=== PATIENT | female | born 1950 | race Caucasian/White ===

== ENCOUNTER 2019-08-16 09:31 | Inpatient (IN) | payer MEDICARE, OTHER ==
[~2019-08-16] VITALS: Ht 157.5 cm; Wt 115.4 kg
[2019-08-16] VITALS (8 sets, daily range): BP systolic 89–105; BP diastolic 48–86
[~2019-08-16 09:31] MED LIST: ACET325T21 PO; ACET325T9 PO; ALOG6.252 PO; AMIO200T4 PO; ANIDULAFUNGIN 100 MG IV; ANIDULAFUNGIN IV; APIX5TAB PO; ATOR10TA60 PO; CLON0.2T PO; DAPT350V IV; DEXT37.5 PO; DIPH50SY IJ; ESCITALOPRAM OX10 MG PO; FENT50VI6 IVP; FERR325T14 PO; FOLI0.8T3 PO; GLUC1VIA IJ; HEPA100D36 IV; HYDROmorphone 2 MG/ML VIAL IV PRN; INSU100C SQ; INSU100V6 SQ; INSU100V8 SQ; IV RINGERS,LACTATED 1000ML 1,000 ML IV SCH; LEVO100T5 PO; LEVO75TA5 PO; LIDO1ADH44 TP; LIDO700A21 TP; LIDOCAINE 1% PF 2 ML VIAL. ID PRN; LIDOCAINE 1% SQ; MELA3TAB56 PO; MERO500V15 IV; METO25TA4 PO; MODA200T2 PO; MORPHINE SULFATE 2 MG/ML VIAL. IV PRN; NITR0.4T22 SL; NORT25CA PO; ONDA2VIA2 IV; PANT40GR PO; PIPE13.5 IV; PREG300C PO; PROCHLORPERAZINE 10 MG/2 ML VIAL. IV PRN; SEVE800T9 PO; VANC1PIG IV; [UNRECOGNIZED DRUG - CODE] IJ; [UNRECOGNIZED DRUG - CODE] IJ; [UNRECOGNIZED DRUG - CODE] IV; [UNRECOGNIZED DRUG - OTHER] TOP; fentaNYL PF VIAL 100 MCG/2 ML VIAL IV PRN
[2019-08-16] MEDS ORDERED: HYDR-2761 PO (10:18)
[2019-08-16] MEDS ORDERED: LACT20SO PO (10:18)
[2019-08-16] MEDS ORDERED: FAMO-63 PO (10:18)
[2019-08-16] MEDS ORDERED: SENN-161 PO (10:18)
[2019-08-16] MEDS ORDERED: LACT1CAP6 PO (10:18)
[2019-08-16] MEDS: INSULIN LISPRO 100 UNIT/ML 3ML VIAL for OP,RR ONLY. SQ PRN ×2 (10:32→14:38)
[2019-08-16] MEDS: IV NORMAL SALINE 1000ML BAG 1,000 ML IV SCH (10:48)
[2019-08-16 10:51] LABS: CREATININE 2.3 mg/dL (0.6-1.0); GFR 21.2; POTASSIUM 3.9 mmol/L (3.5-5.1)
[2019-08-16 10:56] LABS: ALBUMIN 0.9 g/dL (3.4-5.0); ALBUMIN/GLOBULIN RATIO 0.2 (1.0-1.7); TOTAL BILIRUBIN 0.3 mg/dL (0.2-1.0); TOTAL PROTEIN 6.2 g/dL (6.4-8.2)
[2019-08-16] MEDS ORDERED: HEPARIN SODIUM 5,000 UNIT in IV NORMAL SALINE 500ML BAG 500 ML IRR ONE (11:00)
[2019-08-16 11:04] LABS: BASO # 0.1 x10^3/uL (0.0-0.2); BASO % 1 % (0-3); EOS # 0.2 x10^3/uL (0.0-0.7); EOS % 1 % (0-3); HEMATOCRIT 25.6 % (36.0-47.0); LYMPH % 24 % (24-48); MEAN CORPUSCULAR HEMOGLOBIN 29 pg (25-35); MEAN CORPUSCULAR HGB CONC 31 g/dL (31-37); MEAN CORPUSCULAR VOLUME 92 fL (79-100); MONO # 1.2 x10^3/uL (0.0-1.1); MONO % 7 % (0-9); NEUT # 11.5 x10^3/uL (1.8-7.7); NEUT % 68 % (31-73); PLATELET COUNT 190 x10^3/uL (140-400); RED BLOOD COUNT 2.77 x10^6/uL (3.50-5.40); RED CELL DISTRIBUTION WIDTH 19.1 % (11.5-14.5)
[2019-08-16] MEDS ORDERED: LIDOCAINE 2% PF 5 ML VIAL. ONE (11:10)
[2019-08-16] MEDS ORDERED: ROCURONIUM 50 MG/5 ML VIAL. ONE (11:10)
[2019-08-16] MEDS ORDERED: PROPOFOL 20 ML IV ONE (11:10)
[2019-08-16] MEDS ORDERED: fentaNYL PF VIAL 100 MCG/2 ML VIAL ONE (11:11)
[2019-08-16 11:12] LABS: PROTHROMBIN TIME PATIENT 14.5 SEC (11.7-14.0)
[2019-08-16] MEDS ORDERED: SURGICEL FIBRILLAR 1X2 EACH. ONE (11:38)
--- NOTE | 2019-08-16 11:59 | PDOC ---
SURGICAL PROGRESS NOTE Subjective Gen Surg Pre Op Note 69 yo F with multiple medical problems TO OR for redebridement of sacral ulcer. Will also excise anal condyloma R/R/B/A d/w pt. D/w Vascular service. Pt is poor candidate for colostomy, given obesity and large abd wall. Vital Signs Vital Signs Date Time Temp Pulse Resp B/P (MAP) Pulse Ox O2 Delivery O2 Flow Rate FiO2 08/16/19 10:44 98.0 81 20 92/42 97 Nasal Cannula 3 98.0 Labs Laboratory Tests Test 08/16/19 10:20 08/16/19 10:26 08/16/19 11:35 White Blood Count 17.0 x10^3/uL (4.0-11.0) Red Blood Count 2.77 x10^6/uL (3.50-5.40) Hemoglobin 8.0 g/dL (12.0-15.5) Hematocrit 25.6 % (36.0-47.0) Mean Corpuscular Volume 92 fL (79-100) Mean Corpuscular Hemoglobin 29 pg (25-35) Mean Corpuscular Hemoglobin Concent 31 g/dL (31-37) Red Cell Distribution Width 19.1 % (11.5-14.5) Platelet Count 190 x10^3/uL (140-400) Neutrophils (%) (Auto) 68 % (31-73) Lymphocytes (%) (Auto) 24 % (24-48) Monocytes (%) (Auto) 7 % (0-9) Eosinophils (%) (Auto) 1 % (0-3) Basophils (%) (Auto) 1 % (0-3) Neutrophils # (Auto) 11.5 x10^3/uL (1.8-7.7) Lymphocytes # (Auto) 4.0 x10^3/uL (1.0-4.8) Monocytes # (Auto) 1.2 x10^3/uL (0.0-1.1) Eosinophils # (Auto) 0.2 x10^3/uL (0.0-0.7) Basophils # (Auto) 0.1 x10^3/uL (0.0-0.2) Prothrombin Time 14.5 SEC (11.7-14.0) Prothromb Time International Ratio 1.2 (0.8-1.1) Activated Partial Thromboplast Time 43 SEC (24-38) Sodium Level 133 mmol/L (136-145) Potassium Level 3.9 mmol/L (3.5-5.1) Chloride Level 95 mmol/L (98-107) Carbon Dioxide Level 31 mmol/L (21-32) Anion Gap 7 (6-14) Blood Urea Nitrogen 34 mg/dL (7-20) Creatinine 2.3 mg/dL (0.6-1.0) Estimated GFR (Cockcroft-Gault) 21.2 BUN/Creatinine Ratio 15 (6-20) Glucose Level 255 mg/dL (70-99) Calcium Level 9.0 mg/dL (8.5-10.1) Total Bilirubin 0.3 mg/dL (0.2-1.0) Aspartate Amino Transf (AST/SGOT) 40 U/L (15-37) Alanine Aminotransferase (ALT/SGPT) 10 U/L (14-59) Alkaline Phosphatase 331 U/L (46-116) Total Protein 6.2 g/dL (6.4-8.2) Albumin 0.9 g/dL (3.4-5.0) Albumin/Globulin Ratio 0.2 (1.0-1.7) Glucose (Fingerstick) 234 mg/dL (70-99) 222 mg/dL (70-99) Laboratory Tests Test 08/16/19 10:20 08/16/19 10:26 08/16/19 11:35 White Blood Count 17.0 x10^3/uL (4.0-11.0) Red Blood Count 2.77 x10^6/uL (3.50-5.40) Hemoglobin 8.0 g/dL (12.0-15.5) Hematocrit 25.6 % (36.0-47.0) Mean Corpuscular Volume 92 fL (79-100) Mean Corpuscular Hemoglobin 29 pg (25-35) Mean Corpuscular Hemoglobin Concent 31 g/dL (31-37) Red Cell Distribution Width 19.1 % (11.5-14.5) Platelet Count 190 x10^3/uL (140-400) Neutrophils (%) (Auto) 68 % (31-73) Lymphocytes (%) (Auto) 24 % (24-48) Monocytes (%) (Auto) 7 % (0-9) Eosinophils (%) (Auto) 1 % (0-3) Basophils (%) (Auto) 1 % (0-3) Neutrophils # (Auto) 11.5 x10^3/uL (1.8-7.7) Lymphocytes # (Auto) 4.0 x10^3/uL (1.0-4.8) Monocytes # (Auto) 1.2 x10^3/uL (0.0-1.1) Eosinophils # (Auto) 0.2 x10^3/uL (0.0-0.7) Basophils # (Auto) 0.1 x10^3/uL (0.0-0.2) Prothrombin Time 14.5 SEC (11.7-14.0) Prothromb Time International Ratio 1.2 (0.8-1.1) Activated Partial Thromboplast Time 43 SEC (24-38) Sodium Level 133 mmol/L (136-145) Potassium Level 3.9 mmol/L (3.5-5.1) Chloride Level 95 mmol/L (98-107) Carbon Dioxide Level 31 mmol/L (21-32) Anion Gap 7 (6-14) Blood Urea Nitrogen 34 mg/dL (7-20) Creatinine 2.3 mg/dL (0.6-1.0) Estimated GFR (Cockcroft-Gault) 21.2 BUN/Creatinine Ratio 15 (6-20) Glucose Level 255 mg/dL (70-99) Calcium Level 9.0 mg/dL (8.5-10.1) Total Bilirubin 0.3 mg/dL (0.2-1.0) Aspartate Amino Transf (AST/SGOT) 40 U/L (15-37) Alanine Aminotransferase (ALT/SGPT) 10 U/L (14-59) Alkaline Phosphatase 331 U/L (46-116) Total Protein 6.2 g/dL (6.4-8.2) Albumin 0.9 g/dL (3.4-5.0) Albumin/Globulin Ratio 0.2 (1.0-1.7) Glucose (Fingerstick) 234 mg/dL (70-99) 222 mg/dL (70-99) SHAMEKA CROCKER MD Aug 16, 2019 11:59
[2019-08-16] MEDS ORDERED: ONDANSETRON PF 4 MG/2 ML VIAL. ONE ×2 (12:14→13:11)
[2019-08-16] MEDS ORDERED: PHENYLEPHRINE in 0.9% NACL PF 1 MG/10 ML SYRINGE. IV ONE (12:14)
[2019-08-16] MEDS ORDERED: DESFLURANE 31 TO 60 MINUTES IH ONE (12:14)
[2019-08-16] MEDS ORDERED: PHENYLEPHRINE 10 MG/ML VIAL. ONE (12:29)
[2019-08-16] MEDS ORDERED: ceFAZolin SODIUM 1 GM in IV NORMAL SALINE 1000ML BAG 1,000 ML IRR ONE ×2 (12:30→13:00)
--- NOTE | 2019-08-16 13:00 | PDOC4 ---
Operative Note Operative Note Operative Report Dictated Pre-op: right groin open wound with necrotic tissue, right above knee amputation open wound with necrotic tissue Post-op: same Operation: right groin debridement and right above the knee amputation wound debridement with wound vac dressing placements Surgeon: Dr. Citlaly Antony Blood loss:20ml Anesthesia: general CITLALY ANTONY MD Aug 16, 2019 13:00
[2019-08-16] MEDS ORDERED: DESFLURANE 61 TO 120 MINUTES IH ONE (13:11)
--- NOTE | 2019-08-16 13:18 | OP ---
DATE OF SURGERY: 08/16/2019 SURGEON: Citlaly Antony M.D. PREOPERATIVE DIAGNOSES: 1. Right groin open wound with necrotic tissue, history of right femoral endarterectomy in the recent past. 2. Right vgqxy-aub-gyky amputation open wound with extensive necrotic tissue. POSTOPERATIVE DIAGNOSES: 1. Right groin open wound with necrotic tissue, history of right femoral endarterectomy in the recent past. 2. Right byuof-jsx-yruy amputation open wound with extensive necrotic tissue. OPERATION PERFORMED: 1. Right groin sharp excisional debridement removing necrotic skin and subcutaneous tissue throughout the wound bed, wound measurements after debridement were approximately 7 cm in length x 4 cm in width x 2 cm in depth. 2. Right groin wound VAC placement. 3. Right etshc-vbq-bwmp amputation, large open wound, sharp excisional debridement removing necrotic skin, subcutaneous tissue, muscle and tendon throughout the wound, measurements after debridement were approximately 30 cm in length x 10 cm in width x 8 cm in depth. 4. Right ijhyp-lhq-oomv open amputation wound VAC placement. BLOOD LOSS: Approximately 20 mL. ANESTHESIA USED: General anesthesia. INDICATIONS: The patient is a 69-year-old female who in the past has undergone a right femoral endarterectomy and right gzfpd-moi-phyk amputation. She developed severe sepsis and infection of her below knee amputation site, which was revised to an above-knee amputation, the skin was left open with a wound VAC because of the significant infection. She also underwent right groin debridement. She has developed more necrotic tissue within her right groin and extensive necrotic tissue throughout her right rzyux-apn-fhyf amputation subcutaneous open wound. She also has a history of a large sacral decubitus ulcer, which was debrided recently by Dr. Khalil. She has further necrotic tissue in her sacrum, which needs surgical debridement. We recommend surgical debridement of the right groin, right xzjzg-jaz-bkqg open amputation site and sacral decubitus ulcer. I will perform the debridement of her right groin and right sqlqd-lee-rxdg amputation wound. An informed consent was obtained. Dr. Khalil will be working on her sacral decubitus wound. DESCRIPTION OF PROCEDURE: The patient was brought to the operating room and placed on table in supine position. She received general anesthesia monitored throughout the case by the anesthesiologist. Her right open groin wound and right qqmen-imx-umsd amputation wound were prepped and draped by normal sterile fashion using Betadine. We draped the patient. I began by debriding her right groin. There was necrotic skin and subcutaneous tissue throughout the wound bed, which was debrided. There were areas of good granulation tissue. The wound was not deep down to the vessels. There was granulation tissue well covering all the deeper vascular structures. Hemostasis was gained with electrocautery. This wound was irrigated with antibiotic solution. Measurements are listed above. I then sharply debrided her above knee open amputation wound. Necrotic skin and subcutaneous tissue throughout the wound bed along with copious amounts of muscle were removed. There were areas of tendon, which were also removed sharply. We explored all tunneling areas, ensure that all the areas were opened and debrided well. She had good bleeding from the wound bed, which was controlled with electrocautery. When there was no further gross necrotic tissue, we irrigated with copious amounts of antibiotic solution. When she again good hemostasis, we placed wound VAC dressing to her open amputation stump. We also placed a second wound VAC to the right groin and sealed them with Y adapter to suction. She tolerated this portion of the procedure. She will move on to the sacral decubitus debridement by Dr. Khalil. CITLALY ANTONY MD DR: SUJEY/estrellita JOB#: [id number] / [id number]
--- NOTE | 2019-08-16 13:23 | PDOC1 ---
History and Physical Date of Admission Date of Admission DATE: 08/16/19 TIME: 13:23 Past Medical History Cardiovascular: AFIB, CHF, Pulmonary hypertension, Other Pulmonary: COPD Renal/: Chronic renal failure Endocrine: Diabetes, Hypothyroidism, Hyperparathyroidism Past Surgical History Past Surgical History: Colon Resection, Other Family History Family History: High Cholestrol, Other Social History Smoke: No ALCOHOL: none Drugs: None Current Medications Current Medications Current Medications Fentanyl Citrate (Fentanyl 2ml Vial) 25 mcg PRN Q5MIN PRN IV MILD PAIN 1-3; Start 08/16/19 at 08:30; Stop 08/17/19 at 08:29 Fentanyl Citrate (Fentanyl 2ml Vial) 50 mcg PRN Q5MIN PRN IV MODERATE TO SEVERE PAIN; Start 08/16/19 at 08:30; Stop 08/17/19 at 08:29 Morphine Sulfate (Morphine Sulfate) 1 mg PRN Q10MIN PRN IV SEVERE PAIN 7-10; Start 08/16/19 at 08:30; Stop 08/17/19 at 08:29 Ringer's Solution 1,000 ml @ 30 mls/hr Q24H IV ; Start 08/16/19 at 08:25; Stop 08/16/19 at 20:24; Status Cancel Lidocaine HCl (Xylocaine-Mpf 1% 2ml Vial) 2 ml PRN 1X PRN ID PRIOR TO IV START; Start 08/16/19 at 08:30; Stop 08/17/19 at 08:29 Hydromorphone HCl (Dilaudid) 0.5 mg PRN Q10MIN PRN IV SEV PAIN, Second choice; Start 08/16/19 at 08:30; Stop 08/17/19 at 08:29 Prochlorperazine Edisylate (Compazine) 5 mg PACU PRN PRN IV NAUSEA, MRX1; Start 08/16/19 at 08:30; Stop 08/17/19 at 08:29 Cefazolin Sodium/ Dextrose 50 ml @ 100 mls/hr 1X ONCE IV Last administered on 08/16/19at 11:55; Start 08/16/19 at 10:00; Stop 08/16/19 at 10:29; Status DC Insulin Human Lispro (HumaLOG VIAL for OP,RR ONLY) 0-10 units PRN Q1HR PRN SQ PER PROTOCOL Last administered on 08/16/19at 10:32; Start 08/16/19 at 10:30; Stop 08/17/19 at 10:29 Heparin Sodium (Porcine) 5000 unit/Sodium Chloride 505 ml @ 505 mls/hr 1X ONCE IRR ; Start 08/16/19 at 11:00; Stop 08/16/19 at 11:59; Status DC Cefazolin Sodium 1 gm/Sodium Chloride 500 ml @ 500 mls/hr 1X ONCE IRR Last administered on 08/16/19at 12:19; Start 08/16/19 at 11:00; Stop 08/16/19 at 11:59; Status DC Sodium Chloride 1,000 ml @ 75 mls/hr [id number] IV Last administered on 08/16/19at 10:48; Start 08/16/19 at 10:45 Propofol 20 ml @ As Directed STK-MED ONCE IV ; Start 08/16/19 at 11:10; Stop 08/16/19 at 11:11; Status DC Lidocaine HCl (Lidocaine Pf 2% Vial) 5 ml STK-MED ONCE .ROUTE ; Start 08/16/19 at 11:10; Stop 08/16/19 at 11:11; Status DC Rocuronium [place] (Zemuron) 50 mg STK-MED ONCE .ROUTE ; Start 08/16/19 at 11:10; Stop 08/16/19 at 11:11; Status DC Fentanyl Citrate (Fentanyl 2ml Vial) 100 mcg STK-MED ONCE .ROUTE ; Start 08/16/19 at 11:11; Stop 08/16/19 at 11:11; Status DC Cellulose (Surgicel Fibrillar 1x2) 1 each STK-MED ONCE .ROUTE ; Start 08/16/19 at 11:38; Stop 08/16/19 at 11:38; Status DC Ondansetron HCl (Zofran) 4 mg STK-MED ONCE .ROUTE ; Start 08/16/19 at 12:14; Stop 08/16/19 at 12:14; Status DC Phenylephrine HCl (PHENYLEPHRINE in 0.9% NACL PF) 1 mg STK-MED ONCE IV ; Start 08/16/19 at 12:14; Stop 08/16/19 at 12:14; Status DC Desflurane (Suprane) 30 ml STK-MED ONCE IH ; Start 08/16/19 at 12:14; Stop 10/1/19 at 12:14; Status DC Cefazolin Sodium 1 gm/Sodium Chloride 1,000 ml @ 1,000 mls/hr 1X ONCE IRR ; Start 08/16/19 at 13:00; Stop 08/16/19 at 13:59 Cefazolin Sodium 1 gm/Sodium Chloride 1,000 ml @ 1,000 mls/hr 1X ONCE IRR ; Start 08/16/19 at 12:30; Stop 08/16/19 at 13:29 Phenylephrine HCl (Von-Synephrine Inj) 10 mg STK-MED ONCE .ROUTE ; Start 08/16/19 at 12:29; Stop 08/16/19 at 12:29; Status DC Ondansetron HCl (Zofran) 4 mg STK-MED ONCE .ROUTE ; Start 08/16/19 at 13:11; Stop 08/16/19 at 13:11; Status DC Desflurane (Suprane) 60 ml STK-MED ONCE IH ; Start 08/16/19 at 13:11; Stop 08/16/19 at 13:11; Status DC Active Scripts Active Reported Senna-Docusate Sodium Tablet (Sennosides/Docusate Sodium) 1 Each Tablet 1 Each PO BID Lactulose 20 Gm/30 Ml Solution 20 Gm PO BID PRN Probiotic (Lactobacillus Acidophilus) 1 Each Capsule 2 Each PO BID Hydrocodone-Apap 5-325 (Hydrocodone Bit/Acetaminophen) 1 Tab Tablet 1 Tab PO PRN Q6HRS PRN Pepcid (Famotidine) 20 Mg Tablet 20 Mg PO HS [anidulafungin 100mg] 100 Mg IV QHS [clorpactin 2gm powd] 1 Gm TOP DAILY Humalog (Insulin Lispro) 100 Unit/1 Ml Vial 4 Unit SQ Q6HRS Meropenem 500 Mg Vial 500 Mg IV QHS Daptomycin 350 Mg Vial 350 Mg IV DAILY Humalog (Insulin Lispro) 100 Unit/1 Ml Cartridge 100 Units SQ Q6HRS Diphenhydramine HCl 50 Mg/1 Ml Cartridge 25 Mg IJ PRN Q4HRS PRN Glutose 15 (Dextrose) 37.5 Gm Gel..gram. 15 Gm PO PRN Q15MIN PRN Retacrit (Epoetin Rajeev-Epbx) 3,000 Unit/1 Ml Vial 3,000 Unit IJ QMWF Renvela (Sevelamer Carbonate) 800 Mg Tablet 800 Mg PO TIDWMEALS Alogliptin (Alogliptin Benzoate) 6.25 Mg Tablet 6.25 Mg PO DAILY Tylenol (Acetaminophen) 325 Mg Tablet 2 Tab PO PRN Q4HRS Lyrica (Pregabalin) 300 Mg Capsule 1 Cap PO BID Clonidine Hcl 0.2 Mg Tablet 1 Tab PO PRN DAILY PRN NITROGLYCERIN SubLingual (Nitroglycerin) 0.4 Mg Tab.subl 1 Tab SL UD Heparin 1,000 Unit/10 (100/ml) (Heparin Sodium,Porcine/Pf) 1,000 Unit/10 Ml Syringe 3.5 Ml IV PRN DAILY PRN Levothyroxine Sodium 100 Mcg Tablet 1 Tab PO DAILY06 Escitalopram Oxalate 10 Mg Tablet 1 Tab PO DAILY Nortriptyline Hcl 25 Mg Capsule 1 Cap PO QHS Atorvastatin Calcium 10 Mg Tablet 1 Tab PO QHS Metoprolol Tartrate 25 Mg Tablet 1 Tab PO BID Lantus (Insulin Glargine,Hum.rec.anlog) 100 Unit/1 Ml Vial 20 Unit SQ DAILY Amiodarone Hcl 200 Mg Tablet 1 Tab PO BID Allergies Allergies: Coded Allergies: I S O L A T I O N *CONTACT* (Verified Allergy, Unknown, 08/16/19) ESBL No Known Medication Allergies (Verified Allergy, Unknown, 08/16/19) ROS Review of System CONSTITUTIONAL: No fever or chills EYES: No recent changes SKIN: No rash or itching CARDIOVASCULAR: No chest pain, syncope, palpitations, or edema RESPIRATORY: No SOB or cough GASTROINTESTINAL: No nausea, vomiting or abdominal pain NEUROLOGICAL: No headaches or weakness ENDOCRINE: No cold or heat intolerance GENITOURINARY: No urgency or frequency of urination MUSCULOSKELETAL: No back pain or joint pain LYMPHATICS: No enlarged lymph nodes PSYCHIATRIC: No anxiety or depression Physical Exam Physical Exam Past Medical History Cardiovascular: AFIB, CHF, Pulmonary hypertension, Other Pulmonary: COPD Renal/: Chronic renal failure Endocrine: Diabetes, Hypothyroidism Past Surgical History Past Surgical History: Colon Resection Family History Family History reviewed and noncontributory Family History: Other Social History Smoke: No ALCOHOL: none Drugs: None Current Medications Current Medications Current Medications Zolpidem Tartrate (Ambien) 5 mg PRN QHS PRN PO INSOMNIA, MAY REPEAT IN 1HR; Start 08/09/19 at 16:15 Acetaminophen/ Hydrocodone Bitart (Lortab 5/325) 1 tab PRN Q4HRS PRN PO MILD PAIN 1-3; Start 08/09/19 at 16:15 Senna/Docusate Sodium (Senna Plus) 1 tab BID PO ; Start 08/09/19 at 21:00 Magnesium Hydroxide (Milk Of Magnesia) 2,400 mg PRN Q12HR PRN PO CONSTIPATION; Start 08/09/19 at 16:15 Lactulose (Lactulose) 20 gm PRN Q12HR PRN PO CONSTIPATION; Start 08/09/19 at 16:15 Active Scripts Active Reported Vancomycin 1 Gram/200 ml Bag (Vancomycin/Water For Inj (Peg)) 1 Gm/200 Ml Piggyback 500 Mg IV QMWF Lyrica (Pregabalin) 300 Mg Capsule 1 Cap PO BID Clonidine Hcl 0.2 Mg Tablet 1 Tab PO PRN DAILY PRN NITROGLYCERIN SubLingual (Nitroglycerin) 0.4 Mg Tab.subl 1 Tab SL UD Heparin 1,000 Unit/10 (100/ml) (Heparin Sodium,Porcine/Pf) 1,000 Unit/10 Ml Syringe 3.5 Ml IV PRN DAILY PRN Levothyroxine Sodium 100 Mcg Tablet 1 Tab PO DAILY06 Escitalopram Oxalate 10 Mg Tablet 2 Tab PO DAILY Nephro-Murphy Tablet (Folic Acid/Vitamin B Comp W-C) 0.8 Mg Tablet 1 Tab PO DAILYWSUP Nortriptyline Hcl 25 Mg Capsule 1 Cap PO QHS Atorvastatin Calcium 10 Mg Tablet 1 Tab PO QHS Levothyroxine Sodium 75 Mcg Tablet 1 Tab PO DAILY Piperacil-Tazobact 13.5 gm Vl (Piperacillin Sodium/Tazobactam) 13.5 Gm Vial 3.375 Gm IV BID Metoprolol Tartrate 25 Mg Tablet 1 Tab PO BID Melatonin 3 Mg Tablet 1 Tab PO QHS Lantus (Insulin Glargine,Hum.rec.anlog) 100 Unit/1 Ml Vial 20 Unit SQ DAILY Retacrit (Epoetin Rajeev-Epbx) 2,000 Unit/1 Ml Vial 1,000 Unit IJ QMWF Amiodarone Hcl 200 Mg Tablet 1 Tab PO BID Allergies Allergies: Coded Allergies: I S O L A T I O N *CONTACT* (Verified Allergy, Unknown, 07/25/19) ESBL No Known Medication Allergies (Verified Allergy, Unknown, 07/25/19) ROS Review of System CONSTITUTIONAL: No fever or chills EYES: No recent changes SKIN: No rash or itching CARDIOVASCULAR: No chest pain, syncope, palpitations, or edema RESPIRATORY: No SOB or cough GASTROINTESTINAL: No nausea, vomiting or abdominal pain NEUROLOGICAL: No headaches or weakness ENDOCRINE: No cold or heat intolerance GENITOURINARY: No urgency or frequency of urination MUSCULOSKELETAL: No back pain or joint pain LYMPHATICS: No enlarged lymph nodes PSYCHIATRIC: No anxiety or depression Physical Exam Physical Exam GENERAL: No apparent distress. Alert and oriented. obese HEENT: Head normocephalic, atraumatic. NECK: Supple LUNGS: Clear to auscultation. HEART: RRR, S1, S2 present, pulses intact ABDOMEN: Soft, positive bowel sounds. + G tube EXTREMITIES: No cyanosis or edema. right BKA with stump infection. NEUROLOGIC: Normal speech, normal tone PSYCHIATRIC: Normal affect, normal mood. SKIN: sacral ucler pos debridement Breasts: Not examined Rectal Exam: not examined Extremities: No cyanosis + hubbard, + rectal tube Breasts: Not examined Rectal Exam: not examined Extremities: No cyanosis Vitals Vitals Vital Signs Date Time Temp Pulse Resp B/P (MAP) Pulse Ox O2 Delivery O2 Flow Rate FiO2 08/16/19 10:44 98.0 81 20 92/42 97 Nasal Cannula 3 98.0 Labs Labs Laboratory Tests Test 08/16/19 10:20 08/16/19 10:26 08/16/19 11:35 White Blood Count 17.0 x10^3/uL (4.0-11.0) Red Blood Count 2.77 x10^6/uL (3.50-5.40) Hemoglobin 8.0 g/dL (12.0-15.5) Hematocrit 25.6 % (36.0-47.0) Mean Corpuscular Volume 92 fL (79-100) Mean Corpuscular Hemoglobin 29 pg (25-35) Mean Corpuscular Hemoglobin Concent 31 g/dL (31-37) Red Cell Distribution Width 19.1 % (11.5-14.5) Platelet Count 190 x10^3/uL (140-400) Neutrophils (%) (Auto) 68 % (31-73) Lymphocytes (%) (Auto) 24 % (24-48) Monocytes (%) (Auto) 7 % (0-9) Eosinophils (%) (Auto) 1 % (0-3) Basophils (%) (Auto) 1 % (0-3) Neutrophils # (Auto) 11.5 x10^3/uL (1.8-7.7) Lymphocytes # (Auto) 4.0 x10^3/uL (1.0-4.8) Monocytes # (Auto) 1.2 x10^3/uL (0.0-1.1) Eosinophils # (Auto) 0.2 x10^3/uL (0.0-0.7) Basophils # (Auto) 0.1 x10^3/uL (0.0-0.2) Prothrombin Time 14.5 SEC (11.7-14.0) Prothromb Time International Ratio 1.2 (0.8-1.1) Activated Partial Thromboplast Time 43 SEC (24-38) Sodium Level 133 mmol/L (136-145) Potassium Level 3.9 mmol/L (3.5-5.1) Chloride Level 95 mmol/L (98-107) Carbon Dioxide Level 31 mmol/L (21-32) Anion Gap 7 (6-14) Blood Urea Nitrogen 34 mg/dL (7-20) Creatinine 2.3 mg/dL (0.6-1.0) Estimated GFR (Cockcroft-Gault) 21.2 BUN/Creatinine Ratio 15 (6-20) Glucose Level 255 mg/dL (70-99) Calcium Level 9.0 mg/dL (8.5-10.1) Total Bilirubin 0.3 mg/dL (0.2-1.0) Aspartate Amino Transf (AST/SGOT) 40 U/L (15-37) Alanine Aminotransferase (ALT/SGPT) 10 U/L (14-59) Alkaline Phosphatase 331 U/L (46-116) Total Protein 6.2 g/dL (6.4-8.2) Albumin 0.9 g/dL (3.4-5.0) Albumin/Globulin Ratio 0.2 (1.0-1.7) Glucose (Fingerstick) 234 mg/dL (70-99) 222 mg/dL (70-99) Laboratory Tests Test 08/16/19 10:20 08/16/19 10:26 08/16/19 11:35 White Blood Count 17.0 x10^3/uL (4.0-11.0) Red Blood Count 2.77 x10^6/uL (3.50-5.40) Hemoglobin 8.0 g/dL (12.0-15.5) Hematocrit 25.6 % (36.0-47.0) Mean Corpuscular Volume 92 fL (79-100) Mean Corpuscular Hemoglobin 29 pg (25-35) Mean Corpuscular Hemoglobin Concent 31 g/dL (31-37) Red Cell Distribution Width 19.1 % (11.5-14.5) Platelet Count 190 x10^3/uL (140-400) Neutrophils (%) (Auto) 68 % (31-73) Lymphocytes (%) (Auto) 24 % (24-48) Monocytes (%) (Auto) 7 % (0-9) Eosinophils (%) (Auto) 1 % (0-3) Basophils (%) (Auto) 1 % (0-3) Neutrophils # (Auto) 11.5 x10^3/uL (1.8-7.7) Lymphocytes # (Auto) 4.0 x10^3/uL (1.0-4.8) Monocytes # (Auto) 1.2 x10^3/uL (0.0-1.1) Eosinophils # (Auto) 0.2 x10^3/uL (0.0-0.7) Basophils # (Auto) 0.1 x10^3/uL (0.0-0.2) Prothrombin Time 14.5 SEC (11.7-14.0) Prothromb Time International Ratio 1.2 (0.8-1.1) Activated Partial Thromboplast Time 43 SEC (24-38) Sodium Level 133 mmol/L (136-145) Potassium Level 3.9 mmol/L (3.5-5.1) Chloride Level 95 mmol/L (98-107) Carbon Dioxide Level 31 mmol/L (21-32) Anion Gap 7 (6-14) Blood Urea Nitrogen 34 mg/dL (7-20) Creatinine 2.3 mg/dL (0.6-1.0) Estimated GFR (Cockcroft-Gault) 21.2 BUN/Creatinine Ratio 15 (6-20) Glucose Level 255 mg/dL (70-99) Calcium Level 9.0 mg/dL (8.5-10.1) Total Bilirubin 0.3 mg/dL (0.2-1.0) Aspartate Amino Transf (AST/SGOT) 40 U/L (15-37) Alanine Aminotransferase (ALT/SGPT) 10 U/L (14-59) Alkaline Phosphatase 331 U/L (46-116) Total Protein 6.2 g/dL (6.4-8.2) Albumin 0.9 g/dL (3.4-5.0) Albumin/Globulin Ratio 0.2 (1.0-1.7) Glucose (Fingerstick) 234 mg/dL (70-99) 222 mg/dL (70-99) VTE Prophylaxis Ordered VTE Prophylaxis Devices: Contraindicated VTE Pharmacological Prophylaxi: Yes Assessment/Plan Assessment/Plan VTE Prophylaxis Ordered VTE Prophylaxis Devices: No VTE Pharmacological Prophylaxi: Yes Assessment/Plan 1. Acute on chronic respiratory failure, multifactorial. 2. Status post right above-knee amputation 3. Status post excisional debridement of necrotic skin and subcutaneous tissue around the right groin with placement of a wound VAC. 4. PAD-S/P R Fem Endartrectomy and BKA for gangrene, now with necrosis and dehiscence. S/p right rdrbw-vig-vdzr amputation with excision of infected gangrene her amputation, status post surgical intervention 5. Right groin incision with extensive gangrene throughout the incision with dehiscence and underlying necrotic tissue from recent femoral endarterectomy. 6. Morbid obesity. 7. Diabetes. 8. Acute on chronic kidney disease requiring hemodialysis. 9. hx Methicillin-resistant Staphylococcus aureus sepsis. 10. Hypertension. 11. Chronic anemia. 12. HX OF Metabolic toxic encephalopathy. 13. UPPER DVT 14. ESRD ON HD 15. sacral cocy wound 16. poor candidate for colostomy, given obesity Operative Note Operative Note Operative Note Operative Report Dictated Pre-op: right groin open wound with necrotic tissue, right above knee amputation open wound with necrotic tissue Post-op: same Operation: right groin debridement and right above the knee amputation wound debridement with wound vac dressing placements Surgeon: Dr. Taryn Antony Blood loss:20ml Anesthesia: general TARYN ANTONY MD Aug 16, 2019 13:00 PLAN admit to medical bed continue IV abx taking at [facility]. restart insulin when takin po continue supplemental 02 consult nutrition, has G tube placed recently on 07/27. presume to optimize nutritional status. unclear if hx of dysphagia. ID consult for abx recommendations. nephro consult for HD check baseline labs DNR and DNI WILFREDO MUNOZ MD Aug 16, 2019 13:23
[2019-08-16] MEDS ORDERED: HEPARIN SODIUM PORCINE IV PRN (14:00)
[2019-08-16] MEDS ORDERED: DEXTROSE ORAL GEL 15 GM TUBE. PO PRN (14:00)
[2019-08-16] MEDS ORDERED: NITROGLYCERIN SUBLINGUAL 0.4 MG BOTTLE OF 25. SL PRN (14:00)
[2019-08-16] MEDS ORDERED: cloNIDine HCL 0.2 MG TABLET PO PRN (14:00)
[2019-08-16] MEDS ORDERED: LACTULOSE 20 GM/30 ML SOLUTION. PO PRN (14:00)
[2019-08-16] MEDS: fentaNYL PF VIAL 100 MCG/2 ML VIAL IV PRN ×2 (14:15→14:27)
[2019-08-16] MEDS ORDERED: diphenhydrAMINE 50 MG/ML VIAL IV PRN (14:15)
--- NOTE | 2019-08-16 15:00 | PDOC4 ---
OPERATIVE NOTE Date: Date: Aug 16, 2019 Pre-Op Diagnosis: Sacral ulcer, anal condyloma Post-Op Diagnosis: same Procedure Performed: Excisional debridement of skin, subcutaneous tissue and bone, excision of anal condyloma Surgeon: Naeem Crocker Anesthesia Type: GEORGESA Blood Loss: 50 Specimans Obtained: anal condyloma, sacral ulcer Findings: Much improved sacral ulcer, with anal condyloma Complications: none Operative Note: After obtaining informed consent, patient was taken to OR by Dr. Antony. Subsequently, pt was placed in a prone position and the previous dressings removed. Patient's large sacral ulcer is much improved (same size, but much less necrotic tissue and prominent granulation tissue). Remaining necrotic skin, subcutaneous tissue and some residual necrotic bone of the coccyx/sacrum was excised with cautery. Hemostasis was obtained with cautery. 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 Hemostasis was obtained with cautery. Debridement and anal condyloma were sent to pathology for evaluation. Wound was then packed with large amount of betadine soaked gauze. Dressing placed. Patient tolerated procedure well and sent to PACU in stable condition. All counts correct. Wound class is 4, dirty. SHAMEKA CROCKER MD Aug 16, 2019 15:00
--- NOTE | 2019-08-16 15:12 | NUR ---
BEDSIDE TO ASSESS PT'S BLOOD PRESSURE. ANESTHESIA SAID SHE IS DIFFICULT TO GET PRESSURES ON AND STATES SHE IS FINE TO SIGN OUT
[2019-08-16] MEDS: SEVELAMER CARBONATE 800 MG TABLET. PO SCH (17:00)
[2019-08-16] MEDS ORDERED: ANIDULAFUNGIN 100 MG IV SCH (21:00)
[2019-08-16] MEDS: AMIODARONE HCL 200 MG TABLET. PO SCH (21:00)
[2019-08-16] MEDS ORDERED: MEROPENEM 500 MG VIAL IV SCH (21:00)
[2019-08-16] MEDS: METOPROLOL TART IMMED RELEASE 25 MG TABLET. PO SCH (21:00)
[2019-08-16] MEDS: FAMOTIDINE 20 MG TABLET. PO SCH (21:56)
[2019-08-16] MEDS: MICAFUNGIN 100 MG in IV DEXTROSE 5% 100ML 100 ML IV SCH (21:56)
[2019-08-16] MEDS: MEROPENEM 500 MG in IV NORMAL SALINE 50ML 50 ML IV SCH (21:56)
[2019-08-16] MEDS: PREGABALIN 75 MG CAPSULE PO SCH (21:57)
[2019-08-16] MEDS: NORTRIPTYLINE 25 MG CAPSULE PO SCH (21:57)
[2019-08-16] MEDS: LACTOBACILLUS RHAMNOSUS GG 1 CAPSULE. PO SCH (21:57)
[2019-08-16] MEDS: ATORVASTATIN CALCIUM 10 MG TABLET. PO SCH (21:57)
[2019-08-16] MEDS: SENNOSIDES/DOCUSATE 8.6/50MG TABLET. PO SCH (21:57)
[2019-08-17] MEDS: IV NORMAL SALINE 1000ML BAG 1,000 ML IV SCH ×3 (00:05→21:33)
[2019-08-17 03:20] VITALS: BP 91/46
[2019-08-17] MEDS: LEVOTHYROXINE 100 MCG TABLET PO SCH (05:55)
--- NOTE | 2019-08-17 06:31 | NUR ---
refused lab draw and medication
[2019-08-17 07:00] VITALS: BP 99/54
[2019-08-17] MEDS: SEVELAMER CARBONATE 800 MG TABLET. PO SCH ×3 (08:00→18:36)
--- NOTE | 2019-08-17 08:07 | PDOC ---
PROGRESS NOTES History of Present Illness History of Present Illness Assessment/Plan Assessment/Plan VTE Prophylaxis Ordered VTE Prophylaxis Devices: No VTE Pharmacological Prophylaxi: Yes Assessment/Plan 1. Acute on chronic respiratory failure, multifactorial. 2. Status post right above-knee amputation 3. Status post excisional debridement of necrotic skin and subcutaneous tissue around the right groin with placement of a wound VAC. 4. PAD-S/P R Fem Endartrectomy and BKA for gangrene, now with necrosis and dehiscence. S/p right [id number] amputation with excision of infected gangrene her amputation, status post surgical intervention 5. Right groin incision with extensive gangrene throughout the incision with dehiscence and underlying necrotic tissue from recent femoral endarterectomy. 6. Morbid obesity. 7. Diabetes. 8. Acute on chronic kidney disease requiring hemodialysis. 9. hx Methicillin-resistant Staphylococcus aureus sepsis. 10. Hypertension. 11. Chronic anemia. 12. HX OF Metabolic toxic encephalopathy. 13. UPPER DVT 14. ESRD ON HD 15. sacral cocy wound 16. poor candidate for colostomy, given obesity 17. Sacrococcygeal decubitus w/ necrotic tissue s/p excisional debridement of skin, subcutaneous tissue and bone, excision of anal condyloma, 08/16 -h/o prior debridements and h/o ESBL Klebsiella, Enterococcus, E. col and bacteroides 07/12 Operative Note Operative Note Operative Note Operative Report Dictated Pre-op: right groin open wound with necrotic tissue, right above knee amputation open wound with necrotic tissue Post-op: same Operation: right groin debridement and right above the knee amputation wound debridement with wound vac dressing placements Surgeon: Dr. Taryn Antony Blood loss:20ml Anesthesia: general TARYN ANTONY MD Aug 16, 2019 13:00 PLAN admit to medical bed continue IV abx taking at [facility]. restart insulin when takin po continue supplemental 02 consult nutrition, has G tube placed recently on 07/27. presume to optimize nutritional status. unclear if hx of dysphagia. ID consult for abx recommendations. nephro consult for HD check baseline labs DNR and DNI refusing all treatments today, consulted palliative care 38 min pt exam, chart review, > 50% of time with exam, chart review pt care coordination Vitals Vitals Vital Signs Date Time Temp Pulse Resp B/P (MAP) Pulse Ox O2 Delivery O2 Flow Rate FiO2 10/2/19 03:20 99.1 94 18 91/46 (61) 97 Nasal Cannula 2.0 99.1 Physical Exam General: Alert, Oriented X3, No acute distress Heart: Regular rate Lungs: Clear Abdomen: Normal bowel sounds, Soft, Other (very obese) Extremities: No clubbing, No cyanosis Labs LABS Laboratory Tests Test 08/16/19 10:20 08/16/19 10:26 08/16/19 11:35 08/16/19 14:26 White Blood Count 17.0 x10^3/uL (4.0-11.0) Red Blood Count 2.77 x10^6/uL (3.50-5.40) Hemoglobin 8.0 g/dL (12.0-15.5) Hematocrit 25.6 % (36.0-47.0) Mean Corpuscular Volume 92 fL (79-100) Mean Corpuscular Hemoglobin 29 pg (25-35) Mean Corpuscular Hemoglobin Concent 31 g/dL (31-37) Red Cell Distribution Width 19.1 % (11.5-14.5) Platelet Count 190 x10^3/uL (140-400) Neutrophils (%) (Auto) 68 % (31-73) Lymphocytes (%) (Auto) 24 % (24-48) Monocytes (%) (Auto) 7 % (0-9) Eosinophils (%) (Auto) 1 % (0-3) Basophils (%) (Auto) 1 % (0-3) Neutrophils # (Auto) 11.5 x10^3/uL (1.8-7.7) Lymphocytes # (Auto) 4.0 x10^3/uL (1.0-4.8) Monocytes # (Auto) 1.2 x10^3/uL (0.0-1.1) Eosinophils # (Auto) 0.2 x10^3/uL (0.0-0.7) Basophils # (Auto) 0.1 x10^3/uL (0.0-0.2) Prothrombin Time 14.5 SEC (11.7-14.0) Prothromb Time International Ratio 1.2 (0.8-1.1) Activated Partial Thromboplast Time 43 SEC (24-38) Sodium Level 133 mmol/L (136-145) Potassium Level 3.9 mmol/L (3.5-5.1) Chloride Level 95 mmol/L (98-107) Carbon Dioxide Level 31 mmol/L (21-32) Anion Gap 7 (6-14) Blood Urea Nitrogen 34 mg/dL (7-20) Creatinine 2.3 mg/dL (0.6-1.0) Estimated GFR (Cockcroft-Gault) 21.2 BUN/Creatinine Ratio 15 (6-20) Glucose Level 255 mg/dL (70-99) Calcium Level 9.0 mg/dL (8.5-10.1) Total Bilirubin 0.3 mg/dL (0.2-1.0) Aspartate Amino Transf (AST/SGOT) 40 U/L (15-37) Alanine Aminotransferase (ALT/SGPT) 10 U/L (14-59) Alkaline Phosphatase 331 U/L (46-116) Total Protein 6.2 g/dL (6.4-8.2) Albumin 0.9 g/dL (3.4-5.0) Albumin/Globulin Ratio 0.2 (1.0-1.7) Glucose (Fingerstick) 234 mg/dL (70-99) 222 mg/dL (70-99) 201 mg/dL (70-99) Test 08/16/19 15:47 08/16/19 21:29 08/17/19 07:45 Glucose (Fingerstick) 180 mg/dL (70-99) 150 mg/dL (70-99) 133 mg/dL (70-99) Comment Review of Relevant I have reviewed the following items karina (where applicable) has been applied. Labs Laboratory Tests Test 08/16/19 10:20 08/16/19 10:26 08/16/19 11:35 08/16/19 14:26 White Blood Count 17.0 x10^3/uL (4.0-11.0) Red Blood Count 2.77 x10^6/uL (3.50-5.40) Hemoglobin 8.0 g/dL (12.0-15.5) Hematocrit 25.6 % (36.0-47.0) Mean Corpuscular Volume 92 fL (79-100) Mean Corpuscular Hemoglobin 29 pg (25-35) Mean Corpuscular Hemoglobin Concent 31 g/dL (31-37) Red Cell Distribution Width 19.1 % (11.5-14.5) Platelet Count 190 x10^3/uL (140-400) Neutrophils (%) (Auto) 68 % (31-73) Lymphocytes (%) (Auto) 24 % (24-48) Monocytes (%) (Auto) 7 % (0-9) Eosinophils (%) (Auto) 1 % (0-3) Basophils (%) (Auto) 1 % (0-3) Neutrophils # (Auto) 11.5 x10^3/uL (1.8-7.7) Lymphocytes # (Auto) 4.0 x10^3/uL (1.0-4.8) Monocytes # (Auto) 1.2 x10^3/uL (0.0-1.1) Eosinophils # (Auto) 0.2 x10^3/uL (0.0-0.7) Basophils # (Auto) 0.1 x10^3/uL (0.0-0.2) Prothrombin Time 14.5 SEC (11.7-14.0) Prothromb Time International Ratio 1.2 (0.8-1.1) Activated Partial Thromboplast Time 43 SEC (24-38) Sodium Level 133 mmol/L (136-145) Potassium Level 3.9 mmol/L (3.5-5.1) Chloride Level 95 mmol/L (98-107) Carbon Dioxide Level 31 mmol/L (21-32) Anion Gap 7 (6-14) Blood Urea Nitrogen 34 mg/dL (7-20) Creatinine 2.3 mg/dL (0.6-1.0) Estimated GFR (Cockcroft-Gault) 21.2 BUN/Creatinine Ratio 15 (6-20) Glucose Level 255 mg/dL (70-99) Calcium Level 9.0 mg/dL (8.5-10.1) Total Bilirubin 0.3 mg/dL (0.2-1.0) Aspartate Amino Transf (AST/SGOT) 40 U/L (15-37) Alanine Aminotransferase (ALT/SGPT) 10 U/L (14-59) Alkaline Phosphatase 331 U/L (46-116) Total Protein 6.2 g/dL (6.4-8.2) Albumin 0.9 g/dL (3.4-5.0) Albumin/Globulin Ratio 0.2 (1.0-1.7) Glucose (Fingerstick) 234 mg/dL (70-99) 222 mg/dL (70-99) 201 mg/dL (70-99) Test 08/16/19 15:47 08/16/19 21:29 08/17/19 07:45 Glucose (Fingerstick) 180 mg/dL (70-99) 150 mg/dL (70-99) 133 mg/dL (70-99) Laboratory Tests Test 08/16/19 10:20 08/16/19 10:26 08/16/19 11:35 08/16/19 14:26 White Blood Count 17.0 x10^3/uL (4.0-11.0) Red Blood Count 2.77 x10^6/uL (3.50-5.40) Hemoglobin 8.0 g/dL (12.0-15.5) Hematocrit 25.6 % (36.0-47.0) Mean Corpuscular Volume 92 fL (79-100) Mean Corpuscular Hemoglobin 29 pg (25-35) Mean Corpuscular Hemoglobin Concent 31 g/dL (31-37) Red Cell Distribution Width 19.1 % (11.5-14.5) Platelet Count 190 x10^3/uL (140-400) Neutrophils (%) (Auto) 68 % (31-73) Lymphocytes (%) (Auto) 24 % (24-48) Monocytes (%) (Auto) 7 % (0-9) Eosinophils (%) (Auto) 1 % (0-3) Basophils (%) (Auto) 1 % (0-3) Neutrophils # (Auto) 11.5 x10^3/uL (1.8-7.7) Lymphocytes # (Auto) 4.0 x10^3/uL (1.0-4.8) Monocytes # (Auto) 1.2 x10^3/uL (0.0-1.1) Eosinophils # (Auto) 0.2 x10^3/uL (0.0-0.7) Basophils # (Auto) 0.1 x10^3/uL (0.0-0.2) Prothrombin Time 14.5 SEC (11.7-14.0) Prothromb Time International Ratio 1.2 (0.8-1.1) Activated Partial Thromboplast Time 43 SEC (24-38) Sodium Level 133 mmol/L (136-145) Potassium Level 3.9 mmol/L (3.5-5.1) Chloride Level 95 mmol/L (98-107) Carbon Dioxide Level 31 mmol/L (21-32) Anion Gap 7 (6-14) Blood Urea Nitrogen 34 mg/dL (7-20) Creatinine 2.3 mg/dL (0.6-1.0) Estimated GFR (Cockcroft-Gault) 21.2 BUN/Creatinine Ratio 15 (6-20) Glucose Level 255 mg/dL (70-99) Calcium Level 9.0 mg/dL (8.5-10.1) Total Bilirubin 0.3 mg/dL (0.2-1.0) Aspartate Amino Transf (AST/SGOT) 40 U/L (15-37) Alanine Aminotransferase (ALT/SGPT) 10 U/L (14-59) Alkaline Phosphatase 331 U/L (46-116) Total Protein 6.2 g/dL (6.4-8.2) Albumin 0.9 g/dL (3.4-5.0) Albumin/Globulin Ratio 0.2 (1.0-1.7) Glucose (Fingerstick) 234 mg/dL (70-99) 222 mg/dL (70-99) 201 mg/dL (70-99) Test 08/16/19 15:47 08/16/19 21:29 08/17/19 07:45 Glucose (Fingerstick) 180 mg/dL (70-99) 150 mg/dL (70-99) 133 mg/dL (70-99) Medications Current Medications Fentanyl Citrate (Fentanyl 2ml Vial) 25 mcg PRN Q5MIN PRN IV MILD PAIN 1-3 Last administered on 08/16/19at 14:27; Start 08/16/19 at 08:30; Stop 08/17/19 at 08:29 Fentanyl Citrate (Fentanyl 2ml Vial) 50 mcg PRN Q5MIN PRN IV MODERATE TO SEVERE PAIN Last administered on 08/16/19at 14:35; Start 08/16/19 at 08:30; Stop 08/17/19 at 08:29 Morphine Sulfate (Morphine Sulfate) 1 mg PRN Q10MIN PRN IV SEVERE PAIN 7-10; Start 08/16/19 at 08:30; Stop 08/17/19 at 08:29 Ringer's Solution 1,000 ml @ 30 mls/hr Q24H IV ; Start 08/16/19 at 08:25; Stop 08/16/19 at 20:24; Status Cancel Lidocaine HCl (Xylocaine-Mpf 1% 2ml Vial) 2 ml PRN 1X PRN ID PRIOR TO IV START; Start 08/16/19 at 08:30; Stop 08/17/19 at 08:29 Hydromorphone HCl (Dilaudid) 0.5 mg PRN Q10MIN PRN IV SEV PAIN, Second choice; Start 08/16/19 at 08:30; Stop 08/17/19 at 08:29 Prochlorperazine Edisylate (Compazine) 5 mg PACU PRN PRN IV NAUSEA, MRX1; Start 08/16/19 at 08:30; Stop 08/17/19 at 08:29 Cefazolin Sodium/ Dextrose 50 ml @ 100 mls/hr 1X ONCE IV Last administered on 08/16/19at 11:55; Start 08/16/19 at 10:00; Stop 08/16/19 at 10:29; Status DC Insulin Human Lispro (HumaLOG VIAL for OP,RR ONLY) 0-10 units PRN Q1HR PRN SQ PER PROTOCOL Last administered on 08/16/19at 14:38; Start 08/16/19 at 10:30; Stop 08/17/19 at 10:29 Heparin Sodium (Porcine) 5000 unit/Sodium Chloride 505 ml @ 505 mls/hr 1X ONCE IRR ; Start 08/16/19 at 11:00; Stop 08/16/19 at 11:59; Status DC Cefazolin Sodium 1 gm/Sodium Chloride 500 ml @ 500 mls/hr 1X ONCE IRR Last ad ministered on 08/16/19at 12:19; Start 08/16/19 at 11:00; Stop 08/16/19 at 11:59; Status DC Sodium Chloride 1,000 ml @ 75 mls/hr [id number] IV Last administered on 08/17/19at 07:22; Start 08/16/19 at 10:45 Propofol 20 ml @ As Directed STK-MED ONCE IV ; Start 08/16/19 at 11:10; Stop 08/16/19 at 11:11; Status DC Lidocaine HCl (Lidocaine Pf 2% Vial) 5 ml STK-MED ONCE .ROUTE ; Start 08/16/19 at 11:10; Stop 08/16/19 at 11:11; Status DC Rocuronium Martin (Zemuron) 50 mg STK-MED ONCE .ROUTE ; Start 08/16/19 at 11: 10; Stop 08/16/19 at 11:11; Status DC Fentanyl Citrate (Fentanyl 2ml Vial) 100 mcg STK-MED ONCE .ROUTE ; Start 08/16/19 at 11:11; Stop 08/16/19 at 11:11; Status DC Cellulose (Surgicel Fibrillar 1x2) 1 each STK-MED ONCE .ROUTE ; Start 08/16/19 at 11:38; Stop 08/16/19 at 11:38; Status DC Ondansetron HCl (Zofran) 4 mg STK-MED ONCE .ROUTE ; Start 08/16/19 at 12:14; Stop 08/16/19 at 12:14; Status DC Phenylephrine HCl (PHENYLEPHRINE in 0.9% NACL PF) 1 mg STK-MED ONCE IV ; Start 08/16/19 at 12:14; Stop 08/16/19 at 12:14; Status DC Desflurane (Suprane) 30 ml STK-MED ONCE IH ; Start 08/16/19 at 12:14; Stop 08/16/19 at 12:14; Status DC Cefazolin Sodium 1 gm/Sodium Chloride 1,000 ml @ 1,000 mls/hr 1X ONCE IRR Last administered on 08/16/19at 13:17; Start 08/16/19 at 13:00; Stop 08/16/19 at 13:59; Status DC Cefazolin Sodium 1 gm/Sodium Chloride 1,000 ml @ 1,000 mls/hr 1X ONCE IRR ; Start 08/16/19 at 12:30; Stop 08/16/19 at 13:29; Status DC Phenylephrine HCl (Von-Synephrine Inj) 10 mg STK-MED ONCE .ROUTE ; Start 08/16/19 at 12:29; Stop 08/16/19 at 12:29; Status DC Ondansetron HCl (Zofran) 4 mg STK-MED ONCE .ROUTE ; Start 08/16/19 at 13:11; Stop 08/16/19 at 13:11; Status DC Desflurane (Suprane) 60 ml STK-MED ONCE IH ; Start 08/16/19 at 13:11; Stop 08/16/19 at 13:11; Status DC Acetaminophen (Tylenol) 650 mg PRN Q4HRS PRN PO MILD PAIN / TEMP; Start 08/16/19 at 14:00 Amiodarone HCl (Cordarone) 200 mg BID PO ; Start 08/16/19 at 21:00 Atorvastatin Calcium (Lipitor) 10 mg QHS PO Last administered on 08/16/19at 21:57; Start 08/16/19 at 21:00 Clonidine HCl (Catapres) 0.2 mg PRN DAILY PRN PO DIALYSIS/HYPERTENSION; Start 08/16/19 at 14:00 Glucose (Insta-Glucose) 15 gm PRN Q15MIN PRN PO LOW BLOOD SUGAR; Start 08/16/19 at 14:00 Famotidine (Pepcid) 20 mg HS PO Last administered on 08/16/19at 21:56; Start 08/16/19 at 21:00 Acetaminophen/ Hydrocodone Bitart (Lortab 5/325) 1 tab PRN Q6HRS PRN PO MOD ERATE - SEVERE PAIN; Start 08/16/19 at 14:00 Lactulose (Lactulose) 20 gm PRN BID PRN PO CONSTIPATION; Start 08/16/19 at 14:00 Levothyroxine Sodium (Synthroid) 100 mcg DAILY06 PO ; Start 08/17/19 at 06:00 Meropenem (Merrem) 500 mg QHS IV ; Start 08/16/19 at 21:00; Status UNV Metoprolol Tartrate (Lopressor) 25 mg BID PO ; Start 08/16/19 at 21:00 Nitroglycerin (Nitrostat) 0.4 mg PRN Q10MIN PRN SL CHEST PAIN; Start 08/16/19 at 14:00 Nortriptyline HCl (Pamelor) 25 mg QHS PO Last administered on 08/16/19at 21:57; Start 08/16/19 at 21:00 Senna/Docusate Sodium (Senna Plus) 1 tab BID PO Last administered on 08/16/19at 21:57; Start 08/16/19 at 21:00 Sevelamer Carbonate (Renvela) 800 mg TIDWMEALS PO ; Start 08/16/19 at 17:00 Linagliptin (Tradjenta) 5 mg DAILY PO ; Start 08/17/19 at 09:00 Non-Formulary Medication (Daptomycin ) 350 mg DAILY IV ; Start 08/17/19 at 09:00; Status UNV Diphenhydramine HCl (Benadryl) 25 mg PRN Q6HRS PRN IV ITCHING; Start 08/16/19 at 14:15 Darbepoetin Rajeev (ARANESP for DIALYSIS PTS) 25 mcg WEEKLYHS SQ ; Start 08/17/19 at 21:00 Citalopram Hydrobromide (CeleXA) 20 mg DAILY PO ; Start 08/17/19 at 09:00 Non-Formulary Medication (Heparin Sodium,Porcine/Pf (Heparin 1,000 Unit/10 (100/ml))) 3.5 ml PRN DAILY PRN IV DIALYSIS; Start 08/16/19 at 14:00; Status UNV Lactobacillus Rhamnosus (Culturelle) 1 cap BID PO Last administered on 08/16/19at 21:57; Start 08/16/19 at 21:00 Pregabalin (Lyrica) 300 mg BID PO Last administered on 08/16/19at 21:57; Start 08/16/19 at 21:00 Non-Formulary Medication ([anidulafungin 100mg] ) 100 mg QHS IV ; Start 08/16/19 at 21:00; Status UNV Non-Formulary Medication ([clorpactin 2gm powd] ) 1 gm DAILY TOP ; Start 08/17/19 at 09:00; Status UNV Meropenem 500 mg/ Sodium Chloride 50 ml @ 100 mls/hr QHS IV Last administered on 08/16/19at 21:56; Start 08/16/19 at 21:00 Micafungin Sodium 100 mg/Dextrose 100 ml @ 100 mls/hr QHS IV Last administered on 08/16/19at 21:56; Start 08/16/19 at 21:00 Daptomycin 350 mg/ Sodium Chloride 50 ml @ 100 mls/hr QMWF IV ; Start 08/17/19 at 16:00 Active Scripts Active Reported Senna-Docusate Sodium Tablet (Sennosides/Docusate Sodium) 1 Each Tablet 1 Each PO BID Lactulose 20 Gm/30 Ml Solution 20 Gm PO BID PRN Probiotic (Lactobacillus Acidophilus) 1 Each Capsule 2 Each PO BID Hydrocodone-Apap 5-325 (Hydrocodone Bit/Acetaminophen) 1 Tab Tablet 1 Tab PO PRN Q6HRS PRN Pepcid (Famotidine) 20 Mg Tablet 20 Mg PO HS [anidulafungin 100mg] 100 Mg IV QHS [clorpactin 2gm powd] 1 Gm TOP DAILY Humalog (Insulin Lispro) 100 Unit/1 Ml Vial 4 Unit SQ Q6HRS Meropenem 500 Mg Vial 500 Mg IV QHS Daptomycin 350 Mg Vial 350 Mg IV DAILY Humalog (Insulin Lispro) 100 Unit/1 Ml Cartridge 100 Units SQ Q6HRS Diphenhydramine HCl 50 Mg/1 Ml Cartridge 25 Mg IJ PRN Q4HRS PRN Glutose 15 (Dextrose) 37.5 Gm Gel..gram. 15 Gm PO PRN Q15MIN PRN Retacrit (Epoetin Rajeev-Epbx) 3,000 Unit/1 Ml Vial 3,000 Unit IJ QMWF Renvela (Sevelamer Carbonate) 800 Mg Tablet 800 Mg PO TIDWMEALS Alogliptin (Alogliptin Benzoate) 6.25 Mg Tablet 6.25 Mg PO DAILY Tylenol (Acetaminophen) 325 Mg Tablet 2 Tab PO PRN Q4HRS Lyrica (Pregabalin) 300 Mg Capsule 1 Cap PO BID Clonidine Hcl 0.2 Mg Tablet 1 Tab PO PRN DAILY PRN NITROGLYCERIN SubLingual (Nitroglycerin) 0.4 Mg Tab.subl 1 Tab SL UD Heparin 1,000 Unit/10 (100/ml) (Heparin Sodium,Porcine/Pf) 1,000 Unit/10 Ml Syringe 3.5 Ml IV PRN DAILY PRN Levothyroxine Sodium 100 Mcg Tablet 1 Tab PO DAILY06 Escitalopram Oxalate 10 Mg Tablet 1 Tab PO DAILY Nortriptyline Hcl 25 Mg Capsule 1 Cap PO QHS Atorvastatin Calcium 10 Mg Tablet 1 Tab PO QHS Metoprolol Tartrate 25 Mg Tablet 1 Tab PO BID Lantus (Insulin Glargine,Hum.rec.anlog) 100 Unit/1 Ml Vial 20 Unit SQ DAILY Amiodarone Hcl 200 Mg Tablet 1 Tab PO BID Vitals/I & O Vital Sign - Last 24 Hours 10/1/19 08/16/19 08/16/19 08/16/19 10:41 10:44 14:00 14:00 Temp 98.0 98.0 98.6 98.0 98.0 98.6 Pulse 81 81 75 Resp 20 20 16 B/P (MAP) 92/42 106/86 Pulse Ox 97 97 100 O2 Delivery Nasal Cannula Simple Mask Mask O2 Flow Rate 3 10 10 08/16/19 08/16/19 08/16/19 08/16/19 14:15 14:22 14:27 14:35 Pulse 76 Resp 17 16 17 16 B/P (MAP) 90/40 Pulse Ox 100 100 100 O2 Delivery Simple Mask Simple Mask Simple Mask Simple Mask O2 Flow Rate 10.0 10 10.0 10.0 08/16/19 08/16/19 08/16/19 08/16/19 14:40 14:52 15:08 15:24 Temp 98.1 98.1 Pulse 76 72 81 75 Resp 15 16 16 B/P (MAP) 81/36 83/41 99/38 90/38 Pulse Ox 100 97 98 97 O2 Delivery Simple Mask Nasal Cannula Nasal Cannula O2 Flow Rate 10 2 2 2 08/16/19 08/16/19 08/16/19 08/16/19 16:30 16:45 16:54 17:00 Temp 98.4 98.4 Pulse 58 Resp 16 B/P (MAP) 93/66 (75) 94/60 (71) 99/56 (70) Pulse Ox 95 O2 Delivery Nasal Cannula Nasal Cannula O2 Flow Rate 2.0 2.0 08/16/19 08/16/19 08/16/19 08/16/19 17:15 17:45 18:17 19:25 Temp 98.6 98.3 98.6 98.3 Pulse 71 69 68 Resp 18 16 20 B/P (MAP) 91/55 (67) 97/61 (73) 89/55 (66) 93/48 (63) Pulse Ox 96 96 100 O2 Delivery Nasal Cannula Nasal Cannula Nasal Cannula O2 Flow Rate 2.0 2.0 2.0 08/16/19 08/16/19 08/16/19 08/16/19 20:00 21:00 21:00 23:20 Temp 99.0 99.0 Pulse 68 68 80 Resp 20 B/P (MAP) 93/48 93/48 105/86 (92) Pulse Ox 96 O2 Delivery Nasal Cannula Nasal Cannula O2 Flow Rate 2.0 2.0 08/17/19 03:20 Temp 99.1 99.1 Pulse 94 Resp 18 B/P (MAP) 91/46 (61) Pulse Ox 97 O2 Delivery Nasal Cannula O2 Flow Rate 2.0 Intake and Output0 08/16/19 08/16/19 08/17/19 15:00 23:00 07:00 Intake Total 100 ml 0 ml 0 ml Output Total 50 ml Balance 50 ml 0 ml 0 ml WILFREDO MUNOZ MD Aug 17, 2019 08:07
[2019-08-17] MEDS: LACTOBACILLUS RHAMNOSUS GG 1 CAPSULE. PO SCH ×2 (09:00→21:49)
[2019-08-17] MEDS: METOPROLOL TART IMMED RELEASE 25 MG TABLET. PO SCH ×2 (09:00→21:00)
[2019-08-17] MEDS ORDERED: NON FORMULARY ITEM (Daptomycin 350 MG) IV SCH (09:00)
[2019-08-17] MEDS: LINAGLIPTIN 5 MG TABLET PO SCH (09:00)
[2019-08-17] MEDS: CITALOPRAM 20 MG TABLET. PO SCH (09:00)
[2019-08-17] MEDS: AMIODARONE HCL 200 MG TABLET. PO SCH ×2 (09:00→23:40)
[2019-08-17] MEDS ORDERED: OXYCHLOROSENE TOP SCH (09:00)
[2019-08-17] MEDS: SENNOSIDES/DOCUSATE 8.6/50MG TABLET. PO SCH ×2 (09:00→21:46)
[2019-08-17] MEDS: PREGABALIN 75 MG CAPSULE PO SCH ×2 (09:00→21:49)
--- NOTE | 2019-08-17 09:02 | NUR ---
Pt was awoken this morning to take her pills and eat her breakfast. Patient was explicit with staff and was swearing at all staff members trying to help her. Patient stated that she "wants everybody to leave her room now!" I assessed the patients neuro status by asking her name and . She told me "I'm not telling you." When I asked her where she was she stated "not at your house!" I asked the patient to please participate and take her medicine and she stated "no." I asked her if she wants to get better and she said "no." Holding medications at this time until patient will allow me to give her medications. Will reassess interest in taking medications in 1 hour.
[2019-08-17 09:09] LABS: RED BLOOD COUNT 2.27 x10^6/uL (3.50-5.40); RED CELL DISTRIBUTION WIDTH 18.9 % (11.5-14.5); WHITE BLOOD COUNT 15.8 x10^3/uL (4.0-11.0)
--- NOTE | 2019-08-17 09:13 | NUR ---
IP: Pt has a hx of (R)Klebsiella oxytoca with ESBL in a sacral decub wound on 07/12/19. Pt to continue to be in contact precautions with continued sacral wound as well as AKA infection.
[2019-08-17 09:18] LABS: HEMATOCRIT 20.8 % (36.0-47.0); HEMOGLOBIN 6.6 g/dL (12.0-15.5)
[2019-08-17 09:20] LABS: CALCIUM 8.4 mg/dL (8.5-10.1); CREATININE 2.8 mg/dL (0.6-1.0); GFR 16.9; POTASSIUM 4.1 mmol/L (3.5-5.1)
--- NOTE | 2019-08-17 11:00 | NUR ---
Patient is still resisting help from staff. Refusing vitals. Refusing blood transfusion ordered by Dr. Santos. Son was contacted to come in and assist with patient. Said he would come later this evening.
--- NOTE | 2019-08-17 11:05 | PDOC ---
Infectious Disease Note Subjective Subjective known to our service Refer to consult 08/10 and progress note 08/12 Re-admitted for surgical debridement ROS ROS Unobtainable No fevers reported Vital Sign Vital Signs Vital Signs Date Time Temp Pulse Resp B/P (MAP) Pulse Ox O2 Delivery O2 Flow Rate FiO2 08/17/19 08:00 Nasal Cannula 2.0 08/17/19 07:00 98.5 118 18 99/54 (69) 93 98.5 Physical Exam PHYSICAL EXAM GENERAL: Propped up in bed, encephalopathic HENT: Pupils equal, reactive. Resists oral exam NECK: Supple LUNGS: Clear CV: S1 S2 ABDOMEIN: Obese, soft, no guarding. 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 LLE 2+ edema. SKIN: Warm to touch. Sacral wound dressed SOFA INSPECTOR: Difficult to arouses Left sided HDC without signs of complication Labs Lab Laboratory Tests Test 08/16/19 11:35 08/16/19 14:26 08/16/19 15:47 08/16/19 21:29 Glucose (Fingerstick) 222 mg/dL (70-99) 201 mg/dL (70-99) 180 mg/dL (70-99) 150 mg/dL (70-99) Test 08/17/19 07:45 08/17/19 08:45 Glucose (Fingerstick) 133 mg/dL (70-99) White Blood Count 15.8 x10^3/uL (4.0-11.0) Red Blood Count 2.27 x10^6/uL (3.50-5.40) Hemoglobin 6.6 g/dL (12.0-15.5) Hematocrit 20.8 % (36.0-47.0) Mean Corpuscular Volume 92 fL (79-100) Mean Corpuscular Hemoglobin 29 pg (25-35) Mean Corpuscular Hemoglobin Concent 32 g/dL (31-37) Red Cell Distribution Width 18.9 % (11.5-14.5) Platelet Count 161 x10^3/uL (140-400) Sodium Level 135 mmol/L (136-145) Potassium Level 4.1 mmol/L (3.5-5.1) Chloride Level 99 mmol/L (98-107) Carbon Dioxide Level 29 mmol/L (21-32) Anion Gap 7 (6-14) Blood Urea Nitrogen 39 mg/dL (7-20) Creatinine 2.8 mg/dL (0.6-1.0) Estimated GFR (Cockcroft-Gault) 16.9 Glucose Level 146 mg/dL (70-99) Calcium Level 8.4 mg/dL (8.5-10.1) Objective Assessment Necrotic right open AKA stump wound s/p debridement, 08/16. 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 col and bacteroides 07/12 Right groin wound with necrotic tissue s/p debridement 08/16. -h/o prior debridements and ESBL klebsiella 07/12 h/o MSSA bacteremia with sepsis in May Treated Leukocytosis Encephalopathy - fluctuates Anemia End-stage renal disease, on hemodialysis via HD catheter Diabetes II h/o left axillary DVT 07/12 Anal condoloma s/p Peripheral vascular disease. Atrial fibrillation. Chronic respiratory failure. Protein-calorie malnutrition. Generalized debility. Plan Plan of Care Continue dapto, merrem and micafungin moniotr abx toxicities and side effects Probiotics Wound care as directed Offloading Thank you D/w Pat palliative care - poor prognosis with extent of wounds albumin 0.9 and essentially bed bound and comorbidities - wounds unlikely to heal Anemia per primary Attending Co-Sign Attending Co-Sign The patient was seen and interviewed as well as examined at the bedside. The chart was reviewed. The case was discussed. Agree with the plan of care. SANIYA DC APRN Aug 17, 2019 11:05 PJ DIAZ MD Aug 17, 2019 15:28
--- NOTE | 2019-08-17 11:45 | PDOC2 ---
CONSULT Date of Consult Date of Consult DATE: 08/17/19 TIME: 11:37 Reason for Consult Reason for Consult: ESRD Source Source: Chart review History of Present Illness Reason for Visit: 69-year-old female who has multiple medical problems ESRD on HD, above-knee amputation. She was seen at [facility] on thursday, transferred back to [facility] per Vascular surgery Denies any nausea, vomiting, chest pain, shortness of breath. Past Medical History Cardiovascular: AFIB, CHF, Pulmonary hypertension, Other Pulmonary: COPD Renal/: Chronic renal failure Endocrine: Diabetes, Hypothyroidism, Hyperparathyroidism Past Surgical History Past Surgical History: Colon Resection, Other Family History Family History: High Cholestrol, Other Social History No ALCOHOL: none Drugs: None Lives: Correction Current Medications Current Medications Current Medications Fentanyl Citrate (Fentanyl 2ml Vial) 25 mcg PRN Q5MIN PRN IV MILD PAIN 1-3 Last administered on 08/16/19at 14:27; Start 08/16/19 at 08:30; Stop 08/17/19 at 08:29; Status DC Fentanyl Citrate (Fentanyl 2ml Vial) 50 mcg PRN Q5MIN PRN IV MODERATE TO SEVERE PAIN Last administered on 08/16/19at 14:35; Start 08/16/19 at 08:30; Stop 08/17/19 at 08:29; Status DC Morphine Sulfate (Morphine Sulfate) 1 mg PRN Q10MIN PRN IV SEVERE PAIN 7-10; Start 08/16/19 at 08:30; Stop 08/17/19 at 08:29; Status DC Ringer's Solution 1,000 ml @ 30 mls/hr Q24H IV ; Start 08/16/19 at 08:25; Stop 08/16/19 at 20:24; Status Cancel Lidocaine HCl (Xylocaine-Mpf 1% 2ml Vial) 2 ml PRN 1X PRN ID PRIOR TO IV START; Start 08/16/19 at 08:30; Stop 08/17/19 at 08:29; Status DC Hydromorphone HCl (Dilaudid) 0.5 mg PRN Q10MIN PRN IV SEV PAIN, Second choice; Start 08/16/19 at 08:30; Stop 08/17/19 at 08:29; Status DC Prochlorperazine Edisylate (Compazine) 5 mg PACU PRN PRN IV NAUSEA, MRX1; Start 08/16/19 at 08:30; Stop 08/17/19 at 08:29; Status DC Cefazolin Sodium/ Dextrose 50 ml @ 100 mls/hr 1X ONCE IV Last administered on 08/16/19at 11:55; Start 08/16/19 at 10:00; Stop 08/16/19 at 10:29; Status DC Insulin Human Lispro (HumaLOG VIAL for OP,RR ONLY) 0-10 units PRN Q1HR PRN SQ PER PROTOCOL Last administered on 08/16/19at 14:38; Start 08/16/19 at 10:30; Stop 08/17/19 at 10:29; Status DC Heparin Sodium (Porcine) 5000 unit/Sodium Chloride 505 ml @ 505 mls/hr 1X ONCE IRR ; Start 08/16/19 at 11:00; Stop 08/16/19 at 11:59; Status DC Cefazolin Sodium 1 gm/Sodium Chloride 500 ml @ 500 mls/hr 1X ONCE IRR Last administered on 08/16/19at 12:19; Start 08/16/19 at 11:00; Stop 08/16/19 at 11:59; Status DC Sodium Chloride 1,000 ml @ 75 mls/hr [id number] IV Last administered on 08/17/19at 07:22; Start 08/16/19 at 10:45 Propofol 20 ml @ As Directed STK-MED ONCE IV ; Start 08/16/19 at 11:10; Stop at 11:11; Status DC Lidocaine HCl (Lidocaine Pf 2% Vial) 5 ml STK-MED ONCE .ROUTE ; Start 08/16/19 at 11:10; Stop 08/16/19 at 11:11; Status DC Rocuronium [place] (Zemuron) 50 mg STK-MED ONCE .ROUTE ; Start 08/16/19 at 11:10; Stop 08/16/19 at 11:11; Status DC Fentanyl Citrate (Fentanyl 2ml Vial) 100 mcg STK-MED ONCE .ROUTE ; Start 08/16/19 at 11:11; Stop 08/16/19 at 11:11; Status DC Cellulose (Surgicel Fibrillar 1x2) 1 each STK-MED ONCE .ROUTE ; Start 08/16/19 at 11:38; Stop 08/16/19 at 11:38; Status DC Ondansetron HCl (Zofran) 4 mg STK-MED ONCE .ROUTE ; Start 08/16/19 at 12:14; Stop 08/16/19 at 12:14; Status DC Phenylephrine HCl (PHENYLEPHRINE in 0.9% NACL PF) 1 mg STK-MED ONCE IV ; Start 08/16/19 at 12:14; Stop 08/16/19 at 12:14; Status DC Desflurane (Suprane) 30 ml STK-MED ONCE IH ; Start 08/16/19 at 12:14; Stop 08/16/19 at 12:14; Status DC Cefazolin Sodium 1 gm/Sodium Chloride 1,000 ml @ 1,000 mls/hr 1X ONCE IRR Last administered on 08/16/19at 13:17; Start 08/16/19 at 13:00; Stop 08/16/19 at 13:59; Status DC Cefazolin Sodium 1 gm/Sodium Chloride 1,000 ml @ 1,000 mls/hr 1X ONCE IRR ; Start 08/16/19 at 12:30; Stop 08/16/19 at 13:29; Status DC Phenylephrine HCl (Von-Synephrine Inj) 10 mg STK-MED ONCE .ROUTE ; Start 08/16/19 at 12:29; Stop 08/16/19 at 12:29; Status DC Ondansetron HCl (Zofran) 4 mg STK-MED ONCE .ROUTE ; Start 08/16/19 at 13:11; Stop 08/16/19 at 13:11; Status DC Desflurane (Suprane) 60 ml STK-MED ONCE IH ; Start 08/16/19 at 13:11; Stop 08/16/19 at 13:11; Status DC Acetaminophen (Tylenol) 650 mg PRN Q4HRS PRN PO MILD PAIN / TEMP; Start 08/16/19 at 14:00 Amiodarone HCl (Cordarone) 200 mg BID PO ; Start 08/16/19 at 21:00 Atorvastatin Calcium (Lipitor) 10 mg QHS PO Last administered on 08/16/19at 21:57; Start 08/16/19 at 21:00 Clonidine HCl (Catapres) 0.2 mg PRN DAILY PRN PO DIALYSIS/HYPERTENSION; Start 08/16/19 at 14:00 Glucose (Insta-Glucose) 15 gm PRN Q15MIN PRN PO LOW BLOOD SUGAR; Start 08/16/19 at 14:00 Famotidine (Pepcid) 20 mg HS PO Last administered on 08/16/19at 21:56; Start 08/16/19 at 21:00 Acetaminophen/ Hydrocodone Bitart (Lortab 5/325) 1 tab PRN Q6HRS PRN PO MODERATE - SEVERE PAIN; Start 08/16/19 at 14:00 Lactulose (Lactulose) 20 gm PRN BID PRN PO CONSTIPATION; Start 08/16/19 at 14:00 Levothyroxine Sodium (Synthroid) 100 mcg DAILY06 PO ; Start 08/17/19 at 06:00 Meropenem (Merrem) 500 mg QHS IV ; Start 08/16/19 at 21:00; Status UNV Metoprolol Tartrate (Lopressor) 25 mg BID PO ; Start 08/16/19 at 21:00 Nitroglycerin (Nitrostat) 0.4 mg PRN Q10MIN PRN SL CHEST PAIN; Start 08/16/19 at 14:00 Nortriptyline HCl (Pamelor) 25 mg QHS PO Last administered on 08/16/19at 21:57; Start 08/16/19 at 21:00 Senna/Docusate Sodium (Senna Plus) 1 tab BID PO Last administered on 08/16/19at 21:57; Start 08/16/19 at 21:00 Sevelamer Carbonate (Renvela) 800 mg TIDWMEALS PO ; Start 08/16/19 at 17:00 Linagliptin (Tradjenta) 5 mg DAILY PO ; Start 08/17/19 at 09:00 Non-Formulary Medication (Daptomycin ) 350 mg DAILY IV ; Start 08/17/19 at 09:00; Status UNV Diphenhydramine HCl (Benadryl) 25 mg PRN Q6HRS PRN IV ITCHING; Start 08/16/19 at 14:15 Darbepoetin Rajeev (ARANESP for DIALYSIS PTS) 25 mcg WEEKLYHS SQ ; Start 08/17/19 at 21:00 Citalopram Hydrobromide (CeleXA) 20 mg DAILY PO ; Start 08/17/19 at 09:00 Non-Formulary Medication (Heparin Sodium,Porcine/Pf (Heparin 1,000 Unit/10 (100/ml))) 3.5 ml PRN DAILY PRN IV DIALYSIS; Start 08/16/19 at 14:00; Status UNV Lactobacillus Rhamnosus (Culturelle) 1 cap BID PO Last administered on 08/16/19at 21:57; Start 08/16/19 at 21:00 Pregabalin (Lyrica) 300 mg BID PO Last administered on 08/16/19at 21:57; Start 08/16/19 at 21:00 Non-Formulary Medication ([anidulafungin 100mg] ) 100 mg QHS IV ; Start 08/16/19 at 21:00; Status UNV Non-Formulary Medication ([clorpactin 2gm powd] ) 1 gm DAILY TOP ; Start 08/17/19 at 09:00; Status UNV Meropenem 500 mg/ Sodium Chloride 50 ml @ 100 mls/hr QHS IV Last administered on 08/16/19at 21:56; Start 08/16/19 at 21:00 Micafungin Sodium 100 mg/Dextrose 100 ml @ 100 mls/hr QHS IV Last administered on 08/16/19at 21:56; Start 08/16/19 at 21:00 Daptomycin 350 mg/ Sodium Chloride 50 ml @ 100 mls/hr QMWF IV ; Start 08/17/19 at 16:00 Active Scripts Active Reported Senna-Docusate Sodium Tablet (Sennosides/Docusate Sodium) 1 Each Tablet 1 Each PO BID Lactulose 20 Gm/30 Ml Solution 20 Gm PO BID PRN Probiotic (Lactobacillus Acidophilus) 1 Each Capsule 2 Each PO BID Hydrocodone-Apap 5-325 (Hydrocodone Bit/Acetaminophen) 1 Tab Tablet 1 Tab PO PRN Q6HRS PRN Pepcid (Famotidine) 20 Mg Tablet 20 Mg PO HS [anidulafungin 100mg] 100 Mg IV QHS [clorpactin 2gm powd] 1 Gm TOP DAILY Humalog (Insulin Lispro) 100 Unit/1 Ml Vial 4 Unit SQ Q6HRS Meropenem 500 Mg Vial 500 Mg IV QHS Daptomycin 350 Mg Vial 350 Mg IV DAILY Humalog (Insulin Lispro) 100 Unit/1 Ml Cartridge 100 Units SQ Q6HRS Diphenhydramine HCl 50 Mg/1 Ml Cartridge 25 Mg IJ PRN Q4HRS PRN Glutose 15 (Dextrose) 37.5 Gm Gel..gram. 15 Gm PO PRN Q15MIN PRN Retacrit (Epoetin Rajeev-Epbx) 3,000 Unit/1 Ml Vial 3,000 Unit IJ QMWF Renvela (Sevelamer Carbonate) 800 Mg Tablet 800 Mg PO TIDWMEALS Alogliptin (Alogliptin Benzoate) 6.25 Mg Tablet 6.25 Mg PO DAILY Tylenol (Acetaminophen) 325 Mg Tablet 2 Tab PO PRN Q4HRS Lyrica (Pregabalin) 300 Mg Capsule 1 Cap PO BID Clonidine Hcl 0.2 Mg Tablet 1 Tab PO PRN DAILY PRN NITROGLYCERIN SubLingual (Nitroglycerin) 0.4 Mg Tab.subl 1 Tab SL UD Heparin 1,000 Unit/10 (100/ml) (Heparin Sodium,Porcine/Pf) 1,000 Unit/10 Ml Syringe 3.5 Ml IV PRN DAILY PRN Levothyroxine Sodium 100 Mcg Tablet 1 Tab PO DAILY06 Escitalopram Oxalate 10 Mg Tablet 1 Tab PO DAILY Nortriptyline Hcl 25 Mg Capsule 1 Cap PO QHS Atorvastatin Calcium 10 Mg Tablet 1 Tab PO QHS Metoprolol Tartrate 25 Mg Tablet 1 Tab PO BID Lantus (Insulin Glargine,Hum.rec.anlog) 100 Unit/1 Ml Vial 20 Unit SQ DAILY Amiodarone Hcl 200 Mg Tablet 1 Tab PO BID Allergies Allergies: Coded Allergies: I S O L A T I O N *CONTACT* (Verified Allergy, Unknown, 08/16/19) ESBL No Known Medication Allergies (Verified Allergy, Unknown, 08/16/19) ROS Review of System Unable to Obtain Physical Exam Physical Exam GENERAL: NAD HENT: OM moist NECK: Supple LUNGS: Clear CV: S1 S2 ABDOMEIN: Obese, soft, : Indwelling Colvin in place EXT: Right AKA, groin wound vac in place. LLE 2+ edema. SKIN: No rash . Sacral wound + MEDICAL REFERRAL COORDINATOR: Difficult to arouses Left sided HDC Vital Signs Vital Signs Date Time Temp Pulse Resp B/P (MAP) Pulse Ox O2 Delivery O2 Flow Rate FiO2 08/17/19 08:00 Nasal Cannula 2.0 08/17/19 07:00 98.5 118 18 99/54 (69) 93 98.5 Assessment & Plan ESRD- On HD MWF Seen on HD , continue as ordered, [facility]- TDC Necrotic right open AKA stump wound s/p debridement, 08/16. 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 Anemia - On DANIS per protocol Diabetes II h/o left axillary DVT 07/12 Anal condoloma s/p Bx Peripheral vascular disease. Atrial fibrillation. Chronic respiratory failure. Generalized debility. Labs Labs Laboratory Tests Test 08/16/19 10:20 08/16/19 10:26 08/16/19 11:35 08/16/19 14:26 White Blood Count 17.0 x10^3/uL (4.0-11.0) Red Blood Count 2.77 x10^6/uL (3.50-5.40) Hemoglobin 8.0 g/dL (12.0-15.5) Hematocrit 25.6 % (36.0-47.0) Mean Corpuscular Volume 92 fL (79-100) Mean Corpuscular Hemoglobin 29 pg (25-35) Mean Corpuscular Hemoglobin Concent 31 g/dL (31-37) Red Cell Distribution Width 19.1 % (11.5-14.5) Platelet Count 190 x10^3/uL (140-400) Neutrophils (%) (Auto) 68 % (31-73) Lymphocytes (%) (Auto) 24 % (24-48) Monocytes (%) (Auto) 7 % (0-9) Eosinophils (%) (Auto) 1 % (0-3) Basophils (%) (Auto) 1 % (0-3) Neutrophils # (Auto) 11.5 x10^3/uL (1.8-7.7) Lymphocytes # (Auto) 4.0 x10^3/uL (1.0-4.8) Monocytes # (Auto) 1.2 x10^3/uL (0.0-1.1) Eosinophils # (Auto) 0.2 x10^3/uL (0.0-0.7) Basophils # (Auto) 0.1 x10^3/uL (0.0-0.2) Prothrombin Time 14.5 SEC (11.7-14.0) Prothromb Time International Ratio 1.2 (0.8-1.1) Activated Partial Thromboplast Time 43 SEC (24-38) Sodium Level 133 mmol/L (136-145) Potassium Level 3.9 mmol/L (3.5-5.1) Chloride Level 95 mmol/L (98-107) Carbon Dioxide Level 31 mmol/L (21-32) Anion Gap 7 (6-14) Blood Urea Nitrogen 34 mg/dL (7-20) Creatinine 2.3 mg/dL (0.6-1.0) Estimated GFR (Cockcroft-Gault) 21.2 BUN/Creatinine Ratio 15 (6-20) Glucose Level 255 mg/dL (70-99) Calcium Level 9.0 mg/dL (8.5-10.1) Total Bilirubin 0.3 mg/dL (0.2-1.0) Aspartate Amino Transf (AST/SGOT) 40 U/L (15-37) Alanine Aminotransferase (ALT/SGPT) 10 U/L (14-59) Alkaline Phosphatase 331 U/L (46-116) Total Protein 6.2 g/dL (6.4-8.2) Albumin 0.9 g/dL (3.4-5.0) Albumin/Globulin Ratio 0.2 (1.0-1.7) Glucose (Fingerstick) 234 mg/dL (70-99) 222 mg/dL (70-99) 201 mg/dL (70-99) Test 08/16/19 15:47 08/16/19 21:29 08/17/19 07:45 08/17/19 08:45 Glucose (Fingerstick) 180 mg/dL (70-99) 150 mg/dL (70-99) 133 mg/dL (70-99) White Blood Count 15.8 x10^3/uL (4.0-11.0) Red Blood Count 2.27 x10^6/uL (3.50-5.40) Hemoglobin 6.6 g/dL (12.0-15.5) Hematocrit 20.8 % (36.0-47.0) Mean Corpuscular Volume 92 fL (79-100) Mean Corpuscular Hemoglobin 29 pg (25-35) Mean Corpuscular Hemoglobin Concent 32 g/dL (31-37) Red Cell Distribution Width 18.9 % (11.5-14.5) Platelet Count 161 x10^3/uL (140-400) Sodium Level 135 mmol/L (136-145) Potassium Level 4.1 mmol/L (3.5-5.1) Chloride Level 99 mmol/L (98-107) Carbon Dioxide Level 29 mmol/L (21-32) Anion Gap 7 (6-14) Blood Urea Nitrogen 39 mg/dL (7-20) Creatinine 2.8 mg/dL (0.6-1.0) Estimated GFR (Cockcroft-Gault) 16.9 Glucose Level 146 mg/dL (70-99) Calcium Level 8.4 mg/dL (8.5-10.1) Laboratory Tests Test 08/16/19 14:26 08/16/19 15:47 08/16/19 21:29 08/17/19 07:45 Glucose (Fingerstick) 201 mg/dL (70-99) 180 mg/dL (70-99) 150 mg/dL (70-99) 133 mg/dL (70-99) Test 08/17/19 08:45 White Blood Count 15.8 x10^3/uL (4.0-11.0) Red Blood Count 2.27 x10^6/uL (3.50-5.40) Hemoglobin 6.6 g/dL (12.0-15.5) Hematocrit 20.8 % (36.0-47.0) Mean Corpuscular Volume 92 fL (79-100) Mean Corpuscular Hemoglobin 29 pg (25-35) Mean Corpuscular Hemoglobin Concent 32 g/dL (31-37) Red Cell Distribution Width 18.9 % (11.5-14.5) Platelet Count 161 x10^3/uL (140-400) Sodium Level 135 mmol/L (136-145) Potassium Level 4.1 mmol/L (3.5-5.1) Chloride Level 99 mmol/L (98-107) Carbon Dioxide Level 29 mmol/L (21-32) Anion Gap 7 (6-14) Blood Urea Nitrogen 39 mg/dL (7-20) Creatinine 2.8 mg/dL (0.6-1.0) Estimated GFR (Cockcroft-Gault) 16.9 Glucose Level 146 mg/dL (70-99) Calcium Level 8.4 mg/dL (8.5-10.1) Review All relevant outside records, renal labs, imaging studies, telemetry/EKG's were reviewed. ERNESTINA BAUM MD Aug 17, 2019 11:45
[2019-08-17] MEDS ORDERED: IV NORMAL SALINE 1000ML BAG 1,000 ML IV PRN ×2 (13:43)
[2019-08-17] MEDS ORDERED: DIALYSIS PATIENT. MC PRN ×2 (13:45)
[2019-08-17] MEDS ORDERED: ALBUMIN HUMAN 25% 200 ML IV PRN (13:45)
[2019-08-17] MEDS ORDERED: 0.9 % SODIUM CHLORIDE 10 ML DISP.SYRIN. IV PRN ×2 (13:45)
[2019-08-17 14:30] VITALS: BP 99/46
--- NOTE | 2019-08-17 15:13 | PDOC2 ---
PALLIATIVE CARE Palliative Care Note Palliative Care Consult requested by Dr. Santos to address goals of care. Patient refusing care. patient seen at 1230. States it is September, in a nursing facility. Able to say her birthdate. Medical Assessment pr medical record; 1. Acute on chronic respiratory failure, multifactorial. 2. Status post right above-knee amputation 3. Status post excisional debridement of necrotic skin and subcutaneous tissue around the right groin with placement of a wound VAC. 4. PAD-S/P R Fem Endartrectomy and BKA for gangrene, now with necrosis and d ehiscence. S/p right [id number] amputation with excision of infected gangrene her amputation, status post surgical intervention 5. Right groin incision with extensive gangrene throughout the incision with dehiscence and underlying necrotic tissue from recent femoral endarterectomy. 6. Morbid obesity. 7. Diabetes. 8. Acute on chronic kidney disease requiring hemodialysis. 9. hx Methicillin-resistant Staphylococcus aureus sepsis. 10. Hypertension. 11. Chronic anemia. 12. HX OF Metabolic toxic encephalopathy. 13. UPPER DVT 14. ESRD ON HD 15. sacral cocy wound 16. poor candidate for colostomy, given obesity 17. Sacrococcygeal decubitus w/ necrotic tissue s/p excisional debridement of skin, subcutaneous tissue and bone, excision of anal condyloma, 08/16 -h/o prior debridements and h/o ESBL Klebsiella, Enterococcus, E. col and bacteroides 07/12 Patient known to PC. Patient's son Ken Ruano called by staff. He did visit his mother and she is now being more cooperative with her treatment and medications. Currently in dialysis. Code Status: DNR/DNI. Spoke with Dr. Lopez --patient seen in dialysis. Will continue current treatment plan. Will try to have more conversation with patient and son. TRISHA JANE Aug 17, 2019 15:13
--- NOTE | 2019-08-17 15:23 | NUR ---
Wound care: Wound care will see patient tomorrow on 08/18/19. Wound vac placed yesterday on 08/16/19.
[2019-08-17] MEDS: HYDROcodone/APAP 5/325MG 1 TAB TABLET PO PRN (15:51)
[2019-08-17] MEDS: ACETAMINOPHEN 325 MG TABLET. PO PRN (18:34)
[2019-08-17] MEDS: DAPTOmycin (GENERIC) IVPB 350 MG in IV NORMAL SALINE 50ML 50 ML IV SCH (18:35)
[2019-08-17 19:54] VITALS: BP 91/48
[2019-08-17] MEDS: DARBEPOETIN ALFA 25 MCG/0.42 ML DISP.SYRIN. SQ SCH ×2 (21:00→21:50)
[2019-08-17] MEDS: MEROPENEM 500 MG in IV NORMAL SALINE 50ML 50 ML IV SCH (21:36)
[2019-08-17] MEDS: MICAFUNGIN 100 MG in IV DEXTROSE 5% 100ML 100 ML IV SCH (21:45)
[2019-08-17] MEDS: FAMOTIDINE 20 MG TABLET. PO SCH (21:46)
[2019-08-17] MEDS: NORTRIPTYLINE 25 MG CAPSULE PO SCH (21:49)
[2019-08-17] MEDS: ATORVASTATIN CALCIUM 10 MG TABLET. PO SCH (21:50)
[2019-08-17 23:35] VITALS: BP 96/37
[2019-08-18] VITALS (10 sets, daily range): BP systolic 82–101; BP diastolic 39–59
[2019-08-18] MEDS: HYDROcodone/APAP 5/325MG 1 TAB TABLET PO PRN ×3 (03:15→16:48)
[2019-08-18] MEDS: LEVOTHYROXINE 100 MCG TABLET PO SCH (06:27)
[2019-08-18 08:44] LABS: HEMATOCRIT 21.9 % (36.0-47.0); RED BLOOD COUNT 2.34 x10^6/uL (3.50-5.40); RED CELL DISTRIBUTION WIDTH 19.1 % (11.5-14.5); WHITE BLOOD COUNT 14.4 x10^3/uL (4.0-11.0)
[2019-08-18 08:53] LABS: HEMOGLOBIN 6.8 g/dL (12.0-15.5)
[2019-08-18] MEDS: AMIODARONE HCL 200 MG TABLET. PO SCH ×2 (09:00→21:00)
[2019-08-18] MEDS: METOPROLOL TART IMMED RELEASE 25 MG TABLET. PO SCH ×2 (09:00→21:00)
--- NOTE | 2019-08-18 09:11 | NUR ---
SW following pt for dc planning. Chart reviewed and pt is known to SWer from previous admission. Pt is from [facility] and is able to return upon dc. Palliative care following. Will continue to follow.
[2019-08-18] MEDS: SEVELAMER CARBONATE 800 MG TABLET. PO SCH ×3 (09:28→16:48)
[2019-08-18] MEDS: PREGABALIN 75 MG CAPSULE PO SCH ×2 (09:28→21:14)
[2019-08-18] MEDS: LINAGLIPTIN 5 MG TABLET PO SCH (09:28)
[2019-08-18] MEDS: CITALOPRAM 20 MG TABLET. PO SCH (09:28)
[2019-08-18] MEDS: SENNOSIDES/DOCUSATE 8.6/50MG TABLET. PO SCH ×2 (09:28→21:12)
[2019-08-18] MEDS: LACTOBACILLUS RHAMNOSUS GG 1 CAPSULE. PO SCH ×2 (09:28→21:13)
--- NOTE | 2019-08-18 10:38 | PDOC ---
PROGRESS NOTES History of Present Illness History of Present Illness Assessment/Plan Assessment/Plan VTE Prophylaxis Ordered VTE Prophylaxis Devices: No VTE Pharmacological Prophylaxi: Yes Assessment/Plan 1. Acute on chronic respiratory failure, multifactorial. 2. Status post right above-knee amputation 3. Status post excisional debridement of necrotic skin and subcutaneous tissue around the right groin with placement of a wound VAC. 4. PAD-S/P R Fem Endartrectomy and BKA for gangrene, now with necrosis and dehiscence. S/p right [id number] amputation with excision of infected gangrene her amputation, status post surgical intervention 5. Right groin incision with extensive gangrene throughout the incision with dehiscence and underlying necrotic tissue from recent femoral endarterectomy. 6. Morbid obesity. 7. Diabetes. 8. Acute on chronic kidney disease requiring hemodialysis. 9. hx Methicillin-resistant Staphylococcus aureus sepsis. 10. Hypertension. 11. Chronic anemia. 12. HX OF Metabolic toxic encephalopathy. 13. UPPER DVT 14. ESRD ON HD 15. sacral cocy wound 16. poor candidate for colostomy, given obesity 17. Sacrococcygeal decubitus w/ necrotic tissue s/p excisional debridement of skin, subcutaneous tissue and bone, excision of anal condyloma, 08/16 -h/o prior debridements and h/o ESBL Klebsiella, Enterococcus, E. col and bacteroides 07/12 Operative Note Operative Note Operative Note Operative Report Dictated Pre-op: right groin open wound with necrotic tissue, right above knee amputation open wound with necrotic tissue Post-op: same Operation: right groin debridement and right above the knee amputation wound debridement with wound vac dressing placements Surgeon: Dr. Taryn Antony Blood loss:20ml Anesthesia: general TARYN ANTONY MD Aug 16, 2019 13:00 hgb 6.8 today, transfused - PLAN admit to medical bed continue IV abx taking at [facility]. restart insulin when takin po continue supplemental 02 consult nutrition, has G tube placed recently on 07/27. presume to optimize nutritional status. unclear if hx of dysphagia. ID consult for abx recommendations. nephro consult for HD check baseline labs DNR and DNI refusing all treatments 08/17 , consulted palliative care Patient's son Ken Ruano called by staff , did visit mother and she is now being more cooperative with her treatment 29 min pt exam, chart review, > 50% of time with exam, chart review pt care coordination Vitals Vitals Vital Signs Date Time Temp Pulse Resp B/P (MAP) Pulse Ox O2 Delivery O2 Flow Rate FiO2 08/18/19 10:34 Nasal Cannula 2.0 08/18/19 07:00 98.4 82 18 90/59 (69) 100 98.4 Physical Exam Physical Exam GENERAL: Propped up in bed, alert HENT: Pupils equal, reactive. Resists oral exam NECK: Supple LUNGS: Clear CV: S1 S2 ABDOMEIN: Obese, soft, no guarding. 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 LLE 2+ edema. SKIN: Warm to touch. Sacral wound dressed LINE MAINTAINER: alert Left sided HDC without signs of complication General: Alert, Oriented X3, No acute distress Heart: Regular rate Lungs: Clear Abdomen: Normal bowel sounds, Soft, Other (very obese) Extremities: No clubbing, No cyanosis Labs LABS Laboratory Tests Test 08/17/19 13:52 08/17/19 20:41 08/18/19 07:47 08/18/19 08:00 Glucose (Fingerstick) 146 mg/dL (70-99) 140 mg/dL (70-99) 147 mg/dL (70-99) White Blood Count 14.4 x10^3/uL (4.0-11.0) Red Blood Count 2.34 x10^6/uL (3.50-5.40) Hemoglobin 6.8 g/dL (12.0-15.5) Hematocrit 21.9 % (36.0-47.0) Mean Corpuscular Volume 94 fL (79-100) Mean Corpuscular Hemoglobin 29 pg (25-35) Mean Corpuscular Hemoglobin Concent 31 g/dL (31-37) Red Cell Distribution Width 19.1 % (11.5-14.5) Platelet Count 163 x10^3/uL (140-400) Comment Review of Relevant I have reviewed the following items karina (where applicable) has been applied. Labs Laboratory Tests Test 08/16/19 11:35 08/16/19 14:26 08/16/19 15:47 08/16/19 21:29 Glucose (Fingerstick) 222 mg/dL (70-99) 201 mg/dL (70-99) 180 mg/dL (70-99) 150 mg/dL (70-99) Test 08/17/19 07:45 08/17/19 08:45 08/17/19 13:52 08/17/19 20:41 Glucose (Fingerstick) 133 mg/dL (70-99) 146 mg/dL (70-99) 140 mg/dL (70-99) White Blood Count 15.8 x10^3/uL (4.0-11.0) Red Blood Count 2.27 x10^6/uL (3.50-5.40) Hemoglobin 6.6 g/dL (12.0-15.5) Hematocrit 20.8 % (36.0-47.0) Mean Corpuscular Volume 92 fL (79-100) Mean Corpuscular Hemoglobin 29 pg (25-35) Mean Corpuscular Hemoglobin Concent 32 g/dL (31-37) Red Cell Distribution Width 18.9 % (11.5-14.5) Platelet Count 161 x10^3/uL (140-400) Sodium Level 135 mmol/L (136-145) Potassium Level 4.1 mmol/L (3.5-5.1) Chloride Level 99 mmol/L (98-107) Carbon Dioxide Level 29 mmol/L (21-32) Anion Gap 7 (6-14) Blood Urea Nitrogen 39 mg/dL (7-20) Creatinine 2.8 mg/dL (0.6-1.0) Estimated GFR (Cockcroft-Gault) 16.9 Glucose Level 146 mg/dL (70-99) Calcium Level 8.4 mg/dL (8.5-10.1) Test 08/18/19 07:47 08/18/19 08:00 Glucose (Fingerstick) 147 mg/dL (70-99) White Blood Count 14.4 x10^3/uL (4.0-11.0) Red Blood Count 2.34 x10^6/uL (3.50-5.40) Hemoglobin 6.8 g/dL (12.0-15.5) Hematocrit 21.9 % (36.0-47.0) Mean Corpuscular Volume 94 fL (79-100) Mean Corpuscular Hemoglobin 29 pg (25-35) Mean Corpuscular Hemoglobin Concent 31 g/dL (31-37) Red Cell Distribution Width 19.1 % (11.5-14.5) Platelet Count 163 x10^3/uL (140-400) Laboratory Tests Test 08/17/19 13:52 08/17/19 20:41 08/18/19 07:47 08/18/19 08:00 Glucose (Fingerstick) 146 mg/dL (70-99) 140 mg/dL (70-99) 147 mg/dL (70-99) White Blood Count 14.4 x10^3/uL (4.0-11.0) Red Blood Count 2.34 x10^6/uL (3.50-5.40) Hemoglobin 6.8 g/dL (12.0-15.5) Hematocrit 21.9 % (36.0-47.0) Mean Corpuscular Volume 94 fL (79-100) Mean Corpuscular Hemoglobin 29 pg (25-35) Mean Corpuscular Hemoglobin Concent 31 g/dL (31-37) Red Cell Distribution Width 19.1 % (11.5-14.5) Platelet Count 163 x10^3/uL (140-400) Medications Current Medications Fentanyl Citrate (Fentanyl 2ml Vial) 25 mcg PRN Q5MIN PRN IV MILD PAIN 1-3 Last administered on 08/16/19at 14:27; Start 08/16/19 at 08:30; Stop 08/17/19 at 08:29; Status DC Fentanyl Citrate (Fentanyl 2ml Vial) 50 mcg PRN Q5MIN PRN IV MODERATE TO SEVERE PAIN Last administered on 08/16/19at 14:35; Start 08/16/19 at 08:30; Stop 08/17/19 at 08:29; Status DC Morphine Sulfate (Morphine Sulfate) 1 mg PRN Q10MIN PRN IV SEVERE PAIN 7-10; Start 08/16/19 at 08:30; Stop 08/17/19 at 08:29; Status DC Ringer's Solution 1,000 ml @ 30 mls/hr Q24H IV ; Start 08/16/19 at 08:25; Stop 08/16/19 at 20:24; Status Cancel Lidocaine HCl (Xylocaine-Mpf 1% 2ml Vial) 2 ml PRN 1X PRN ID PRIOR TO IV START; Start 08/16/19 at 08:30; Stop 08/17/19 at 08:29; Status DC Hydromorphone HCl (Dilaudid) 0.5 mg PRN Q10MIN PRN IV SEV PAIN, Second choice; Start 08/16/19 at 08:30; Stop 08/17/19 at 08:29; Status DC Prochlorperazine Edisylate (Compazine) 5 mg PACU PRN PRN IV NAUSEA, MRX1; Start 08/16/19 at 08:30; Stop 08/17/19 at 08:29; Status DC Cefazolin Sodium/ Dextrose 50 ml @ 100 mls/hr 1X ONCE IV Last administered on 08/16/19at 11:55; Start 08/16/19 at 10:00; Stop 08/16/19 at 10:29; Status DC Insulin Human Lispro (HumaLOG VIAL for OP,RR ONLY) 0-10 units PRN Q1HR PRN SQ PER PROTOCOL Last administered on 08/16/19at 14:38; Start 08/16/19 at 10:30; Stop 08/17/19 at 10:29; Status DC Heparin Sodium (Porcine) 5000 unit/Sodium Chloride 505 ml @ 505 mls/hr 1X ONCE IRR ; Start 08/16/19 at 11:00; Stop 08/16/19 at 11:59; Status DC Cefazolin Sodium 1 gm/Sodium Chloride 500 ml @ 500 mls/hr 1X ONCE IRR Last administered on 08/16/19at 12:19; Start 08/16/19 at 11:00; Stop 08/16/19 at 11:5 9; Status DC Sodium Chloride 1,000 ml @ 75 mls/hr [id number] IV Last administered on 08/17/19at 21:33; Start 08/16/19 at 10:45 Propofol 20 ml @ As Directed STK-MED ONCE IV ; Start 08/16/19 at 11:10; Stop 08/16/19 at 11:11; Status DC Lidocaine HCl (Lidocaine Pf 2% Vial) 5 ml STK-MED ONCE .ROUTE ; Start 08/16/19 at 11:10; Stop 08/16/19 at 11:11; Status DC Rocuronium [place] (Zemuron) 50 mg STK-MED ONCE .ROUTE ; Start 08/16/19 at 11:10; Stop 08/16/19 at 11:11; Status DC Fentanyl Citrate (Fentanyl 2ml Vial) 100 mcg STK-MED ONCE .ROUTE ; Start 08/16/19 at 11:11; Stop 08/16/19 at 11:11; Status DC Cellulose (Surgicel Fibrillar 1x2) 1 each STK-MED ONCE .ROUTE ; Start 08/16/19 at 11:38; Stop 08/16/19 at 11:38; Status DC Ondansetron HCl (Zofran) 4 mg STK-MED ONCE .ROUTE ; Start 08/16/19 at 12:14; Stop 08/16/19 at 12:14; Status DC Phenylephrine HCl (PHENYLEPHRINE in 0.9% NACL PF) 1 mg STK-MED ONCE IV ; Start 08/16/19 at 12:14; Stop 08/16/19 at 12:14; Status DC Desflurane (Suprane) 30 ml STK-MED ONCE IH ; Start 08/16/19 at 12:14; Stop 08/16/19 at 12:14; Status DC Cefazolin Sodium 1 gm/Sodium Chloride 1,000 ml @ 1,000 mls/hr 1X ONCE IRR Last administered on 08/16/19at 13:17; Start 08/16/19 at 13:00; Stop 08/16/19 at 13:59; Status DC Cefazolin Sodium 1 gm/Sodium Chloride 1,000 ml @ 1,000 mls/hr 1X ONCE IRR ; Start 08/16/19 at 12:30; Stop 08/16/19 at 13:29; Status DC Phenylephrine HCl (Von-Synephrine Inj) 10 mg STK-MED ONCE .ROUTE ; Start 08/16/19 at 12:29; Stop 08/16/19 at 12:29; Status DC Ondansetron HCl (Zofran) 4 mg STK-MED ONCE .ROUTE ; Start 08/16/19 at 13:11; Stop 08/16/19 at 13:11; Status DC Desflurane (Suprane) 60 ml STK-MED ONCE IH ; Start 08/16/19 at 13:11; Stop 08/16/19 at 13:11; Status DC Acetaminophen (Tylenol) 650 mg PRN Q4HRS PRN PO MILD PAIN / TEMP Last administered on 08/17/19at 18:34; Start 08/16/19 at 14:00 Amiodarone HCl (Cordarone) 200 mg BID PO ; Start 08/16/19 at 21:00 Atorvastatin Calcium (Lipitor) 10 mg QHS PO Last administered on 08/17/19at 21:50; Start 08/16/19 at 21:00 Clonidine HCl (Catapres) 0.2 mg PRN DAILY PRN PO DIALYSIS/HYPERTENSION; Start 08/16/19 at 14:00 Glucose (Insta-Glucose) 15 gm PRN Q15MIN PRN PO LOW BLOOD SUGAR; Start 08/16/19 at 14:00 Famotidine (Pepcid) 20 mg HS PO Last administered on 08/17/19at 21:46; Start 08/16/19 at 21:00 Acetaminophen/ Hydrocodone Bitart (Lortab 5/325) 1 tab PRN Q6HRS PRN PO MODERATE - SEVERE PAIN Last administered on 08/18/19at 09:29; Start 08/16/19 at 14:00 Lactulose (Lactulose) 20 gm PRN BID PRN PO CONSTIPATION; Start 08/16/19 at 14:00 Levothyroxine Sodium (Synthroid) 100 mcg DAILY06 PO Last administered on 08/18/19at 06:27; Start 08/17/19 at 06:00 Meropenem (Merrem) 500 mg QHS IV ; Start 08/16/19 at 21:00; Status UNV Metoprolol Tartrate (Lopressor) 25 mg BID PO ; Start 08/16/19 at 21:00 Nitroglycerin (Nitrostat) 0.4 mg PRN Q10MIN PRN SL CHEST PAIN; Start 08/16/19 at 14:00 Nortriptyline HCl (Pamelor) 25 mg QHS PO Last administered on 08/17/19at 21:49; Start 08/16/19 at 21:00 Senna/Docusate Sodium (Senna Plus) 1 tab BID PO Last administered on 08/18/19 09:28; Start 08/16/19 at 21:00 Sevelamer Carbonate (Renvela) 800 mg TIDWMEALS PO Last administered on 08/18/19 09:28; Start 08/16/19 at 17:00 Linagliptin (Tradjenta) 5 mg DAILY PO Last administered on 10/3/19at 09:28; Start 08/17/19 at 09:00 Non-Formulary Medication (Daptomycin ) 350 mg DAILY IV ; Start 08/17/19 at 09:00; Status UNV Diphenhydramine HCl (Benadryl) 25 mg PRN Q6HRS PRN IV ITCHING; Start 08/16/19 at 14:15 Darbepoetin Rajeev (ARANESP for DIALYSIS PTS) 25 mcg WEEKLYHS SQ ; Start 08/17/19 at 21:00 Citalopram Hydrobromide (CeleXA) 20 mg DAILY PO Last administered on 08/18/19 09:28; Start 08/17/19 at 09:00 Non-Formulary Medication (Heparin Sodium,Porcine/Pf (Heparin 1,000 Unit/10 (100/ml))) 3.5 ml PRN DAILY PRN IV DIALYSIS; Start 08/16/19 at 14:00; Status UNV Lactobacillus Rhamnosus (Culturelle) 1 cap BID PO Last administered on 08/18/19 09:28; Start 08/16/19 at 21:00 Pregabalin (Lyrica) 300 mg BID PO Last administered on 08/18/19 09:28; Start 08/16/19 at 21:00 Non-Formulary Medication ([anidulafungin 100mg] ) 100 mg QHS IV ; Start 08/16/19 at 21:00; Status UNV Non-Formulary Medication ([clorpactin 2gm powd] ) 1 gm DAILY TOP ; Start 08/17/19 at 09:00; Status UNV Meropenem 500 mg/ Sodium Chloride 50 ml @ 100 mls/hr QHS IV Last administered on 08/17/19at 21:36; Start 08/16/19 at 21:00 Micafungin Sodium 100 mg/Dextrose 100 ml @ 100 mls/hr QHS IV Last administered on 08/17/19at 21:45; Start 08/16/19 at 21:00 Daptomycin 350 mg/ Sodium Chloride 50 ml @ 100 mls/hr QMWF IV Last ad ministered on 08/17/19at 18:35; Start 08/17/19 at 16:00 Sodium Chloride 1,000 ml @ 1,000 mls/hr Q1H PRN IV hypotension; Start 08/17/19 at 13:43; Stop 08/17/19 at 19:42; Status DC Albumin Human 200 ml @ 200 mls/hr 1X PRN PRN IV Hypotension; Start 08/17/19 at 13:45; Stop 08/17/19 at 19:44; Status DC Sodium Chloride (Normal Saline Flush) 10 ml 1X PRN PRN IV AP catheter pack; Start 08/17/19 at 13:45; Stop 08/18/19 at 13:44 Sodium Chloride (Normal Saline Flush) 10 ml 1X PRN PRN IV CEMETERY KEEPER catheter pack; Start 08/17/19 at 13:45; Stop 08/18/19 at 13:44 Sodium Chloride 1,000 ml @ 400 mls/hr Q2H30M PRN IV PATENCY; Start 08/17/19 at 13:43; Stop 08/18/19 at 01:42; Status DC Info (PHARMACY MONITORING -- do not chart) 1 each PRN DAILY PRN MC SEE COMMENTS; Start 08/17/19 at 13:45; Status UNV Info (PHARMACY MONITORING -- do not chart) 1 each PRN DAILY PRN MC SEE COMMENTS; Start 08/17/19 at 13:45 Active Scripts Active Reported Senna-Docusate Sodium Tablet (Sennosides/Docusate Sodium) 1 Each Tablet 1 Each PO BID Lactulose 20 Gm/30 Ml Solution 20 Gm PO BID PRN Probiotic (Lactobacillus Acidophilus) 1 Each Capsule 2 Each PO BID Hydrocodone-Apap 5-325 (Hydrocodone Bit/Acetaminophen) 1 Tab Tablet 1 Tab PO PRN Q6HRS PRN Pepcid (Famotidine) 20 Mg Tablet 20 Mg PO HS [anidulafungin 100mg] 100 Mg IV QHS [clorpactin 2gm powd] 1 Gm TOP DAILY Humalog (Insulin Lispro) 100 Unit/1 Ml Vial 4 Unit SQ Q6HRS Meropenem 500 Mg Vial 500 Mg IV QHS Daptomycin 350 Mg Vial 350 Mg IV DAILY Humalog (Insulin Lispro) 100 Unit/1 Ml Cartridge 100 Units SQ Q6HRS Diphenhydramine HCl 50 Mg/1 Ml Cartridge 25 Mg IJ PRN Q4HRS PRN Glutose 15 (Dextrose) 37.5 Gm Gel..gram. 15 Gm PO PRN Q15MIN PRN Retacrit (Epoetin Rajeev-Epbx) 3,000 Unit/1 Ml Vial 3,000 Unit IJ QMWF Renvela (Sevelamer Carbonate) 800 Mg Tablet 800 Mg PO TIDWMEALS Alogliptin (Alogliptin Benzoate) 6.25 Mg Tablet 6.25 Mg PO DAILY Tylenol (Acetaminophen) 325 Mg Tablet 2 Tab PO PRN Q4HRS Lyrica (Pregabalin) 300 Mg Capsule 1 Cap PO BID Clonidine Hcl 0.2 Mg Tablet 1 Tab PO PRN DAILY PRN NITROGLYCERIN SubLingual (Nitroglycerin) 0.4 Mg Tab.subl 1 Tab SL UD Heparin 1,000 Unit/10 (100/ml) (Heparin Sodium,Porcine/Pf) 1,000 Unit/10 Ml Syringe 3.5 Ml IV PRN DAILY PRN Levothyroxine Sodium 100 Mcg Tablet 1 Tab PO DAILY06 Escitalopram Oxalate 10 Mg Tablet 1 Tab PO DAILY Nortriptyline Hcl 25 Mg Capsule 1 Cap PO QHS Atorvastatin Calcium 10 Mg Tablet 1 Tab PO QHS Metoprolol Tartrate 25 Mg Tablet 1 Tab PO BID Lantus (Insulin Glargine,Hum.rec.anlog) 100 Unit/1 Ml Vial 20 Unit SQ DAILY Amiodarone Hcl 200 Mg Tablet 1 Tab PO BID Vitals/I & O Vital Sign - Last 24 Hours 08/17/19 08/17/19 08/17/19 08/17/19 14:30 15:51 17:00 19:54 Temp 98.5 98.4 98.5 98.4 Pulse 92 87 Resp 18 18 B/P (MAP) 99/46 (63) 91/48 (62) Pulse Ox 99 99 99 100 O2 Delivery Nasal Cannula Nasal Cannula Nasal Cannula O2 Flow Rate 2.0 2.0 2.0 08/17/19 08/17/19 08/17/19 08/17/19 20:00 21:00 23:35 23:40 Temp 98.2 98.2 Pulse 87 84 87 Resp 18 B/P (MAP) 91/48 96/37 (56) 91/48 Pulse Ox 99 O2 Delivery Nasal Cannula Nasal Cannula O2 Flow Rate 2.0 2.0 08/18/19 08/18/19 08/18/19 08/18/19 03:15 03:58 04:29 07:00 Temp 98.3 98.4 98.3 98.4 Pulse 91 82 Resp 16 18 B/P (MAP) 86/55 (65) 90/59 (69) Pulse Ox 100 100 O2 Delivery Nasal Cannula Nasal Cannula Nasal Cannula Nasal Cannula O2 Flow Rate 2.0 2.0 2.0 08/18/19 08/18/19 08/18/19 08:00 09:29 10:34 O2 Delivery Nasal Cannula Nasal Cannula Nasal Cannula O2 Flow Rate 2.0 2.0 2.0 Intake and Output 08/17/19 08/17/19 08/18/19 15:00 23:00 07:00 Intake Total 0 ml Output Total 0 ml 250 ml Balance 0 ml -250 ml WILFREDO MUNOZ MD Aug 18, 2019 10:38
--- NOTE | 2019-08-18 12:19 | PDOC ---
Infectious Disease Note Subjective Subjective Says doing ok Eating No fevers Rectal tube placed Vital Sign Vital Signs Vital Signs Date Time Temp Pulse Resp B/P (MAP) Pulse Ox O2 Delivery O2 Flow Rate FiO2 08/18/19 11:00 98.5 83 18 91/43 (59) 99 Nasal Cannula 2.0 98.5 Physical Exam PHYSICAL EXAM GENERAL: Propped up in bed, more awake, appears comfortable HENT: Pupils equal, reactive. NECK: Supple LUNGS: Clear CV: S1 S2 ABDOMEIN: Obese, soft, no guarding. + BS. rectal tube in place : Indwelling Colvin in place EXT: Right AKA, groin wound vac in place. LLE 2+ edema. SKIN: Warm to touch. Sacral wound dressed COLON AND RECTAL SURGEON: More awake, answers some questions Left sided HDC without signs of complication Labs Lab Laboratory Tests Test 08/17/19 13:52 08/17/19 20:41 08/18/19 07:47 08/18/19 08:00 Glucose (Fingerstick) 146 mg/dL (70-99) 140 mg/dL (70-99) 147 mg/dL (70-99) White Blood Count 14.4 x10^3/uL (4.0-11.0) Red Blood Count 2.34 x10^6/uL (3.50-5.40) Hemoglobin 6.8 g/dL (12.0-15.5) Hematocrit 21.9 % (36.0-47.0) Mean Corpuscular Volume 94 fL (79-100) Mean Corpuscular Hemoglobin 29 pg (25-35) Mean Corpuscular Hemoglobin Concent 31 g/dL (31-37) Red Cell Distribution Width 19.1 % (11.5-14.5) Platelet Count 163 x10^3/uL (140-400) Test 08/18/19 11:18 Glucose (Fingerstick) 186 mg/dL (70-99) Objective Assessment Necrotic right open AKA stump wound s/p debridement, 08/16. 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 col and bacteroides 07/12 Right groin wound with necrotic tissue s/p debridement 08/16. -h/o prior debridements and ESBL klebsiella 07/12 h/o MSSA bacteremia with sepsis in May Treated Leukocytosis Encephalopathy - fluctuates Anemia End-stage renal disease, on hemodialysis via HD catheter Diabetes II h/o left axillary DVT 07/12 Peripheral vascular disease. Atrial fibrillation. Chronic respiratory failure. Protein-calorie malnutrition. Generalized debility. Plan Plan of Care Continue dapto, merrem and micafungin monitor abx toxicities and side effects Probiotics Wound care as directed Offloading check CK level D/w son at bedside D/w Palliative note reviewed. Currently comfortable. Attending Co-Sign Attending Co-Sign The patient was seen and interviewed as well as examined at the bedside. The chart was reviewed. The case was discussed. Agree with the plan of care. SANIYA DC APRN Aug 18, 2019 12:19 PJ DIAZ MD Aug 18, 2019 17:47
--- NOTE | 2019-08-18 12:29 | PDOC ---
Provider Note Provider Note Vascular S: Pt seen and examined in room with palliative care RN and family member bedside, he had several questions regarding her care. O: Lying on left side with wedge under right side In no apparent distress, respirations non-labored Not cooperative in exam or conversation Rt groin and rt leg wound vac in place with good suction and mild amount of output in chamber. No active bleeding suspected. Labs: Hgb 6.6 yesterday, 6.8 today - getting transfusion today A/P: Rt groin wound Rt AKA wound s/p debridement and vac placement 08/16/[address] Antony I had lengthy discussion with pts family member and palliative care RN in regards to plan of care and goals - I answered his questions to the best of my ability, however from a vascular surgery standpoint her wounds at this point are stable, with recommended continued wound vac therapy to her rt groin and right AKA with continued abx per ID. The bigger determining factor is her sacral wound, which we discussed and I am not the best person to answer those questions. I discussed with him (family member present) the importance of the patients desire to get better and willingness to help the nursing staff to help her. Yesterday she refused most, if not all of her care and assistance. He exhibited understanding and was going to discuss with pt. Palliative care RN continued discussion once I answered all his questions to the best of my ability. We will continue to follow peripherally. I have asked wound care to take pictures of wounds and place in chart for our review. ZAHIDA GOMES Aug 18, 2019 12:29
[2019-08-18] MEDS: IV NORMAL SALINE 1000ML BAG 1,000 ML IV SCH (12:54)
--- NOTE | 2019-08-18 13:54 | PDOC2 ---
PALLIATIVE CARE Palliative Care Note Palliative Care Met with patient and son Ken Reviewed medical condition; A/C respiratory failure; Multiple wounds requiring dressing changes and wound vac. DM, ESRD on dialysis; HTN, anemia; encephalopathy; poor candidate for colostomy; sepsis; not cooperating with care givers and plan of care. Patient would become lethargic during conversation. Ken was able to discuss with his mother about her desire to keep trying to improve. Informed that likely the coccyx will not completely heal. Patient would like to continue treatment and understands her cooperating with plan will be imperative. Ken is supportive of this wish but also added that a conversation will be needed if no improvement or she does not actively participate in her care. Confirmed DNR/DNI. Outside the Hospital DNR/DNI form signed. Above reviewed with Martita ABURTO. TRISHA JANE Aug 18, 2019 13:54
--- NOTE | 2019-08-18 14:07 | PATHOLOGY ---
[facility] Accession Number: [id number] . 01 Material submitted: . PART A: sacrum - SACRAL DEBRIDEMENT PART B: anus - ANAL CONDYLOMA . 01 Clinical history: . Coccyx sacral ulcer, anal lesion . 02 Diagnosis: A. Segments of fibroadipose tissue and bone, sacral debridement: - Extensive coagulative necrosis and focal acute inflammation of soft tissues. - Necrosis and acute inflammation of segment of bone. . B. Skin and subcutaneous tissue, anal lesion: - Large anal condyloma. . (JPM:edin; 08/18/2019) [facility] 08/18/2019 1351 Local . 02 Comment: Sections of the anal lesion reveal a large anal condyloma. There is no high-grade dysplasia or evidence of malignancy. (JPM:edin; 08/18/2019) . 02 Electronically signed: . Anthony Welch MD, Pathologist NPI- [id number] . 01 Gross description: . A. The specimen is received in formalin, labeled "Julee Mayes, sacral debridement". Received are multiple segments of yellow-tavares to dusky cardona-tavares necrotic-appearing soft tissue and attached skin admixed with a slight amount of possible bone measuring 13.8 x 10.5 x 4.2 cm in aggregate dimensions. The specimen is submitted representatively in cassettes A1 and A2, with the possible bone submitted in cassette A2, following decalcification. . B. The specimen is received in formalin, labeled "Julee Mayes, anal condyloma". Received is an excision of pale tavares to cardona-tavares, papillary-appearing skin measuring 4.8 x 3.0 x 1.8 cm in greatest dimensions. The surgical margin is inked. The surgical margin is inked. The specimen is submitted representatively in cassettes B1 through B3. (CAA; 08/17/2019) QAC/QAC 08/17/2019 0856 Local . 02 Pathologist provided ICD-10: L89.159, A63.0 . 02 CPT . 032110, 170041, [id number] Specimen Comment: A courtesy copy of this report has been sent to Specimen Comment: [phone], , . Specimen Comment: Report sent to ,DR REYES / DR NOVAK Performed at: 01 [facility] [address] [facility] [address], [place] [id number] MD Patrick Hernandez MD Phone: [phone] Performed at: 02 [facility] [address] [place] [id number] MD Anthony Welch MD Phone: [phone]
--- NOTE | 2019-08-18 14:39 | PDOC ---
SUBJECTIVE ROS Stable OBJECTIVE Vital Signs Vital Signs Date Time Temp Pulse Resp B/P (MAP) Pulse Ox O2 Delivery O2 Flow Rate FiO2 08/18/19 14:16 98.4 84 16 91/45 98.4 08/18/19 11:00 99 Nasal Cannula 2.0 I & 0 Intake and Output 08/18/19 07:00 Intake Total 0 ml Output Total 250 ml Balance -250 ml Intake Oral 0 ml Output Urine Total 250 ml Stool Total 0 ml PHYSICAL EXAM Physical Exam GENERAL: NAD HENT: OM moist NECK: Supple LUNGS: Clear CV: S1 S2 ABDOMEIN: Obese, soft, : Indwelling Colvin in place EXT: Right AKA, groin wound vac in place. LLE 2+ edema. SKIN: No rash . 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 Anemia - On DANIS per protocol Diabetes II h/o left axillary DVT 07/12 Anal condoloma s/p Bx Peripheral vascular disease. Atrial fibrillation. Chronic respiratory failure. Generalized debility . COMMENT/RELEVANT DATA Meds Current Medications Medications (Trade) Dose Ordered Sig/Kirill Start Time Stop Time Status Last Admin Dose Admin Acetaminophen (Tylenol) 650 mg PRN Q4HRS PRN 08/16/19 14:00 08/17/19 18:34 650 MG Acetaminophen/ Hydrocodone Bitart (Lortab 5/325) 1 tab PRN Q6HRS PRN 08/16/19 14:00 08/18/19 09:29 1 TAB Albumin Human 200 ml @ 200 mls/hr 1X PRN PRN 08/17/19 13:45 08/17/19 19:44 DC Amiodarone HCl (Cordarone) 200 mg BID 08/16/19 21:00 Atorvastatin Calcium (Lipitor) 10 mg QHS 08/16/19 21:00 08/17/19 21:50 10 MG Cefazolin Sodium 1 gm/Sodium Chloride 1,000 ml @ 1,000 mls/hr 1X ONCE 08/16/19 12:30 08/16/19 13:29 DC Cefazolin Sodium/ Dextrose 50 ml @ 100 mls/hr 1X ONCE 08/16/19 10:00 08/16/19 10:29 DC 08/16/19 11:55 100 MLS/HR Cellulose (Surgicel Fibrillar 1x2) 1 each STK-MED ONCE 08/16/19 11:38 08/16/19 11:38 DC Citalopram Hydrobromide (CeleXA) 20 mg DAILY 08/17/19 09:00 08/18/19 09:28 20 MG Clonidine HCl (Catapres) 0.2 mg PRN DAILY PRN 08/16/19 14:00 Daptomycin 350 mg/ Sodium Chloride 50 ml @ 100 mls/hr QMWF 08/17/19 16:00 08/17/19 18:35 100 MLS/HR Darbepoetin Rajeev (ARANESP for DIALYSIS PTS) 25 mcg WEEKLYHS 08/17/19 21:00 Desflurane (Suprane) 60 ml STK-MED ONCE 08/16/19 13:11 08/16/19 13:11 DC Diphenhydramine HCl (Benadryl) 25 mg PRN Q6HRS PRN 08/16/19 14:15 Famotidine (Pepcid) 20 mg HS 08/16/19 21:00 08/17/19 21:46 20 MG Fentanyl Citrate (Fentanyl 2ml Vial) 100 mcg STK-MED ONCE 08/16/19 11:11 08/16/19 11:11 DC Glucose (Insta-Glucose) 15 gm PRN Q15MIN PRN 08/16/19 14:00 Heparin Sodium (Porcine) 5000 unit/Sodium Chloride 505 ml @ 505 mls/hr 1X ONCE 08/16/19 11:00 08/16/19 11:59 DC Hydromorphone HCl (Dilaudid) 0.5 mg PRN Q10MIN PRN 08/16/19 08:30 08/17/19 08:29 DC Info (PHARMACY MONITORING -- do not chart) 1 each PRN DAILY PRN 08/17/19 13:45 Insulin Human Lispro (HumaLOG VIAL for OP,RR ONLY) 0-10 units PRN Q1HR PRN 08/16/19 10:30 08/17/19 10:29 DC 08/16/19 14:38 6 UNIT Lactobacillus Rhamnosus (Culturelle) 1 cap BID 08/16/19 21:00 08/18/19 09:28 1 CAP Lactulose (Lactulose) 20 gm PRN BID PRN 08/16/19 14:00 Levothyroxine Sodium (Synthroid) 100 mcg DAILY06 08/17/19 06:00 08/18/19 06:27 100 MCG Lidocaine HCl (Lidocaine Pf 2% Vial) 5 ml STK-MED ONCE 08/16/19 11:10 08/16/19 11:11 DC Lidocaine HCl (Xylocaine-Mpf 1% 2ml Vial) 2 ml PRN 1X PRN 08/16/19 08:30 08/17/19 08:29 DC Linagliptin (Tradjenta) 5 mg DAILY 08/17/19 09:00 08/18/19 09:28 5 MG Meropenem (Merrem) 500 mg QHS 08/16/19 21:00 UNV Meropenem 500 mg/ Sodium Chloride 50 ml @ 100 mls/hr QHS 08/16/19 21:00 08/17/19 21:36 100 MLS/HR Metoprolol Tartrate (Lopressor) 25 mg BID 08/16/19 21:00 Micafungin Sodium 100 mg/Dextrose 100 ml @ 100 mls/hr QHS 08/16/19 21:00 08/17/19 21:45 100 MLS/HR Morphine Sulfate (Morphine Sulfate) 1 mg PRN Q10MIN PRN 08/16/19 08:30 08/17/19 08:29 DC Nitroglycerin (Nitrostat) 0.4 mg PRN Q10MIN PRN 08/16/19 14:00 Non-Formulary Medication (Daptomycin ) 350 mg DAILY 08/17/19 09:00 UNV Non-Formulary Medication (Heparin Sodium,Porcine/Pf (Heparin 1,000 Unit/10 (100/ml))) 3.5 ml PRN DAILY PRN 08/16/19 14:00 UNV Non-Formulary Medication ([anidulafungin 100mg] ) 100 mg QHS 08/16/19 21:00 UNV Non-Formulary Medication ([clorpactin 2gm powd] ) 1 gm DAILY 08/17/19 09:00 UNV Nortriptyline HCl (Pamelor) 25 mg QHS 08/16/19 21:00 08/17/19 21:49 25 MG Ondansetron HCl (Zofran) 4 mg STK-MED ONCE 08/16/19 13:11 08/16/19 13:11 DC Phenylephrine HCl (Von-Synephrine Inj) 10 mg STK-MED ONCE 08/16/19 12:29 08/16/19 12:29 DC Phenylephrine HCl (PHENYLEPHRINE in 0.9% NACL PF) 1 mg STK-MED ONCE 08/16/19 12:14 08/16/19 12:14 DC Pregabalin (Lyrica) 300 mg BID 08/16/19 21:00 08/18/19 09:28 300 MG Prochlorperazine Edisylate (Compazine) 5 mg PACU PRN PRN 08/16/19 08:30 08/17/19 08:29 DC Propofol 20 ml @ As Directed STK-MED ONCE 08/16/19 11:10 08/16/19 11:11 DC Ringer's Solution 1,000 ml @ 30 mls/hr Q24H 08/16/19 08:25 08/16/19 20:24 Cancel Rocuronium [place] (Zemuron) 50 mg STK-MED ONCE 08/16/19 11:10 08/16/19 11:11 DC Senna/Docusate Sodium (Senna Plus) 1 tab BID 08/16/19 21:00 08/18/19 09:28 1 TAB Sevelamer Carbonate (Renvela) 800 mg TIDWMEALS 08/16/19 17:00 08/18/19 12:53 800 MG Sodium Chloride 1,000 ml @ 400 mls/hr Q2H30M PRN 08/17/19 13:43 08/18/19 01:42 DC Sodium Chloride (Normal Saline Flush) 10 ml 1X PRN PRN 08/17/19 13:45 08/18/19 13:44 DC Lab Laboratory Tests Test 08/17/19 20:41 08/18/19 07:47 08/18/19 08:00 08/18/19 11:18 Glucose (Fingerstick) 140 mg/dL (70-99) 147 mg/dL (70-99) 186 mg/dL (70-99) White Blood Count 14.4 x10^3/uL (4.0-11.0) Red Blood Count 2.34 x10^6/uL (3.50-5.40) Hemoglobin 6.8 g/dL (12.0-15.5) Hematocrit 21.9 % (36.0-47.0) Mean Corpuscular Volume 94 fL (79-100) Mean Corpuscular Hemoglobin 29 pg (25-35) Mean Corpuscular Hemoglobin Concent 31 g/dL (31-37) Red Cell Distribution Width 19.1 % (11.5-14.5) Platelet Count 163 x10^3/uL (140-400) Results All relevant outside records, renal labs, imaging studies, telemetry/EKG's were reviewed. ERNESTINA BAUM MD Aug 18, 2019 14:39
--- NOTE | 2019-08-18 16:00 | NUR ---
Wound care: patient seen per wound care. See wound assessment. patient is well known to us from previous admission. Patient is s/p surgery on 08/16/19. All wounds cleansed, assessed, measured, and pictured. Patient has unstageable pressure ulcer to right lower back, honey alginate and foam dressing applied. Patient has stage IV pressure ulcer to coccyx which underwent debridement on 08/16/19, Dakins/Betadine soaked kerlix (4 rolls) packed into wound, covered with ABD pads, and tape. Patient has open incision to right groin and open incision from surgical dehiscence of right AKA, skin prepped on both wounds and silver foam dressing applied, one piece of foam to right AKA and two pieces of foam to right groin, a good seal maintained at 125mmHg continuous. These two wounds are connected together with a Y connector. Patient repositioned and turned to the right using the wedge. Bed lowered and call light in reach. Wound care will follow up for dressing changes on Thursday. Patient is on a P-500 bed.
[2019-08-18 18:46] LABS: HEMATOCRIT 24.5 % (36.0-47.0); HEMOGLOBIN 7.7 g/dL (12.0-15.5)
[2019-08-18] MEDS: FAMOTIDINE 20 MG TABLET. PO SCH (21:12)
[2019-08-18] MEDS: NORTRIPTYLINE 25 MG CAPSULE PO SCH (21:13)
[2019-08-18] MEDS: ATORVASTATIN CALCIUM 10 MG TABLET. PO SCH (21:15)
[2019-08-18] MEDS: MEROPENEM 500 MG in IV NORMAL SALINE 50ML 50 ML IV SCH (21:17)
[2019-08-18] MEDS: MICAFUNGIN 100 MG in IV DEXTROSE 5% 100ML 100 ML IV SCH (21:18)
[2019-08-19] VITALS (9 sets, daily range): BP systolic 70–121; BP diastolic 29–98
[2019-08-19] MEDS: IV NORMAL SALINE 1000ML BAG 1,000 ML IV SCH ×2 (04:17→21:44)
[2019-08-19] MEDS: LEVOTHYROXINE 100 MCG TABLET PO SCH ×2 (06:00→09:24)
[2019-08-19 07:47] LABS: ALBUMIN 0.7 g/dL (3.4-5.0); ALBUMIN/GLOBULIN RATIO 0.2 (1.0-1.7); ALK PHOS 205 U/L (46-116); ANION GAP 8 (6-14); AST (SGOT) 25 U/L (15-37); BLOOD UREA NITROGEN 23 mg/dL (7-20); BUN/CREATININE RATIO 11 (6-20); CALCIUM 7.5 mg/dL (8.5-10.1); CARBON DIOXIDE 25 mmol/L (21-32); CHLORIDE 107 mmol/L (98-107); CREATININE 2.1 mg/dL (0.6-1.0); GFR 23.5; GLUCOSE 110 mg/dL (70-99); POTASSIUM 3.3 mmol/L (3.5-5.1); SODIUM 140 mmol/L (136-145); TOTAL BILIRUBIN 0.3 mg/dL (0.2-1.0); TOTAL PROTEIN 5.2 g/dL (6.4-8.2)
[2019-08-19 07:51] LABS: ALT (SGPT) < 6 U/L (14-59)
--- NOTE | 2019-08-19 08:23 | PDOC ---
PROGRESS NOTES History of Present Illness History of Present Illness Assessment/Plan Assessment/Plan VTE Prophylaxis Ordered VTE Prophylaxis Devices: No VTE Pharmacological Prophylaxi: Yes Assessment/Plan 1. Acute on chronic respiratory failure, multifactorial. 2. Status post right above-knee amputation 3. Status post excisional debridement of necrotic skin and subcutaneous tissue around the right groin with placement of a wound VAC. 4. PAD-S/P R Fem Endartrectomy and BKA for gangrene, now with necrosis and dehiscence. S/p right [id number] amputation with excision of infected gangrene her amputation, status post surgical intervention 5. Right groin incision with extensive gangrene throughout the incision with dehiscence and underlying necrotic tissue from recent femoral endarterectomy. 6. Morbid obesity. 7. Diabetes. 8. Acute on chronic kidney disease requiring hemodialysis. 9. hx Methicillin-resistant Staphylococcus aureus sepsis. 10. Hypertension. 11. Chronic anemia. 12. HX OF Metabolic toxic encephalopathy. 13. UPPER DVT 14. ESRD ON HD 15. sacral cocy wound 16. poor candidate for colostomy, given obesity 17. Sacrococcygeal decubitus w/ necrotic tissue s/p excisional debridement of skin, subcutaneous tissue and bone, excision of anal condyloma, 08/16 -h/o prior debridements and h/o ESBL Klebsiella, Enterococcus, E. col and bacteroides 07/12 Operative Note Operative Note Operative Note Operative Report Dictated Pre-op: right groin open wound with necrotic tissue, right above knee amputation open wound with necrotic tissue Post-op: same Operation: right groin debridement and right above the knee amputation wound debridement with wound vac dressing placements Surgeon: Dr. Taryn Antony Blood loss:20ml Anesthesia: general TARYN ANTONY MD Aug 16, 2019 13:00 hgb 6.8 today, transfused -08/19 Continue dapto, merrem and micafungin PLAN admit to medical bed continue IV abx taking at [facility]. restart insulin when takin po continue supplemental 02 consult nutrition, has G tube placed recently on 07/27. presume to optimize nutritional status. unclear if hx of dysphagia. ID consult for abx recommendations. nephro consult for HD check baseline labs DNR and DNI refusing all treatments 08/17 , consulted palliative care Patient's son Ken Ruano called by staff , did visit mother and she is now being more cooperative with her treatment Continue dapto, merrem and micafungin 27 min pt exam, chart review, > 50% of time with exam, chart review pt care coordination Vitals Vitals Vital Signs Date Time Temp Pulse Resp B/P (MAP) Pulse Ox O2 Delivery O2 Flow Rate FiO2 08/19/19 07:29 98.9 73 20 98/50 (66) 98 Nasal Cannula 2.0 98.9 Physical Exam Physical Exam GENERAL: Propped up in bed, alert HENT: Pupils equal, reactive. Resists oral exam NECK: Supple LUNGS: Clear CV: S1 S2 ABDOMEIN: Obese, soft, no guarding. 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 LLE 2+ edema. SKIN: Warm to touch. Sacral wound dressed COBBLER SOLE: alert Left sided HDC without signs of complication General: Alert, Oriented X3, Cooperative, No acute distress Heart: Regular rate Lungs: Clear Abdomen: Normal bowel sounds, Soft, Other (very obese) Extremities: No clubbing, No cyanosis Labs LABS Laboratory Tests Test 08/18/19 11:18 08/18/19 17:26 08/18/19 17:35 08/18/19 20:24 Glucose (Fingerstick) 186 mg/dL (70-99) 163 mg/dL (70-99) 163 mg/dL (70-99) Hemoglobin 7.7 g/dL (12.0-15.5) Hematocrit 24.5 % (36.0-47.0) Mean Corpuscular Hemoglobin Concent 31 g/dL (31-37) Creatine Kinase 11 U/L (26-192) Test 08/19/19 06:20 08/19/19 07:18 Sodium Level 140 mmol/L (136-145) Potassium Level 3.3 mmol/L (3.5-5.1) Chloride Level 107 mmol/L (98-107) Carbon Dioxide Level 25 mmol/L (21-32) Anion Gap 8 (6-14) Blood Urea Nitrogen 23 mg/dL (7-20) Creatinine 2.1 mg/dL (0.6-1.0) Estimated GFR (Cockcroft-Gault) 23.5 BUN/Creatinine Ratio 11 (6-20) Glucose Level 110 mg/dL (70-99) Calcium Level 7.5 mg/dL (8.5-10.1) Total Bilirubin 0.3 mg/dL (0.2-1.0) Aspartate Amino Transf (AST/SGOT) 25 U/L (15-37) Alanine Aminotransferase (ALT/SGPT) < 6 U/L (14-59) Alkaline Phosphatase 205 U/L (46-116) Total Protein 5.2 g/dL (6.4-8.2) Albumin 0.7 g/dL (3.4-5.0) Albumin/Globulin Ratio 0.2 (1.0-1.7) Glucose (Fingerstick) 131 mg/dL (70-99) Comment Review of Relevant I have reviewed the following items karina (where applicable) has been applied. Labs Laboratory Tests Test 08/17/19 08:45 08/17/19 13:52 08/17/19 20:41 08/18/19 07:47 White Blood Count 15.8 x10^3/uL (4.0-11.0) Red Blood Count 2.27 x10^6/uL (3.50-5.40) Hemoglobin 6.6 g/dL (12.0-15.5) Hematocrit 20.8 % (36.0-47.0) Mean Corpuscular Volume 92 fL (79-100) Mean Corpuscular Hemoglobin 29 pg (25-35) Mean Corpuscular Hemoglobin Concent 32 g/dL (31-37) Red Cell Distribution Width 18.9 % (11.5-14.5) Platelet Count 161 x10^3/uL (140-400) Sodium Level 135 mmol/L (136-145) Potassium Level 4.1 mmol/L (3.5-5.1) Chloride Level 99 mmol/L (98-107) Carbon Dioxide Level 29 mmol/L (21-32) Anion Gap 7 (6-14) Blood Urea Nitrogen 39 mg/dL (7-20) Creatinine 2.8 mg/dL (0.6-1.0) Estimated GFR (Cockcroft-Gault) 16.9 Glucose Level 146 mg/dL (70-99) Calcium Level 8.4 mg/dL (8.5-10.1) Glucose (Fingerstick) 146 mg/dL (70-99) 140 mg/dL (70-99) 147 mg/dL (70-99) Test 08/18/19 08:00 08/18/19 11:18 08/18/19 17:26 08/18/19 17:35 White Blood Count 14.4 x10^3/uL (4.0-11.0) Red Blood Count 2.34 x10^6/uL (3.50-5.40) Hemoglobin 6.8 g/dL (12.0-15.5) 7.7 g/dL (12.0-15.5) Hematocrit 21.9 % (36.0-47.0) 24.5 % (36.0-47.0) Mean Corpuscular Volume 94 fL (79-100) Mean Corpuscular Hemoglobin 29 pg (25-35) Mean Corpuscular Hemoglobin Concent 31 g/dL (31-37) 31 g/dL (31-37) Red Cell Distribution Width 19.1 % (11.5-14.5) Platelet Count 163 x10^3/uL (140-400) Glucose (Fingerstick) 186 mg/dL (70-99) 163 mg/dL (70-99) Creatine Kinase 11 U/L (26-192) Test 08/18/19 20:24 08/19/19 06:20 08/19/19 07:18 Glucose (Fingerstick) 163 mg/dL (70-99) 131 mg/dL (70-99) Sodium Level 140 mmol/L (136-145) Potassium Level 3.3 mmol/L (3.5-5.1) Chloride Level 107 mmol/L (98-107) Carbon Dioxide Level 25 mmol/L (21-32) Anion Gap 8 (6-14) Blood Urea Nitrogen 23 mg/dL (7-20) Creatinine 2.1 mg/dL (0.6-1.0) Estimated GFR (Cockcroft-Gault) 23.5 BUN/Creatinine Ratio 11 (6-20) Glucose Level 110 mg/dL (70-99) Calcium Level 7.5 mg/dL (8.5-10.1) Total Bilirubin 0.3 mg/dL (0.2-1.0) Aspartate Amino Transf (AST/SGOT) 25 U/L (15-37) Alanine Aminotransferase (ALT/SGPT) < 6 U/L (14-59) Alkaline Phosphatase 205 U/L (46-116) Total Protein 5.2 g/dL (6.4-8.2) Albumin 0.7 g/dL (3.4-5.0) Albumin/Globulin Ratio 0.2 (1.0-1.7) Laboratory Tests Test 08/18/19 11:18 08/18/19 17:26 08/18/19 17:35 08/18/19 20:24 Glucose (Fingerstick) 186 mg/dL (70-99) 163 mg/dL (70-99) 163 mg/dL (70-99) Hemoglobin 7.7 g/dL (12.0-15.5) Hematocrit 24.5 % (36.0-47.0) Mean Corpuscular Hemoglobin Concent 31 g/dL (31-37) Creatine Kinase 11 U/L (26-192) Test 08/19/19 06:20 08/19/19 07:18 Sodium Level 140 mmol/L (136-145) Potassium Level 3.3 mmol/L (3.5-5.1) Chloride Level 107 mmol/L (98-107) Carbon Dioxide Level 25 mmol/L (21-32) Anion Gap 8 (6-14) Blood Urea Nitrogen 23 mg/dL (7-20) Creatinine 2.1 mg/dL (0.6-1.0) Estimated GFR (Cockcroft-Gault) 23.5 BUN/Creatinine Ratio 11 (6-20) Glucose Level 110 mg/dL (70-99) Calcium Level 7.5 mg/dL (8.5-10.1) Total Bilirubin 0.3 mg/dL (0.2-1.0) Aspartate Amino Transf (AST/SGOT) 25 U/L (15-37) Alanine Aminotransferase (ALT/SGPT) < 6 U/L (14-59) Alkaline Phosphatase 205 U/L (46-116) Total Protein 5.2 g/dL (6.4-8.2) Albumin 0.7 g/dL (3.4-5.0) Albumin/Globulin Ratio 0.2 (1.0-1.7) Glucose (Fingerstick) 131 mg/dL (70-99) Medications Current Medications Fentanyl Citrate (Fentanyl 2ml Vial) 25 mcg PRN Q5MIN PRN IV MILD PAIN 1-3 Last administered on 08/16/19at 14:27; Start 08/16/19 at 08:30; Stop 08/17/19 at 08:29; Status DC Fentanyl Citrate (Fentanyl 2ml Vial) 50 mcg PRN Q5MIN PRN IV MODERATE TO SEVERE PAIN Last administered on 08/16/19at 14:35; Start 08/16/19 at 08:30; Stop 9 at 08:29; Status DC Morphine Sulfate (Morphine Sulfate) 1 mg PRN Q10MIN PRN IV SEVERE PAIN 7-10; Start 08/16/19 at 08:30; Stop 08/17/19 at 08:29; Status DC Ringer's Solution 1,000 ml @ 30 mls/hr Q24H IV ; Start 08/16/19 at 08:25; Stop 08/16/19 at 20:24; Status Cancel Lidocaine HCl (Xylocaine-Mpf 1% 2ml Vial) 2 ml PRN 1X PRN ID PRIOR TO IV START; Start 08/16/19 at 08:30; Stop 08/17/19 at 08:29; Status DC Hydromorphone HCl (Dilaudid) 0.5 mg PRN Q10MIN PRN IV SEV PAIN, Second choice; Start 08/16/19 at 08:30; Stop 08/17/19 at 08:29; Status DC Prochlorperazine Edisylate (Compazine) 5 mg PACU PRN PRN IV NAUSEA, MRX1; Start 08/16/19 at 08:30; Stop 08/17/19 at 08:29; Status DC Cefazolin Sodium/ Dextrose 50 ml @ 100 mls/hr 1X ONCE IV Last administered on 08/16/19at 11:55; Start 08/16/19 at 10:00; Stop 08/16/19 at 10:29; Status DC Insulin Human Lispro (HumaLOG VIAL for OP,RR ONLY) 0-10 units PRN Q1HR PRN SQ PER PROTOCOL Last administered on 08/16/19at 14:38; Start 08/16/19 at 10:30; Stop 08/17/19 at 10:29; Status DC Heparin Sodium (Porcine) 5000 unit/Sodium Chloride 505 ml @ 505 mls/hr 1X ONCE IRR ; Start 08/16/19 at 11:00; Stop 08/16/19 at 11:59; Status DC Cefazolin Sodium 1 gm/Sodium Chloride 500 ml @ 500 mls/hr 1X ONCE IRR Last administered on 08/16/19at 12:19; Start 08/16/19 at 11:00; Stop 08/16/19 at 11:59; Status DC Sodium Chloride 1,000 ml @ 75 mls/hr [id number] IV Last administered on 08/19/19at 04:17; Start 08/16/19 at 10:45 Propofol 20 ml @ As Directed STK-MED ONCE IV ; Start 08/16/19 at 11:10; Stop 08/16/19 at 11:11; Status DC Lidocaine HCl (Lidocaine Pf 2% Vial) 5 ml STK-MED ONCE .ROUTE ; Start 08/16/19 at 11:10; Stop 08/16/19 at 11:11; Status DC Rocuronium [place] (Zemuron) 50 mg STK-MED ONCE .ROUTE ; Start 08/16/19 at 11:10; Stop 08/16/19 at 11:11; Status DC Fentanyl Citrate (Fentanyl 2ml Vial) 100 mcg STK-MED ONCE .ROUTE ; Start 08/16/19 at 11:11; Stop 08/16/19 at 11:11; Status DC Cellulose (Surgicel Fibrillar 1x2) 1 each STK-MED ONCE .ROUTE ; Start 08/16/19 at 11:38; Stop 08/16/19 at 11:38; Status DC Ondansetron HCl (Zofran) 4 mg STK-MED ONCE .ROUTE ; Start 08/16/19 at 12:14; Stop 08/16/19 at 12:14; Status DC Phenylephrine HCl (PHENYLEPHRINE in 0.9% NACL PF) 1 mg STK-MED ONCE IV ; Start 08/16/19 at 12:14; Stop 08/16/19 at 12:14; Status DC Desflurane (Suprane) 30 ml STK-MED ONCE IH ; Start 08/16/19 at 12:14; Stop 08/16/19 at 12:14; Status DC Cefazolin Sodium 1 gm/Sodium Chloride 1,000 ml @ 1,000 mls/hr 1X ONCE IRR Last administered on 08/16/19at 13:17; Start 08/16/19 at 13:00; Stop 08/16/19 at 13:59; Status DC Cefazolin Sodium 1 gm/Sodium Chloride 1,000 ml @ 1,000 mls/hr 1X ONCE IRR ; Start 08/16/19 at 12:30; Stop 08/16/19 at 13:29; Status DC Phenylephrine HCl (Von-Synephrine Inj) 10 mg STK-MED ONCE .ROUTE ; Start 08/16/19 at 12:29; Stop 08/16/19 at 12:29; Status DC Ondansetron HCl (Zofran) 4 mg STK-MED ONCE .ROUTE ; Start 08/16/19 at 13:11; Stop 08/16/19 at 13:11; Status DC Desflurane (Suprane) 60 ml STK-MED ONCE IH ; Start 08/16/19 at 13:11; Stop 08/16/19 at 13:11; Status DC Acetaminophen (Tylenol) 650 mg PRN Q4HRS PRN PO MILD PAIN / TEMP Last administered on 08/17/19at 18:34; Start 08/16/19 at 14:00 Amiodarone HCl (Cordarone) 200 mg BID PO ; Start 08/16/19 at 21:00 Atorvastatin Calcium (Lipitor) 10 mg QHS PO Last administered on 08/18/19at 21:15; Start 08/16/19 at 21:00 Clonidine HCl (Catapres) 0.2 mg PRN DAILY PRN PO DIALYSIS/HYPERTENSION; Start 08/16/19 at 14:00 Glucose (Insta-Glucose) 15 gm PRN Q15MIN PRN PO LOW BLOOD SUGAR; Start 08/16/19 at 14:00 Famotidine (Pepcid) 20 mg HS PO Last administered on 08/18/19at 21:12; Start 08/16/19 at 21:00 Acetaminophen/ Hydrocodone Bitart (Lortab 5/325) 1 tab PRN Q6HRS PRN PO MODERATE - SEVERE PAIN Last administered on 08/18/19at 16:48; Start 08/16/19 at 14:00 Lactulose (Lactulose) 20 gm PRN BID PRN PO CONSTIPATION; Start 08/16/19 at 14:00 Levothyroxine Sodium (Synthroid) 100 mcg DAILY06 PO Last administered on 08/18/19at 06:27; Start 08/17/19 at 06:00 Meropenem (Merrem) 500 mg QHS IV ; Start 08/16/19 at 21:00; Status UNV Metoprolol Tartrate (Lopressor) 25 mg BID PO ; Start 08/16/19 at 21:00 Nitroglycerin (Nitrostat) 0.4 mg PRN Q10MIN PRN SL CHEST PAIN; Start 08/16/19 at 14:00 Nortriptyline HCl (Pamelor) 25 mg QHS PO Last administered on 08/18/19at 21:13; Start 08/16/19 at 21:00 Senna/Docusate Sodium (Senna Plus) 1 tab BID PO Last administered on 08/18/19 21:12; Start 08/16/19 at 21:00 Sevelamer Carbonate (Renvela) 800 mg TIDWMEALS PO Last administered on 08/18/19at 16:48; Start 08/16/19 at 17:00 Linagliptin (Tradjenta) 5 mg DAILY PO Last administered on 08/18/19at 09:28; Start 08/17/19 at 09:00 Non-Formulary Medication (Daptomycin ) 350 mg DAILY IV ; Start 08/17/19 at 09:00; Status UNV Diphenhydramine HCl (Benadryl) 25 mg PRN Q6HRS PRN IV ITCHING; Start 08/16/19 at 14:15 Darbepoetin Rajeev (ARANESP for DIALYSIS PTS) 25 mcg WEEKLYHS SQ ; Start 08/17/19 at 21:00 Citalopram Hydrobromide (CeleXA) 20 mg DAILY PO Last administered on 08/18/19at 09:28; Start 08/17/19 at 09:00 Non-Formulary Medication (Heparin Sodium,Porcine/Pf (Heparin 1,000 Unit/10 (100/ml))) 3.5 ml PRN DAILY PRN IV DIALYSIS; Start 08/16/19 at 14:00; Status UNV Lactobacillus Rhamnosus (Culturelle) 1 cap BID PO Last administered on 08/18/19 21:13; Start 08/16/19 at 21:00 Pregabalin (Lyrica) 300 mg BID PO Last administered on 08/18/19at 21:14; Start 08/16/19 at 21:00 Non-Formulary Medication ([anidulafungin 100mg] ) 100 mg QHS IV ; Start 08/16/19 at 21:00; Status UNV Non-Formulary Medication ([clorpactin 2gm powd] ) 1 gm DAILY TOP ; Start 08/17/19 at 09:00; Status UNV Meropenem 500 mg/ Sodium Chloride 50 ml @ 100 mls/hr QHS IV Last administered on 08/18/19at 21:17; Start 08/16/19 at 21:00 Micafungin Sodium 100 mg/Dextrose 100 ml @ 100 mls/hr QHS IV Last administered on 08/18/19at 21:18; Start 08/16/19 at 21:00 Daptomycin 350 mg/ Sodium Chloride 50 ml @ 100 mls/hr QMWF IV Last administered on 08/17/19at 18:35; Start 08/17/19 at 16:00 Sodium Chloride 1,000 ml @ 1,000 mls/hr Q1H PRN IV hypotension; Start 08/17/19 at 13:43; Stop 08/17/19 at 19:42; Status DC Albumin Human 200 ml @ 200 mls/hr 1X PRN PRN IV Hypotension; Start 08/17/19 at 13:45; Stop 08/17/19 at 19:44; Status DC Sodium Chloride (Normal Saline Flush) 10 ml 1X PRN PRN IV AP catheter pack; Start 08/17/19 at 13:45; Stop 08/18/19 at 13:44; Status DC Sodium Chloride (Normal Saline Flush) 10 ml 1X PRN PRN IV GOVERNMENT CONTRACTS MANAGER catheter pack; Start 08/17/19 at 13:45; Stop 08/18/19 at 13:44; Status DC Sodium Chloride 1,000 ml @ 400 mls/hr Q2H30M PRN IV PATENCY; Start 08/17/19 at 13:43; Stop 08/18/19 at 01:42; Status DC Info (PHARMACY MONITORING -- do not chart) 1 each PRN DAILY PRN MC SEE COMMENTS; Start 08/17/19 at 13:45; Status UNV Info (PHARMACY MONITORING -- do not chart) 1 each PRN DAILY PRN MC SEE COMMENTS; Start 08/17/19 at 13:45 Sodium Hypochlorite (Dakin'S 1/4 Strength) 1 brandon DAILY TP ; Start 08/19/19 at 09:00 Nystatin (Nystop) 1 brandon BID TP ; Start 08/19/19 at 09:00 Active Scripts Active Reported Senna-Docusate Sodium Tablet (Sennosides/Docusate Sodium) 1 Each Tablet 1 Each PO BID Lactulose 20 Gm/30 Ml Solution 20 Gm PO BID PRN Probiotic (Lactobacillus Acidophilus) 1 Each Capsule 2 Each PO BID Hydrocodone-Apap 5-325 (Hydrocodone Bit/Acetaminophen) 1 Tab Tablet 1 Tab PO PRN Q6HRS PRN Pepcid (Famotidine) 20 Mg Tablet 20 Mg PO HS [anidulafungin 100mg] 100 Mg IV QHS [clorpactin 2gm powd] 1 Gm TOP DAILY Humalog (Insulin Lispro) 100 Unit/1 Ml Vial 4 Unit SQ Q6HRS Meropenem 500 Mg Vial 500 Mg IV QHS Daptomycin 350 Mg Vial 350 Mg IV DAILY Humalog (Insulin Lispro) 100 Unit/1 Ml Cartridge 100 Units SQ Q6HRS Diphenhydramine HCl 50 Mg/1 Ml Cartridge 25 Mg IJ PRN Q4HRS PRN Glutose 15 (Dextrose) 37.5 Gm Gel..gram. 15 Gm PO PRN Q15MIN PRN Retacrit (Epoetin Rajeev-Epbx) 3,000 Unit/1 Ml Vial 3,000 Unit IJ QMWF Renvela (Sevelamer Carbonate) 800 Mg Tablet 800 Mg PO TIDWMEALS Alogliptin (Alogliptin Benzoate) 6.25 Mg Tablet 6.25 Mg PO DAILY Tylenol (Acetaminophen) 325 Mg Tablet 2 Tab PO PRN Q4HRS Lyrica (Pregabalin) 300 Mg Capsule 1 Cap PO BID Clonidine Hcl 0.2 Mg Tablet 1 Tab PO PRN DAILY PRN NITROGLYCERIN SubLingual (Nitroglycerin) 0.4 Mg Tab.subl 1 Tab SL UD Heparin 1,000 Unit/10 (100/ml) (Heparin Sodium,Porcine/Pf) 1,000 Unit/10 Ml Syringe 3.5 Ml IV PRN DAILY PRN Levothyroxine Sodium 100 Mcg Tablet 1 Tab PO DAILY06 Escitalopram Oxalate 10 Mg Tablet 1 Tab PO DAILY Nortriptyline Hcl 25 Mg Capsule 1 Cap PO QHS Atorvastatin Calcium 10 Mg Tablet 1 Tab PO QHS Metoprolol Tartrate 25 Mg Tablet 1 Tab PO BID Lantus (Insulin Glargine,Hum.rec.anlog) 100 Unit/1 Ml Vial 20 Unit SQ DAILY Amiodarone Hcl 200 Mg Tablet 1 Tab PO BID Vitals/I & O Vital Sign - Last 24 Hours 08/18/19 08/18/19 08/18/19 08/18/19 09:29 10:34 11:00 14:01 Temp 98.5 98.3 98.5 98.3 Pulse 83 86 Resp 18 16 B/P (MAP) 91/43 (59) 82/43 Pulse Ox 99 O2 Delivery Nasal Cannula Nasal Cannula Nasal Cannula O2 Flow Rate 2.0 2.0 2.0 08/18/19 08/18/19 08/18/19 08/18/19 14:16 15:45 15:45 16:48 Temp 98.4 98.1 98.1 98.4 98.1 98.1 Pulse 84 87 87 Resp 16 20 20 B/P (MAP) 91/45 92/39 92/39 (56) Pulse Ox 100 O2 Delivery Nasal Cannula Nasal Cannula O2 Flow Rate 2.0 2.0 08/18/19 08/18/19 08/18/19 08/18/19 16:50 17:52 17:57 19:52 Temp 98.0 98.4 98.6 98.0 98.4 98.6 Pulse 75 78 91 Resp 18 18 16 B/P (MAP) 95/44 95/41 101/42 (61) Pulse Ox 97 O2 Delivery Nasal Cannula Nasal Cannula O2 Flow Rate 2.0 2.0 08/18/19 08/18/19 08/18/19 08/18/19 20:00 21:00 21:00 23:31 Temp 97.8 97.8 Pulse 70 70 70 Resp 20 B/P (MAP) 90/49 90/49 90/49 (63) Pulse Ox 98 O2 Delivery Nasal Cannula Nasal Cannula O2 Flow Rate 2.0 2.0 08/19/19 08/19/19 03:50 07:29 Temp 98.3 98.9 98.3 98.9 Pulse 68 73 Resp 20 20 B/P (MAP) 93/51 (65) 98/50 (66) Pulse Ox 100 98 O2 Delivery Nasal Cannula Nasal Cannula O2 Flow Rate 2.0 2.0 Intake and Output 08/18/19 08/18/19 08/19/19 15:00 23:00 07:00 Intake Total 50 ml 0 ml Output Total 15 ml 100 ml Balance 35 ml -100 ml WILFREDO MUNOZ MD Aug 19, 2019 08:23
[2019-08-19 08:53] LABS: BASO # 0.1 x10^3/uL (0.0-0.2); BASO % 1 % (0-3); EOS # 0.1 x10^3/uL (0.0-0.7); EOS % 1 % (0-3); HEMATOCRIT 22.2 % (36.0-47.0); LYMPH # 3.2 x10^3/uL (1.0-4.8); LYMPH % 27 % (24-48); MEAN CORPUSCULAR HEMOGLOBIN 29 pg (25-35); MEAN CORPUSCULAR HGB CONC 31 g/dL (31-37); MEAN CORPUSCULAR VOLUME 94 fL (79-100); MONO # 0.9 x10^3/uL (0.0-1.1); MONO % 8 % (0-9); NEUT # 7.5 x10^3/uL (1.8-7.7); NEUT % 63 % (31-73); PLATELET COUNT 139 x10^3/uL (140-400); RED BLOOD COUNT 2.36 x10^6/uL (3.50-5.40); WHITE BLOOD COUNT 11.9 x10^3/uL (4.0-11.0)
[2019-08-19 08:54] LABS: HEMOGLOBIN 6.9 g/dL (12.0-15.5)
[2019-08-19] MEDS: CITALOPRAM 20 MG TABLET. PO SCH (09:00)
[2019-08-19] MEDS: SENNOSIDES/DOCUSATE 8.6/50MG TABLET. PO SCH ×2 (09:21→21:45)
[2019-08-19] MEDS: METOPROLOL TART IMMED RELEASE 25 MG TABLET. PO SCH ×2 (09:22→21:42)
[2019-08-19] MEDS: LINAGLIPTIN 5 MG TABLET PO SCH (09:23)
[2019-08-19] MEDS: LACTOBACILLUS RHAMNOSUS GG 1 CAPSULE. PO SCH ×2 (09:23→21:43)
[2019-08-19] MEDS: AMIODARONE HCL 200 MG TABLET. PO SCH ×2 (09:24→21:43)
[2019-08-19] MEDS: SEVELAMER CARBONATE 800 MG TABLET. PO SCH ×3 (09:25→17:57)
[2019-08-19] MEDS: PREGABALIN 75 MG CAPSULE PO SCH ×2 (09:25→21:43)
--- NOTE | 2019-08-19 09:25 | PDOC ---
Provider Note Provider Note Vascular S: Pt seen and examined in room, patient somnolent and not answering any questions. O: Lying on left side with wedge under right side In no apparent distress, respirations non-labored Not cooperative in exam or conversation Rt groin and rt leg wound vac in place with good suction and mild amount of output in chamber. No active bleeding suspected. Periwound intact. Labs: Hgb 6.6 yesterday, 6.8 today - getting transfusion today A/P: Rt groin wound Rt AKA wound s/p debridement and vac placement 08/16/[address] Antony Images during wound VAC change reviewed right BKA and right groin wounds appeared to be healthy with granulating tissue. Discussed plan of care with RN following palliative care meeting with patient and family yesterday. According to nurse the patient's family is still wanting to continue with aggressive therapy. We'll continue to monitor progression of amputation and groin wounds. Will defer sacral wounds to Dr. Rahman. Will follow the patient peripherally. Recommend patient continue follow-up in the wound care center. Antibiotics per infectious disease. TRE SUAREZ APRN Aug 19, 2019 09:25
--- NOTE | 2019-08-19 09:56 | PDOC ---
Infectious Disease Note Subjective Subjective Slept well Feeling good this morning No F/C/N/V/SOA ROS ROS per HPI Vital Sign Vital Signs Vital Signs Date Time Temp Pulse Resp B/P (MAP) Pulse Ox O2 Delivery O2 Flow Rate FiO2 08/19/19 09:24 73 98/50 08/19/19 07:29 98.9 20 98 Nasal Cannula 2.0 98.9 Physical Exam PHYSICAL EXAM GENERAL: Propped up in bed, alert, smiling, eating HENT: Pupils equal, reactive. NECK: Supple LUNGS: Clear CV: S1 S2 ABDOMEIN: Obese, soft, no guarding. + BS, rectal tube : Indwelling Colvin in place EXT: Right AKA, groin wound vac in place. LLE 2+ edema. SKIN: Warm to touch. 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 OFFICER: alert, answering questions appropriately Left sided HDC without signs of complication Labs Lab Laboratory Tests Test 08/18/19 11:18 08/18/19 17:26 08/18/19 17:35 08/18/19 20:24 Glucose (Fingerstick) 186 mg/dL (70-99) 163 mg/dL (70-99) 163 mg/dL (70-99) Hemoglobin 7.7 g/dL (12.0-15.5) Hematocrit 24.5 % (36.0-47.0) Mean Corpuscular Hemoglobin Concent 31 g/dL (31-37) Creatine Kinase 11 U/L (26-192) Test 08/19/19 06:20 08/19/19 07:18 White Blood Count 11.9 x10^3/uL (4.0-11.0) Red Blood Count 2.36 x10^6/uL (3.50-5.40) Hemoglobin 6.9 g/dL (12.0-15.5) Hematocrit 22.2 % (36.0-47.0) Mean Corpuscular Volume 94 fL (79-100) Mean Corpuscular Hemoglobin 29 pg (25-35) Mean Corpuscular Hemoglobin Concent 31 g/dL (31-37) Red Cell Distribution Width 19.0 % (11.5-14.5) Platelet Count 139 x10^3/uL (140-400) Neutrophils (%) (Auto) 63 % (31-73) Lymphocytes (%) (Auto) 27 % (24-48) Monocytes (%) (Auto) 8 % (0-9) Eosinophils (%) (Auto) 1 % (0-3) Basophils (%) (Auto) 1 % (0-3) Neutrophils # (Auto) 7.5 x10^3/uL (1.8-7.7) Lymphocytes # (Auto) 3.2 x10^3/uL (1.0-4.8) Monocytes # (Auto) 0.9 x10^3/uL (0.0-1.1) Eosinophils # (Auto) 0.1 x10^3/uL (0.0-0.7) Basophils # (Auto) 0.1 x10^3/uL (0.0-0.2) Sodium Level 140 mmol/L (136-145) Potassium Level 3.3 mmol/L (3.5-5.1) Chloride Level 107 mmol/L (98-107) Carbon Dioxide Level 25 mmol/L (21-32) Anion Gap 8 (6-14) Blood Urea Nitrogen 23 mg/dL (7-20) Creatinine 2.1 mg/dL (0.6-1.0) Estimated GFR (Cockcroft-Gault) 23.5 BUN/Creatinine Ratio 11 (6-20) Glucose Level 110 mg/dL (70-99) Calcium Level 7.5 mg/dL (8.5-10.1) Total Bilirubin 0.3 mg/dL (0.2-1.0) Aspartate Amino Transf (AST/SGOT) 25 U/L (15-37) Alanine Aminotransferase (ALT/SGPT) < 6 U/L (14-59) Alkaline Phosphatase 205 U/L (46-116) Total Protein 5.2 g/dL (6.4-8.2) Albumin 0.7 g/dL (3.4-5.0) Albumin/Globulin Ratio 0.2 (1.0-1.7) Glucose (Fingerstick) 131 mg/dL (70-99) Objective Assessment Necrotic right open AKA stump wound s/p debridement, 08/16. 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 col and bacteroides 07/12 Right groin wound with necrotic tissue s/p debridement 08/16. -h/o prior debridements and ESBL klebsiella 07/12 h/o MSSA bacteremia with sepsis in May Treated Leukocytosis Encephalopathy - fluctuates Anemia End-stage renal disease, on hemodialysis via HD catheter Diabetes II h/o left axillary DVT 07/12 Peripheral vascular disease. Atrial fibrillation. Chronic respiratory failure. Protein-calorie malnutrition. Generalized debility. Plan Plan of Care Continue dapto, merrem and micafungin monitor abx toxicities and side effects. CK 11 (08/18) Probiotics Wound care as directed Offloading Now DNR/DNI PRBCs underway Anemia per primary Attending Co-Sign Attending Co-Sign The patient was seen and interviewed as well as examined at the bedside. The chart was reviewed. The case was discussed. Agree with the plan of care. SANIYA DC APRN Aug 19, 2019 09:56 PJ DIAZ MD Aug 19, 2019 15:57
[2019-08-19] MEDS ORDERED: IV NORMAL SALINE 1000ML BAG 1,000 ML IV PRN ×2 (10:54)
[2019-08-19] MEDS ORDERED: ALBUMIN HUMAN 25% 200 ML IV PRN (11:00)
[2019-08-19] MEDS ORDERED: 0.9 % SODIUM CHLORIDE 10 ML DISP.SYRIN. IV PRN ×2 (11:00)
[2019-08-19] MEDS ORDERED: DIALYSIS PATIENT. MC PRN ×2 (11:00)
[2019-08-19] MEDS: HYDROcodone/APAP 5/325MG 1 TAB TABLET PO PRN ×2 (13:31→21:44)
--- NOTE | 2019-08-19 14:34 | PDOC ---
SUBJECTIVE ROS Stable, alert , was c/o pain- better after getting pain med OBJECTIVE Vital Signs Vital Signs Date Time Temp Pulse Resp B/P (MAP) Pulse Ox O2 Delivery O2 Flow Rate FiO2 08/19/19 13:31 16 Nasal Cannula 2.0 08/19/19 12:49 98.6 85 113/45 98.6 08/19/19 11:15 97 I & 0 Intake and Output 08/19/19 07:00 Intake Total 50 ml Output Total 115 ml Balance -65 ml Intake Oral 0 ml Blood Product IV Normal Saline Flush 50 ml Output Urine Total 100 ml Stool Total 15 ml PHYSICAL EXAM Physical Exam GENERAL: NAD HENT: OM moist NECK: Supple LUNGS: Clear CV: S1 S2 ABDOMEIN: Obese, soft, : Indwelling Colvin in place EXT: Right AKA, groin wound vac in place. LLE 2+ edema. SKIN: No rash . 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 Anemia - On DANIS per protocol Diabetes II h/o left axillary DVT 07/12 Anal condoloma s/p Bx Peripheral vascular disease. Atrial fibrillation. Chronic respiratory failure. Generalized debility . COMMENT/RELEVANT DATA Meds Current Medications Medications (Trade) Dose Ordered Sig/Kirill Start Time Stop Time Status Last Admin Dose Admin Acetaminophen (Tylenol) 650 mg PRN Q4HRS PRN 08/16/19 14:00 08/17/19 18:34 650 MG Acetaminophen/ Hydrocodone Bitart (Lortab 5/325) 1 tab PRN Q6HRS PRN 08/16/19 14:00 08/19/19 13:31 1 TAB Albumin Human 200 ml @ 200 mls/hr 1X PRN PRN 08/19/19 11:00 08/19/19 16:59 Amiodarone HCl (Cordarone) 200 mg BID 08/16/19 21:00 08/19/19 09:24 200 MG Atorvastatin Calcium (Lipitor) 10 mg QHS 08/16/19 21:00 08/18/19 21:15 10 MG Cefazolin Sodium 1 gm/Sodium Chloride 1,000 ml @ 1,000 mls/hr 1X ONCE 08/16/19 12:30 08/16/19 13:29 DC Cefazolin Sodium/ Dextrose 50 ml @ 100 mls/hr 1X ONCE 08/16/19 10:00 08/16/19 10:29 DC 08/16/19 11:55 100 MLS/HR Cellulose (Surgicel Fibrillar 1x2) 1 each STK-MED ONCE 08/16/19 11:38 08/16/19 11:38 DC Citalopram Hydrobromide (CeleXA) 20 mg DAILY 08/17/19 09:00 08/19/19 09:00 20 MG Clonidine HCl (Catapres) 0.2 mg PRN DAILY PRN 08/16/19 14:00 Daptomycin 350 mg/ Sodium Chloride 50 ml @ 100 mls/hr QMWF 08/17/19 16:00 08/17/19 18:35 100 MLS/HR Darbepoetin Rajeev (ARANESP for DIALYSIS PTS) 25 mcg WEEKLYHS 08/17/19 21:00 Desflurane (Suprane) 60 ml STK-MED ONCE 08/16/19 13:11 08/16/19 13:11 DC Diphenhydramine HCl (Benadryl) 25 mg PRN Q6HRS PRN 08/16/19 14:15 Famotidine (Pepcid) 20 mg HS 08/16/19 21:00 08/18/19 21:12 20 MG Fentanyl Citrate (Fentanyl 2ml Vial) 100 mcg STK-MED ONCE 08/16/19 11:11 08/16/19 11:11 DC Glucose (Insta-Glucose) 15 gm PRN Q15MIN PRN 08/16/19 14:00 Heparin Sodium (Porcine) 5000 unit/Sodium Chloride 505 ml @ 505 mls/hr 1X ONCE 08/16/19 11:00 08/16/19 11:59 DC Hydromorphone HCl (Dilaudid) 0.5 mg PRN Q10MIN PRN 08/16/19 08:30 08/17/19 08:29 DC Info (PHARMACY MONITORING -- do not chart) 1 each PRN DAILY PRN 08/19/19 11:00 UNV Insulin Human Lispro (HumaLOG VIAL for OP,RR ONLY) 0-10 units PRN Q1HR PRN 08/16/19 10:30 08/17/19 10:29 DC 08/16/19 14:38 6 UNIT Lactobacillus Rhamnosus (Culturelle) 1 cap BID 08/16/19 21:00 08/19/19 09:23 1 CAP Lactulose (Lactulose) 20 gm PRN BID PRN 08/16/19 14:00 Levothyroxine Sodium (Synthroid) 100 mcg DAILY06 08/17/19 06:00 08/19/19 09:24 100 MCG Lidocaine HCl (Lidocaine Pf 2% Vial) 5 ml STK-MED ONCE 08/16/19 11:10 08/16/19 11:11 DC Lidocaine HCl (Xylocaine-Mpf 1% 2ml Vial) 2 ml PRN 1X PRN 08/16/19 08:30 08/17/19 08:29 DC Linagliptin (Tradjenta) 5 mg DAILY 08/17/19 09:00 08/19/19 09:23 5 MG Meropenem (Merrem) 500 mg QHS 08/16/19 21:00 UNV Meropenem 500 mg/ Sodium Chloride 50 ml @ 100 mls/hr QHS 08/16/19 21:00 08/18/19 21:17 100 MLS/HR Metoprolol Tartrate (Lopressor) 25 mg BID 08/16/19 21:00 08/19/19 09:22 25 MG Micafungin Sodium 100 mg/Dextrose 100 ml @ 100 mls/hr QHS 08/16/19 21:00 08/18/19 21:18 100 MLS/HR Morphine Sulfate (Morphine Sulfate) 1 mg PRN Q10MIN PRN 08/16/19 08:30 08/17/19 08:29 DC Nitroglycerin (Nitrostat) 0.4 mg PRN Q10MIN PRN 08/16/19 14:00 Non-Formulary Medication (Daptomycin ) 350 mg DAILY 08/17/19 09:00 UNV Non-Formulary Medication (Heparin Sodium,Porcine/Pf (Heparin 1,000 Unit/10 (100/ml))) 3.5 ml PRN DAILY PRN 08/16/19 14:00 UNV Non-Formulary Medication ([anidulafungin 100mg] ) 100 mg QHS 08/16/19 21:00 UNV Non-Formulary Medication ([clorpactin 2gm powd] ) 1 gm DAILY 08/17/19 09:00 UNV Nortriptyline HCl (Pamelor) 25 mg QHS 08/16/19 21:00 08/18/19 21:13 25 MG Nystatin (Nystop) 1 brandon BID 08/19/19 09:00 Ondansetron HCl (Zofran) 4 mg STK-MED ONCE 08/16/19 13:11 08/16/19 13:11 DC Phenylephrine HCl (Von-Synephrine Inj) 10 mg STK-MED ONCE 08/16/19 12:29 08/16/19 12:29 DC Phenylephrine HCl (PHENYLEPHRINE in 0.9% NACL PF) 1 mg STK-MED ONCE 08/16/19 12:14 08/16/19 12:14 DC Pregabalin (Lyrica) 300 mg BID 08/16/19 21:00 08/19/19 09:25 300 MG Prochlorperazine Edisylate (Compazine) 5 mg PACU PRN PRN 08/16/19 08:30 08/17/19 08:29 DC Propofol 20 ml @ As Directed STK-MED ONCE 08/16/19 11:10 08/16/19 11:11 DC Ringer's Solution 1,000 ml @ 30 mls/hr Q24H 08/16/19 08:25 08/16/19 20:24 Cancel Rocuronium [place] (Zemuron) 50 mg STK-MED ONCE 08/16/19 11:10 08/16/19 11:11 DC Senna/Docusate Sodium (Senna Plus) 1 tab BID 08/16/19 21:00 08/19/19 09:21 1 TAB Sevelamer Carbonate (Renvela) 800 mg TIDWMEALS 08/16/19 17:00 08/19/19 09:25 800 MG Sodium Hypochlorite (Dakin'S 1/4 Strength) 1 brandon DAILY 08/19/19 09:00 Sodium Chloride 1,000 ml @ 400 mls/hr Q2H30M PRN 08/19/19 10:54 08/19/19 22:53 Sodium Chloride (Normal Saline Flush) 10 ml 1X PRN PRN 08/19/19 11:00 08/20/19 10:59 Lab Laboratory Tests Test 08/18/19 17:26 08/18/19 17:35 08/18/19 20:24 08/19/19 06:20 Glucose (Fingerstick) 163 mg/dL (70-99) 163 mg/dL (70-99) Hemoglobin 7.7 g/dL (12.0-15.5) 6.9 g/dL (12.0-15.5) Hematocrit 24.5 % (36.0-47.0) 22.2 % (36.0-47.0) Mean Corpuscular Hemoglobin Concent 31 g/dL (31-37) 31 g/dL (31-37) Creatine Kinase 11 U/L (26-192) White Blood Count 11.9 x10^3/uL (4.0-11.0) Red Blood Count 2.36 x10^6/uL (3.50-5.40) Mean Corpuscular Volume 94 fL (79-100) Mean Corpuscular Hemoglobin 29 pg (25-35) Red Cell Distribution Width 19.0 % (11.5-14.5) Platelet Count 139 x10^3/uL (140-400) Neutrophils (%) (Auto) 63 % (31-73) Lymphocytes (%) (Auto) 27 % (24-48) Monocytes (%) (Auto) 8 % (0-9) Eosinophils (%) (Auto) 1 % (0-3) Basophils (%) (Auto) 1 % (0-3) Neutrophils # (Auto) 7.5 x10^3/uL (1.8-7.7) Lymphocytes # (Auto) 3.2 x10^3/uL (1.0-4.8) Monocytes # (Auto) 0.9 x10^3/uL (0.0-1.1) Eosinophils # (Auto) 0.1 x10^3/uL (0.0-0.7) Basophils # (Auto) 0.1 x10^3/uL (0.0-0.2) Sodium Level 140 mmol/L (136-145) Potassium Level 3.3 mmol/L (3.5-5.1) Chloride Level 107 mmol/L (98-107) Carbon Dioxide Level 25 mmol/L (21-32) Anion Gap 8 (6-14) Blood Urea Nitrogen 23 mg/dL (7-20) Creatinine 2.1 mg/dL (0.6-1.0) Estimated GFR (Cockcroft-Gault) 23.5 BUN/Creatinine Ratio 11 (6-20) Glucose Level 110 mg/dL (70-99) Calcium Level 7.5 mg/dL (8.5-10.1) Total Bilirubin 0.3 mg/dL (0.2-1.0) Aspartate Amino Transf (AST/SGOT) 25 U/L (15-37) Alanine Aminotransferase (ALT/SGPT) < 6 U/L (14-59) Alkaline Phosphatase 205 U/L (46-116) Total Protein 5.2 g/dL (6.4-8.2) Albumin 0.7 g/dL (3.4-5.0) Albumin/Globulin Ratio 0.2 (1.0-1.7) Test 08/19/19 07:18 08/19/19 11:00 Glucose (Fingerstick) 131 mg/dL (70-99) 145 mg/dL (70-99) Results All relevant outside records, renal labs, imaging studies, telemetry/EKG's were reviewed. ERNESTINA BAUM MD Aug 19, 2019 14:34
--- NOTE | 2019-08-19 16:25 | NUR ---
Wound care: Patient seen per wound care follow up for coccyx wound dressing change and to reassess. Dressing removed and rectal tube was again laying wound bed. Rectal tube will not remain in place due to tissue and muscle loss around sphincter. Stool in wound. Rectal tube discarded. Spoke with RN whom will notify Dr. Khalil of finding. Recommendations to then change dressing BID with Dakin's soaked kerlix using 3 rolls, cover with ABD pads and kerlilx. Order Dakin's from pharmacy as needed. Dressing applied and patient tolerated well but had more pain than previously. Patient would benefit from having pain medication IV for dressing changes only. Chux and drawsheet changed, patient repositioned to right side using wedge. Bed lowered and call light in reach. Will follow up with patient on Thursday.
[2019-08-19] MEDS: SODIUM HYPOCHLORITE 0.125% 473 ML BOTTLE. TP SCH (17:01)
[2019-08-19] MEDS: NYSTATIN TOPICAL POWDER 15GM BOTTLE. TP SCH ×2 (17:01→21:45)
[2019-08-19] MEDS: DAPTOmycin (GENERIC) IVPB 350 MG in IV NORMAL SALINE 50ML 50 ML IV SCH (17:02)
[2019-08-19] MEDS: FAMOTIDINE 20 MG TABLET. PO SCH (21:42)
[2019-08-19] MEDS: MICAFUNGIN 100 MG in IV DEXTROSE 5% 100ML 100 ML IV SCH (21:42)
[2019-08-19] MEDS: NORTRIPTYLINE 25 MG CAPSULE PO SCH (21:43)
[2019-08-19] MEDS: ATORVASTATIN CALCIUM 10 MG TABLET. PO SCH (21:44)
[2019-08-19] MEDS: MEROPENEM 500 MG in IV NORMAL SALINE 50ML 50 ML IV SCH (23:26)
[2019-08-20 03:31] VITALS: BP 78/36
[2019-08-20] MEDS: HYDROcodone/APAP 5/325MG 1 TAB TABLET PO PRN ×3 (05:12→15:18)
[2019-08-20] MEDS: LEVOTHYROXINE 100 MCG TABLET PO SCH (05:12)
[2019-08-20] MEDS: IV NORMAL SALINE 1000ML BAG 1,000 ML IV SCH ×2 (05:12→20:51)
--- NOTE | 2019-08-20 06:04 | PDOC ---
Infectious Disease Note Subjective Subjective Slept ok Pain controlled No F/C/N/V/SOA ROS ROS o/w neg Vital Sign Vital Signs Vital Signs Date Time Temp Pulse Resp B/P (MAP) Pulse Ox O2 Delivery O2 Flow Rate FiO2 08/20/19 05:12 Nasal Cannula 2.0 08/20/19 03:31 97.7 56 20 78/36 (50) 100 97.7 Physical Exam PHYSICAL EXAM GENERAL: Propped up in bed, alert, NAD HENT: Pupils equal, reactive. NECK: Supple LUNGS: Clear CV: S1 S2 ABDOMEIN: Obese, soft, no guarding. + BS, rectal tube : Indwelling Colvin in place EXT: Right AKA, groin wound vac in place. LLE 2+ edema. SKIN: Warm to touch. Sacral wound + bone. some granualation in mid zones. 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 Left sided HDC without signs of complication Labs Lab Laboratory Tests Test 08/19/19 06:20 08/19/19 07:18 08/19/19 11:00 08/19/19 17:12 White Blood Count 11.9 x10^3/uL (4.0-11.0) Red Blood Count 2.36 x10^6/uL (3.50-5.40) Hemoglobin 6.9 g/dL (12.0-15.5) Hematocrit 22.2 % (36.0-47.0) Mean Corpuscular Volume 94 fL (79-100) Mean Corpuscular Hemoglobin 29 pg (25-35) Mean Corpuscular Hemoglobin Concent 31 g/dL (31-37) Red Cell Distribution Width 19.0 % (11.5-14.5) Platelet Count 139 x10^3/uL (140-400) Neutrophils (%) (Auto) 63 % (31-73) Lymphocytes (%) (Auto) 27 % (24-48) Monocytes (%) (Auto) 8 % (0-9) Eosinophils (%) (Auto) 1 % (0-3) Basophils (%) (Auto) 1 % (0-3) Neutrophils # (Auto) 7.5 x10^3/uL (1.8-7.7) Lymphocytes # (Auto) 3.2 x10^3/uL (1.0-4.8) Monocytes # (Auto) 0.9 x10^3/uL (0.0-1.1) Eosinophils # (Auto) 0.1 x10^3/uL (0.0-0.7) Basophils # (Auto) 0.1 x10^3/uL (0.0-0.2) Sodium Level 140 mmol/L (136-145) Potassium Level 3.3 mmol/L (3.5-5.1) Chloride Level 107 mmol/L (98-107) Carbon Dioxide Level 25 mmol/L (21-32) Anion Gap 8 (6-14) Blood Urea Nitrogen 23 mg/dL (7-20) Creatinine 2.1 mg/dL (0.6-1.0) Estimated GFR (Cockcroft-Gault) 23.5 BUN/Creatinine Ratio 11 (6-20) Glucose Level 110 mg/dL (70-99) Calcium Level 7.5 mg/dL (8.5-10.1) Total Bilirubin 0.3 mg/dL (0.2-1.0) Aspartate Amino Transf (AST/SGOT) 25 U/L (15-37) Alanine Aminotransferase (ALT/SGPT) < 6 U/L (14-59) Alkaline Phosphatase 205 U/L (46-116) Total Protein 5.2 g/dL (6.4-8.2) Albumin 0.7 g/dL (3.4-5.0) Albumin/Globulin Ratio 0.2 (1.0-1.7) Glucose (Fingerstick) 131 mg/dL (70-99) 145 mg/dL (70-99) 147 mg/dL (70-99) Test 08/19/19 21:17 Glucose (Fingerstick) 121 mg/dL (70-99) Objective Assessment Necrotic right open AKA stump wound s/p debridement, 08/16. 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 col and bacteroides 07/12 Right groin wound with necrotic tissue s/p debridement 08/16. -h/o prior debridements and ESBL klebsiella 07/12 h/o MSSA bacteremia with sepsis in May Treated Leukocytosis - better Encephalopathy - fluctuates Anemia End-stage renal disease, on hemodialysis via HD catheter Diabetes II h/o left axillary DVT 07/12 Peripheral vascular disease. Atrial fibrillation. Chronic respiratory failure. Protein-calorie malnutrition. Generalized debility. Plan Plan of Care Continue dapto, merrem and micafungin monitor abx toxicities and side effects. CK 11 (08/18) Probiotics Wound care as directed Offloading Now DNR/DNI Anemia per primary PJ DIAZ MD Aug 20, 2019 06:04
[2019-08-20 07:59] VITALS: BP 124/87
[2019-08-20] MEDS: LINAGLIPTIN 5 MG TABLET PO SCH (08:44)
[2019-08-20] MEDS: SEVELAMER CARBONATE 800 MG TABLET. PO SCH ×3 (08:44→16:45)
[2019-08-20] MEDS: SENNOSIDES/DOCUSATE 8.6/50MG TABLET. PO SCH ×2 (08:45→20:50)
[2019-08-20] MEDS: LACTOBACILLUS RHAMNOSUS GG 1 CAPSULE. PO SCH ×2 (08:45→20:48)
[2019-08-20] MEDS: CITALOPRAM 20 MG TABLET. PO SCH (08:45)
[2019-08-20] MEDS: METOPROLOL TART IMMED RELEASE 25 MG TABLET. PO SCH ×2 (08:45→20:49)
[2019-08-20] MEDS: AMIODARONE HCL 200 MG TABLET. PO SCH ×2 (08:45→20:50)
[2019-08-20] MEDS: PREGABALIN 75 MG CAPSULE PO SCH ×2 (08:46→20:49)
[2019-08-20] MEDS: NYSTATIN TOPICAL POWDER 15GM BOTTLE. TP SCH ×2 (09:00→20:51)
--- NOTE | 2019-08-20 11:02 | PDOC ---
PROGRESS NOTES History of Present Illness History of Present Illness Assessment/Plan Assessment/Plan VTE Prophylaxis Ordered VTE Prophylaxis Devices: No VTE Pharmacological Prophylaxi: Yes Assessment/Plan 1. Acute on chronic respiratory failure, multifactorial. 2. Status post right above-knee amputation 3. Status post excisional debridement of necrotic skin and subcutaneous tissue around the right groin with placement of a wound VAC. 4. PAD-S/P R Fem Endartrectomy and BKA for gangrene, now with necrosis and dehiscence. S/p right [id number] amputation with excision of infected gangrene her amputation, status post surgical intervention 5. Right groin incision with extensive gangrene throughout the incision with dehiscence and underlying necrotic tissue from recent femoral endarterectomy. 6. Morbid obesity. 7. Diabetes. 8. Acute on chronic kidney disease requiring hemodialysis. 9. hx Methicillin-resistant Staphylococcus aureus sepsis. 10. Hypertension. 11. Chronic anemia. 12. HX OF Metabolic toxic encephalopathy. 13. UPPER DVT 14. ESRD ON HD 15. sacral cocy wound 16. poor candidate for colostomy, given obesity 17. Sacrococcygeal decubitus w/ necrotic tissue s/p excisional debridement of skin, subcutaneous tissue and bone, excision of anal condyloma, 08/16 -h/o prior debridements and h/o ESBL Klebsiella, Enterococcus, E. col and bacteroides 07/12 Operative Note Operative Note Operative Note Operative Report Dictated Pre-op: right groin open wound with necrotic tissue, right above knee amputation open wound with necrotic tissue Post-op: same Operation: right groin debridement and right above the knee amputation wound debridement with wound vac dressing placements Surgeon: Dr. Taryn Antony Blood loss:20ml Anesthesia: general TARYN ANTONY MD Aug 16, 2019 13:00 hgb 6.8 today, transfused -08/19 Continue dapto, merrem and micafungin PLAN admit to medical bed continue IV abx taking at [facility]. restart insulin when takin po continue supplemental 02 consult nutrition, has G tube placed recently on 07/27. presume to optimize nutritional status. unclear if hx of dysphagia. ID consult for abx recommendations. nephro consult for HD check baseline labs DNR and DNI refusing all treatments 08/17 , consulted palliative care Patient's son Ken Ruano called by staff , did visit mother and she is now being more cooperative with her treatment 08/20 Continue dapto, merrem and micafungin 37 min pt exam, chart review, > 50% of time with exam, chart review pt care coordination Vitals Vitals Vital Signs Date Time Temp Pulse Resp B/P (MAP) Pulse Ox O2 Delivery O2 Flow Rate FiO2 08/20/19 08:45 70 124/87 08/20/19 08:45 98 Nasal Cannula 2.0 08/20/19 07:59 97.6 19 97.6 Physical Exam Physical Exam GENERAL: Propped up in bed, alert, NAD HENT: Pupils equal, reactive. NECK: Supple LUNGS: Clear CV: S1 S2 ABDOMEIN: Obese, soft, no guarding. + BS, rectal tube : Indwelling Colvin in place EXT: Right AKA, groin wound vac in place. LLE 2+ edema. SKIN: Warm to touch. Sacral wound + bone. some granualation in mid zones. 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 Labs Laboratory Tests Test 08/18/19 11:18 08/18/19 17:26 08/18/19 17:35 08/18/19 20:24 Glucose (Fingerstick) 186 mg/dL (70-99) 163 mg/dL (70-99) 163 mg/dL (70-99) Hemoglobin 7.7 g/dL (12.0-15.5) Hematocrit 24.5 % (36.0-47.0) Mean Corpuscular Hemoglobin Concent 31 g/dL (31-37) Creatine Kinase 11 U/L (26-192) Test 08/19/19 06:20 08/19/19 07:18 08/19/19 11:00 08/19/19 17:12 White Blood Count 11.9 x10^3/uL (4.0-11.0) Red Blood Count 2.36 x10^6/uL (3.50-5.40) Hemoglobin 6.9 g/dL (12.0-15.5) Hematocrit 22.2 % (36.0-47.0) Mean Corpuscular Volume 94 fL (79-100) Mean Corpuscular Hemoglobin 29 pg (25-35) Mean Corpuscular Hemoglobin Concent 31 g/dL (31-37) Red Cell Distribution Width 19.0 % (11.5-14.5) Platelet Count 139 x10^3/uL (140-400) Neutrophils (%) (Auto) 63 % (31-73) Lymphocytes (%) (Auto) 27 % (24-48) Monocytes (%) (Auto) 8 % (0-9) Eosinophils (%) (Auto) 1 % (0-3) Basophils (%) (Auto) 1 % (0-3) Neutrophils # (Auto) 7.5 x10^3/uL (1.8-7.7) Lymphocytes # (Auto) 3.2 x10^3/uL (1.0-4.8) Monocytes # (Auto) 0.9 x10^3/uL (0.0-1.1) Eosinophils # (Auto) 0.1 x10^3/uL (0.0-0.7) Basophils # (Auto) 0.1 x10^3/uL (0.0-0.2) Sodium Level 140 mmol/L (136-145) Potassium Level 3.3 mmol/L (3.5-5.1) Chloride Level 107 mmol/L (98-107) Carbon Dioxide Level 25 mmol/L (21-32) Anion Gap 8 (6-14) Blood Urea Nitrogen 23 mg/dL (7-20) Creatinine 2.1 mg/dL (0.6-1.0) Estimated GFR (Cockcroft-Gault) 23.5 BUN/Creatinine Ratio 11 (6-20) Glucose Level 110 mg/dL (70-99) Calcium Level 7.5 mg/dL (8.5-10.1) Total Bilirubin 0.3 mg/dL (0.2-1.0) Aspartate Amino Transf (AST/SGOT) 25 U/L (15-37) Alanine Aminotransferase (ALT/SGPT) < 6 U/L (14-59) Alkaline Phosphatase 205 U/L (46-116) Total Protein 5.2 g/dL (6.4-8.2) Albumin 0.7 g/dL (3.4-5.0) Albumin/Globulin Ratio 0.2 (1.0-1.7) Glucose (Fingerstick) 131 mg/dL (70-99) 145 mg/dL (70-99) 147 mg/dL (70-99) Test 08/19/19 21:17 08/20/19 08:18 Glucose (Fingerstick) 121 mg/dL (70-99) 112 mg/dL (70-99) Laboratory Tests Test 08/19/19 17:12 08/19/19 21:17 08/20/19 08:18 Glucose (Fingerstick) 147 mg/dL (70-99) 121 mg/dL (70-99) 112 mg/dL (70-99) Medications Current Medications Fentanyl Citrate (Fentanyl 2ml Vial) 25 mcg PRN Q5MIN PRN IV MILD PAIN 1-3 Last administered on 08/16/19at 14:27; Start 08/16/19 at 08:30; Stop 08/17/19 at 08:29; Status DC Fentanyl Citrate (Fentanyl 2ml Vial) 50 mcg PRN Q5MIN PRN IV MODERATE TO SEVERE PAIN Last administered on 08/16/19at 14:35; Start 08/16/19 at 08:30; Stop 08/17/19 at 08:29; Status DC Morphine Sulfate (Morphine Sulfate) 1 mg PRN Q10MIN PRN IV SEVERE PAIN 7-10; Start 08/16/19 at 08:30; Stop 08/17/19 at 08:29; Status DC Ringer's Solution 1,000 ml @ 30 mls/hr Q24H IV ; Start 08/16/19 at 08:25; Stop 08/16/19 at 20:24; Status Cancel Lidocaine HCl (Xylocaine-Mpf 1% 2ml Vial) 2 ml PRN 1X PRN ID PRIOR TO IV START; Start 08/16/19 at 08:30; Stop 08/17/19 at 08:29; Status DC Hydromorphone HCl (Dilaudid) 0.5 mg PRN Q10MIN PRN IV SEV PAIN, Second choice; Start 08/16/19 at 08:30; Stop 08/17/19 at 08:29; Status DC Prochlorperazine Edisylate (Compazine) 5 mg PACU PRN PRN IV NAUSEA, MRX1; Start 08/16/19 at 08:30; Stop 08/17/19 at 08:29; Status DC Cefazolin Sodium/ Dextrose 50 ml @ 100 mls/hr 1X ONCE IV Last administered on 08/16/19at 11:55; Start 08/16/19 at 10:00; Stop 08/16/19 at 10:29; Status DC Insulin Human Lispro (HumaLOG VIAL for OP,RR ONLY) 0-10 units PRN Q1HR PRN SQ PER PROTOCOL Last administered on 08/16/19at 14:38; Start 08/16/19 at 10:30; Stop 08/17/19 at 10:29; Status DC Heparin Sodium (Porcine) 5000 unit/Sodium Chloride 505 ml @ 505 mls/hr 1X ONCE IRR ; Start 08/16/19 at 11:00; Stop 08/16/19 at 11:59; Status DC Cefazolin Sodium 1 gm/Sodium Chloride 500 ml @ 500 mls/hr 1X ONCE IRR Last administered on 08/16/19at 12:19; Start 08/16/19 at 11:00; Stop 08/16/19 at 11:59; Status DC Sodium Chloride 1,000 ml @ 75 mls/hr [id number] IV Last administered on 08/20/19at 05:12; Start 08/16/19 at 10:45 Propofol 20 ml @ As Directed STK-MED ONCE IV ; Start 08/16/19 at 11:10; Stop 1 at 11:11; Status DC Lidocaine HCl (Lidocaine Pf 2% Vial) 5 ml STK-MED ONCE .ROUTE ; Start 08/16/19 at 11:10; Stop 08/16/19 at 11:11; Status DC Rocuronium [place] (Zemuron) 50 mg STK-MED ONCE .ROUTE ; Start 08/16/19 at 11:10; Stop 08/16/19 at 11:11; Status DC Fentanyl Citrate (Fentanyl 2ml Vial) 100 mcg STK-MED ONCE .ROUTE ; Start 08/16/19 at 11:11; Stop 08/16/19 at 11:11; Status DC Cellulose (Surgicel Fibrillar 1x2) 1 each STK-MED ONCE .ROUTE ; Start 08/16/19 at 11:38; Stop 08/16/19 at 11:38; Status DC Ondansetron HCl (Zofran) 4 mg STK-MED ONCE .ROUTE ; Start 08/16/19 at 12:14; Stop 08/16/19 at 12:14; Status DC Phenylephrine HCl (PHENYLEPHRINE in 0.9% NACL PF) 1 mg STK-MED ONCE IV ; Start 08/16/19 at 12:14; Stop 08/16/19 at 12:14; Status DC Desflurane (Suprane) 30 ml STK-MED ONCE IH ; Start 08/16/19 at 12:14; Stop 08/16/19 at 12:14; Status DC Cefazolin Sodium 1 gm/Sodium Chloride 1,000 ml @ 1,000 mls/hr 1X ONCE IRR Last administered on 08/16/19at 13:17; Start 08/16/19 at 13:00; Stop 08/16/19 at 13:59; Status DC Cefazolin Sodium 1 gm/Sodium Chloride 1,000 ml @ 1,000 mls/hr 1X ONCE IRR ; Start 08/16/19 at 12:30; Stop 08/16/19 at 13:29; Status DC Phenylephrine HCl (Von-Synephrine Inj) 10 mg STK-MED ONCE .ROUTE ; Start 08/16/19 at 12:29; Stop 08/16/19 at 12:29; Status DC Ondansetron HCl (Zofran) 4 mg STK-MED ONCE .ROUTE ; Start 08/16/19 at 13:11; Stop 08/16/19 at 13:11; Status DC Desflurane (Suprane) 60 ml STK-MED ONCE IH ; Start 08/16/19 at 13:11; Stop 08/16/19 at 13:11; Status DC Acetaminophen (Tylenol) 650 mg PRN Q4HRS PRN PO MILD PAIN / TEMP Last administered on 08/17/19at 18:34; Start 08/16/19 at 14:00 Amiodarone HCl (Cordarone) 200 mg BID PO Last administered on 08/20/19at 08:45; Start 08/16/19 at 21:00 Atorvastatin Calcium (Lipitor) 10 mg QHS PO Last administered on 08/19/19 21:44; Start 08/16/19 at 21:00 Clonidine HCl (Catapres) 0.2 mg PRN DAILY PRN PO DIALYSIS/HYPERTENSION; Start 08/16/19 at 14:00 Glucose (Insta-Glucose) 15 gm PRN Q15MIN PRN PO LOW BLOOD SUGAR; Start 08/16/19 at 14:00 Famotidine (Pepcid) 20 mg HS PO Last administered on 08/19/19 21:42; Start 08/16/19 at 21:00 Acetaminophen/ Hydrocodone Bitart (Lortab 5/325) 1 tab PRN Q6HRS PRN PO MODERATE - SEVERE PAIN Last administered on 08/20/19 08:45; Start 08/16/19 at 14:00 Lactulose (Lactulose) 20 gm PRN BID PRN PO CONSTIPATION; Start 08/16/19 at 14:00 Levothyroxine Sodium (Synthroid) 100 mcg DAILY06 PO Last administered on 08/20/19 05:12; Start 08/17/19 at 06:00 Meropenem (Merrem) 500 mg QHS IV ; Start 08/16/19 at 21:00; Status UNV Metoprolol Tartrate (Lopressor) 25 mg BID PO Last administered on 08/20/19 08:45; Start 08/16/19 at 21:00 Nitroglycerin (Nitrostat) 0.4 mg PRN Q10MIN PRN SL CHEST PAIN; Start 08/16/19 at 14:00 Nortriptyline HCl (Pamelor) 25 mg QHS PO Last administered on 08/19/19 21:43; Start 08/16/19 at 21:00 Senna/Docusate Sodium (Senna Plus) 1 tab BID PO Last administered on 08/20/19 08:45; Start 08/16/19 at 21:00 Sevelamer Carbonate (Renvela) 800 mg TIDWMEALS PO Last administered on 08/20/19 08:44; Start 08/16/19 at 17:00 Linagliptin (Tradjenta) 5 mg DAILY PO Last administered on 08/20/19 08:44; Start 08/17/19 at 09:00 Non-Formulary Medication (Daptomycin ) 350 mg DAILY IV ; Start 08/17/19 at 09:00; Status UNV Diphenhydramine HCl (Benadryl) 25 mg PRN Q6HRS PRN IV ITCHING; Start 08/16/19 at 14:15 Darbepoetin Rajeev (ARANESP for DIALYSIS PTS) 25 mcg WEEKLYHS SQ ; Start 08/17/19 at 21:00 Citalopram Hydrobromide (CeleXA) 20 mg DAILY PO Last administered on 08/20/19at 08:45; Start 08/17/19 at 09:00 Non-Formulary Medication (Heparin Sodium,Porcine/Pf (Heparin 1,000 Unit/10 (100/ml))) 3.5 ml PRN DAILY PRN IV DIALYSIS; Start 08/16/19 at 14:00; Status UNV Lactobacillus Rhamnosus (Culturelle) 1 cap BID PO Last administered on 08/20/19at 08:45; Start 08/16/19 at 21:00 Pregabalin (Lyrica) 300 mg BID PO Last administered on 08/20/19at 08:46; Start 08/16/19 at 21:00 Non-Formulary Medication ([anidulafungin 100mg] ) 100 mg QHS IV ; Start 08/16/19 at 21:00; Status UNV Non-Formulary Medication ([clorpactin 2gm powd] ) 1 gm DAILY TOP ; Start 08/17/19 at 09:00; Status UNV Meropenem 500 mg/ Sodium Chloride 50 ml @ 100 mls/hr QHS IV Last administered on 08/19/19at 23:26; Start 08/16/19 at 21:00 Micafungin Sodium 100 mg/Dextrose 100 ml @ 100 mls/hr QHS IV Last administered on 08/19/19at 21:42; Start 08/16/19 at 21:00 Daptomycin 350 mg/ Sodium Chloride 50 ml @ 100 mls/hr QMWF IV Last admin istered on 08/19/19at 17:02; Start 08/17/19 at 16:00 Sodium Chloride 1,000 ml @ 1,000 mls/hr Q1H PRN IV hypotension; Start 08/17/19 at 13:43; Stop 08/17/19 at 19:42; Status DC Albumin Human 200 ml @ 200 mls/hr 1X PRN PRN IV Hypotension; Start 08/17/19 at 13:45; Stop 08/17/19 at 19:44; Status DC Sodium Chloride (Normal Saline Flush) 10 ml 1X PRN PRN IV AP catheter pack; Start 08/17/19 at 13:45; Stop 08/18/19 at 13:44; Status DC Sodium Chloride (Normal Saline Flush) 10 ml 1X PRN PRN IV SUPERVISOR FILES catheter pack; Start 08/17/19 at 13:45; Stop 08/18/19 at 13:44; Status DC Sodium Chloride 1,000 ml @ 400 mls/hr Q2H30M PRN IV PATENCY; Start 08/17/19 at 13:43; Stop 08/18/19 at 01:42; Status DC Info (PHARMACY MONITORING -- do not chart) 1 each PRN DAILY PRN MC SEE COMMENTS; Start 08/17/19 at 13:45; Status UNV Info (PHARMACY MONITORING -- do not chart) 1 each PRN DAILY PRN MC SEE COMMENTS; Start 08/17/19 at 13:45 Sodium Hypochlorite (Dakin'S 1/4 Strength) 1 brandon DAILY TP Last administered on 08/19/19at 17:01; Start 08/19/19 at 09:00 Nystatin (Nystop) 1 brandon BID TP Last administered on 08/20/19at 09:00; Start 08/19/19 at 09:00 Sodium Chloride 1,000 ml @ 1,000 mls/hr Q1H PRN IV hypotension; Start 08/19/19 at 10:54; Stop 08/19/19 at 16:53; Status DC Albumin Human 200 ml @ 200 mls/hr 1X PRN PRN IV Hypotension; Start 08/19/19 at 11:00; Stop 08/19/19 at 16:59; Status DC Sodium Chloride (Normal Saline Flush) 10 ml 1X PRN PRN IV AP catheter pack; Start 08/19/19 at 11:00; Stop 08/20/19 at 10:59; Status DC Sodium Chloride (Normal Saline Flush) 10 ml 1X PRN PRN IV SUPERVISOR FILES catheter pack; Start 08/19/19 at 11:00; Stop 08/20/19 at 10:59; Status DC Sodium Chloride 1,000 ml @ 400 mls/hr Q2H30M PRN IV PATENCY; Start 08/19/19 at 10:54; Stop 08/19/19 at 22:53; Status DC Info (PHARMACY MONITORING -- do not chart) 1 each PRN DAILY PRN MC SEE COMMENTS; Start 08/19/19 at 11:00; Status UNV Info (PHARMACY MONITORING -- do not chart) 1 each PRN DAILY PRN MC SEE COMMENTS; Start 08/19/19 at 11:00; Status UNV Active Scripts Active Reported Senna-Docusate Sodium Tablet (Sennosides/Docusate Sodium) 1 Each Tablet 1 Each PO BID Lactulose 20 Gm/30 Ml Solution 20 Gm PO BID PRN Probiotic (Lactobacillus Acidophilus) 1 Each Capsule 2 Each PO BID Hydrocodone-Apap 5-325 (Hydrocodone Bit/Acetaminophen) 1 Tab Tablet 1 Tab PO PRN Q6HRS PRN Pepcid (Famotidine) 20 Mg Tablet 20 Mg PO HS [anidulafungin 100mg] 100 Mg IV QHS [clorpactin 2gm powd] 1 Gm TOP DAILY Humalog (Insulin Lispro) 100 Unit/1 Ml Vial 4 Unit SQ Q6HRS Meropenem 500 Mg Vial 500 Mg IV QHS Daptomycin 350 Mg Vial 350 Mg IV DAILY Humalog (Insulin Lispro) 100 Unit/1 Ml Cartridge 100 Units SQ Q6HRS Diphenhydramine HCl 50 Mg/1 Ml Cartridge 25 Mg IJ PRN Q4HRS PRN Glutose 15 (Dextrose) 37.5 Gm Gel..gram. 15 Gm PO PRN Q15MIN PRN Retacrit (Epoetin Rajeev-Epbx) 3,000 Unit/1 Ml Vial 3,000 Unit IJ QMWF Renvela (Sevelamer Carbonate) 800 Mg Tablet 800 Mg PO TIDWMEALS Alogliptin (Alogliptin Benzoate) 6.25 Mg Tablet 6.25 Mg PO DAILY Tylenol (Acetaminophen) 325 Mg Tablet 2 Tab PO PRN Q4HRS Lyrica (Pregabalin) 300 Mg Capsule 1 Cap PO BID Clonidine Hcl 0.2 Mg Tablet 1 Tab PO PRN DAILY PRN NITROGLYCERIN SubLingual (Nitroglycerin) 0.4 Mg Tab.subl 1 Tab SL UD Heparin 1,000 Unit/10 (100/ml) (Heparin Sodium,Porcine/Pf) 1,000 Unit/10 Ml Syringe 3.5 Ml IV PRN DAILY PRN Levothyroxine Sodium 100 Mcg Tablet 1 Tab PO DAILY06 Escitalopram Oxalate 10 Mg Tablet 1 Tab PO DAILY Nortriptyline Hcl 25 Mg Capsule 1 Cap PO QHS Atorvastatin Calcium 10 Mg Tablet 1 Tab PO QHS Metoprolol Tartrate 25 Mg Tablet 1 Tab PO BID Lantus (Insulin Glargine,Hum.rec.anlog) 100 Unit/1 Ml Vial 20 Unit SQ DAILY Amiodarone Hcl 200 Mg Tablet 1 Tab PO BID Vitals/I & O Vital Sign - Last 24 Hours 08/19/19 08/19/19 08/19/19 08/19/19 11:15 12:14 12:30 12:49 Temp 99.0 98.9 98.5 98.6 99.0 98.9 98.5 98.6 Pulse 85 75 84 85 Resp 20 18 18 18 B/P (MAP) 118/49 (72) 90/29 96/46 113/45 Pulse Ox 97 O2 Delivery Nasal Cannula O2 Flow Rate 2.0 08/19/19 08/19/19 08/19/19 08/19/19 13:31 15:28 19:16 20:00 Temp 99.3 98.3 99.3 98.3 Pulse 71 76 Resp 16 20 20 B/P (MAP) 121/98 (106) 82/36 (51) Pulse Ox 96 100 O2 Delivery Nasal Cannula Nasal Cannula Nasal Cannula Nasal Cannula O2 Flow Rate 2.0 2.0 2.0 2.0 08/19/19 08/19/19 08/19/19 08/19/19 21:42 21:43 21:44 23:06 Pulse 76 76 B/P (MAP) 82/36 82/36 O2 Delivery Nasal Cannula Nasal Cannula O2 Flow Rate 2.0 2.0 08/19/19 08/20/19 08/20/19 08/20/19 23:46 03:31 05:12 06:43 Temp 99.1 97.7 99.1 97.7 Pulse 61 56 Resp 20 20 B/P (MAP) 70/32 (45) 78/36 (50) Pulse Ox 97 100 O2 Delivery Nasal Cannula Nasal Cannula Nasal Cannula Nasal Cannula O2 Flow Rate 2.0 2.0 2.0 2.0 08/20/19 08/20/19 08/20/19 08/20/19 07:59 08:00 08:45 08:45 Temp 97.6 97.6 Pulse 70 70 Resp 19 B/P (MAP) 124/87 (99) 124/87 Pulse Ox 98 98 O2 Delivery Nasal Cannula Nasal Cannula Nasal Cannula O2 Flow Rate 2.0 2.0 2.0 08/20/19 08:45 Pulse 70 B/P (MAP) 124/87 Intake and Output 08/19/19 08/19/19 08/20/19 15:00 23:00 07:00 Intake Total 60 ml 270 ml 0 ml Output Total 200 ml Balance 60 ml 270 ml -200 ml WILFREDO MUNOZ MD Aug 20, 2019 11:02
--- NOTE | 2019-08-20 11:06 | PDOC ---
Renal-Progress Notes Subjective Notes Notes NONE, CONFUSED History of Present Illness Hx of present illness NO CHANGE Vitals Vitals Vital Signs Date Time Temp Pulse Resp B/P (MAP) Pulse Ox O2 Delivery O2 Flow Rate FiO2 08/20/19 08:45 70 124/87 08/20/19 08:45 98 Nasal Cannula 2.0 08/20/19 07:59 97.6 19 97.6 Weight Weight [ ] I.O. Intake and Output Intake and Output 08/20/19 07:00 Intake Total 330 ml Output Total 200 ml Balance 130 ml Intake Oral 270 ml Blood Product IV Normal Saline Flush 60 ml Output Urine Total 200 ml Labs Labs Laboratory Tests Test 08/19/19 17:12 08/19/19 21:17 08/20/19 08:18 Glucose (Fingerstick) 147 mg/dL (70-99) 121 mg/dL (70-99) 112 mg/dL (70-99) Review of Systems Constitutional: yes: other (CONFUSED) Physical Exam General Appearance: no apparent distress Respiratory: decreased breath sounds Heart: S1S2 Abdomen: soft Genitourinary: bladder flat Extremities: pulses present Neurology: alert Assessment Assessment IMP ESRD ANEMIA DM II HTN RIGHT AKA WOUND BACTEREMIA PAD PLAN ANTIBIOTICS HD MWF DANIS WILL FOLLOW MOR PINO MD Aug 20, 2019 11:06
[2019-08-20 11:59] VITALS: BP 83/57
[2019-08-20] MEDS: SODIUM HYPOCHLORITE 0.125% 473 ML BOTTLE. TP SCH (15:18)
[2019-08-20 15:59] VITALS: BP 83/54
[2019-08-20 19:57] VITALS: BP 76/41
[2019-08-20] MEDS: MEROPENEM 500 MG in IV NORMAL SALINE 50ML 50 ML IV SCH (20:48)
[2019-08-20] MEDS: NORTRIPTYLINE 25 MG CAPSULE PO SCH (20:48)
[2019-08-20] MEDS: ATORVASTATIN CALCIUM 10 MG TABLET. PO SCH (20:48)
[2019-08-20] MEDS: ACETAMINOPHEN 325 MG TABLET. PO PRN (20:49)
[2019-08-20] MEDS: FAMOTIDINE 20 MG TABLET. PO SCH (20:50)
[2019-08-20] MEDS: MICAFUNGIN 100 MG in IV DEXTROSE 5% 100ML 100 ML IV SCH (22:49)
[2019-08-20 23:31] VITALS: BP 88/41
[2019-08-21 03:45] VITALS: BP 78/63
[2019-08-21 05:04] LABS: BASO # 0.1 x10^3/uL (0.0-0.2); BASO % 1 % (0-3); EOS # 0.1 x10^3/uL (0.0-0.7); EOS % 1 % (0-3); HEMATOCRIT 29.4 % (36.0-47.0); HEMOGLOBIN 9.2 g/dL (12.0-15.5); LYMPH # 4.6 x10^3/uL (1.0-4.8); LYMPH % 33 % (24-48); MEAN CORPUSCULAR HEMOGLOBIN 29 pg (25-35); MEAN CORPUSCULAR HGB CONC 31 g/dL (31-37); MEAN CORPUSCULAR VOLUME 94 fL (79-100); MONO # 1.1 x10^3/uL (0.0-1.1); MONO % 8 % (0-9); NEUT % 57 % (31-73); PLATELET COUNT 164 x10^3/uL (140-400); RED BLOOD COUNT 3.13 x10^6/uL (3.50-5.40)
[2019-08-21] MEDS: ACETAMINOPHEN 325 MG TABLET. PO PRN (05:31)
[2019-08-21] MEDS: LEVOTHYROXINE 100 MCG TABLET PO SCH (05:32)
[2019-08-21] MEDS: HYDROcodone/APAP 5/325MG 1 TAB TABLET PO PRN ×3 (05:32→14:08)
[2019-08-21 05:36] LABS: ALBUMIN 0.9 g/dL (3.4-5.0); ALBUMIN/GLOBULIN RATIO 0.2 (1.0-1.7); ALK PHOS 281 U/L (46-116); ANION GAP 15 (6-14); AST (SGOT) 50 U/L (15-37); BLOOD UREA NITROGEN 20 mg/dL (7-20); BUN/CREATININE RATIO 8 (6-20); CALCIUM 7.9 mg/dL (8.5-10.1); CARBON DIOXIDE 22 mmol/L (21-32); CHLORIDE 105 mmol/L (98-107); CREATININE 2.5 mg/dL (0.6-1.0); GFR 19.2; GLUCOSE 138 mg/dL (70-99); POTASSIUM 4.1 mmol/L (3.5-5.1); SODIUM 142 mmol/L (136-145); TOTAL BILIRUBIN 0.4 mg/dL (0.2-1.0); TOTAL PROTEIN 5.5 g/dL (6.4-8.2)
[2019-08-21 05:37] LABS: ALT (SGPT) < 6 U/L (14-59)
[2019-08-21 07:00] VITALS: BP 77/39
[2019-08-21] MEDS: CITALOPRAM 20 MG TABLET. PO SCH (08:21)
[2019-08-21] MEDS: SENNOSIDES/DOCUSATE 8.6/50MG TABLET. PO SCH ×2 (08:21→20:46)
[2019-08-21] MEDS: AMIODARONE HCL 200 MG TABLET. PO SCH ×2 (08:22→21:00)
[2019-08-21] MEDS: METOPROLOL TART IMMED RELEASE 25 MG TABLET. PO SCH ×2 (08:22→20:52)
[2019-08-21] MEDS: PREGABALIN 75 MG CAPSULE PO SCH ×2 (08:23→20:47)
[2019-08-21] MEDS: LACTOBACILLUS RHAMNOSUS GG 1 CAPSULE. PO SCH ×2 (08:23→20:46)
[2019-08-21] MEDS: LINAGLIPTIN 5 MG TABLET PO SCH (08:23)
[2019-08-21] MEDS: SEVELAMER CARBONATE 800 MG TABLET. PO SCH ×3 (08:23→17:00)
[2019-08-21] MEDS: NYSTATIN TOPICAL POWDER 15GM BOTTLE. TP SCH ×2 (08:29→20:53)
--- NOTE | 2019-08-21 08:47 | PDOC ---
PROGRESS NOTES History of Present Illness History of Present Illness Assessment/Plan Assessment/Plan VTE Prophylaxis Ordered VTE Prophylaxis Devices: No VTE Pharmacological Prophylaxi: Yes Assessment/Plan 1. Acute on chronic respiratory failure, multifactorial. 2. Status post right above-knee amputation 3. Status post excisional debridement of necrotic skin and subcutaneous tissue around the right groin with placement of a wound VAC. 4. PAD-S/P R Fem Endartrectomy and BKA for gangrene, now with necrosis and dehiscence. S/p right [id number] amputation with excision of infected gangrene her amputation, status post surgical intervention 5. Right groin incision with extensive gangrene throughout the incision with dehiscence and underlying necrotic tissue from recent femoral endarterectomy. 6. Morbid obesity. 7. Diabetes. 8. Acute on chronic kidney disease requiring hemodialysis. 9. hx Methicillin-resistant Staphylococcus aureus sepsis. 10. Hypertension. 11. Chronic anemia. 12. HX OF Metabolic toxic encephalopathy. 13. UPPER DVT 14. ESRD ON HD 15. sacral cocy wound 16. poor candidate for colostomy, given obesity 17. Sacrococcygeal decubitus w/ necrotic tissue s/p excisional debridement of skin, subcutaneous tissue and bone, excision of anal condyloma, 08/16 -h/o prior debridements and h/o ESBL Klebsiella, Enterococcus, E. col and bacteroides 07/12 Operative Note Operative Note Operative Note Operative Report Dictated Pre-op: right groin open wound with necrotic tissue, right above knee amputation open wound with necrotic tissue Post-op: same Operation: right groin debridement and right above the knee amputation wound debridement with wound vac dressing placements Surgeon: Dr. Taryn Antony Blood loss:20ml Anesthesia: general TARYN ANTONY MD Aug 16, 2019 13:00 hgb 6.8 today, transfused -08/19 Continue dapto, merrem and micafungin PLAN admit to medical bed continue IV abx taking at [facility]. restart insulin when takin po continue supplemental 02 consult nutrition, has G tube placed recently on 07/27. presume to optimize nutritional status. unclear if hx of dysphagia. ID consult for abx recommendations. nephro consult for HD check baseline labs DNR and DNI refusing all treatments 08/17 , consulted palliative care Patient's son Ken Ruano called by staff , did visit mother and she is now being more cooperative with her treatment 08/20 Continue dapto, merrem and micafungin 28 min pt exam, chart review, > 50% of time with exam, chart review pt care coordination Vitals Vitals Vital Signs Date Time Temp Pulse Resp B/P (MAP) Pulse Ox O2 Delivery O2 Flow Rate FiO2 08/21/19 08:22 67 77/39 08/21/19 07:00 98.1 16 99 Nasal Cannula 2.0 98.1 Physical Exam Physical Exam GENERAL: Propped up in bed, alert, NAD HENT: Pupils equal, reactive. NECK: Supple LUNGS: Clear CV: S1 S2 ABDOMEIN: Obese, soft, no guarding. + BS, rectal tube : Indwelling Colvin in place EXT: Right AKA, groin wound vac in place. LLE 2+ edema. SKIN: Warm to touch. Sacral wound + bone. some granualation in mid zones. Min slough at edges CHURN DRILLER: alert, answering questions appropriately Left sided HDC without signs of complication General: Alert, Oriented X3, Cooperative, No acute distress Heart: Regular rate, Normal S1 Lungs: Clear Abdomen: Normal bowel sounds, Soft, Other (very obese) Extremities: No clubbing, No cyanosis Labs LABS Laboratory Tests Test 08/20/19 11:40 08/20/19 17:31 08/20/19 21:32 08/21/19 04:15 Glucose (Fingerstick) 128 mg/dL (70-99) 109 mg/dL (70-99) 157 mg/dL (70-99) White Blood Count 14.0 x10^3/uL (4.0-11.0) Red Blood Count 3.13 x10^6/uL (3.50-5.40) Hemoglobin 9.2 g/dL (12.0-15.5) Hematocrit 29.4 % (36.0-47.0) Mean Corpuscular Volume 94 fL (79-100) Mean Corpuscular Hemoglobin 29 pg (25-35) Mean Corpuscular Hemoglobin Concent 31 g/dL (31-37) Red Cell Distribution Width 19.0 % (11.5-14.5) Platelet Count 164 x10^3/uL (140-400) Neutrophils (%) (Auto) 57 % (31-73) Lymphocytes (%) (Auto) 33 % (24-48) Monocytes (%) (Auto) 8 % (0-9) Eosinophils (%) (Auto) 1 % (0-3) Basophils (%) (Auto) 1 % (0-3) Neutrophils # (Auto) 8.0 x10^3/uL (1.8-7.7) Lymphocytes # (Auto) 4.6 x10^3/uL (1.0-4.8) Monocytes # (Auto) 1.1 x10^3/uL (0.0-1.1) Eosinophils # (Auto) 0.1 x10^3/uL (0.0-0.7) Basophils # (Auto) 0.1 x10^3/uL (0.0-0.2) Sodium Level 142 mmol/L (136-145) Potassium Level 4.1 mmol/L (3.5-5.1) Chloride Level 105 mmol/L (98-107) Carbon Dioxide Level 22 mmol/L (21-32) Anion Gap 15 (6-14) Blood Urea Nitrogen 20 mg/dL (7-20) Creatinine 2.5 mg/dL (0.6-1.0) Estimated GFR (Cockcroft-Gault) 19.2 BUN/Creatinine Ratio 8 (6-20) Glucose Level 138 mg/dL (70-99) Calcium Level 7.9 mg/dL (8.5-10.1) Total Bilirubin 0.4 mg/dL (0.2-1.0) Aspartate Amino Transf (AST/SGOT) 50 U/L (15-37) Alanine Aminotransferase (ALT/SGPT) < 6 U/L (14-59) Alkaline Phosphatase 281 U/L (46-116) Total Protein 5.5 g/dL (6.4-8.2) Albumin 0.9 g/dL (3.4-5.0) Albumin/Globulin Ratio 0.2 (1.0-1.7) Test 08/21/19 07:18 Glucose (Fingerstick) 123 mg/dL (70-99) Comment Review of Relevant I have reviewed the following items karina (where applicable) has been applied. Labs Laboratory Tests Test 08/19/19 11:00 08/19/19 17:12 08/19/19 21:17 08/20/19 08:18 Glucose (Fingerstick) 145 mg/dL (70-99) 147 mg/dL (70-99) 121 mg/dL (70-99) 112 mg/dL (70-99) Test 08/20/19 11:40 08/20/19 17:31 08/20/19 21:32 08/21/19 04:15 Glucose (Fingerstick) 128 mg/dL (70-99) 109 mg/dL (70-99) 157 mg/dL (70-99) White Blood Count 14.0 x10^3/uL (4.0-11.0) Red Blood Count 3.13 x10^6/uL (3.50-5.40) Hemoglobin 9.2 g/dL (12.0-15.5) Hematocrit 29.4 % (36.0-47.0) Mean Corpuscular Volume 94 fL (79-100) Mean Corpuscular Hemoglobin 29 pg (25-35) Mean Corpuscular Hemoglobin Concent 31 g/dL (31-37) Red Cell Distribution Width 19.0 % (11.5-14.5) Platelet Count 164 x10^3/uL (140-400) Neutrophils (%) (Auto) 57 % (31-73) Lymphocytes (%) (Auto) 33 % (24-48) Monocytes (%) (Auto) 8 % (0-9) Eosinophils (%) (Auto) 1 % (0-3) Basophils (%) (Auto) 1 % (0-3) Neutrophils # (Auto) 8.0 x10^3/uL (1.8-7.7) Lymphocytes # (Auto) 4.6 x10^3/uL (1.0-4.8) Monocytes # (Auto) 1.1 x10^3/uL (0.0-1.1) Eosinophils # (Auto) 0.1 x10^3/uL (0.0-0.7) Basophils # (Auto) 0.1 x10^3/uL (0.0-0.2) Sodium Level 142 mmol/L (136-145) Potassium Level 4.1 mmol/L (3.5-5.1) Chloride Level 105 mmol/L (98-107) Carbon Dioxide Level 22 mmol/L (21-32) Anion Gap 15 (6-14) Blood Urea Nitrogen 20 mg/dL (7-20) Creatinine 2.5 mg/dL (0.6-1.0) Estimated GFR (Cockcroft-Gault) 19.2 BUN/Creatinine Ratio 8 (6-20) Glucose Level 138 mg/dL (70-99) Calcium Level 7.9 mg/dL (8.5-10.1) Total Bilirubin 0.4 mg/dL (0.2-1.0) Aspartate Amino Transf (AST/SGOT) 50 U/L (15-37) Alanine Aminotransferase (ALT/SGPT) < 6 U/L (14-59) Alkaline Phosphatase 281 U/L (46-116) Total Protein 5.5 g/dL (6.4-8.2) Albumin 0.9 g/dL (3.4-5.0) Albumin/Globulin Ratio 0.2 (1.0-1.7) Test 08/21/19 07:18 Glucose (Fingerstick) 123 mg/dL (70-99) Laboratory Tests Test 08/20/19 11:40 08/20/19 17:31 08/20/19 21:32 08/21/19 04:15 Glucose (Fingerstick) 128 mg/dL (70-99) 109 mg/dL (70-99) 157 mg/dL (70-99) White Blood Count 14.0 x10^3/uL (4.0-11.0) Red Blood Count 3.13 x10^6/uL (3.50-5.40) Hemoglobin 9.2 g/dL (12.0-15.5) Hematocrit 29.4 % (36.0-47.0) Mean Corpuscular Volume 94 fL (79-100) Mean Corpuscular Hemoglobin 29 pg (25-35) Mean Corpuscular Hemoglobin Concent 31 g/dL (31-37) Red Cell Distribution Width 19.0 % (11.5-14.5) Platelet Count 164 x10^3/uL (140-400) Neutrophils (%) (Auto) 57 % (31-73) Lymphocytes (%) (Auto) 33 % (24-48) Monocytes (%) (Auto) 8 % (0-9) Eosinophils (%) (Auto) 1 % (0-3) Basophils (%) (Auto) 1 % (0-3) Neutrophils # (Auto) 8.0 x10^3/uL (1.8-7.7) Lymphocytes # (Auto) 4.6 x10^3/uL (1.0-4.8) Monocytes # (Auto) 1.1 x10^3/uL (0.0-1.1) Eosinophils # (Auto) 0.1 x10^3/uL (0.0-0.7) Basophils # (Auto) 0.1 x10^3/uL (0.0-0.2) Sodium Level 142 mmol/L (136-145) Potassium Level 4.1 mmol/L (3.5-5.1) Chloride Level 105 mmol/L (98-107) Carbon Dioxide Level 22 mmol/L (21-32) Anion Gap 15 (6-14) Blood Urea Nitrogen 20 mg/dL (7-20) Creatinine 2.5 mg/dL (0.6-1.0) Estimated GFR (Cockcroft-Gault) 19.2 BUN/Creatinine Ratio 8 (6-20) Glucose Level 138 mg/dL (70-99) Calcium Level 7.9 mg/dL (8.5-10.1) Total Bilirubin 0.4 mg/dL (0.2-1.0) Aspartate Amino Transf (AST/SGOT) 50 U/L (15-37) Alanine Aminotransferase (ALT/SGPT) < 6 U/L (14-59) Alkaline Phosphatase 281 U/L (46-116) Total Protein 5.5 g/dL (6.4-8.2) Albumin 0.9 g/dL (3.4-5.0) Albumin/Globulin Ratio 0.2 (1.0-1.7) Test 08/21/19 07:18 Glucose (Fingerstick) 123 mg/dL (70-99) Medications Current Medications Fentanyl Citrate (Fentanyl 2ml Vial) 25 mcg PRN Q5MIN PRN IV MILD PAIN 1-3 Last administered on 08/16/19at 14:27; Start 08/16/19 at 08:30; Stop 08/17/19 at 08:29; Status DC Fentanyl Citrate (Fentanyl 2ml Vial) 50 mcg PRN Q5MIN PRN IV MODERATE TO SEVERE PAIN Last administered on 08/16/19at 14:35; Start 08/16/19 at 08:30; Stop 08/17/19 at 08:29; Status DC Morphine Sulfate (Morphine Sulfate) 1 mg PRN Q10MIN PRN IV SEVERE PAIN 7-10; Start 08/16/19 at 08:30; Stop 08/17/19 at 08:29; Status DC Ringer's Solution 1,000 ml @ 30 mls/hr Q24H IV ; Start 08/16/19 at 08:25; Stop 08/16/19 at 20:24; Status Cancel Lidocaine HCl (Xylocaine-Mpf 1% 2ml Vial) 2 ml PRN 1X PRN ID PRIOR TO IV START; Start 08/16/19 at 08:30; Stop 08/17/19 at 08:29; Status DC Hydromorphone HCl (Dilaudid) 0.5 mg PRN Q10MIN PRN IV SEV PAIN, Second choice; Start 08/16/19 at 08:30; Stop 08/17/19 at 08:29; Status DC Prochlorperazine Edisylate (Compazine) 5 mg PACU PRN PRN IV NAUSEA, MRX1; St art 08/16/19 at 08:30; Stop 08/17/19 at 08:29; Status DC Cefazolin Sodium/ Dextrose 50 ml @ 100 mls/hr 1X ONCE IV Last administered on 08/16/19at 11:55; Start 08/16/19 at 10:00; Stop 08/16/19 at 10:29; Status DC Insulin Human Lispro (HumaLOG VIAL for OP,RR ONLY) 0-10 units PRN Q1HR PRN SQ PER PROTOCOL Last administered on 08/16/19at 14:38; Start 08/16/19 at 10:30; Stop 08/17/19 at 10:29; Status DC Heparin Sodium (Porcine) 5000 unit/Sodium Chloride 505 ml @ 505 mls/hr 1X ONCE IRR ; Start 08/16/19 at 11:00; Stop 08/16/19 at 11:59; Status DC Cefazolin Sodium 1 gm/Sodium Chloride 500 ml @ 500 mls/hr 1X ONCE IRR Last administered on 08/16/19at 12:19; Start 08/16/19 at 11:00; Stop 08/16/19 at 11:59; Status DC Sodium Chloride 1,000 ml @ 75 mls/hr [id number] IV Last administered on 08/20/19at 20:51; Start 08/16/19 at 10:45 Propofol 20 ml @ As Directed STK-MED ONCE IV ; Start 08/16/19 at 11:10; Stop 08/16/19 at 11:11; Status DC Lidocaine HCl (Lidocaine Pf 2% Vial) 5 ml STK-MED ONCE .ROUTE ; Start 08/16/19 at 11:10; Stop 08/16/19 at 11:11; Status DC Rocuronium Union (Zemuron) 50 mg STK-MED ONCE .ROUTE ; Start 08/16/19 at 11:10; Stop 08/16/19 at 11:11; Status DC Fentanyl Citrate (Fentanyl 2ml Vial) 100 mcg STK-MED ONCE .ROUTE ; Start 08/16/19 at 11:11; Stop 08/16/19 at 11:11; Status DC Cellulose (Surgicel Fibrillar 1x2) 1 each STK-MED ONCE .ROUTE ; Start 08/16/19 at 11:38; Stop 08/16/19 at 11:38; Status DC Ondansetron HCl (Zofran) 4 mg STK-MED ONCE .ROUTE ; Start 08/16/19 at 12:14; Stop 08/16/19 at 12:14; Status DC Phenylephrine HCl (PHENYLEPHRINE in 0.9% NACL PF) 1 mg STK-MED ONCE IV ; Start 08/16/19 at 12:14; Stop 08/16/19 at 12:14; Status DC Desflurane (Suprane) 30 ml STK-MED ONCE IH ; Start 08/16/19 at 12:14; Stop 08/16/19 at 12:14; Status DC Cefazolin Sodium 1 gm/Sodium Chloride 1,000 ml @ 1,000 mls/hr 1X ONCE IRR Last administered on 08/16/19at 13:17; Start 08/16/19 at 13:00; Stop 08/16/19 at 13:59; Status DC Cefazolin Sodium 1 gm/Sodium Chloride 1,000 ml @ 1,000 mls/hr 1X ONCE IRR ; Start 08/16/19 at 12:30; Stop 08/16/19 at 13:29; Status DC Phenylephrine HCl (Von-Synephrine Inj) 10 mg STK-MED ONCE .ROUTE ; Start at 12:29; Stop 08/16/19 at 12:29; Status DC Ondansetron HCl (Zofran) 4 mg STK-MED ONCE .ROUTE ; Start 08/16/19 at 13:11; St op 08/16/19 at 13:11; Status DC Desflurane (Suprane) 60 ml STK-MED ONCE IH ; Start 08/16/19 at 13:11; Stop 08/16/19 at 13:11; Status DC Acetaminophen (Tylenol) 650 mg PRN Q4HRS PRN PO MILD PAIN / TEMP Last administered on 08/21/19at 05:31; Start 08/16/19 at 14:00 Amiodarone HCl (Cordarone) 200 mg BID PO Last administered on 08/21/19at 08:22; Start 08/16/19 at 21:00 Atorvastatin Calcium (Lipitor) 10 mg QHS PO Last administered on 08/20/19at 20:48; Start 08/16/19 at 21:00 Clonidine HCl (Catapres) 0.2 mg PRN DAILY PRN PO DIALYSIS/HYPERTENSION; Start 08/16/19 at 14:00 Glucose (Insta-Glucose) 15 gm PRN Q15MIN PRN PO LOW BLOOD SUGAR; Start 08/16/19 at 14:00 Famotidine (Pepcid) 20 mg HS PO Last administered on 08/20/19at 20:50; Start 08/16/19 at 21:00 Acetaminophen/ Hydrocodone Bitart (Lortab 5/325) 1 tab PRN Q6HRS PRN PO MODERATE - SEVERE PAIN Last administered on 08/21/19at 05:32; Start 08/16/19 at 14:00 Lactulose (Lactulose) 20 gm PRN BID PRN PO CONSTIPATION; Start 08/16/19 at 14:00 Levothyroxine Sodium (Synthroid) 100 mcg DAILY06 PO Last administered on 08/21/19at 05:32; Start 08/17/19 at 06:00 Meropenem (Merrem) 500 mg QHS IV ; Start 08/16/19 at 21:00; Status UNV Metoprolol Tartrate (Lopressor) 25 mg BID PO Last administered on 08/20/19at 20:49; Start 08/16/19 at 21:00 Nitroglycerin (Nitrostat) 0.4 mg PRN Q10MIN PRN SL CHEST PAIN; Start 08/16/19 at 14:00 Nortriptyline HCl (Pamelor) 25 mg QHS PO Last administered on 08/20/19at 20:48; Start 08/16/19 at 21:00 Senna/Docusate Sodium (Senna Plus) 1 tab BID PO Last administered on 08/21/19 08:21; Start 08/16/19 at 21:00 Sevelamer Carbonate (Renvela) 800 mg TIDWMEALS PO Last administered on 08/21/19 08:23; Start 08/16/19 at 17:00 Linagliptin (Tradjenta) 5 mg DAILY PO Last administered on 08/21/19 08:23; Start 08/17/19 at 09:00 Non-Formulary Medication (Daptomycin ) 350 mg DAILY IV ; Start 08/17/19 at 09:00; Status UNV Diphenhydramine HCl (Benadryl) 25 mg PRN Q6HRS PRN IV ITCHING; Start 08/16/19 at 14:15 Darbepoetin Rajeev (ARANESP for DIALYSIS PTS) 25 mcg WEEKLYHS SQ ; Start 08/17/19 at 21:00 Citalopram Hydrobromide (CeleXA) 20 mg DAILY PO Last administered on 08/21/19 08:21; Start 08/17/19 at 09:00 Non-Formulary Medication (Heparin Sodium,Porcine/Pf (Heparin 1,000 Unit/10 (100/ml))) 3.5 ml PRN DAILY PRN IV DIALYSIS; Start 08/16/19 at 14:00; Status UNV Lactobacillus Rhamnosus (Culturelle) 1 cap BID PO Last administered on 08/21/19 08:23; Start 08/16/19 at 21:00 Pregabalin (Lyrica) 300 mg BID PO Last administered on 08/21/19 08:23; Start 08/16/19 at 21:00 Non-Formulary Medication ([anidulafungin 100mg] ) 100 mg QHS IV ; Start 08/16/19 at 21:00; Status UNV Non-Formulary Medication ([clorpactin 2gm powd] ) 1 gm DAILY TOP ; Start 08/17/19 at 09:00; Status UNV Meropenem 500 mg/ Sodium Chloride 50 ml @ 100 mls/hr QHS IV Last administered on 08/20/19at 20:48; Start 08/16/19 at 21:00 Micafungin Sodium 100 mg/Dextrose 100 ml @ 100 mls/hr QHS IV Last administered on 08/20/19at 22:49; Start 08/16/19 at 21:00 Daptomycin 350 mg/ Sodium Chloride 50 ml @ 100 mls/hr QMWF IV Last administered on 08/19/19at 17:02; Start 08/17/19 at 16:00 Sodium Chloride 1,000 ml @ 1,000 mls/hr Q1H PRN IV hypotension; Start 08/17/19 at 13:43; Stop 08/17/19 at 19:42; Status DC Albumin Human 200 ml @ 200 mls/hr 1X PRN PRN IV Hypotension; Start 08/17/19 at 13:45; Stop 08/17/19 at 19:44; Status DC Sodium Chloride (Normal Saline Flush) 10 ml 1X PRN PRN IV AP catheter pack; Start 08/17/19 at 13:45; Stop 08/18/19 at 13:44; Status DC Sodium Chloride (Normal Saline Flush) 10 ml 1X PRN PRN IV PRODUCTION SUPERINTENDENT HYDRO catheter pack; Start 08/17/19 at 13:45; Stop 08/18/19 at 13:44; Status DC Sodium Chloride 1,000 ml @ 400 mls/hr Q2H30M PRN IV PATENCY; Start 08/17/19 at 13:43; Stop 08/18/19 at 01:42; Status DC Info (PHARMACY MONITORING -- do not chart) 1 each PRN DAILY PRN MC SEE COMMENTS; Start 08/17/19 at 13:45; Status UNV Info (PHARMACY MONITORING -- do not chart) 1 each PRN DAILY PRN MC SEE COMMENTS; Start 08/17/19 at 13:45 Sodium Hypochlorite (Dakin'S 1/4 Strength) 1 brandon DAILY TP Last administered on 08/20/19at 15:18; Start 08/19/19 at 09:00 Nystatin (Nystop) 1 brandon BID TP Last administered on 08/21/19at 08:29; Start 08/19/19 at 09:00 Sodium Chloride 1,000 ml @ 1,000 mls/hr Q1H PRN IV hypotension; Start 08/19/19 at 10:54; Stop 08/19/19 at 16:53; Status DC Albumin Human 200 ml @ 200 mls/hr 1X PRN PRN IV Hypotension; Start 08/19/19 at 11:00; Stop 08/19/19 at 16:59; Status DC Sodium Chloride (Normal Saline Flush) 10 ml 1X PRN PRN IV AP catheter pack; Start 08/19/19 at 11:00; Stop 08/20/19 at 10:59; Status DC Sodium Chloride (Normal Saline Flush) 10 ml 1X PRN PRN IV PRODUCTION SUPERINTENDENT HYDRO catheter pack; Start 08/19/19 at 11:00; Stop 08/20/19 at 10:59; Status DC Sodium Chloride 1,000 ml @ 400 mls/hr Q2H30M PRN IV PATENCY; Start 08/19/19 at 10:54; Stop 08/19/19 at 22:53; Status DC Info (PHARMACY MONITORING -- do not chart) 1 each PRN DAILY PRN MC SEE COMMENTS; Start 08/19/19 at 11:00; Status UNV Info (PHARMACY MONITORING -- do not chart) 1 each PRN DAILY PRN MC SEE COMMENTS; Start 08/19/19 at 11:00; Status UNV Active Scripts Active Reported Senna-Docusate Sodium Tablet (Sennosides/Docusate Sodium) 1 Each Tablet 1 Each PO BID Lactulose 20 Gm/30 Ml Solution 20 Gm PO BID PRN Probiotic (Lactobacillus Acidophilus) 1 Each Capsule 2 Each PO BID Hydrocodone-Apap 5-325 (Hydrocodone Bit/Acetaminophen) 1 Tab Tablet 1 Tab PO PRN Q6HRS PRN Pepcid (Famotidine) 20 Mg Tablet 20 Mg PO HS [anidulafungin 100mg] 100 Mg IV QHS [clorpactin 2gm powd] 1 Gm TOP DAILY Humalog (Insulin Lispro) 100 Unit/1 Ml Vial 4 Unit SQ Q6HRS Meropenem 500 Mg Vial 500 Mg IV QHS Daptomycin 350 Mg Vial 350 Mg IV DAILY Humalog (Insulin Lispro) 100 Unit/1 Ml Cartridge 100 Units SQ Q6HRS Diphenhydramine HCl 50 Mg/1 Ml Cartridge 25 Mg IJ PRN Q4HRS PRN Glutose 15 (Dextrose) 37.5 Gm Gel..gram. 15 Gm PO PRN Q15MIN PRN Retacrit (Epoetin Rajeev-Epbx) 3,000 Unit/1 Ml Vial 3,000 Unit IJ QMWF Renvela (Sevelamer Carbonate) 800 Mg Tablet 800 Mg PO TIDWMEALS Alogliptin (Alogliptin Benzoate) 6.25 Mg Tablet 6.25 Mg PO DAILY Tylenol (Acetaminophen) 325 Mg Tablet 2 Tab PO PRN Q4HRS Lyrica (Pregabalin) 300 Mg Capsule 1 Cap PO BID Clonidine Hcl 0.2 Mg Tablet 1 Tab PO PRN DAILY PRN NITROGLYCERIN SubLingual (Nitroglycerin) 0.4 Mg Tab.subl 1 Tab SL UD Heparin 1,000 Unit/10 (100/ml) (Heparin Sodium,Porcine/Pf) 1,000 Unit/10 Ml Syringe 3.5 Ml IV PRN DAILY PRN Levothyroxine Sodium 100 Mcg Tablet 1 Tab PO DAILY06 Escitalopram Oxalate 10 Mg Tablet 1 Tab PO DAILY Nortriptyline Hcl 25 Mg Capsule 1 Cap PO QHS Atorvastatin Calcium 10 Mg Tablet 1 Tab PO QHS Metoprolol Tartrate 25 Mg Tablet 1 Tab PO BID Lantus (Insulin Glargine,Hum.rec.anlog) 100 Unit/1 Ml Vial 20 Unit SQ DAILY Amiodarone Hcl 200 Mg Tablet 1 Tab PO BID Vitals/I & O Vital Sign - Last 24 Hours 08/20/19 08/20/19 08/20/19 08/20/19 11:59 15:18 15:59 16:29 Temp 98.1 98.6 98.1 98.6 Pulse 70 77 Resp 21 20 B/P (MAP) 83/57 (66) 83/54 (64) Pulse Ox 95 95 91 91 O2 Delivery Nasal Cannula Nasal Cannula Nasal Cannula Nasal Cannula O2 Flow Rate 2.0 2.0 2.0 2.0 08/20/19 08/20/19 08/20/19 08/20/19 19:57 20:00 20:49 20:50 Temp 98.0 98.0 Pulse 75 75 75 Resp 16 B/P (MAP) 76/41 (53) 76/41 76/41 Pulse Ox 95 O2 Delivery Nasal Cannula Nasal Cannula O2 Flow Rate 2.0 2.0 08/20/19 08/21/19 08/21/19 08/21/19 23:31 03:45 05:32 06:39 Temp 98.0 98.3 98.0 98.3 Pulse 68 77 Resp 16 20 B/P (MAP) 88/41 (57) 78/63 (68) Pulse Ox 100 99 O2 Delivery Nasal Cannula Nasal Cannula Nasal Cannula Nasal Cannula O2 Flow Rate 2.0 2.0 2.0 2.0 08/21/19 08/21/19 08/21/19 07:00 08:22 08:22 Temp 98.1 98.1 Pulse 67 67 67 Resp 16 B/P (MAP) 77/39 (52) 77/39 77/39 Pulse Ox 99 O2 Delivery Nasal Cannula O2 Flow Rate 2.0 Intake and Output 08/20/19 08/20/19 08/21/19 15:00 23:00 07:00 Intake Total 200 ml 0 ml 50 ml Output Total 300 ml Balance 200 ml 0 ml -250 ml WILFREDO MUNOZ MD Aug 21, 2019 08:47
[2019-08-21] MEDS: SODIUM HYPOCHLORITE 0.125% 473 ML BOTTLE. TP SCH (09:00)
--- NOTE | 2019-08-21 09:50 | PDOC ---
Renal-Progress Notes Subjective Notes Notes CONFUSED History of Present Illness Hx of present illness STABLE Vitals Vitals Vital Signs Date Time Temp Pulse Resp B/P (MAP) Pulse Ox O2 Delivery O2 Flow Rate FiO2 08/21/19 08:22 67 77/39 08/21/19 07:00 98.1 16 99 Nasal Cannula 2.0 98.1 Weight Weight [ ] I.O. Intake and Output Intake and Output 08/21/19 07:00 Intake Total 250 ml Output Total 300 ml Balance -50 ml Intake Oral 250 ml Output Urine Total 300 ml Labs Labs Laboratory Tests Test 08/20/19 11:40 08/20/19 17:31 08/20/19 21:32 08/21/19 04:15 Glucose (Fingerstick) 128 mg/dL (70-99) 109 mg/dL (70-99) 157 mg/dL (70-99) White Blood Count 14.0 x10^3/uL (4.0-11.0) Red Blood Count 3.13 x10^6/uL (3.50-5.40) Hemoglobin 9.2 g/dL (12.0-15.5) Hematocrit 29.4 % (36.0-47.0) Mean Corpuscular Volume 94 fL (79-100) Mean Corpuscular Hemoglobin 29 pg (25-35) Mean Corpuscular Hemoglobin Concent 31 g/dL (31-37) Red Cell Distribution Width 19.0 % (11.5-14.5) Platelet Count 164 x10^3/uL (140-400) Neutrophils (%) (Auto) 57 % (31-73) Lymphocytes (%) (Auto) 33 % (24-48) Monocytes (%) (Auto) 8 % (0-9) Eosinophils (%) (Auto) 1 % (0-3) Basophils (%) (Auto) 1 % (0-3) Neutrophils # (Auto) 8.0 x10^3/uL (1.8-7.7) Lymphocytes # (Auto) 4.6 x10^3/uL (1.0-4.8) Monocytes # (Auto) 1.1 x10^3/uL (0.0-1.1) Eosinophils # (Auto) 0.1 x10^3/uL (0.0-0.7) Basophils # (Auto) 0.1 x10^3/uL (0.0-0.2) Sodium Level 142 mmol/L (136-145) Potassium Level 4.1 mmol/L (3.5-5.1) Chloride Level 105 mmol/L (98-107) Carbon Dioxide Level 22 mmol/L (21-32) Anion Gap 15 (6-14) Blood Urea Nitrogen 20 mg/dL (7-20) Creatinine 2.5 mg/dL (0.6-1.0) Estimated GFR (Cockcroft-Gault) 19.2 BUN/Creatinine Ratio 8 (6-20) Glucose Level 138 mg/dL (70-99) Calcium Level 7.9 mg/dL (8.5-10.1) Total Bilirubin 0.4 mg/dL (0.2-1.0) Aspartate Amino Transf (AST/SGOT) 50 U/L (15-37) Alanine Aminotransferase (ALT/SGPT) < 6 U/L (14-59) Alkaline Phosphatase 281 U/L (46-116) Total Protein 5.5 g/dL (6.4-8.2) Albumin 0.9 g/dL (3.4-5.0) Albumin/Globulin Ratio 0.2 (1.0-1.7) Test 08/21/19 07:18 Glucose (Fingerstick) 123 mg/dL (70-99) Review of Systems Constitutional: yes: other (CONFUSED) Physical Exam General Appearance: no apparent distress Respiratory: decreased breath sounds Heart: S1S2 Abdomen: soft Genitourinary: bladder flat Extremities: pulses present Neurology: alert Assessment Assessment IMP ESRD ANEMIA DM II HTN RIGHT AKA WOUND BACTEREMIA PAD SACRAL DECUBITUS PLAN ANTIBIOTICS HD TOMORROW DANIS WILL FOLLOW MOR PINO MD Aug 21, 2019 09:50
[2019-08-21] MEDS: IV NORMAL SALINE 1000ML BAG 1,000 ML IV SCH (09:53)
[2019-08-21 11:00] VITALS: BP 98/38
--- NOTE | 2019-08-21 11:41 | PDOC ---
Infectious Disease Note Subjective Subjective Quiet Son says doing alright, but tired Ate most of her breakfast No fevers Vital Sign Vital Signs Vital Signs Date Time Temp Pulse Resp B/P (MAP) Pulse Ox O2 Delivery O2 Flow Rate FiO2 08/21/19 11:00 97.6 69 20 98/38 (58) 94 Nasal Cannula 1.5 97.6 Physical Exam PHYSICAL EXAM GENERAL: Propped up in bed, awake, quiet HENT: Pupils equal, reactive. NECK: Supple LUNGS: Clear CV: S1 S2 ABDOMEIN: Obese, soft, no guarding. 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 LLE 2+ edema. SKIN: Warm to touch. Sacral wound + bone. some granualation in mid zones. 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: alert, answering questions appropriately Left sided HDC without signs of complication PIV Labs Lab Laboratory Tests Test 08/20/19 11:40 08/20/19 17:31 08/20/19 21:32 08/21/19 04:15 Glucose (Fingerstick) 128 mg/dL (70-99) 109 mg/dL (70-99) 157 mg/dL (70-99) White Blood Count 14.0 x10^3/uL (4.0-11.0) Red Blood Count 3.13 x10^6/uL (3.50-5.40) Hemoglobin 9.2 g/dL (12.0-15.5) Hematocrit 29.4 % (36.0-47.0) Mean Corpuscular Volume 94 fL (79-100) Mean Corpuscular Hemoglobin 29 pg (25-35) Mean Corpuscular Hemoglobin Concent 31 g/dL (31-37) Red Cell Distribution Width 19.0 % (11.5-14.5) Platelet Count 164 x10^3/uL (140-400) Neutrophils (%) (Auto) 57 % (31-73) Lymphocytes (%) (Auto) 33 % (24-48) Monocytes (%) (Auto) 8 % (0-9) Eosinophils (%) (Auto) 1 % (0-3) Basophils (%) (Auto) 1 % (0-3) Neutrophils # (Auto) 8.0 x10^3/uL (1.8-7.7) Lymphocytes # (Auto) 4.6 x10^3/uL (1.0-4.8) Monocytes # (Auto) 1.1 x10^3/uL (0.0-1.1) Eosinophils # (Auto) 0.1 x10^3/uL (0.0-0.7) Basophils # (Auto) 0.1 x10^3/uL (0.0-0.2) Sodium Level 142 mmol/L (136-145) Potassium Level 4.1 mmol/L (3.5-5.1) Chloride Level 105 mmol/L (98-107) Carbon Dioxide Level 22 mmol/L (21-32) Anion Gap 15 (6-14) Blood Urea Nitrogen 20 mg/dL (7-20) Creatinine 2.5 mg/dL (0.6-1.0) Estimated GFR (Cockcroft-Gault) 19.2 BUN/Creatinine Ratio 8 (6-20) Glucose Level 138 mg/dL (70-99) Calcium Level 7.9 mg/dL (8.5-10.1) Total Bilirubin 0.4 mg/dL (0.2-1.0) Aspartate Amino Transf (AST/SGOT) 50 U/L (15-37) Alanine Aminotransferase (ALT/SGPT) < 6 U/L (14-59) Alkaline Phosphatase 281 U/L (46-116) Total Protein 5.5 g/dL (6.4-8.2) Albumin 0.9 g/dL (3.4-5.0) Albumin/Globulin Ratio 0.2 (1.0-1.7) Test 08/21/19 07:18 Glucose (Fingerstick) 123 mg/dL (70-99) Objective Assessment Necrotic right open AKA stump wound s/p debridement, 08/16. 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 col and bacteroides 07/12 Right groin wound with necrotic tissue s/p debridement 08/16. -h/o prior debridements and ESBL klebsiella 07/12 h/o MSSA bacteremia with sepsis in May Treated Leukocytosis Encephalopathy - fluctuates Anemia s/p PRBC, 08/19 End-stage renal disease, on hemodialysis via HD catheter Diabetes II h/o left axillary DVT 07/12 Peripheral vascular disease. Atrial fibrillation. Chronic respiratory failure. Protein-calorie malnutrition. Generalized debility. Plan Plan of Care Continue dapto, merrem and micafungin monitor abx toxicities and side effects. CK 11 (08/18) Probiotics Wound care as directed Offloading Now DNR/DNI Anemia per primary Pain controlled and doing ok. Ate breakfast but no lunch Attending Co-Sign Attending Co-Sign The patient was seen and interviewed as well as examined at the bedside. The chart was reviewed. The case was discussed. Agree with the plan of care. SANIYA DC APRN Aug 21, 2019 11:41 PJ DIAZ MD Aug 21, 2019 13:41
[2019-08-21 15:00] VITALS: BP 95/63
[2019-08-21 19:53] VITALS: BP 79/32
[2019-08-21] MEDS: ATORVASTATIN CALCIUM 10 MG TABLET. PO SCH (20:46)
[2019-08-21] MEDS: NORTRIPTYLINE 25 MG CAPSULE PO SCH (20:46)
[2019-08-21] MEDS: FAMOTIDINE 20 MG TABLET. PO SCH (20:47)
[2019-08-21] MEDS: MICAFUNGIN 100 MG in IV DEXTROSE 5% 100ML 100 ML IV SCH (20:50)
[2019-08-21] MEDS: MEROPENEM 500 MG in IV NORMAL SALINE 50ML 50 ML IV SCH (22:20)
[2019-08-21 23:52] VITALS: BP 79/35
[2019-08-22 03:26] VITALS: BP 86/42
[2019-08-22] MEDS: IV NORMAL SALINE 1000ML BAG 1,000 ML IV SCH ×3 (04:30→22:37)
[2019-08-22 05:22] LABS: CALCIUM 8.5 mg/dL (8.5-10.1)
[2019-08-22 05:23] LABS: CREATININE 2.9 mg/dL (0.6-1.0); GFR 16.2
--- NOTE | 2019-08-22 06:13 | NUR ---
Sent message to pharmacy to obtain Dakin's irrigant for patient's dressing change, as instructed from bedside shift report from day RN Danny España. Pharmacist informed this RN that they didn't have any. This RN checked patient's medication bin and patient's room to see if there was any on the floor. None found. Called pharmacy back to notify. Pharmacist stated that he would have to dilute the solution that he had by half and would send two bottles. Waiting to receive bottles from pharmacy. Dressing change for noc shift has not been done as of this time due to this. Patient's dressing was changed at approximately 1645 on 08/21/19 per bedside shift report by day RN Danny España.
[2019-08-22] MEDS: LEVOTHYROXINE 100 MCG TABLET PO SCH (06:34)
[2019-08-22 07:37] VITALS: BP 141/118
[2019-08-22] MEDS: SEVELAMER CARBONATE 800 MG TABLET. PO SCH ×3 (08:00→17:00)
[2019-08-22] MEDS: PREGABALIN 75 MG CAPSULE PO SCH ×2 (09:00→21:00)
[2019-08-22] MEDS: AMIODARONE HCL 200 MG TABLET. PO SCH ×2 (09:00→21:00)
[2019-08-22] MEDS: LINAGLIPTIN 5 MG TABLET PO SCH (09:00)
[2019-08-22] MEDS: NYSTATIN TOPICAL POWDER 15GM BOTTLE. TP SCH ×2 (09:00→21:00)
[2019-08-22] MEDS: CITALOPRAM 20 MG TABLET. PO SCH (09:00)
[2019-08-22] MEDS: LACTOBACILLUS RHAMNOSUS GG 1 CAPSULE. PO SCH ×2 (09:00→21:00)
[2019-08-22] MEDS: SODIUM HYPOCHLORITE 0.125% 473 ML BOTTLE. TP SCH (09:00)
[2019-08-22] MEDS: SENNOSIDES/DOCUSATE 8.6/50MG TABLET. PO SCH ×2 (09:00→21:00)
[2019-08-22] MEDS: METOPROLOL TART IMMED RELEASE 25 MG TABLET. PO SCH ×2 (09:00→21:00)
[2019-08-22 09:15] LABS: BASO # 0.1 x10^3/uL (0.0-0.2); BASO % 1 % (0-3); EOS # 0.1 x10^3/uL (0.0-0.7); EOS % 1 % (0-3); LYMPH # 2.9 x10^3/uL (1.0-4.8); LYMPH % 26 % (24-48); MEAN CORPUSCULAR HEMOGLOBIN 29 pg (25-35); MEAN CORPUSCULAR HGB CONC 31 g/dL (31-37); MEAN CORPUSCULAR VOLUME 95 fL (79-100); MONO # 0.8 x10^3/uL (0.0-1.1); MONO % 7 % (0-9); NEUT # 7.3 x10^3/uL (1.8-7.7); NEUT % 65 % (31-73); PLATELET COUNT 136 x10^3/uL (140-400); RED BLOOD COUNT 2.75 x10^6/uL (3.50-5.40); RED CELL DISTRIBUTION WIDTH 19.3 % (11.5-14.5); WHITE BLOOD COUNT 11.2 x10^3/uL (4.0-11.0)
--- NOTE | 2019-08-22 09:51 | PDOC ---
Infectious Disease Note Subjective Subjective Sleepy this am Min interaction. Vital Sign Vital Signs Vital Signs Date Time Temp Pulse Resp B/P (MAP) Pulse Ox O2 Delivery O2 Flow Rate FiO2 08/22/19 07:37 97.7 68 20 141/118 (126) 99 Nasal Cannula 2.0 97.7 Physical Exam PHYSICAL EXAM GENERAL: Propped up in bed, NAD - comfortable HENT: Pupils equal, reactive. NECK: Supple LUNGS: Clear CV: S1 S2 ABDOMEIN: Obese, soft, no guarding. 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 LLE 2+ edema. SKIN: Warm to touch. Sacral wound + bone. some granualation in mid zones. 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, answering questions appropriately Left sided HDC without signs of complication PIV Labs Lab Laboratory Tests Test 08/21/19 12:20 08/21/19 17:41 08/21/19 20:20 08/22/19 03:55 Glucose (Fingerstick) 148 mg/dL (70-99) 150 mg/dL (70-99) 164 mg/dL (70-99) Sodium Level 141 mmol/L (136-145) Potassium Level 4.0 mmol/L (3.5-5.1) Chloride Level 107 mmol/L (98-107) Carbon Dioxide Level 22 mmol/L (21-32) Anion Gap 12 (6-14) Blood Urea Nitrogen 29 mg/dL (7-20) Creatinine 2.9 mg/dL (0.6-1.0) Estimated GFR (Cockcroft-Gault) 16.2 Glucose Level 135 mg/dL (70-99) Calcium Level 8.5 mg/dL (8.5-10.1) Test 08/22/19 07:28 08/22/19 08:35 Glucose (Fingerstick) 112 mg/dL (70-99) White Blood Count 11.2 x10^3/uL (4.0-11.0) Red Blood Count 2.75 x10^6/uL (3.50-5.40) Hemoglobin 8.0 g/dL (12.0-15.5) Hematocrit 26.0 % (36.0-47.0) Mean Corpuscular Volume 95 fL (79-100) Mean Corpuscular Hemoglobin 29 pg (25-35) Mean Corpuscular Hemoglobin Concent 31 g/dL (31-37) Red Cell Distribution Width 19.3 % (11.5-14.5) Platelet Count 136 x10^3/uL (140-400) Neutrophils (%) (Auto) 65 % (31-73) Lymphocytes (%) (Auto) 26 % (24-48) Monocytes (%) (Auto) 7 % (0-9) Eosinophils (%) (Auto) 1 % (0-3) Basophils (%) (Auto) 1 % (0-3) Neutrophils # (Auto) 7.3 x10^3/uL (1.8-7.7) Lymphocytes # (Auto) 2.9 x10^3/uL (1.0-4.8) Monocytes # (Auto) 0.8 x10^3/uL (0.0-1.1) Eosinophils # (Auto) 0.1 x10^3/uL (0.0-0.7) Basophils # (Auto) 0.1 x10^3/uL (0.0-0.2) Objective Assessment Necrotic right open AKA stump wound s/p debridement, 08/16. 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 col and bacteroides 07/12 Right groin wound with necrotic tissue s/p debridement 08/16. -h/o prior debridements and ESBL klebsiella 07/12 h/o MSSA bacteremia with sepsis in May Treated Leukocytosis - better Encephalopathy - fluctuates Anemia End-stage renal disease, on hemodialysis via HD catheter Diabetes II h/o left axillary DVT 07/12 Peripheral vascular disease. Atrial fibrillation. Chronic respiratory failure. Protein-calorie malnutrition. Generalized debility. Plan Plan of Care Continue dapto, merrem and micafungin monitor abx toxicities and side effects. CK 11 (08/18) Probiotics Wound care as directed Offloading Now DNR/DNI Anemia per primary PJ DIAZ MD Aug 22, 2019 09:50
--- NOTE | 2019-08-22 10:48 | PDOC ---
PROGRESS NOTES History of Present Illness History of Present Illness Assessment/Plan Assessment/Plan VTE Prophylaxis Ordered VTE Prophylaxis Devices: No VTE Pharmacological Prophylaxi: Yes Assessment/Plan 1. Acute on chronic respiratory failure, multifactorial. 2. Status post right above-knee amputation 3. Status post excisional debridement of necrotic skin and subcutaneous tissue around the right groin with placement of a wound VAC. 4. PAD-S/P R Fem Endartrectomy and BKA for gangrene, now with necrosis and dehiscence. S/p right [id number] amputation with excision of infected gangrene her amputation, status post surgical intervention 5. Right groin incision with extensive gangrene throughout the incision with dehiscence and underlying necrotic tissue from recent femoral endarterectomy. 6. Morbid obesity. 7. Diabetes. 8. Acute on chronic kidney disease requiring hemodialysis. 9. hx Methicillin-resistant Staphylococcus aureus sepsis. 10. Hypertension. 11. Chronic anemia. 12. HX OF Metabolic toxic encephalopathy. 13. UPPER DVT 14. ESRD ON HD 15. sacral cocy wound 16. poor candidate for colostomy, given obesity 17. Sacrococcygeal decubitus w/ necrotic tissue s/p excisional debridement of skin, subcutaneous tissue and bone, excision of anal condyloma, 08/16 -h/o prior debridements and h/o ESBL Klebsiella, Enterococcus, E. col and bacteroides 07/12 Operative Note Operative Note Operative Note Operative Report Dictated Pre-op: right groin open wound with necrotic tissue, right above knee amputation open wound with necrotic tissue Post-op: same Operation: right groin debridement and right above the knee amputation wound debridement with wound vac dressing placements Surgeon: Dr. Taryn Antony Blood loss:20ml Anesthesia: general TARYN ANTONY MD Aug 16, 2019 13:00 hgb 6.8 today, transfused -08/19 Continue dapto, merrem and micafungin PLAN admit to medical bed continue IV abx taking at [facility]. restart insulin when takin po continue supplemental 02 consult nutrition, has G tube placed recently on 07/27. presume to optimize nutritional status. unclear if hx of dysphagia. ID consult for abx recommendations. nephro consult for HD check baseline labs DNR and DNI refusing all treatments 08/17 , consulted palliative care Patient's son eKn Ruano called by staff , did visit mother and she is now being more cooperative with her treatment 08/20 Continue dapto, merrem and micafungin 26 min pt exam, chart review, > 50% of time with exam, chart review pt care coordination Vitals Vitals Vital Signs Date Time Temp Pulse Resp B/P (MAP) Pulse Ox O2 Delivery O2 Flow Rate FiO2 08/22/19 07:37 97.7 68 20 141/118 (126) 99 Nasal Cannula 2.0 97.7 Physical Exam Physical Exam GENERAL: Propped up in bed, NAD - comfortable HENT: Pupils equal, reactive. NECK: Supple LUNGS: Clear CV: S1 S2 ABDOMEIN: Obese, soft, no guarding. 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 LLE 2+ edema. SKIN: Warm to touch. Sacral wound + bone. some granualation in mid zones. 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: alert, answering questions appropriately Left sided HDC without signs of complication PIV General: Alert, Oriented X3, Cooperative, No acute distress Heart: Regular rate, Normal S1 Lungs: Clear Abdomen: Normal bowel sounds, Soft, Other (very obese) Extremities: No clubbing, No cyanosis Labs LABS Laboratory Tests Test 08/21/19 12:20 08/21/19 17:41 08/21/19 20:20 08/22/19 03:55 Glucose (Fingerstick) 148 mg/dL (70-99) 150 mg/dL (70-99) 164 mg/dL (70-99) Sodium Level 141 mmol/L (136-145) Potassium Level 4.0 mmol/L (3.5-5.1) Chloride Level 107 mmol/L (98-107) Carbon Dioxide Level 22 mmol/L (21-32) Anion Gap 12 (6-14) Blood Urea Nitrogen 29 mg/dL (7-20) Creatinine 2.9 mg/dL (0.6-1.0) Estimated GFR (Cockcroft-Gault) 16.2 Glucose Level 135 mg/dL (70-99) Calcium Level 8.5 mg/dL (8.5-10.1) Test 08/22/19 07:28 08/22/19 08:35 Glucose (Fingerstick) 112 mg/dL (70-99) White Blood Count 11.2 x10^3/uL (4.0-11.0) Red Blood Count 2.75 x10^6/uL (3.50-5.40) Hemoglobin 8.0 g/dL (12.0-15.5) Hematocrit 26.0 % (36.0-47.0) Mean Corpuscular Volume 95 fL (79-100) Mean Corpuscular Hemoglobin 29 pg (25-35) Mean Corpuscular Hemoglobin Concent 31 g/dL (31-37) Red Cell Distribution Width 19.3 % (11.5-14.5) Platelet Count 136 x10^3/uL (140-400) Neutrophils (%) (Auto) 65 % (31-73) Lymphocytes (%) (Auto) 26 % (24-48) Monocytes (%) (Auto) 7 % (0-9) Eosinophils (%) (Auto) 1 % (0-3) Basophils (%) (Auto) 1 % (0-3) Neutrophils # (Auto) 7.3 x10^3/uL (1.8-7.7) Lymphocytes # (Auto) 2.9 x10^3/uL (1.0-4.8) Monocytes # (Auto) 0.8 x10^3/uL (0.0-1.1) Eosinophils # (Auto) 0.1 x10^3/uL (0.0-0.7) Basophils # (Auto) 0.1 x10^3/uL (0.0-0.2) Comment Review of Relevant I have reviewed the following items karina (where applicable) has been applied. Labs Laboratory Tests Test 08/20/19 11:40 08/20/19 17:31 08/20/19 21:32 08/21/19 04:15 Glucose (Fingerstick) 128 mg/dL (70-99) 109 mg/dL (70-99) 157 mg/dL (70-99) White Blood Count 14.0 x10^3/uL (4.0-11.0) Red Blood Count 3.13 x10^6/uL (3.50-5.40) Hemoglobin 9.2 g/dL (12.0-15.5) Hematocrit 29.4 % (36.0-47.0) Mean Corpuscular Volume 94 fL (79-100) Mean Corpuscular Hemoglobin 29 pg (25-35) Mean Corpuscular Hemoglobin Concent 31 g/dL (31-37) Red Cell Distribution Width 19.0 % (11.5-14.5) Platelet Count 164 x10^3/uL (140-400) Neutrophils (%) (Auto) 57 % (31-73) Lymphocytes (%) (Auto) 33 % (24-48) Monocytes (%) (Auto) 8 % (0-9) Eosinophils (%) (Auto) 1 % (0-3) Basophils (%) (Auto) 1 % (0-3) Neutrophils # (Auto) 8.0 x10^3/uL (1.8-7.7) Lymphocytes # (Auto) 4.6 x10^3/uL (1.0-4.8) Monocytes # (Auto) 1.1 x10^3/uL (0.0-1.1) Eosinophils # (Auto) 0.1 x10^3/uL (0.0-0.7) Basophils # (Auto) 0.1 x10^3/uL (0.0-0.2) Sodium Level 142 mmol/L (136-145) Potassium Level 4.1 mmol/L (3.5-5.1) Chloride Level 105 mmol/L (98-107) Carbon Dioxide Level 22 mmol/L (21-32) Anion Gap 15 (6-14) Blood Urea Nitrogen 20 mg/dL (7-20) Creatinine 2.5 mg/dL (0.6-1.0) Estimated GFR (Cockcroft-Gault) 19.2 BUN/Creatinine Ratio 8 (6-20) Glucose Level 138 mg/dL (70-99) Calcium Level 7.9 mg/dL (8.5-10.1) Total Bilirubin 0.4 mg/dL (0.2-1.0) Aspartate Amino Transf (AST/SGOT) 50 U/L (15-37) Alanine Aminotransferase (ALT/SGPT) < 6 U/L (14-59) Alkaline Phosphatase 281 U/L (46-116) Total Protein 5.5 g/dL (6.4-8.2) Albumin 0.9 g/dL (3.4-5.0) Albumin/Globulin Ratio 0.2 (1.0-1.7) Test 08/21/19 07:18 08/21/19 12:20 08/21/19 17:41 08/21/19 20:20 Glucose (Fingerstick) 123 mg/dL (70-99) 148 mg/dL (70-99) 150 mg/dL (70-99) 164 mg/dL (70-99) Test 08/22/19 03:55 08/22/19 07:28 08/22/19 08:35 Sodium Level 141 mmol/L (136-145) Potassium Level 4.0 mmol/L (3.5-5.1) Chloride Level 107 mmol/L (98-107) Carbon Dioxide Level 22 mmol/L (21-32) Anion Gap 12 (6-14) Blood Urea Nitrogen 29 mg/dL (7-20) Creatinine 2.9 mg/dL (0.6-1.0) Estimated GFR (Cockcroft-Gault) 16.2 Glucose Level 135 mg/dL (70-99) Calcium Level 8.5 mg/dL (8.5-10.1) Glucose (Fingerstick) 112 mg/dL (70-99) White Blood Count 11.2 x10^3/uL (4.0-11.0) Red Blood Count 2.75 x10^6/uL (3.50-5.40) Hemoglobin 8.0 g/dL (12.0-15.5) Hematocrit 26.0 % (36.0-47.0) Mean Corpuscular Volume 95 fL (79-100) Mean Corpuscular Hemoglobin 29 pg (25-35) Mean Corpuscular Hemoglobin Concent 31 g/dL (31-37) Red Cell Distribution Width 19.3 % (11.5-14.5) Platelet Count 136 x10^3/uL (140-400) Neutrophils (%) (Auto) 65 % (31-73) Lymphocytes (%) (Auto) 26 % (24-48) Monocytes (%) (Auto) 7 % (0-9) Eosinophils (%) (Auto) 1 % (0-3) Basophils (%) (Auto) 1 % (0-3) Neutrophils # (Auto) 7.3 x10^3/uL (1.8-7.7) Lymphocytes # (Auto) 2.9 x10^3/uL (1.0-4.8) Monocytes # (Auto) 0.8 x10^3/uL (0.0-1.1) Eosinophils # (Auto) 0.1 x10^3/uL (0.0-0.7) Basophils # (Auto) 0.1 x10^3/uL (0.0-0.2) Laboratory Tests Test 08/21/19 12:20 08/21/19 17:41 08/21/19 20:20 08/22/19 03:55 Glucose (Fingerstick) 148 mg/dL (70-99) 150 mg/dL (70-99) 164 mg/dL (70-99) Sodium Level 141 mmol/L (136-145) Potassium Level 4.0 mmol/L (3.5-5.1) Chloride Level 107 mmol/L (98-107) Carbon Dioxide Level 22 mmol/L (21-32) Anion Gap 12 (6-14) Blood Urea Nitrogen 29 mg/dL (7-20) Creatinine 2.9 mg/dL (0.6-1.0) Estimated GFR (Cockcroft-Gault) 16.2 Glucose Level 135 mg/dL (70-99) Calcium Level 8.5 mg/dL (8.5-10.1) Test 08/22/19 07:28 08/22/19 08:35 Glucose (Fingerstick) 112 mg/dL (70-99) White Blood Count 11.2 x10^3/uL (4.0-11.0) Red Blood Count 2.75 x10^6/uL (3.50-5.40) Hemoglobin 8.0 g/dL (12.0-15.5) Hematocrit 26.0 % (36.0-47.0) Mean Corpuscular Volume 95 fL (79-100) Mean Corpuscular Hemoglobin 29 pg (25-35) Mean Corpuscular Hemoglobin Concent 31 g/dL (31-37) Red Cell Distribution Width 19.3 % (11.5-14.5) Platelet Count 136 x10^3/uL (140-400) Neutrophils (%) (Auto) 65 % (31-73) Lymphocytes (%) (Auto) 26 % (24-48) Monocytes (%) (Auto) 7 % (0-9) Eosinophils (%) (Auto) 1 % (0-3) Basophils (%) (Auto) 1 % (0-3) Neutrophils # (Auto) 7.3 x10^3/uL (1.8-7.7) Lymphocytes # (Auto) 2.9 x10^3/uL (1.0-4.8) Monocytes # (Auto) 0.8 x10^3/uL (0.0-1.1) Eosinophils # (Auto) 0.1 x10^3/uL (0.0-0.7) Basophils # (Auto) 0.1 x10^3/uL (0.0-0.2) Medications Current Medications Fentanyl Citrate (Fentanyl 2ml Vial) 25 mcg PRN Q5MIN PRN IV MILD PAIN 1-3 Last administered on 08/16/19at 14:27; Start 08/16/19 at 08:30; Stop 08/17/19 at 08:29; Status DC Fentanyl Citrate (Fentanyl 2ml Vial) 50 mcg PRN Q5MIN PRN IV MODERATE TO SEVERE PAIN Last administered on 08/16/19at 14:35; Start 08/16/19 at 08:30; Stop 08/17/19 at 08:29; Status DC Morphine Sulfate (Morphine Sulfate) 1 mg PRN Q10MIN PRN IV SEVERE PAIN 7-10; Start 08/16/19 at 08:30; Stop 08/17/19 at 08:29; Status DC Ringer's Solution 1,000 ml @ 30 mls/hr Q24H IV ; Start 08/16/19 at 08:25; Stop 08/16/19 at 20:24; Status Cancel Lidocaine HCl (Xylocaine-Mpf 1% 2ml Vial) 2 ml PRN 1X PRN ID PRIOR TO IV START; Start 08/16/19 at 08:30; Stop 08/17/19 at 08:29; Status DC Hydromorphone HCl (Dilaudid) 0.5 mg PRN Q10MIN PRN IV SEV PAIN, Second choice; Start 08/16/19 at 08:30; Stop 08/17/19 at 08:29; Status DC Prochlorperazine Edisylate (Compazine) 5 mg PACU PRN PRN IV NAUSEA, MRX1; Start 08/16/19 at 08:30; Stop 08/17/19 at 08:29; Status DC Cefazolin Sodium/ Dextrose 50 ml @ 100 mls/hr 1X ONCE IV Last administered on 08/16/19at 11:55; Start 08/16/19 at 10:00; Stop 08/16/19 at 10:29; Status DC Insulin Human Lispro (HumaLOG VIAL for OP,RR ONLY) 0-10 units PRN Q1HR PRN SQ PER PROTOCOL Last administered on 08/16/19at 14:38; Start 08/16/19 at 10:30; Stop 08/17/19 at 10:29; Status DC Heparin Sodium (Porcine) 5000 unit/Sodium Chloride 505 ml @ 505 mls/hr 1X ONCE IRR ; Start 08/16/19 at 11:00; Stop 08/16/19 at 11:59; Status DC Cefazolin Sodium 1 gm/Sodium Chloride 500 ml @ 500 mls/hr 1X ONCE IRR Last administered on 08/16/19at 12:19; Start 08/16/19 at 11:00; Stop 08/16/19 at 11:59; Status DC Sodium Chloride 1,000 ml @ 75 mls/hr [id number] IV Last administered on 08/22/19at 04:30; Start 08/16/19 at 10:45 Propofol 20 ml @ As Directed STK-MED ONCE IV ; Start 08/16/19 at 11:10; Stop 08/16/19 at 11:11; Status DC Lidocaine HCl (Lidocaine Pf 2% Vial) 5 ml STK-MED ONCE .ROUTE ; Start 08/16/19 at 11:10; Stop 08/16/19 at 11:11; Status DC Rocuronium Bunker (Zemuron) 50 mg STK-MED ONCE .ROUTE ; Start 08/16/19 at 11:10; Stop 08/16/19 at 11:11; Status DC Fentanyl Citrate (Fentanyl 2ml Vial) 100 mcg STK-MED ONCE .ROUTE ; Start 08/16/19 at 11:11; Stop 08/16/19 at 11:11; Status DC Cellulose (Surgicel Fibrillar 1x2) 1 each STK-MED ONCE .ROUTE ; Start 08/16/19 at 11:38; Stop 08/16/19 at 11:38; Status DC Ondansetron HCl (Zofran) 4 mg STK-MED ONCE .ROUTE ; Start 08/16/19 at 12:14; Stop 08/16/19 at 12:14; Status DC Phenylephrine HCl (PHENYLEPHRINE in 0.9% NACL PF) 1 mg STK-MED ONCE IV ; Start 08/16/19 at 12:14; Stop 08/16/19 at 12:14; Status DC Desflurane (Suprane) 30 ml STK-MED ONCE IH ; Start 08/16/19 at 12:14; Stop 08/16/19 at 12:14; Status DC Cefazolin Sodium 1 gm/Sodium Chloride 1,000 ml @ 1,000 mls/hr 1X ONCE IRR Last administered on 08/16/19at 13:17; Start 08/16/19 at 13:00; Stop 08/16/19 at 13:59; Status DC Cefazolin Sodium 1 gm/Sodium Chloride 1,000 ml @ 1,000 mls/hr 1X ONCE IRR ; Start 08/16/19 at 12:30; Stop 08/16/19 at 13:29; Status DC Phenylephrine HCl (Von-Synephrine Inj) 10 mg STK-MED ONCE .ROUTE ; Start 08/16/19 at 12:29; Stop 08/16/19 at 12:29; Status DC Ondansetron HCl (Zofran) 4 mg STK-MED ONCE .ROUTE ; Start 08/16/19 at 13:11; Stop 08/16/19 at 13:11; Status DC Desflurane (Suprane) 60 ml STK-MED ONCE IH ; Start 08/16/19 at 13:11; Stop 08/16/19 at 13:11; Status DC Acetaminophen (Tylenol) 650 mg PRN Q4HRS PRN PO MILD PAIN / TEMP Last administered on 08/21/19at 05:31; Start 08/16/19 at 14:00 Amiodarone HCl (Cordarone) 200 mg BID PO Last administered on 08/21/19at 08:22; Start 08/16/19 at 21:00 Atorvastatin Calcium (Lipitor) 10 mg QHS PO Last administered on 08/21/19at 20:46; Start 08/16/19 at 21:00 Clonidine HCl (Catapres) 0.2 mg PRN DAILY PRN PO DIALYSIS/HYPERTENSION; Start 08/16/19 at 14:00 Glucose (Insta-Glucose) 15 gm PRN Q15MIN PRN PO LOW BLOOD SUGAR; Start 08/16/19 at 14:00 Famotidine (Pepcid) 20 mg HS PO Last administered on 08/21/19at 20:47; Start 08/16/19 at 21:00 Acetaminophen/ Hydrocodone Bitart (Lortab 5/325) 1 tab PRN Q6HRS PRN PO MODERATE - SEVERE PAIN Last administered on 08/21/19 14:08; Start 08/16/19 at 14:00 Lactulose (Lactulose) 20 gm PRN BID PRN PO CONSTIPATION; Start 08/16/19 at 14:00 Levothyroxine Sodium (Synthroid) 100 mcg DAILY06 PO Last administered on 08/22/19 06:34; Start 08/17/19 at 06:00 Meropenem (Merrem) 500 mg QHS IV ; Start 08/16/19 at 21:00; Status UNV Metoprolol Tartrate (Lopressor) 25 mg BID PO Last administered on 08/20/19 20:49; Start 08/16/19 at 21:00 Nitroglycerin (Nitrostat) 0.4 mg PRN Q10MIN PRN SL CHEST PAIN; Start 08/16/19 at 14:00 Nortriptyline HCl (Pamelor) 25 mg QHS PO Last administered on 08/21/19 20:46; Start 08/16/19 at 21:00 Senna/Docusate Sodium (Senna Plus) 1 tab BID PO Last administered on 08/21/19 20:46; Start 08/16/19 at 21:00 Sevelamer Carbonate (Renvela) 800 mg TIDWMEALS PO Last administered on 08/21/19at 08:23; Start 08/16/19 at 17:00 Linagliptin (Tradjenta) 5 mg DAILY PO Last administered on 08/21/19 08:23; Start 08/17/19 at 09:00 Non-Formulary Medication (Daptomycin ) 350 mg DAILY IV ; Start 08/17/19 at 09:00; Status UNV Diphenhydramine HCl (Benadryl) 25 mg PRN Q6HRS PRN IV ITCHING; Start 08/16/19 at 14:15 Darbepoetin Rajeev (ARANESP for DIALYSIS PTS) 25 mcg WEEKLYHS SQ ; Start 08/17/19 at 21:00 Citalopram Hydrobromide (CeleXA) 20 mg DAILY PO Last administered on 08/21/19at 08:21; Start 08/17/19 at 09:00 Non-Formulary Medication (Heparin Sodium,Porcine/Pf (Heparin 1,000 Unit/10 (100/ml))) 3.5 ml PRN DAILY PRN IV DIALYSIS; Start 08/16/19 at 14:00; Status UNV Lactobacillus Rhamnosus (Culturelle) 1 cap BID PO Last administered on 08/21/19at 20:46; Start 08/16/19 at 21:00 Pregabalin (Lyrica) 300 mg BID PO Last administered on 08/21/19at 20:47; Start 08/16/19 at 21:00 Non-Formulary Medication ([anidulafungin 100mg] ) 100 mg QHS IV ; Start 08/16/19 at 21:00; Status UNV Non-Formulary Medication ([clorpactin 2gm powd] ) 1 gm DAILY TOP ; Start 08/17/19 at 09:00; Status UNV Meropenem 500 mg/ Sodium Chloride 50 ml @ 100 mls/hr QHS IV Last administered on 08/21/19at 22:20; Start 08/16/19 at 21:00 Micafungin Sodium 100 mg/Dextrose 100 ml @ 100 mls/hr QHS IV Last administered on 08/21/19at 20:50; Start 08/16/19 at 21:00 Daptomycin 350 mg/ Sodium Chloride 50 ml @ 100 mls/hr QMWF IV Last administered on 08/19/19at 17:02; Start 08/17/19 at 16:00 Sodium Chloride 1,000 ml @ 1,000 mls/hr Q1H PRN IV hypotension; Start 08/17/19 at 13:43; Stop 08/17/19 at 19:42; Status DC Albumin Human 200 ml @ 200 mls/hr 1X PRN PRN IV Hypotension; Start 08/17/19 at 13:45; Stop 08/17/19 at 19:44; Status DC Sodium Chloride (Normal Saline Flush) 10 ml 1X PRN PRN IV AP catheter pack; Start 08/17/19 at 13:45; Stop 08/18/19 at 13:44; Status DC Sodium Chloride (Normal Saline Flush) 10 ml 1X PRN PRN IV INVESTMENT MANAGER catheter pack; Start 08/17/19 at 13:45; Stop 08/18/19 at 13:44; Status DC Sodium Chloride 1,000 ml @ 400 mls/hr Q2H30M PRN IV PATENCY; Start 08/17/19 at 13:43; Stop 08/18/19 at 01:42; Status DC Info (PHARMACY MONITORING -- do not chart) 1 each PRN DAILY PRN MC SEE COMMENT S; Start 08/17/19 at 13:45; Status UNV Info (PHARMACY MONITORING -- do not chart) 1 each PRN DAILY PRN MC SEE COMMENTS; Start 08/17/19 at 13:45 Sodium Hypochlorite (Dakin'S 1/4 Strength) 1 brandon DAILY TP Last administered on 08/21/19at 09:00; Start 08/19/19 at 09:00 Nystatin (Nystop) 1 brandon BID TP Last administered on 08/21/19at 20:53; Start 08/19/19 at 09:00 Sodium Chloride 1,000 ml @ 1,000 mls/hr Q1H PRN IV hypotension; Start 08/19/19 at 10:54; Stop 08/19/19 at 16:53; Status DC Albumin Human 200 ml @ 200 mls/hr 1X PRN PRN IV Hypotension; Start 08/19/19 at 11:00; Stop 08/19/19 at 16:59; Status DC Sodium Chloride (Normal Saline Flush) 10 ml 1X PRN PRN IV AP catheter pack; Start 08/19/19 at 11:00; Stop 08/20/19 at 10:59; Status DC Sodium Chloride (Normal Saline Flush) 10 ml 1X PRN PRN IV INVESTMENT MANAGER catheter pack; Start 08/19/19 at 11:00; Stop 08/20/19 at 10:59; Status DC Sodium Chloride 1,000 ml @ 400 mls/hr Q2H30M PRN IV PATENCY; Start 08/19/19 at 10:54; Stop 08/19/19 at 22:53; Status DC Info (PHARMACY MONITORING -- do not chart) 1 each PRN DAILY PRN MC SEE COMMENTS; Start 08/19/19 at 11:00; Status UNV Info (PHARMACY MONITORING -- do not chart) 1 each PRN DAILY PRN MC SEE COMMENTS; Start 08/19/19 at 11:00; Status UNV Active Scripts Active Reported Senna-Docusate Sodium Tablet (Sennosides/Docusate Sodium) 1 Each Tablet 1 Each PO BID Lactulose 20 Gm/30 Ml Solution 20 Gm PO BID PRN Probiotic (Lactobacillus Acidophilus) 1 Each Capsule 2 Each PO BID Hydrocodone-Apap 5-325 (Hydrocodone Bit/Acetaminophen) 1 Tab Tablet 1 Tab PO PRN Q6HRS PRN Pepcid (Famotidine) 20 Mg Tablet 20 Mg PO HS [anidulafungin 100mg] 100 Mg IV QHS [clorpactin 2gm powd] 1 Gm TOP DAILY Humalog (Insulin Lispro) 100 Unit/1 Ml Vial 4 Unit SQ Q6HRS Meropenem 500 Mg Vial 500 Mg IV QHS Daptomycin 350 Mg Vial 350 Mg IV DAILY Humalog (Insulin Lispro) 100 Unit/1 Ml Cartridge 100 Units SQ Q6HRS Diphenhydramine HCl 50 Mg/1 Ml Cartridge 25 Mg IJ PRN Q4HRS PRN Glutose 15 (Dextrose) 37.5 Gm Gel..gram. 15 Gm PO PRN Q15MIN PRN Retacrit (Epoetin Rajeev-Epbx) 3,000 Unit/1 Ml Vial 3,000 Unit IJ QMWF Renvela (Sevelamer Carbonate) 800 Mg Tablet 800 Mg PO TIDWMEALS Alogliptin (Alogliptin Benzoate) 6.25 Mg Tablet 6.25 Mg PO DAILY Tylenol (Acetaminophen) 325 Mg Tablet 2 Tab PO PRN Q4HRS Lyrica (Pregabalin) 300 Mg Capsule 1 Cap PO BID Clonidine Hcl 0.2 Mg Tablet 1 Tab PO PRN DAILY PRN NITROGLYCERIN SubLingual (Nitroglycerin) 0.4 Mg Tab.subl 1 Tab SL UD Heparin 1,000 Unit/10 (100/ml) (Heparin Sodium,Porcine/Pf) 1,000 Unit/10 Ml Syr osman 3.5 Ml IV PRN DAILY PRN Levothyroxine Sodium 100 Mcg Tablet 1 Tab PO DAILY06 Escitalopram Oxalate 10 Mg Tablet 1 Tab PO DAILY Nortriptyline Hcl 25 Mg Capsule 1 Cap PO QHS Atorvastatin Calcium 10 Mg Tablet 1 Tab PO QHS Metoprolol Tartrate 25 Mg Tablet 1 Tab PO BID Lantus (Insulin Glargine,Hum.rec.anlog) 100 Unit/1 Ml Vial 20 Unit SQ DAILY Amiodarone Hcl 200 Mg Tablet 1 Tab PO BID Vitals/I & O Vital Sign - Last 24 Hours 08/21/19 08/21/19 08/21/19 08/21/19 11:00 14:08 15:00 19:53 Temp 97.6 97.8 97.9 97.6 97.8 97.9 Pulse 69 73 76 Resp 20 20 18 B/P (MAP) 98/38 (58) 95/63 (74) 79/32 (48) Pulse Ox 94 94 100 98 O2 Delivery Nasal Cannula Nasal Cannula Nasal Cannula Nasal Cannula O2 Flow Rate 1.5 1.5 1.5 2.0 08/21/19 08/21/19 08/21/19 08/21/19 20:00 20:52 21:00 23:52 Temp 97.9 97.9 Pulse 76 86 86 Resp 16 B/P (MAP) 79/32 79/35 79/35 (50) Pulse Ox 95 O2 Delivery Nasal Cannula Nasal Cannula O2 Flow Rate 2.0 2.0 08/22/19 08/22/19 03:26 07:37 Temp 97.9 97.7 97.9 97.7 Pulse 74 68 Resp 20 20 B/P (MAP) 86/42 (57) 141/118 (126) Pulse Ox 100 99 O2 Delivery Nasal Cannula Nasal Cannula O2 Flow Rate 2.0 2.0 Intake and Output 08/21/19 08/21/19 08/22/19 14:59 22:59 06:59 Intake Total 0 ml 0 ml Output Total 150 ml Balance 0 ml -150 ml WILFREDO MUNOZ MD Aug 22, 2019 10:48
[2019-08-22 11:03] VITALS: BP 90/46
--- NOTE | 2019-08-22 11:09 | PDOC ---
Renal-Progress Notes Subjective Notes Notes NO NEW COMPLAINTS History of Present Illness Hx of present illness NO CHANGE Vitals Vitals Vital Signs Date Time Temp Pulse Resp B/P (MAP) Pulse Ox O2 Delivery O2 Flow Rate FiO2 08/22/19 11:03 98.8 74 20 90/46 (61) 100 Nasal Cannula 2.0 98.8 Weight Weight [ ] I.O. Intake and Output Intake and Output 08/22/19 07:00 Intake Total 0 ml Output Total 150 ml Balance -150 ml Intake Oral 0 ml Output Urine Total 150 ml Labs Labs Laboratory Tests Test 08/21/19 12:20 08/21/19 17:41 08/21/19 20:20 08/22/19 03:55 Glucose (Fingerstick) 148 mg/dL (70-99) 150 mg/dL (70-99) 164 mg/dL (70-99) Sodium Level 141 mmol/L (136-145) Potassium Level 4.0 mmol/L (3.5-5.1) Chloride Level 107 mmol/L (98-107) Carbon Dioxide Level 22 mmol/L (21-32) Anion Gap 12 (6-14) Blood Urea Nitrogen 29 mg/dL (7-20) Creatinine 2.9 mg/dL (0.6-1.0) Estimated GFR (Cockcroft-Gault) 16.2 Glucose Level 135 mg/dL (70-99) Calcium Level 8.5 mg/dL (8.5-10.1) Test 08/22/19 07:28 08/22/19 08:35 Glucose (Fingerstick) 112 mg/dL (70-99) White Blood Count 11.2 x10^3/uL (4.0-11.0) Red Blood Count 2.75 x10^6/uL (3.50-5.40) Hemoglobin 8.0 g/dL (12.0-15.5) Hematocrit 26.0 % (36.0-47.0) Mean Corpuscular Volume 95 fL (79-100) Mean Corpuscular Hemoglobin 29 pg (25-35) Mean Corpuscular Hemoglobin Concent 31 g/dL (31-37) Red Cell Distribution Width 19.3 % (11.5-14.5) Platelet Count 136 x10^3/uL (140-400) Neutrophils (%) (Auto) 65 % (31-73) Lymphocytes (%) (Auto) 26 % (24-48) Monocytes (%) (Auto) 7 % (0-9) Eosinophils (%) (Auto) 1 % (0-3) Basophils (%) (Auto) 1 % (0-3) Neutrophils # (Auto) 7.3 x10^3/uL (1.8-7.7) Lymphocytes # (Auto) 2.9 x10^3/uL (1.0-4.8) Monocytes # (Auto) 0.8 x10^3/uL (0.0-1.1) Eosinophils # (Auto) 0.1 x10^3/uL (0.0-0.7) Basophils # (Auto) 0.1 x10^3/uL (0.0-0.2) Review of Systems Constitutional: yes: other (CONFUSED) Physical Exam General Appearance: no apparent distress Respiratory: decreased breath sounds Heart: S1S2 Abdomen: soft Genitourinary: bladder flat Extremities: pulses present Neurology: alert Assessment Assessment IMP ESRD ANEMIA DM II HTN RIGHT AKA WOUND BACTEREMIA PAD SACRAL DECUBITUS S/P DEBRIDEMENT OF RIGHT GROIN WOUND PLAN ANTIBIOTICS HD TODAY UF TO [facility] DANIS WILL FOLLOW MOR PINO MD Aug 22, 2019 11:09
--- NOTE | 2019-08-22 11:25 | NUR ---
SW following pt. DC supply planner to fax updates to [facility]. Spoke with ID and pt is able to go to [facility] from their stand point. Will continue to follow.
[2019-08-22] MEDS: HYDROcodone/APAP 5/325MG 1 TAB TABLET PO PRN (13:55)
--- NOTE | 2019-08-22 15:22 | PDOC ---
Provider Note Provider Note Vascular S: Pt seen and examined in dialysis room, patient sleepy, but responsive to questions and responds appropriately. Denies any pain (just received pain medicines) O: Tolerating dialysis well Lying supine with HOB up about 45 degrees In no apparent distress, respirations non-labored Rt groin and rt leg wound vac in place with good suction and mild amount of output in chamber. No active bleeding suspected. Periwound intact. Pictures from 08/21 vac change reviewed, decubitus ulcer extensive with slough. Rt groin wound with good granulation tissue throughout, no surrounding erythema. Rt AKA wound picture dark, but with good granulation tissue throughout. Do not see any areas of necrosis or slough. Labs: Hgb 8.0 today A/P: Rt groin wound Rt AKA wound s/p debridement and vac placement 08/16/[address] Antony Images during wound VAC change reviewed right BKA and right groin wounds appeared to be healthy with granulating tissue. Discussed with patient. According to nurse the patient's family is still wanting to continue with aggressive therapy, however she is DNR now. We'll continue to monitor progression of amputation and groin wounds. Continue wound vac therapy. Will defer sacral wounds to Dr. Khalil. Will follow the patient peripherally. Recommend patient continue follow-up in the wound care center. Continue Antibiotics per infectious disease. ZAHIDA GOMES Aug 22, 2019 15:22
[2019-08-22] MEDS ORDERED: IV NORMAL SALINE 1000ML BAG 1,000 ML IV PRN ×2 (17:40)
[2019-08-22] MEDS ORDERED: DIALYSIS PATIENT. MC PRN ×2 (17:45)
--- NOTE | 2019-08-22 18:00 | NUR ---
Wound care: Patient seen per wound care, see wound assessment. All wounds cleansed, assessed, measured, and pictured. Patient has unstageable pressure ulcer to right lower back, Hydrocolloid and foam dressing applied. Patient has stage IV pressure ulcer to coccyx which underwent debridement on 08/16/19, Dakins soaked kerlix (3 rolls) packed into wound, covered with ABD pads, and tape. Patient has open incision to right groin and open incision from surgical dehiscence of right AKA, skin prepped on both wounds and silver foam dressing applied, one piece of foam to right AKA and one piece of foam to right groin, a good seal maintained at 125mmHg continuous. These two wounds are connected together with a Y connector. Patient repositioned and turned to the right using the wedge. Bed lowered and call light in reach. Wound care will follow up for dressing changes on Thursday, patient is currently on a P-500 bed.
[2019-08-22] MEDS: DAPTOmycin (GENERIC) IVPB 350 MG in IV NORMAL SALINE 50ML 50 ML IV SCH (18:04)
[2019-08-22 19:48] VITALS: BP 73/48
[2019-08-22] MEDS: ATORVASTATIN CALCIUM 10 MG TABLET. PO SCH (21:00)
[2019-08-22] MEDS: NORTRIPTYLINE 25 MG CAPSULE PO SCH (21:00)
[2019-08-22] MEDS: FAMOTIDINE 20 MG TABLET. PO SCH (21:00)
[2019-08-22] MEDS: MEROPENEM 500 MG in IV NORMAL SALINE 50ML 50 ML IV SCH (21:57)
[2019-08-22] MEDS: MICAFUNGIN 100 MG in IV DEXTROSE 5% 100ML 100 ML IV SCH (22:37)
[2019-08-22 23:50] VITALS: BP 95/51
[2019-08-23] VITALS (7 sets, daily range): BP systolic 71–95; BP diastolic 33–47
[2019-08-23] MEDS: LEVOTHYROXINE 100 MCG TABLET PO SCH (07:02)
--- NOTE | 2019-08-23 07:43 | PDOC ---
PROGRESS NOTES History of Present Illness History of Present Illness Assessment/Plan Assessment/Plan VTE Prophylaxis Ordered VTE Prophylaxis Devices: No VTE Pharmacological Prophylaxi: Yes Assessment/Plan 1. Acute on chronic respiratory failure, multifactorial. 2. Status post right above-knee amputation 3. Status post excisional debridement of necrotic skin and subcutaneous tissue around the right groin with placement of a wound VAC. 4. PAD-S/P R Fem Endartrectomy and BKA for gangrene, now with necrosis and dehiscence. S/p right [id number] amputation with excision of infected gangrene her amputation, status post surgical intervention 5. Right groin incision with extensive gangrene throughout the incision with dehiscence and underlying necrotic tissue from recent femoral endarterectomy. 6. Morbid obesity. 7. Diabetes. 8. Acute on chronic kidney disease requiring hemodialysis. 9. hx Methicillin-resistant Staphylococcus aureus sepsis. 10. Hypertension. 11. Chronic anemia. 12. HX OF Metabolic toxic encephalopathy. 13. UPPER DVT 14. ESRD ON HD 15. sacral cocy wound 16. poor candidate for colostomy, given obesity 17. Sacrococcygeal decubitus w/ necrotic tissue s/p excisional debridement of skin, subcutaneous tissue and bone, excision of anal condyloma, 08/16 -h/o prior debridements and h/o ESBL Klebsiella, Enterococcus, E. col and bacteroides 07/12 08/23 hypotensive this am, bolused with 1 liter ns, renal notified Operative Note Operative Note Operative Note Operative Report Dictated Pre-op: right groin open wound with necrotic tissue, right above knee amputation open wound with necrotic tissue Post-op: same Operation: right groin debridement and right above the knee amputation wound debridement with wound vac dressing placements Surgeon: Dr. Taryn Antony Blood loss:20ml Anesthesia: general TARYN ANTONY MD Aug 16, 2019 13:00 hgb 6.8 today, transfused 08-18 Continue dapto, merrem and micafungin PLAN admit to medical bed continue IV abx taking at [facility]. restart insulin when takin po continue supplemental 02 consult nutrition, has G tube placed recently on 07/27. presume to optimize nutritional status. unclear if hx of dysphagia. ID consult for abx recommendations. nephro consult for HD check baseline labs DNR and DNI refusing all treatments 08/17 , consulted palliative care Patient's son Ken Ruano called by staff , did visit mother and she is now being more cooperative with her treatment 08/20 Continue dapto, merrem and micafungin 36 min pt exam, chart review, > 50% of time with exam, chart review pt care coordination Vitals Vitals Vital Signs Date Time Temp Pulse Resp B/P (MAP) Pulse Ox O2 Delivery O2 Flow Rate FiO2 08/23/19 03:25 98.5 89 20 87/40 (56) 90 Nasal Cannula 2.0 98.5 Physical Exam Physical Exam GENERAL: Propped up in bed, NAD - comfortable HENT: Pupils equal, reactive. NECK: Supple LUNGS: Clear CV: S1 S2 ABDOMEIN: Obese, soft, no guarding. 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 LLE 2+ edema. SKIN: Warm to touch. Sacral wound + bone. some granualation in mid zones. Min slough at edges [facility]: alert, answering questions appropriately Left sided HDC without signs of complication PIV General: Alert, Oriented X3, Cooperative, No acute distress Heart: Regular rate, Normal S1 Lungs: Clear Abdomen: Normal bowel sounds, Soft, Other (very obese) Extremities: No clubbing, No cyanosis Labs LABS Laboratory Tests Test 08/22/19 08:35 08/22/19 11:47 08/22/19 17:58 08/22/19 20:38 White Blood Count 11.2 x10^3/uL (4.0-11.0) Red Blood Count 2.75 x10^6/uL (3.50-5.40) Hemoglobin 8.0 g/dL (12.0-15.5) Hematocrit 26.0 % (36.0-47.0) Mean Corpuscular Volume 95 fL (79-100) Mean Corpuscular Hemoglobin 29 pg (25-35) Mean Corpuscular Hemoglobin Concent 31 g/dL (31-37) Red Cell Distribution Width 19.3 % (11.5-14.5) Platelet Count 136 x10^3/uL (140-400) Neutrophils (%) (Auto) 65 % (31-73) Lymphocytes (%) (Auto) 26 % (24-48) Monocytes (%) (Auto) 7 % (0-9) Eosinophils (%) (Auto) 1 % (0-3) Basophils (%) (Auto) 1 % (0-3) Neutrophils # (Auto) 7.3 x10^3/uL (1.8-7.7) Lymphocytes # (Auto) 2.9 x10^3/uL (1.0-4.8) Monocytes # (Auto) 0.8 x10^3/uL (0.0-1.1) Eosinophils # (Auto) 0.1 x10^3/uL (0.0-0.7) Basophils # (Auto) 0.1 x10^3/uL (0.0-0.2) Glucose (Fingerstick) 125 mg/dL (70-99) 133 mg/dL (70-99) 124 mg/dL (70-99) Comment Review of Relevant I have reviewed the following items karina (where applicable) has been applied. Labs Laboratory Tests Test 08/21/19 12:20 08/21/19 17:41 08/21/19 20:20 08/22/19 03:55 Glucose (Fingerstick) 148 mg/dL (70-99) 150 mg/dL (70-99) 164 mg/dL (70-99) Sodium Level 141 mmol/L (136-145) Potassium Level 4.0 mmol/L (3.5-5.1) Chloride Level 107 mmol/L (98-107) Carbon Dioxide Level 22 mmol/L (21-32) Anion Gap 12 (6-14) Blood Urea Nitrogen 29 mg/dL (7-20) Creatinine 2.9 mg/dL (0.6-1.0) Estimated GFR (Cockcroft-Gault) 16.2 Glucose Level 135 mg/dL (70-99) Calcium Level 8.5 mg/dL (8.5-10.1) Test 08/22/19 07:28 08/22/19 08:35 08/22/19 11:47 08/22/19 17:58 Glucose (Fingerstick) 112 mg/dL (70-99) 125 mg/dL (70-99) 133 mg/dL (70-99) White Blood Count 11.2 x10^3/uL (4.0-11.0) Red Blood Count 2.75 x10^6/uL (3.50-5.40) Hemoglobin 8.0 g/dL (12.0-15.5) Hematocrit 26.0 % (36.0-47.0) Mean Corpuscular Volume 95 fL (79-100) Mean Corpuscular Hemoglobin 29 pg (25-35) Mean Corpuscular Hemoglobin Concent 31 g/dL (31-37) Red Cell Distribution Width 19.3 % (11.5-14.5) Platelet Count 136 x10^3/uL (140-400) Neutrophils (%) (Auto) 65 % (31-73) Lymphocytes (%) (Auto) 26 % (24-48) Monocytes (%) (Auto) 7 % (0-9) Eosinophils (%) (Auto) 1 % (0-3) Basophils (%) (Auto) 1 % (0-3) Neutrophils # (Auto) 7.3 x10^3/uL (1.8-7.7) Lymphocytes # (Auto) 2.9 x10^3/uL (1.0-4.8) Monocytes # (Auto) 0.8 x10^3/uL (0.0-1.1) Eosinophils # (Auto) 0.1 x10^3/uL (0.0-0.7) Basophils # (Auto) 0.1 x10^3/uL (0.0-0.2) Test 08/22/19 20:38 Glucose (Fingerstick) 124 mg/dL (70-99) Laboratory Tests Test 08/22/19 08:35 08/22/19 11:47 08/22/19 17:58 08/22/19 20:38 White Blood Count 11.2 x10^3/uL (4.0-11.0) Red Blood Count 2.75 x10^6/uL (3.50-5.40) Hemoglobin 8.0 g/dL (12.0-15.5) Hematocrit 26.0 % (36.0-47.0) Mean Corpuscular Volume 95 fL (79-100) Mean Corpuscular Hemoglobin 29 pg (25-35) Mean Corpuscular Hemoglobin Concent 31 g/dL (31-37) Red Cell Distribution Width 19.3 % (11.5-14.5) Platelet Count 136 x10^3/uL (140-400) Neutrophils (%) (Auto) 65 % (31-73) Lymphocytes (%) (Auto) 26 % (24-48) Monocytes (%) (Auto) 7 % (0-9) Eosinophils (%) (Auto) 1 % (0-3) Basophils (%) (Auto) 1 % (0-3) Neutrophils # (Auto) 7.3 x10^3/uL (1.8-7.7) Lymphocytes # (Auto) 2.9 x10^3/uL (1.0-4.8) Monocytes # (Auto) 0.8 x10^3/uL (0.0-1.1) Eosinophils # (Auto) 0.1 x10^3/uL (0.0-0.7) Basophils # (Auto) 0.1 x10^3/uL (0.0-0.2) Glucose (Fingerstick) 125 mg/dL (70-99) 133 mg/dL (70-99) 124 mg/dL (70-99) Medications Current Medications Fentanyl Citrate (Fentanyl 2ml Vial) 25 mcg PRN Q5MIN PRN IV MILD PAIN 1-3 Last administered on 08/16/19at 14:27; Start 08/16/19 at 08:30; Stop 08/17/19 at 08:29; Status DC Fentanyl Citrate (Fentanyl 2ml Vial) 50 mcg PRN Q5MIN PRN IV MODERATE TO SEVERE PAIN Last administered on 08/16/19at 14:35; Start 08/16/19 at 08:30; Stop 08/17/19 at 08:29; Status DC Morphine Sulfate (Morphine Sulfate) 1 mg PRN Q10MIN PRN IV SEVERE PAIN 7-10; Start 08/16/19 at 08:30; Stop 08/17/19 at 08:29; Status DC Ringer's Solution 1,000 ml @ 30 mls/hr Q24H IV ; Start 08/16/19 at 08:25; Stop 08/16/19 at 20:24; Status Cancel Lidocaine HCl (Xylocaine-Mpf 1% 2ml Vial) 2 ml PRN 1X PRN ID PRIOR TO IV START; Start 08/16/19 at 08:30; Stop 08/17/19 at 08:29; Status DC Hydromorphone HCl (Dilaudid) 0.5 mg PRN Q10MIN PRN IV SEV PAIN, Second choice; Start 08/16/19 at 08:30; Stop 08/17/19 at 08:29; Status DC Prochlorperazine Edisylate (Compazine) 5 mg PACU PRN PRN IV NAUSEA, MRX1; Start 08/16/19 at 08:30; Stop 08/17/19 at 08:29; Status DC Cefazolin Sodium/ Dextrose 50 ml @ 100 mls/hr 1X ONCE IV Last administered on 08/16/19at 11:55; Start 08/16/19 at 10:00; Stop 08/16/19 at 10:29; Status DC Insulin Human Lispro (HumaLOG VIAL for OP,RR ONLY) 0-10 units PRN Q1HR PRN SQ PER PROTOCOL Last administered on 08/16/19at 14:38; Start 08/16/19 at 10:30; Stop 08/17/19 at 10:29; Status DC Heparin Sodium (Porcine) 5000 unit/Sodium Chloride 505 ml @ 505 mls/hr 1X ONCE IRR ; Start 08/16/19 at 11:00; Stop 08/16/19 at 11:59; Status DC Cefazolin Sodium 1 gm/Sodium Chloride 500 ml @ 500 mls/hr 1X ONCE IRR Last administered on 08/16/19at 12:19; Start 08/16/19 at 11:00; Stop 08/16/19 at 11:59; Status DC Sodium Chloride 1,000 ml @ 75 mls/hr [id number] IV Last administered on 08/22/19at 22:37; Start 08/16/19 at 10:45 Propofol 20 ml @ As Directed STK-MED ONCE IV ; Start 08/16/19 at 11:10; Stop 08/16/19 at 11:11; Status DC Lidocaine HCl (Lidocaine Pf 2% Vial) 5 ml STK-MED ONCE .ROUTE ; Start 08/16/19 at 11:10; Stop 08/16/19 at 11:11; Status DC Rocuronium [place] (Zemuron) 50 mg STK-MED ONCE .ROUTE ; Start 08/16/19 at 11:10; Stop 08/16/19 at 11:11; Status DC Fentanyl Citrate (Fentanyl 2ml Vial) 100 mcg STK-MED ONCE .ROUTE ; Start 08/16/19 at 11:11; Stop 08/16/19 at 11:11; Status DC Cellulose (Surgicel Fibrillar 1x2) 1 each STK-MED ONCE .ROUTE ; Start 08/16/19 at 11:38; Stop 08/16/19 at 11:38; Status DC Ondansetron HCl (Zofran) 4 mg STK-MED ONCE .ROUTE ; Start 08/16/19 at 12:14; Stop 08/16/19 at 12:14; Status DC Phenylephrine HCl (PHENYLEPHRINE in 0.9% NACL PF) 1 mg STK-MED ONCE IV ; Start 08/16/19 at 12:14; Stop 08/16/19 at 12:14; Status DC Desflurane (Suprane) 30 ml STK-MED ONCE IH ; Start 08/16/19 at 12:14; Stop 08/16/19 at 12:14; Status DC Cefazolin Sodium 1 gm/Sodium Chloride 1,000 ml @ 1,000 mls/hr 1X ONCE IRR Last administered on 08/16/19at 13:17; Start 08/16/19 at 13:00; Stop 08/16/19 at 13:59; Status DC Cefazolin Sodium 1 gm/Sodium Chloride 1,000 ml @ 1,000 mls/hr 1X ONCE IRR ; Start 08/16/19 at 12:30; Stop 08/16/19 at 13:29; Status DC Phenylephrine HCl (Von-Synephrine Inj) 10 mg STK-MED ONCE .ROUTE ; Start 08/16/19 at 12:29; Stop 08/16/19 at 12:29; Status DC Ondansetron HCl (Zofran) 4 mg STK-MED ONCE .ROUTE ; Start 08/16/19 at 13:11; Stop 08/16/19 at 13:11; Status DC Desflurane (Suprane) 60 ml STK-MED ONCE IH ; Start 08/16/19 at 13:11; Stop 08/16/19 at 13:11; Status DC Acetaminophen (Tylenol) 650 mg PRN Q4HRS PRN PO MILD PAIN / TEMP Last administered on 08/21/19at 05:31; Start 08/16/19 at 14:00 Amiodarone HCl (Cordarone) 200 mg BID PO Last administered on 08/21/19at 08:22; Start 08/16/19 at 21:00 Atorvastatin Calcium (Lipitor) 10 mg QHS PO Last administered on 08/21/19 20:46; Start 08/16/19 at 21:00 Clonidine HCl (Catapres) 0.2 mg PRN DAILY PRN PO DIALYSIS/HYPERTENSION; Start 08/16/19 at 14:00 Glucose (Insta-Glucose) 15 gm PRN Q15MIN PRN PO LOW BLOOD SUGAR; Start 08/16/19 at 14:00 Famotidine (Pepcid) 20 mg HS PO Last administered on 08/21/19 20:47; Start 08/16/19 at 21:00 Acetaminophen/ Hydrocodone Bitart (Lortab 5/325) 1 tab PRN Q6HRS PRN PO MODERATE - SEVERE PAIN Last administered on 08/22/19 13:55; Start 08/16/19 at 14:00 Lactulose (Lactulose) 20 gm PRN BID PRN PO CONSTIPATION; Start 08/16/19 at 14:00 Levothyroxine Sodium (Synthroid) 100 mcg DAILY06 PO Last administered on 08/23/19at 07:02; Start 08/17/19 at 06:00 Meropenem (Merrem) 500 mg QHS IV ; Start 08/16/19 at 21:00; Status UNV Metoprolol Tartrate (Lopressor) 25 mg BID PO Last administered on 08/20/19 20:49; Start 08/16/19 at 21:00 Nitroglycerin (Nitrostat) 0.4 mg PRN Q10MIN PRN SL CHEST PAIN; Start 08/16/19 at 14:00 Nortriptyline HCl (Pamelor) 25 mg QHS PO Last administered on 08/21/19 20:46; Start 08/16/19 at 21:00 Senna/Docusate Sodium (Senna Plus) 1 tab BID PO Last administered on 08/21/19 20:46; Start 08/16/19 at 21:00 Sevelamer Carbonate (Renvela) 800 mg TIDWMEALS PO Last administered on 08/22/19 17:00; Start 08/16/19 at 17:00 Linagliptin (Tradjenta) 5 mg DAILY PO Last administered on 08/21/19 08:23; Start 08/17/19 at 09:00 Non-Formulary Medication (Daptomycin ) 350 mg DAILY IV ; Start 08/17/19 at 09:00; Status UNV Diphenhydramine HCl (Benadryl) 25 mg PRN Q6HRS PRN IV ITCHING; Start 08/16/19 at 14:15 Darbepoetin Rajeev (ARANESP for DIALYSIS PTS) 25 mcg WEEKLYHS SQ ; Start 08/17/19 at 21:00 Citalopram Hydrobromide (CeleXA) 20 mg DAILY PO Last administered on 08/21/19at 08:21; Start 08/17/19 at 09:00 Non-Formulary Medication (Heparin Sodium,Porcine/Pf (Heparin 1,000 Unit/10 (100/ml))) 3.5 ml PRN DAILY PRN IV DIALYSIS; Start 08/16/19 at 14:00; Status UNV Lactobacillus Rhamnosus (Culturelle) 1 cap BID PO Last administered on 08/21/19at 20:46; Start 08/16/19 at 21:00 Pregabalin (Lyrica) 300 mg BID PO Last administered on 08/21/19at 20:47; Start 08/16/19 at 21:00 Non-Formulary Medication ([anidulafungin 100mg] ) 100 mg QHS IV ; Start 08/16/19 at 21:00; Status UNV Non-Formulary Medication ([clorpactin 2gm powd] ) 1 gm DAILY TOP ; Start 08/17/19 at 09:00; Status UNV Meropenem 500 mg/ Sodium Chloride 50 ml @ 100 mls/hr QHS IV Last administered on 08/22/19at 21:57; Start 08/16/19 at 21:00 Micafungin Sodium 100 mg/Dextrose 100 ml @ 100 mls/hr QHS IV Last administered on 08/22/19at 22:37; Start 08/16/19 at 21:00 Daptomycin 350 mg/ Sodium Chloride 50 ml @ 100 mls/hr QMWF IV Last administered on 08/22/19at 18:04; Start 08/17/19 at 16:00 Sodium Chloride 1,000 ml @ 1,000 mls/hr Q1H PRN IV hypotension; Start 08/17/19 at 13:43; Stop 08/17/19 at 19:42; Status DC Albumin Human 200 ml @ 200 mls/hr 1X PRN PRN IV Hypotension; Start 08/17/19 at 13:45; Stop 08/17/19 at 19:44; Status DC Sodium Chloride (Normal Saline Flush) 10 ml 1X PRN PRN IV AP catheter pack; Start 08/17/19 at 13:45; Stop 08/18/19 at 13:44; Status DC Sodium Chloride (Normal Saline Flush) 10 ml 1X PRN PRN IV [employer] catheter pack; Start 08/17/19 at 13:45; Stop 08/18/19 at 13:44; Status DC Sodium Chloride 1,000 ml @ 400 mls/hr Q2H30M PRN IV PATENCY; Start 08/17/19 at 13:43; Stop 08/18/19 at 01:42; Status DC Info (PHARMACY MONITORING -- do not chart) 1 each PRN DAILY PRN MC SEE COMMENTS; Start 08/17/19 at 13:45; Status UNV Info (PHARMACY MONITORING -- do not chart) 1 each PRN DAILY PRN MC SEE COMMENTS; Start 08/17/19 at 13:45 Sodium Hypochlorite (Dakin'S 1/4 Strength) 1 brandon DAILY TP Last administered on 08/21/19at 09:00; Start 08/19/19 at 09:00 Nystatin (Nystop) 1 brandon BID TP Last administered on 08/22/19at 09:00; Start 08/19/19 at 09:00 Sodium Chloride 1,000 ml @ 1,000 mls/hr Q1H PRN IV hypotension; Start 08/19/19 at 10:54; Stop 08/19/19 at 16:53; Status DC Albumin Human 200 ml @ 200 mls/hr 1X PRN PRN IV Hypotension; Start 08/19/19 at 11:00; Stop 08/19/19 at 16:59; Status DC Sodium Chloride (Normal Saline Flush) 10 ml 1X PRN PRN IV AP catheter pack; Start 08/19/19 at 11:00; Stop 08/20/19 at 10:59; Status DC Sodium Chloride (Normal Saline Flush) 10 ml 1X PRN PRN IV [employer] catheter pack; Start 08/19/19 at 11:00; Stop 08/20/19 at 10:59; Status DC Sodium Chloride 1,000 ml @ 400 mls/hr Q2H30M PRN IV PATENCY; Start 08/19/19 at 10:54; Stop 08/19/19 at 22:53; Status DC Info (PHARMACY MONITORING -- do not chart) 1 each PRN DAILY PRN MC SEE COMMENTS; Start 08/19/19 at 11:00; Status UNV Info (PHARMACY MONITORING -- do not chart) 1 each PRN DAILY PRN MC SEE COMMENTS; Start 08/19/19 at 11:00; Status UNV Sodium Chloride 1,000 ml @ 1,000 mls/hr Q1H PRN IV hypotension; Start 08/22/19 at 17:40; Stop 08/22/19 at 23:39; Status DC Sodium Chloride 1,000 ml @ 400 mls/hr Q2H30M PRN IV PATENCY; Start 08/22/19 at 17:40; Stop 08/23/19 at 05:39; Status DC Info (PHARMACY MONITORING -- do not chart) 1 each PRN DAILY PRN MC SEE COMMENTS; Start 08/22/19 at 17:45; Status UNV Info (PHARMACY MONITORING -- do not chart) 1 each PRN DAILY PRN MC SEE COMMENTS; Start 08/22/19 at 17:45 Active Scripts Active Reported Senna-Docusate Sodium Tablet (Sennosides/Docusate Sodium) 1 Each Tablet 1 Each PO BID Lactulose 20 Gm/30 Ml Solution 20 Gm PO BID PRN Probiotic (Lactobacillus Acidophilus) 1 Each Capsule 2 Each PO BID Hydrocodone-Apap 5-325 (Hydrocodone Bit/Acetaminophen) 1 Tab Tablet 1 Tab PO PRN Q6HRS PRN Pepcid (Famotidine) 20 Mg Tablet 20 Mg PO HS [anidulafungin 100mg] 100 Mg IV QHS [clorpactin 2gm powd] 1 Gm TOP DAILY Humalog (Insulin Lispro) 100 Unit/1 Ml Vial 4 Unit SQ Q6HRS Meropenem 500 Mg Vial 500 Mg IV QHS Daptomycin 350 Mg Vial 350 Mg IV DAILY Humalog (Insulin Lispro) 100 Unit/1 Ml Cartridge 100 Units SQ Q6HRS Diphenhydramine HCl 50 Mg/1 Ml Cartridge 25 Mg IJ PRN Q4HRS PRN Glutose 15 (Dextrose) 37.5 Gm Gel..gram. 15 Gm PO PRN Q15MIN PRN Retacrit (Epoetin Rajeev-Epbx) 3,000 Unit/1 Ml Vial 3,000 Unit IJ QMWF Renvela (Sevelamer Carbonate) 800 Mg Tablet 800 Mg PO TIDWMEALS Alogliptin (Alogliptin Benzoate) 6.25 Mg Tablet 6.25 Mg PO DAILY Tylenol (Acetaminophen) 325 Mg Tablet 2 Tab PO PRN Q4HRS Lyrica (Pregabalin) 300 Mg Capsule 1 Cap PO BID Clonidine Hcl 0.2 Mg Tablet 1 Tab PO PRN DAILY PRN NITROGLYCERIN SubLingual (Nitroglycerin) 0.4 Mg Tab.subl 1 Tab SL UD Heparin 1,000 Unit/10 (100/ml) (Heparin Sodium,Porcine/Pf) 1,000 Unit/10 Ml Syringe 3.5 Ml IV PRN DAILY PRN Levothyroxine Sodium 100 Mcg Tablet 1 Tab PO DAILY06 Escitalopram Oxalate 10 Mg Tablet 1 Tab PO DAILY Nortriptyline Hcl 25 Mg Capsule 1 Cap PO QHS Atorvastatin Calcium 10 Mg Tablet 1 Tab PO QHS Metoprolol Tartrate 25 Mg Tablet 1 Tab PO BID Lantus (Insulin Glargine,Hum.rec.anlog) 100 Unit/1 Ml Vial 20 Unit SQ DAILY Amiodarone Hcl 200 Mg Tablet 1 Tab PO BID Vitals/I & O Vital Sign - Last 24 Hours 08/22/19 08/22/19 08/22/19 08/22/19 08:00 09:00 11:03 13:55 Temp 98.8 98.8 Pulse 67 74 Resp 20 17 B/P (MAP) 82/34 90/46 (61) Pulse Ox 100 O2 Delivery Nasal Cannula Nasal Cannula Nasal Cannula O2 Flow Rate 2.0 2.0 2.0 08/22/19 08/22/19 08/22/19 08/22/19 14:55 19:48 20:04 23:50 Temp 98.4 98.5 98.4 98.5 Pulse 71 76 Resp 18 20 20 B/P (MAP) 73/48 (56) 95/51 (66) Pulse Ox 98 92 O2 Delivery Room Air Nasal Cannula Nasal Cannula Nasal Cannula O2 Flow Rate 2.0 2.0 2.0 08/23/19 03:25 Temp 98.5 98.5 Pulse 89 Resp 20 B/P (MAP) 87/40 (56) Pulse Ox 90 O2 Delivery Nasal Cannula O2 Flow Rate 2.0 Intake and Output 10/7/19 10/7/19 10/8/19 15:00 23:00 07:00 Intake Total 200 ml 0 ml 0 ml Output Total 50 ml Balance 200 ml 0 ml -50 ml WILFREDO MUNOZ MD Aug 23, 2019 07:43
--- NOTE | 2019-08-23 07:45 | PDOC ---
Infectious Disease Note Subjective Subjective Doing ok. "took a day off" yesterday Hungry but depends on food Has some pain No F/C/S/N/V/D/SOA/rash ROS ROS o/w neg Vital Sign Vital Signs Vital Signs Date Time Temp Pulse Resp B/P (MAP) Pulse Ox O2 Delivery O2 Flow Rate FiO2 08/23/19 03:25 98.5 89 20 87/40 (56) 90 Nasal Cannula 2.0 98.5 Physical Exam PHYSICAL EXAM GENERAL: Propped up in bed, NAD - comfortable alert and coop HENT: Pupils equal, reactive. OC/OP - clear NECK: Supple LUNGS: Clear CV: S1 S2 ABDOMEIN: Obese, soft, no guarding. 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 LLE 2+ edema. SKIN: Warm to touch. Sacral wound dressed GUARD IMMIGRATION: alert, answering questions appropriately Left sided HDC without signs of complication PIV Labs Lab Laboratory Tests Test 08/22/19 08:35 08/22/19 11:47 08/22/19 17:58 08/22/19 20:38 White Blood Count 11.2 x10^3/uL (4.0-11.0) Red Blood Count 2.75 x10^6/uL (3.50-5.40) Hemoglobin 8.0 g/dL (12.0-15.5) Hematocrit 26.0 % (36.0-47.0) Mean Corpuscular Volume 95 fL (79-100) Mean Corpuscular Hemoglobin 29 pg (25-35) Mean Corpuscular Hemoglobin Concent 31 g/dL (31-37) Red Cell Distribution Width 19.3 % (11.5-14.5) Platelet Count 136 x10^3/uL (140-400) Neutrophils (%) (Auto) 65 % (31-73) Lymphocytes (%) (Auto) 26 % (24-48) Monocytes (%) (Auto) 7 % (0-9) Eosinophils (%) (Auto) 1 % (0-3) Basophils (%) (Auto) 1 % (0-3) Neutrophils # (Auto) 7.3 x10^3/uL (1.8-7.7) Lymphocytes # (Auto) 2.9 x10^3/uL (1.0-4.8) Monocytes # (Auto) 0.8 x10^3/uL (0.0-1.1) Eosinophils # (Auto) 0.1 x10^3/uL (0.0-0.7) Basophils # (Auto) 0.1 x10^3/uL (0.0-0.2) Glucose (Fingerstick) 125 mg/dL (70-99) 133 mg/dL (70-99) 124 mg/dL (70-99) Objective Assessment Necrotic right open AKA stump wound s/p debridement, 08/16. 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 col and bacteroides 07/12 Right groin wound with necrotic tissue s/p debridement 08/16. -h/o prior debridements and ESBL klebsiella 07/12 h/o MSSA bacteremia with sepsis in May Treated Leukocytosis - better Encephalopathy - fluctuates Anemia End-stage renal disease, on hemodialysis via HD catheter Diabetes II h/o left axillary DVT 07/12 Peripheral vascular disease. Atrial fibrillation. Chronic respiratory failure. Protein-calorie malnutrition. Generalized debility. Plan Plan of Care Continue dapto, merrem and micafungin monitor abx toxicities and side effects. CK 11 (08/18) Probiotics Wound care as directed Offloading Now DNR/DNI Anemia per primary PJ DIAZ MD Aug 23, 2019 07:45
[2019-08-23] MEDS: SODIUM HYPOCHLORITE 0.125% 473 ML BOTTLE. TP SCH (09:00)
[2019-08-23] MEDS: METOPROLOL TART IMMED RELEASE 25 MG TABLET. PO SCH ×2 (09:00→21:00)
[2019-08-23] MEDS: AMIODARONE HCL 200 MG TABLET. PO SCH ×2 (09:00→21:00)
[2019-08-23] MEDS ORDERED: IV NORMAL SALINE 500ML BAG 500 ML IV ONE ×2 (09:30→12:30)
[2019-08-23] MEDS: PREGABALIN 75 MG CAPSULE PO SCH ×2 (09:37→21:07)
[2019-08-23] MEDS: LACTOBACILLUS RHAMNOSUS GG 1 CAPSULE. PO SCH ×2 (09:37→21:09)
[2019-08-23] MEDS: LINAGLIPTIN 5 MG TABLET PO SCH (09:37)
[2019-08-23] MEDS: CITALOPRAM 20 MG TABLET. PO SCH (09:37)
[2019-08-23] MEDS: SENNOSIDES/DOCUSATE 8.6/50MG TABLET. PO SCH ×2 (09:37→21:00)
[2019-08-23] MEDS: SEVELAMER CARBONATE 800 MG TABLET. PO SCH ×3 (09:37→17:48)
[2019-08-23] MEDS: NYSTATIN TOPICAL POWDER 15GM BOTTLE. TP SCH ×2 (10:30→21:10)
--- NOTE | 2019-08-23 11:05 | PDOC ---
Renal-Progress Notes Subjective Notes Notes NO NEW COMPLAINTS History of Present Illness Hx of present illness NO CHANGES Vitals Vitals Vital Signs Date Time Temp Pulse Resp B/P (MAP) Pulse Ox O2 Delivery O2 Flow Rate FiO2 08/23/19 09:00 85 71/33 08/23/19 07:49 98.1 20 98 Nasal Cannula 2.0 98.1 Weight Weight [ ] I.O. Intake and Output Intake and Output 08/23/19 06:59 Intake Total 200 ml Output Total 50 ml Balance 150 ml Intake Oral 200 ml Output Urine Total 50 ml Labs Labs Laboratory Tests Test 08/22/19 11:47 08/22/19 17:58 08/22/19 20:38 08/23/19 07:31 Glucose (Fingerstick) 125 mg/dL (70-99) 133 mg/dL (70-99) 124 mg/dL (70-99) 93 mg/dL (70-99) Review of Systems Constitutional: yes: other (CONFUSED) Physical Exam General Appearance: no apparent distress Respiratory: decreased breath sounds Heart: S1S2 Abdomen: soft Genitourinary: bladder flat Extremities: pulses present Neurology: alert Assessment Assessment IMP ESRD ANEMIA DM II HTN RIGHT AKA WOUND BACTEREMIA PAD SACRAL DECUBITUS S/P DEBRIDEMENT OF RIGHT GROIN WOUND PLAN ANTIBIOTICS HD TOMORROW WOUND CARE DANIS WILL FOLLOW MOR PINO MD Aug 23, 2019 11:05
[2019-08-23] MEDS: HYDROcodone/APAP 5/325MG 1 TAB TABLET PO PRN ×2 (12:11→21:44)
--- NOTE | 2019-08-23 12:12 | NUR ---
SW following pt. Pt is hypotensive today and not ready for dc. Discussed with Physician. Updated Berta at [facility].
--- NOTE | 2019-08-23 12:24 | PDOC ---
Provider Note Provider Note Wound vac changed by wound care team last night. I discussed with them and right groin and AKA open wounds clean. Continue wound VAC dressings and antibiotics. CITLALY REYES MD Aug 23, 2019 12:24
[2019-08-23] MEDS: IV NORMAL SALINE 1000ML BAG 1,000 ML IV SCH (13:12)
--- NOTE | 2019-08-23 18:15 | NUR ---
report received from LAMONTE Lim on 6th floor. Pt transferred to room 572
[2019-08-23] MEDS: MEROPENEM 500 MG in IV NORMAL SALINE 50ML 50 ML IV SCH (21:06)
[2019-08-23] MEDS: MICAFUNGIN 100 MG in IV DEXTROSE 5% 100ML 100 ML IV SCH (21:07)
[2019-08-23] MEDS: NORTRIPTYLINE 25 MG CAPSULE PO SCH (21:09)
[2019-08-23] MEDS: FAMOTIDINE 20 MG TABLET. PO SCH (21:09)
[2019-08-23] MEDS: ATORVASTATIN CALCIUM 10 MG TABLET. PO SCH (21:09)
[2019-08-24 03:00] VITALS: BP 84/30
[2019-08-24] MEDS: LEVOTHYROXINE 100 MCG TABLET PO SCH (05:41)
[2019-08-24] MEDS: IV NORMAL SALINE 1000ML BAG 1,000 ML IV SCH (05:41)
[2019-08-24 07:00] VITALS: BP 89/58
[2019-08-24] MEDS: AMIODARONE HCL 200 MG TABLET. PO SCH ×2 (08:22→20:41)
[2019-08-24] MEDS: METOPROLOL TART IMMED RELEASE 25 MG TABLET. PO SCH ×2 (08:23→20:40)
[2019-08-24] MEDS: SEVELAMER CARBONATE 800 MG TABLET. PO SCH ×4 (08:25→17:03)
[2019-08-24] MEDS: CITALOPRAM 20 MG TABLET. PO SCH (08:25)
[2019-08-24] MEDS: LINAGLIPTIN 5 MG TABLET PO SCH (08:25)
[2019-08-24] MEDS: LACTOBACILLUS RHAMNOSUS GG 1 CAPSULE. PO SCH ×2 (08:25→20:39)
[2019-08-24] MEDS: SENNOSIDES/DOCUSATE 8.6/50MG TABLET. PO SCH ×2 (08:25→20:39)
[2019-08-24] MEDS: MULTIVITAMIN with MINERAL TABLET. PO SCH (08:25)
[2019-08-24] MEDS: PREGABALIN 75 MG CAPSULE PO SCH ×2 (08:26→20:39)
--- NOTE | 2019-08-24 08:58 | PDOC ---
Infectious Disease Note Subjective Subjective Doing ok. At breakfast Pain ok No F/C/S/N/V/D/SOA/rash ROS ROS o/w neg Vital Sign Vital Signs Vital Signs Date Time Temp Pulse Resp B/P (MAP) Pulse Ox O2 Delivery O2 Flow Rate FiO2 08/24/19 08:23 67 84/58 08/24/19 03:00 97.9 20 98 Nasal Cannula 2.0 97.9 Physical Exam PHYSICAL EXAM GENERAL: Propped up in bed, NAD - comfortable alert and coop HENT: Pupils equal, reactive. OC/OP - clear NECK: Supple LUNGS: Clear CV: S1 S2 ABDOMEIN: Obese, soft, no guarding. 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 LLE 2+ edema. SKIN: Warm to touch. Sacral wound dressed ENVIRONMENTAL EMERGENCIES ASSISTANT: alert, answering questions appropriately Left sided HDC without signs of complication PIV Labs Lab Laboratory Tests Test 08/23/19 11:30 08/23/19 16:56 08/23/19 20:48 08/24/19 07:50 Glucose (Fingerstick) 134 mg/dL (70-99) 149 mg/dL (70-99) 160 mg/dL (70-99) 120 mg/dL (70-99) Objective Assessment Necrotic right open AKA stump wound s/p debridement, 08/16. 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 col and bacteroides 07/12 Right groin wound with necrotic tissue s/p debridement 08/16. -h/o prior debridements and ESBL klebsiella 07/12 h/o MSSA bacteremia with sepsis in May Treated Leukocytosis - better Encephalopathy - fluctuates Anemia End-stage renal disease, on hemodialysis via HD catheter Diabetes II h/o left axillary DVT 07/12 Peripheral vascular disease. Atrial fibrillation. Chronic respiratory failure. Protein-calorie malnutrition. Generalized debility. Plan Plan of Care Continue dapto, merrem and micafungin monitor abx toxicities and side effects. CK 11 (08/18) Probiotics Wound care as directed Offloading Now DNR/DNI Anemia per primary PJ DIAZ MD Aug 24, 2019 08:58
[2019-08-24] MEDS: SODIUM HYPOCHLORITE 0.125% 473 ML BOTTLE. TP SCH (09:00)
[2019-08-24] MEDS ORDERED: IV NORMAL SALINE 1000ML BAG 1,000 ML IV PRN ×2 (09:07)
[2019-08-24] MEDS ORDERED: 0.9 % SODIUM CHLORIDE 10 ML DISP.SYRIN. IV PRN ×2 (09:15)
[2019-08-24] MEDS ORDERED: DIALYSIS PATIENT. MC PRN ×2 (09:15)
[2019-08-24] MEDS ORDERED: ALBUMIN HUMAN 25% 200 ML IV PRN (09:15)
--- NOTE | 2019-08-24 09:52 | PDOC ---
PROGRESS NOTES History of Present Illness History of Present Illness Assessment/Plan Assessment/Plan VTE Prophylaxis Ordered VTE Prophylaxis Devices: No VTE Pharmacological Prophylaxi: Yes Assessment/Plan 1. Acute on chronic respiratory failure, multifactorial. 2. Status post right above-knee amputation 3. Status post excisional debridement of necrotic skin and subcutaneous tissue around the right groin with placement of a wound VAC. 4. PAD-S/P R Fem Endartrectomy and BKA for gangrene, now with necrosis and dehiscence. S/p right [id number] amputation with excision of infected gangrene her amputation, status post surgical intervention 5. Right groin incision with extensive gangrene throughout the incision with dehiscence and underlying necrotic tissue from recent femoral endarterectomy. 6. Morbid obesity. 7. Diabetes. 8. Acute on chronic kidney disease requiring hemodialysis. 9. hx Methicillin-resistant Staphylococcus aureus sepsis. 10. Hypertension. 11. Chronic anemia. 12. HX OF Metabolic toxic encephalopathy. 13. UPPER DVT 14. ESRD ON HD 15. sacral cocy wound 16. poor candidate for colostomy, given obesity 17. Sacrococcygeal decubitus w/ necrotic tissue s/p excisional debridement of skin, subcutaneous tissue and bone, excision of anal condyloma, 08/16 -h/o prior debridements and h/o ESBL Klebsiella, Enterococcus, E. col and bacteroides 07/12 18. DESIRES DNR/DNI designation 08/23 hypotensive this am, bolused with 1 liter ns, renal notified Operative Note Operative Note Operative Note Operative Report Dictated Pre-op: right groin open wound with necrotic tissue, right above knee amputation open wound with necrotic tissue Post-op: same Operation: right groin debridement and right above the knee amputation wound debridement with wound vac dressing placements Surgeon: Dr. Taryn Antony Blood loss:20ml Anesthesia: general TARYN ANTONY MD Aug 16, 2019 13:00 hgb 6.8 today, transfused 08-18 Continue dapto, merrem and micafungin PLAN admit to medical bed continue IV abx taking at [facility]. restart insulin when takin po continue supplemental 02 consult nutrition, has G tube placed recently on 07/27. presume to optimize nutritional status. unclear if hx of dysphagia. ID consult for abx recommendations. nephro consult for HD check baseline labs DNR and DNI refusing all treatments 08/17 , consulted palliative care Patient's son Ken Ruano called by staff , did visit mother and she is now being more cooperative with her treatment 08/20 Continue dapto, merrem and micafungin D/C TO [facility] TODAY, SEE IN DIALYSIS 28 min pt exam, chart review, D/C PLANNING > 50% of time with exam, chart review pt care coordination Vitals Vitals Vital Signs Date Time Temp Pulse Resp B/P (MAP) Pulse Ox O2 Delivery O2 Flow Rate FiO2 08/24/19 08:23 67 84/58 08/24/19 07:00 97.6 17 100 Nasal Cannula 2.0 97.6 Physical Exam Physical Exam GENERAL: Propped up in bed, NAD - comfortable alert and coop HENT: Pupils equal, reactive. OC/OP - clear NECK: Supple LUNGS: Clear CV: S1 S2 ABDOMEIN: Obese, soft, no guarding. 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 LLE 2+ edema. SKIN: Warm to touch. Sacral wound dressed MANAGER DRUG SAFETY: alert, answering questions appropriately Left sided HDC without signs of complication PIV General: Alert, Oriented X3, Cooperative, No acute distress Heart: Regular rate, Normal S1 Lungs: Clear Abdomen: Normal bowel sounds, Soft, No tenderness, Other (very obese) Extremities: No clubbing, No cyanosis Labs LABS Laboratory Tests Test 08/23/19 11:30 08/23/19 16:56 08/23/19 20:48 08/24/19 07:50 Glucose (Fingerstick) 134 mg/dL (70-99) 149 mg/dL (70-99) 160 mg/dL (70-99) 120 mg/dL (70-99) Comment Review of Relevant I have reviewed the following items karina (where applicable) has been applied. Labs Laboratory Tests Test 08/22/19 11:47 08/22/19 17:58 08/22/19 20:38 08/23/19 07:31 Glucose (Fingerstick) 125 mg/dL (70-99) 133 mg/dL (70-99) 124 mg/dL (70-99) 93 mg/dL (70-99) Test 08/23/19 11:30 08/23/19 16:56 08/23/19 20:48 08/24/19 07:50 Glucose (Fingerstick) 134 mg/dL (70-99) 149 mg/dL (70-99) 160 mg/dL (70-99) 120 mg/dL (70-99) Laboratory Tests Test 08/23/19 11:30 08/23/19 16:56 08/23/19 20:48 08/24/19 07:50 Glucose (Fingerstick) 134 mg/dL (70-99) 149 mg/dL (70-99) 160 mg/dL (70-99) 120 mg/dL (70-99) Medications Current Medications Fentanyl Citrate (Fentanyl 2ml Vial) 25 mcg PRN Q5MIN PRN IV MILD PAIN 1-3 Last administered on 08/16/19at 14:27; Start 08/16/19 at 08:30; Stop 08/17/19 at 08:29; Status DC Fentanyl Citrate (Fentanyl 2ml Vial) 50 mcg PRN Q5MIN PRN IV MODERATE TO SEVERE PAIN Last administered on 08/16/19at 14:35; Start 08/16/19 at 08:30; Stop 08/17/19 at 08:29; Status DC Morphine Sulfate (Morphine Sulfate) 1 mg PRN Q10MIN PRN IV SEVERE PAIN 7-10; Start 08/16/19 at 08:30; Stop 08/17/19 at 08:29; Status DC Ringer's Solution 1,000 ml @ 30 mls/hr Q24H IV ; Start 08/16/19 at 08:25; Stop 08/16/19 at 20:24; Status Cancel Lidocaine HCl (Xylocaine-Mpf 1% 2ml Vial) 2 ml PRN 1X PRN ID PRIOR TO IV START; Start 08/16/19 at 08:30; Stop 08/17/19 at 08:29; Status DC Hydromorphone HCl (Dilaudid) 0.5 mg PRN Q10MIN PRN IV SEV PAIN, Second choice; Start 08/16/19 at 08:30; Stop 08/17/19 at 08:29; Status DC Prochlorperazine Edisylate (Compazine) 5 mg PACU PRN PRN IV NAUSEA, MRX1; Start 08/16/19 at 08:30; Stop 08/17/19 at 08:29; Status DC Cefazolin Sodium/ Dextrose 50 ml @ 100 mls/hr 1X ONCE IV Last administered on 08/16/19at 11:55; Start 08/16/19 at 10:00; Stop 08/16/19 at 10:29; Status DC Insulin Human Lispro (HumaLOG VIAL for OP,RR ONLY) 0-10 units PRN Q1HR PRN SQ PER PROTOCOL Last administered on 08/16/19at 14:38; Start 08/16/19 at 10:30; Sto p 08/17/19 at 10:29; Status DC Heparin Sodium (Porcine) 5000 unit/Sodium Chloride 505 ml @ 505 mls/hr 1X ONCE IRR ; Start 08/16/19 at 11:00; Stop 08/16/19 at 11:59; Status DC Cefazolin Sodium 1 gm/Sodium Chloride 500 ml @ 500 mls/hr 1X ONCE IRR Last administered on 08/16/19at 12:19; Start 08/16/19 at 11:00; Stop 08/16/19 at 11:59; Status DC Sodium Chloride 1,000 ml @ 75 mls/hr [id number] IV Last administered on 08/24/19at 05:41; Start 08/16/19 at 10:45 Propofol 20 ml @ As Directed STK-MED ONCE IV ; Start 08/16/19 at 11:10; Stop 08/16/19 at 11:11; Status DC Lidocaine HCl (Lidocaine Pf 2% Vial) 5 ml STK-MED ONCE .ROUTE ; Start 08/16/19 at 11:10; Stop 08/16/19 at 11:11; Status DC Rocuronium [place] (Zemuron) 50 mg STK-MED ONCE .ROUTE ; Start 08/16/19 at 1 1:10; Stop 08/16/19 at 11:11; Status DC Fentanyl Citrate (Fentanyl 2ml Vial) 100 mcg STK-MED ONCE .ROUTE ; Start 08/16/19 at 11:11; Stop 08/16/19 at 11:11; Status DC Cellulose (Surgicel Fibrillar 1x2) 1 each STK-MED ONCE .ROUTE ; Start 08/16/19 at 11:38; Stop 08/16/19 at 11:38; Status DC Ondansetron HCl (Zofran) 4 mg STK-MED ONCE .ROUTE ; Start 08/16/19 at 12:14; Stop 08/16/19 at 12:14; Status DC Phenylephrine HCl (PHENYLEPHRINE in 0.9% NACL PF) 1 mg STK-MED ONCE IV ; Start 08/16/19 at 12:14; Stop 08/16/19 at 12:14; Status DC Desflurane (Suprane) 30 ml STK-MED ONCE IH ; Start 08/16/19 at 12:14; Stop 08/16/19 at 12:14; Status DC Cefazolin Sodium 1 gm/Sodium Chloride 1,000 ml @ 1,000 mls/hr 1X ONCE IRR Last administered on 08/16/19at 13:17; Start 08/16/19 at 13:00; Stop 08/16/19 at 13:59; Status DC Cefazolin Sodium 1 gm/Sodium Chloride 1,000 ml @ 1,000 mls/hr 1X ONCE IRR ; Start 08/16/19 at 12:30; Stop 08/16/19 at 13:29; Status DC Phenylephrine HCl (Von-Synephrine Inj) 10 mg STK-MED ONCE .ROUTE ; Start 08/16/19 at 12:29; Stop 08/16/19 at 12:29; Status DC Ondansetron HCl (Zofran) 4 mg STK-MED ONCE .ROUTE ; Start 08/16/19 at 13:11; Stop 08/16/19 at 13:11; Status DC Desflurane (Suprane) 60 ml STK-MED ONCE IH ; Start 08/16/19 at 13:11; Stop 08/16/19 at 13:11; Status DC Acetaminophen (Tylenol) 650 mg PRN Q4HRS PRN PO MILD PAIN / TEMP Last administered on 08/21/19at 05:31; Start 08/16/19 at 14:00 Amiodarone HCl (Cordarone) 200 mg BID PO Last administered on 08/21/19at 08:22; Start 08/16/19 at 21:00 Atorvastatin Calcium (Lipitor) 10 mg QHS PO Last administered on 08/23/19at 21:09; Start 08/16/19 at 21:00 Clonidine HCl (Catapres) 0.2 mg PRN DAILY PRN PO DIALYSIS/HYPERTENSION; Start 08/16/19 at 14:00 Glucose (Insta-Glucose) 15 gm PRN Q15MIN PRN PO LOW BLOOD SUGAR; Start 08/16/19 at 14:00 Famotidine (Pepcid) 20 mg HS PO Last administered on 08/23/19 21:09; Start 08/16/19 at 21:00 Acetaminophen/ Hydrocodone Bitart (Lortab 5/325) 1 tab PRN Q6HRS PRN PO MODERATE - SEVERE PAIN Last administered on 08/23/19 21:44; Start 08/16/19 at 14:00 Lactulose (Lactulose) 20 gm PRN BID PRN PO CONSTIPATION; Start 08/16/19 at 14:00 Levothyroxine Sodium (Synthroid) 100 mcg DAILY06 PO Last administered on 08/24/19 05:41; Start 08/17/19 at 06:00 Meropenem (Merrem) 500 mg QHS IV ; Start 08/16/19 at 21:00; Status UNV Metoprolol Tartrate (Lopressor) 25 mg BID PO Last administered on 08/20/19 20:49; Start 08/16/19 at 21:00 Nitroglycerin (Nitrostat) 0.4 mg PRN Q10MIN PRN SL CHEST PAIN; Start 08/16/19 at 14:00 Nortriptyline HCl (Pamelor) 25 mg QHS PO Last administered on 08/23/19 21:09; Start 08/16/19 at 21:00 Senna/Docusate Sodium (Senna Plus) 1 tab BID PO Last administered on 08/24/19 08:25; Start 08/16/19 at 21:00 Sevelamer Carbonate (Renvela) 800 mg TIDWMEALS PO Last administered on 08/24/19 08:25; Start 08/16/19 at 17:00 Linagliptin (Tradjenta) 5 mg DAILY PO Last administered on 08/24/19 08:25; Start 08/17/19 at 09:00 Non-Formulary Medication (Daptomycin ) 350 mg DAILY IV ; Start 08/17/19 at 09:00; Status UNV Diphenhydramine HCl (Benadryl) 25 mg PRN Q6HRS PRN IV ITCHING; Start 08/16/19 at 14:15 Darbepoetin Rajeev (ARANESP for DIALYSIS PTS) 25 mcg WEEKLYHS SQ ; Start 08/17/19 at 21:00 Citalopram Hydrobromide (CeleXA) 20 mg DAILY PO Last administered on 08/24/19at 08:25; Start 08/17/19 at 09:00 Non-Formulary Medication (Heparin Sodium,Porcine/Pf (Heparin 1,000 Unit/10 (100/ml))) 3.5 ml PRN DAILY PRN IV DIALYSIS; Start 08/16/19 at 14:00; Status UNV Lactobacillus Rhamnosus (Culturelle) 1 cap BID PO Last administered on 08/24/19at 08:25; Start 08/16/19 at 21:00 Pregabalin (Lyrica) 300 mg BID PO Last administered on 08/24/19at 08:26; Start 08/16/19 at 21:00 Non-Formulary Medication ([anidulafungin 100mg] ) 100 mg QHS IV ; Start 08/16/19 at 21:00; Status UNV Non-Formulary Medication ([clorpactin 2gm powd] ) 1 gm DAILY TOP ; Start 08/17/19 at 09:00; Status UNV Meropenem 500 mg/ Sodium Chloride 50 ml @ 100 mls/hr QHS IV Last administered on 08/23/19at 21:06; Start 08/16/19 at 21:00 Micafungin Sodium 100 mg/Dextrose 100 ml @ 100 mls/hr QHS IV Last administered on 08/23/19at 21:07; Start 08/16/19 at 21:00 Daptomycin 350 mg/ Sodium Chloride 50 ml @ 100 mls/hr QMWF IV Last administered on 08/22/19at 18:04; Start 08/17/19 at 16:00 Sodium Chloride 1,000 ml @ 1,000 mls/hr Q1H PRN IV hypotension; Start 08/17/19 at 13:43; Stop 08/17/19 at 19:42; Status DC Albumin Human 200 ml @ 200 mls/hr 1X PRN PRN IV Hypotension; Start 08/17/19 at 13:45; Stop 08/17/19 at 19:44; Status DC Sodium Chloride (Normal Saline Flush) 10 ml 1X PRN PRN IV AP catheter pack; Start 08/17/19 at 13:45; Stop 08/18/19 at 13:44; Status DC Sodium Chloride (Normal Saline Flush) 10 ml 1X PRN PRN IV HEALTH EDUCATION SPECIALIST catheter pack; Start 08/17/19 at 13:45; Stop 08/18/19 at 13:44; Status DC Sodium Chloride 1,000 ml @ 400 mls/hr Q2H30M PRN IV PATENCY; Start 08/17/19 at 13:43; Stop 08/18/19 at 01:42; Status DC Info (PHARMACY MONITORING -- do not chart) 1 each PRN DAILY PRN MC SEE COMMENTS; Start 08/17/19 at 13:45; Status UNV Info (PHARMACY MONITORING -- do not chart) 1 each PRN DAILY PRN MC SEE COMMENTS; Start 08/17/19 at 13:45 Sodium Hypochlorite (Dakin'S 1/4 Strength) 1 brandon DAILY TP Last administered on 08/23/19at 09:00; Start 08/19/19 at 09:00 Nystatin (Nystop) 1 brandon BID TP Last administered on 08/23/19at 21:10; Start 08/19/19 at 09:00 Sodium Chloride 1,000 ml @ 1,000 mls/hr Q1H PRN IV hypotension; Start 08/19/19 at 10:54; Stop 08/19/19 at 16:53; Status DC Albumin Human 200 ml @ 200 mls/hr 1X PRN PRN IV Hypotension; Start 08/19/19 at 11:00; Stop 08/19/19 at 16:59; Status DC Sodium Chloride (Normal Saline Flush) 10 ml 1X PRN PRN IV AP catheter pack; Start 08/19/19 at 11:00; Stop 08/20/19 at 10:59; Status DC Sodium Chloride (Normal Saline Flush) 10 ml 1X PRN PRN IV HEALTH EDUCATION SPECIALIST catheter pack; Start 08/19/19 at 11:00; Stop 08/20/19 at 10:59; Status DC Sodium Chloride 1,000 ml @ 400 mls/hr Q2H30M PRN IV PATENCY; Start 08/19/19 at 10:54; Stop 08/19/19 at 22:53; Status DC Info (PHARMACY MONITORING -- do not chart) 1 each PRN DAILY PRN MC SEE COMMENTS; Start 08/19/19 at 11:00; Status UNV Info (PHARMACY MONITORING -- do not chart) 1 each PRN DAILY PRN MC SEE COMMENTS; Start 08/19/19 at 11:00; Status UNV Sodium Chloride 1,000 ml @ 1,000 mls/hr Q1H PRN IV hypotension; Start 08/22/19 at 17:40; Stop 08/22/19 at 23:39; Status DC Sodium Chloride 1,000 ml @ 400 mls/hr Q2H30M PRN IV PATENCY; Start 08/22/19 at 17:40; Stop 08/23/19 at 05:39; Status DC Info (PHARMACY MONITORING -- do not chart) 1 each PRN DAILY PRN MC SEE COMMENTS; Start 08/22/19 at 17:45; Status UNV Info (PHARMACY MONITORING -- do not chart) 1 each PRN DAILY PRN MC SEE COMMENTS; Start 08/22/19 at 17:45; Status Cancel Sodium Chloride 500 ml @ 500 mls/hr 1X ONCE IV Last administered on 08/23/19at 09:38; Start 08/23/19 at 09:30; Stop 08/23/19 at 10:29; Status DC Sodium Chloride 500 ml @ 500 mls/hr 1X ONCE IV Last administered on 08/23/19at 12:11; Start 08/23/19 at 12:30; Stop 08/23/19 at 13:29; Status DC Multivitamins (Thera M Plus) 1 tab DAILY PO Last administered on 08/24/19at 08:25; Start 08/24/19 at 09:00 Sodium Chloride 1,000 ml @ 1,000 mls/hr Q1H PRN IV hypotension; Start 08/24/19 at 09:07; Stop 08/24/19 at 15:06 Albumin Human 200 ml @ 200 mls/hr 1X PRN PRN IV Hypotension; Start 08/24/19 at 09:15; Stop 08/24/19 at 15:14 Sodium Chloride (Normal Saline Flush) 10 ml 1X PRN PRN IV AP catheter pack; Start 08/24/19 at 09:15; Stop 08/25/19 at 09:14 Sodium Chloride (Normal Saline Flush) 10 ml 1X PRN PRN IV HEALTH EDUCATION SPECIALIST catheter pack; Start 08/24/19 at 09:15; Stop 08/25/19 at 09:14 Sodium Chloride 1,000 ml @ 400 mls/hr Q2H30M PRN IV PATENCY; Start 08/24/19 at 09:07; Stop 08/24/19 at 21:06 Info (PHARMACY MONITORING -- do not chart) 1 each PRN DAILY PRN MC SEE COMMENTS; Start 08/24/19 at 09:15; Status UNV Info (PHARMACY MONITORING -- do not chart) 1 each PRN DAILY PRN MC SEE COMMENTS; Start 08/24/19 at 09:15 Active Scripts Active Reported Senna-Docusate Sodium Tablet (Sennosides/Docusate Sodium) 1 Each Tablet 1 Each PO BID Lactulose 20 Gm/30 Ml Solution 20 Gm PO BID PRN Probiotic (Lactobacillus Acidophilus) 1 Each Capsule 2 Each PO BID Hydrocodone-Apap 5-325 (Hydrocodone Bit/Acetaminophen) 1 Tab Tablet 1 Tab PO PRN Q6HRS PRN Pepcid (Famotidine) 20 Mg Tablet 20 Mg PO HS [anidulafungin 100mg] 100 Mg IV QHS [clorpactin 2gm powd] 1 Gm TOP DAILY Humalog (Insulin Lispro) 100 Unit/1 Ml Vial 4 Unit SQ Q6HRS Meropenem 500 Mg Vial 500 Mg IV QHS Daptomycin 350 Mg Vial 350 Mg IV DAILY Humalog (Insulin Lispro) 100 Unit/1 Ml Cartridge 100 Units SQ Q6HRS Diphenhydramine HCl 50 Mg/1 Ml Cartridge 25 Mg IJ PRN Q4HRS PRN Glutose 15 (Dextrose) 37.5 Gm Gel..gram. 15 Gm PO PRN Q15MIN PRN Retacrit (Epoetin Rajeev-Epbx) 3,000 Unit/1 Ml Vial 3,000 Unit IJ QMWF Renvela (Sevelamer Carbonate) 800 Mg Tablet 800 Mg PO TIDWMEALS Alogliptin (Alogliptin Benzoate) 6.25 Mg Tablet 6.25 Mg PO DAILY Tylenol (Acetaminophen) 325 Mg Tablet 2 Tab PO PRN Q4HRS Lyrica (Pregabalin) 300 Mg Capsule 1 Cap PO BID Clonidine Hcl 0.2 Mg Tablet 1 Tab PO PRN DAILY PRN NITROGLYCERIN SubLingual (Nitroglycerin) 0.4 Mg Tab.subl 1 Tab SL UD Heparin 1,000 Unit/10 (100/ml) (Heparin Sodium,Porcine/Pf) 1,000 Unit/10 Ml Syringe 3.5 Ml IV PRN DAILY PRN Levothyroxine Sodium 100 Mcg Tablet 1 Tab PO DAILY06 Escitalopram Oxalate 10 Mg Tablet 1 Tab PO DAILY Nortriptyline Hcl 25 Mg Capsule 1 Cap PO QHS Atorvastatin Calcium 10 Mg Tablet 1 Tab PO QHS Metoprolol Tartrate 25 Mg Tablet 1 Tab PO BID Lantus (Insulin Glargine,Hum.rec.anlog) 100 Unit/1 Ml Vial 20 Unit SQ DAILY Amiodarone Hcl 200 Mg Tablet 1 Tab PO BID Vitals/I & O Vital Sign - Last 24 Hours 08/23/19 08/23/19 08/23/19 08/23/19 11:06 11:32 12:11 13:15 Temp 98.9 98.9 Pulse 74 87 Resp 20 18 17 B/P (MAP) 73/47 (56) 95/46 (62) Pulse Ox 100 O2 Delivery Nasal Cannula Nasal Cannula Nasal Cannula O2 Flow Rate 2.0 2.0 2.0 08/23/19 08/23/19 08/23/19 08/23/19 15:03 19:00 20:00 21:00 Temp 98.5 97.9 98.5 97.9 Pulse 80 87 87 Resp 20 20 B/P (MAP) 89/43 (58) 81/35 (50) 81/35 Pulse Ox 99 98 O2 Delivery Nasal Cannula Nasal Cannula Nasal Cannula O2 Flow Rate 2.0 2.0 2.0 08/23/19 08/23/19 08/23/19 08/23/19 21:00 21:44 22:44 23:00 Temp 98.2 98.2 Pulse 87 74 Resp 20 B/P (MAP) 81/35 93/43 (60) Pulse Ox 98 O2 Delivery Room Air Room Air Nasal Cannula O2 Flow Rate 2.0 08/24/19 08/24/19 08/24/19 08/24/19 03:00 07:00 08:22 08:23 Temp 97.9 97.6 97.9 97.6 Pulse 72 67 67 67 Resp 20 17 B/P (MAP) 84/30 (48) 89/58 (68) 84/58 84/58 Pulse Ox 98 100 O2 Delivery Nasal Cannula Nasal Cannula O2 Flow Rate 2.0 2.0 Intake and Output 08/23/19 08/23/19 08/24/19 15:00 23:00 07:00 Intake Total 170 ml 100 ml 50 ml Balance 170 ml 100 ml 50 ml WILFREDO MUNOZ MD Aug 24, 2019 09:52
--- NOTE | 2019-08-24 11:11 | NUR ---
SS following up with discharge planning. SS discussed with pt's RN and [facility], ; fax [phone]. Per RN, pt's BP continues to be low. [facility] reported history of low BP at there facility as well. [facility] reported that they will have bed ready for pt tomorrow, 08/25/2019. Pt's RN notified. SS will continue to follow for discharge planning.
[2019-08-24] MEDS: HYDROcodone/APAP 5/325MG 1 TAB TABLET PO PRN (11:21)
[2019-08-24] MEDS: NYSTATIN TOPICAL POWDER 15GM BOTTLE. TP SCH ×2 (13:55→20:41)
--- NOTE | 2019-08-24 14:12 | PDOC3 ---
Discharge Summary Date of Admission: Aug 16, 2019 Date of Discharge: Aug 24, 2019 Follow-Up: 1-2 days Admitting Diagnosis comment: DISCHARGE DX ========= 1. Acute on chronic respiratory failure, multifactorial. 2. Status post right above-knee amputation 3. Status post excisional debridement of necrotic skin and subcutaneous tissue around the right groin with placement of a wound VAC. 4. PAD-S/P R Fem Endartrectomy and BKA for gangrene, now with necrosis and dehiscence. S/p right [id number] amputation with excision of infected gangrene her amputation, status post surgical intervention 5. Right groin incision with extensive gangrene throughout the incision with dehiscence and underlying necrotic tissue from recent femoral endarterectomy. 6. Morbid obesity. 7. Diabetes. 8. Acute on chronic kidney disease requiring hemodialysis. 9. hx Methicillin-resistant Staphylococcus aureus sepsis. 10. Hypertension. 11. Chronic anemia. 12. HX OF Metabolic toxic encephalopathy.IMPROVED 13. UPPER DVT 14. ESRD ON HD 15. sacral cocy wound 16. poor candidate for colostomy, given obesity 17. Sacrococcygeal decubitus w/ necrotic tissue s/p excisional debridement of skin, subcutaneous tissue and bone, excision of anal condyloma, 08/16 -h/o prior debridements and h/o ESBL Klebsiella, Enterococcus, E. col and bacteroides 07/12 18. DESIRES/// DNR/DNI designation 08/23 hypotensive this am, bolused with 1 liter ns, renal notified 08/24 D/C TO [facility] Operative Note Operative Note Operative Note Operative Report Dictated Pre-op: right groin open wound with necrotic tissue, right above knee amputation open wound with necrotic tissue Post-op: same Operation: right groin debridement and right above the knee amputation wound debridement with wound vac dressing placements Surgeon: Dr. Taryn Antony Blood loss:20ml Anesthesia: general TARYN ANTONY MD Aug 16, 2019 13:00 hgb 6.8 today, transfused 08-18 Continue dapto, merrem and micafungin PLAN admit to medical bed continue IV abx taking at [facility]. restart insulin when takin po continue supplemental 02 consult nutrition, has G tube placed recently on 07/27. presume to optimize nutritional status. unclear if hx of dysphagia. ID consult for abx recommendations. nephro consult for HD check baseline labs DNR and DNI refusing all treatments 08/17 , consulted palliative care Patient's son Ken Ruano called by staff , did visit mother and she is now being more cooperative with her treatment 08/20 Continue dapto, merrem and micafungin D/C TO [facility], SEE IN DIALYSIS 28 min pt exam, chart review, D/C PLANNING > 50% of time with exam, chart review pt care coordination Vitals Vitals Vital Signs Date Time Temp Pulse Resp B/P (MAP) Pulse Ox O2 Delivery O2 Flow Rate FiO2 08/24/19 08:23 67 84/58 08/24/19 07:00 97.6 17 100 Nasal Cannula 2.0 97.6 Physical Exam Physical Exam GENERAL: Propped up in bed, NAD - comfortable alert and coop HENT: Pupils equal, reactive. OC/OP - clear NECK: Supple LUNGS: Clear CV: S1 S2 ABDOMEIN: Obese, soft, no guarding. 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 LLE 2+ edema. SKIN: Warm to touch. 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 Mayes is a 69 old [sex] who presented with [WOUNDS, SEPSIS ] CONDITION AT DISCHARGE: Improved Discharge Medications Current Medications Fentanyl Citrate (Fentanyl 2ml Vial) 25 mcg PRN Q5MIN PRN IV MILD PAIN 1-3 Last administered on 08/16/19at 14:27; Start 08/16/19 at 08:30; Stop 08/17/19 at 08:29; Status DC Fentanyl Citrate (Fentanyl 2ml Vial) 50 mcg PRN Q5MIN PRN IV MODERATE TO SEVERE PAIN Last administered on 08/16/19at 14:35; Start 08/16/19 at 08:30; Stop 08/17/19 at 08:29; Status DC Morphine Sulfate (Morphine Sulfate) 1 mg PRN Q10MIN PRN IV SEVERE PAIN 7-10; Start 08/16/19 at 08:30; Stop 08/17/19 at 08:29; Status DC Ringer's Solution 1,000 ml @ 30 mls/hr Q24H IV ; Start 08/16/19 at 08:25; Stop 08/16/19 at 20:24; Status Cancel Lidocaine HCl (Xylocaine-Mpf 1% 2ml Vial) 2 ml PRN 1X PRN ID PRIOR TO IV START; Start 08/16/19 at 08:30; Stop 08/17/19 at 08:29; Status DC Hydromorphone HCl (Dilaudid) 0.5 mg PRN Q10MIN PRN IV SEV PAIN, Second choice; Start 08/16/19 at 08:30; Stop 08/17/19 at 08:29; Status DC Prochlorperazine Edisylate (Compazine) 5 mg PACU PRN PRN IV NAUSEA, MRX1; Start 08/16/19 at 08:30; Stop 08/17/19 at 08:29; Status DC Cefazolin Sodium/ Dextrose 50 ml @ 100 mls/hr 1X ONCE IV Last administered on 08/16/19at 11:55; Start 08/16/19 at 10:00; Stop 08/16/19 at 10:29; Status DC Insulin Human Lispro (HumaLOG VIAL for OP,RR ONLY) 0-10 units PRN Q1HR PRN SQ PER PROTOCOL Last administered on 08/16/19at 14:38; Start 08/16/19 at 10:30; Stop 08/17/19 at 10:29; Status DC Heparin Sodium (Porcine) 5000 unit/Sodium Chloride 505 ml @ 505 mls/hr 1X ONCE IRR ; Start 08/16/19 at 11:00; Stop 08/16/19 at 11:59; Status DC Cefazolin Sodium 1 gm/Sodium Chloride 500 ml @ 500 mls/hr 1X ONCE IRR Last administered on 08/16/19at 12:19; Start 08/16/19 at 11:00; Stop 08/16/19 at 11:59; Status DC Sodium Chloride 1,000 ml @ 75 mls/hr [id number] IV Last administered on 08/24/19at 05:41; Start 08/16/19 at 10:45 Propofol 20 ml @ As Directed STK-MED ONCE IV ; Start 08/16/19 at 11:10; Stop 08/16/19 at 11:11; Status DC Lidocaine HCl (Lidocaine Pf 2% Vial) 5 ml STK-MED ONCE .ROUTE ; Start 08/16/19 at 11:10; Stop 08/16/19 at 11:11; Status DC Rocuronium [place] (Zemuron) 50 mg STK-MED ONCE .ROUTE ; Start 08/16/19 at 11:10; Stop 08/16/19 at 11:11; Status DC Fentanyl Citrate (Fentanyl 2ml Vial) 100 mcg STK-MED ONCE .ROUTE ; Start 08/16/19 at 11:11; Stop 08/16/19 at 11:11; Status DC Cellulose (Surgicel Fibrillar 1x2) 1 each STK-MED ONCE .ROUTE ; Start 08/16/19 at 11:38; Stop 08/16/19 at 11:38; Status DC Ondansetron HCl (Zofran) 4 mg STK-MED ONCE .ROUTE ; Start 08/16/19 at 12:14; Stop 08/16/19 at 12:14; Status DC Phenylephrine HCl (PHENYLEPHRINE in 0.9% NACL PF) 1 mg STK-MED ONCE IV ; Start 08/16/19 at 12:14; Stop 08/16/19 at 12:14; Status DC Desflurane (Suprane) 30 ml STK-MED ONCE IH ; Start 08/16/19 at 12:14; Stop 08/16/19 at 12:14; Status DC Cefazolin Sodium 1 gm/Sodium Chloride 1,000 ml @ 1,000 mls/hr 1X ONCE IRR Last administered on 08/16/19at 13:17; Start 08/16/19 at 13:00; Stop 08/16/19 at 13:59; Status DC Cefazolin Sodium 1 gm/Sodium Chloride 1,000 ml @ 1,000 mls/hr 1X ONCE IRR ; Start 08/16/19 at 12:30; Stop 08/16/19 at 13:29; Status DC Phenylephrine HCl (Von-Synephrine Inj) 10 mg STK-MED ONCE .ROUTE ; Start at 12:29; Stop 08/16/19 at 12:29; Status DC Ondansetron HCl (Zofran) 4 mg STK-MED ONCE .ROUTE ; Start 08/16/19 at 13:11; Stop 08/16/19 at 13:11; Status DC Desflurane (Suprane) 60 ml STK-MED ONCE IH ; Start 08/16/19 at 13:11; Stop 08/16/19 at 13:11; Status DC Acetaminophen (Tylenol) 650 mg PRN Q4HRS PRN PO MILD PAIN / TEMP Last administered on 08/21/19 05:31; Start 08/16/19 at 14:00 Amiodarone HCl (Cordarone) 200 mg BID PO Last administered on 08/21/19at 08:22; Start 08/16/19 at 21:00 Atorvastatin Calcium (Lipitor) 10 mg QHS PO Last administered on 08/23/19 21:09; Start 08/16/19 at 21:00 Clonidine HCl (Catapres) 0.2 mg PRN DAILY PRN PO DIALYSIS/HYPERTENSION; Start 08/16/19 at 14:00 Glucose (Insta-Glucose) 15 gm PRN Q15MIN PRN PO LOW BLOOD SUGAR; Start 08/16/19 at 14:00 Famotidine (Pepcid) 20 mg HS PO Last administered on 08/23/19 21:09; Start 08/16/19 at 21:00 Acetaminophen/ Hydrocodone Bitart (Lortab 5/325) 1 tab PRN Q6HRS PRN PO MODERATE - SEVERE PAIN Last administered on 08/24/19at 11:21; Start 08/16/19 at 14:00 Lactulose (Lactulose) 20 gm PRN BID PRN PO CONSTIPATION; Start 08/16/19 at 14:00 Levothyroxine Sodium (Synthroid) 100 mcg DAILY06 PO Last administered on 08/24/19 05:41; Start 08/17/19 at 06:00 Meropenem (Merrem) 500 mg QHS IV ; Start 08/16/19 at 21:00; Status UNV Metoprolol Tartrate (Lopressor) 25 mg BID PO Last administered on 08/20/19at 20:49; Start 08/16/19 at 21:00 Nitroglycerin (Nitrostat) 0.4 mg PRN Q10MIN PRN SL CHEST PAIN; Start 08/16/19 at 14:00 Nortriptyline HCl (Pamelor) 25 mg QHS PO Last administered on 10/8/19at 21:09; Start 08/16/19 at 21:00 Senna/Docusate Sodium (Senna Plus) 1 tab BID PO Last administered on 08/24/19at 08:25; Start 08/16/19 at 21:00 Sevelamer Carbonate (Renvela) 800 mg TIDWMEALS PO Last administered on 08/24/19at 13:55; Start 08/16/19 at 17:00 Linagliptin (Tradjenta) 5 mg DAILY PO Last administered on 08/24/19at 08:25; St art 08/17/19 at 09:00 Non-Formulary Medication (Daptomycin ) 350 mg DAILY IV ; Start 08/17/19 at 09:00; Status UNV Diphenhydramine HCl (Benadryl) 25 mg PRN Q6HRS PRN IV ITCHING; Start 08/16/19 at 14:15 Darbepoetin Rajeev (ARANESP for DIALYSIS PTS) 25 mcg WEEKLYHS SQ ; Start 08/17/19 at 21:00 Citalopram Hydrobromide (CeleXA) 20 mg DAILY PO Last administered on 08/24/19at 08:25; Start 08/17/19 at 09:00 Non-Formulary Medication (Heparin Sodium,Porcine/Pf (Heparin 1,000 Unit/10 (100/ml))) 3.5 ml PRN DAILY PRN IV DIALYSIS; Start 08/16/19 at 14:00; Status UNV Lactobacillus Rhamnosus (Culturelle) 1 cap BID PO Last administered on 08/24/19 at 08:25; Start 08/16/19 at 21:00 Pregabalin (Lyrica) 300 mg BID PO Last administered on 08/24/19at 08:26; Start 08/16/19 at 21:00 Non-Formulary Medication ([anidulafungin 100mg] ) 100 mg QHS IV ; Start 08/16/19 at 21:00; Status UNV Non-Formulary Medication ([clorpactin 2gm powd] ) 1 gm DAILY TOP ; Start 08/17/19 at 09:00; Status UNV Meropenem 500 mg/ Sodium Chloride 50 ml @ 100 mls/hr QHS IV Last administered on 08/23/19at 21:06; Start 08/16/19 at 21:00 Micafungin Sodium 100 mg/Dextrose 100 ml @ 100 mls/hr QHS IV Last administered on 08/23/19at 21:07; Start 08/16/19 at 21:00 Daptomycin 350 mg/ Sodium Chloride 50 ml @ 100 mls/hr QMWF IV Last administered on 08/22/19at 18:04; Start 08/17/19 at 16:00 Sodium Chloride 1,000 ml @ 1,000 mls/hr Q1H PRN IV hypotension; Start 08/17/19 at 13:43; Stop 08/17/19 at 19:42; Status DC Albumin Human 200 ml @ 200 mls/hr 1X PRN PRN IV Hypotension; Start 08/17/19 at 13:45; Stop 08/17/19 at 19:44; Status DC Sodium Chloride (Normal Saline Flush) 10 ml 1X PRN PRN IV AP catheter pack; Start 08/17/19 at 13:45; Stop 08/18/19 at 13:44; Status DC Sodium Chloride (Normal Saline Flush) 10 ml 1X PRN PRN IV SHACTOR catheter pack; Start 08/17/19 at 13:45; Stop 08/18/19 at 13:44; Status DC Sodium Chloride 1,000 ml @ 400 mls/hr Q2H30M PRN IV PATENCY; Start 08/17/19 at 13:43; Stop 08/18/19 at 01:42; Status DC Info (PHARMACY MONITORING -- do not chart) 1 each PRN DAILY PRN MC SEE COMMENTS; Start 08/17/19 at 13:45; Status UNV Info (PHARMACY MONITORING -- do not chart) 1 each PRN DAILY PRN MC SEE COMMENTS; Start 08/17/19 at 13:45 Sodium Hypochlorite (Dakin'S 1/4 Strength) 1 brandon DAILY TP Last administered on 08/23/19at 09:00; Start 08/19/19 at 09:00 Nystatin (Nystop) 1 brandon BID TP Last administered on 08/24/19at 13:55; Start 08/19/19 at 09:00 Sodium Chloride 1,000 ml @ 1,000 mls/hr Q1H PRN IV hypotension; Start 08/19/19 at 10:54; Stop 08/19/19 at 16:53; Status DC Albumin Human 200 ml @ 200 mls/hr 1X PRN PRN IV Hypotension; Start 08/19/19 at 11:00; Stop 08/19/19 at 16:59; Status DC Sodium Chloride (Normal Saline Flush) 10 ml 1X PRN PRN IV AP catheter pack; Start 08/19/19 at 11:00; Stop 08/20/19 at 10:59; Status DC Sodium Chloride (Normal Saline Flush) 10 ml 1X PRN PRN IV SHACTOR catheter pack; Start 08/19/19 at 11:00; Stop 08/20/19 at 10:59; Status DC Sodium Chloride 1,000 ml @ 400 mls/hr Q2H30M PRN IV PATENCY; Start 08/19/19 at 10:54; Stop 08/19/19 at 22:53; Status DC Info (PHARMACY MONITORING -- do not chart) 1 each PRN DAILY PRN MC SEE COMMENTS; Start 08/19/19 at 11:00; Status UNV Info (PHARMACY MONITORING -- do not chart) 1 each PRN DAILY PRN MC SEE COMMENTS; Start 08/19/19 at 11:00; Status UNV Sodium Chloride 1,000 ml @ 1,000 mls/hr Q1H PRN IV hypotension; Start 08/22/19 at 17:40; Stop 08/22/19 at 23:39; Status DC Sodium Chloride 1,000 ml @ 400 mls/hr Q2H30M PRN IV PATENCY; Start 08/22/19 at 17:40; Stop 08/23/19 at 05:39; Status DC Info (PHARMACY MONITORING -- do not chart) 1 each PRN DAILY PRN MC SEE COMMENTS; Start 08/22/19 at 17:45; Status UNV Info (PHARMACY MONITORING -- do not chart) 1 each PRN DAILY PRN MC SEE COMMENTS; Start 08/22/19 at 17:45; Status Cancel Sodium Chloride 500 ml @ 500 mls/hr 1X ONCE IV Last administered on 08/23/19at 09:38; Start 08/23/19 at 09:30; Stop 08/23/19 at 10:29; Status DC Sodium Chloride 500 ml @ 500 mls/hr 1X ONCE IV Last administered on 08/23/19at 12:11; Start 08/23/19 at 12:30; Stop 08/23/19 at 13:29; Status DC Multivitamins (Thera M Plus) 1 tab DAILY PO Last administered on 08/24/19at 08:25; Start 08/24/19 at 09:00 Sodium Chloride 1,000 ml @ 1,000 mls/hr Q1H PRN IV hypotension; Start 08/24/19 at 09:07; Stop 08/24/19 at 15:06 Albumin Human 200 ml @ 200 mls/hr 1X PRN PRN IV Hypotension; Start 08/24/19 at 09:15; Stop 08/24/19 at 15:14 Sodium Chloride (Normal Saline Flush) 10 ml 1X PRN PRN IV AP catheter pack; Start 08/24/19 at 09:15; Stop 08/25/19 at 09:14 Sodium Chloride (Normal Saline Flush) 10 ml 1X PRN PRN IV SHACTOR catheter pack; Start 08/24/19 at 09:15; Stop 08/25/19 at 09:14 Sodium Chloride 1,000 ml @ 400 mls/hr Q2H30M PRN IV PATENCY; Start 08/24/19 at 09:07; Stop 08/24/19 at 21:06 Info (PHARMACY MONITORING -- do not chart) 1 each PRN DAILY PRN MC SEE COMMENTS; Start 08/24/19 at 09:15; Status UNV Info (PHARMACY MONITORING -- do not chart) 1 each PRN DAILY PRN MC SEE COMME NTS; Start 08/24/19 at 09:15 Active Scripts Active Reported Senna-Docusate Sodium Tablet (Sennosides/Docusate Sodium) 1 Each Tablet 1 Each PO BID Lactulose 20 Gm/30 Ml Solution 20 Gm PO BID PRN Probiotic (Lactobacillus Acidophilus) 1 Each Capsule 2 Each PO BID Hydrocodone-Apap 5-325 (Hydrocodone Bit/Acetaminophen) 1 Tab Tablet 1 Tab PO PRN Q6HRS PRN Pepcid (Famotidine) 20 Mg Tablet 20 Mg PO HS [anidulafungin 100mg] 100 Mg IV QHS [clorpactin 2gm powd] 1 Gm TOP DAILY Humalog (Insulin Lispro) 100 Unit/1 Ml Vial 4 Unit SQ Q6HRS Meropenem 500 Mg Vial 500 Mg IV QHS Daptomycin 350 Mg Vial 350 Mg IV DAILY Humalog (Insulin Lispro) 100 Unit/1 Ml Cartridge 100 Units SQ Q6HRS Diphenhydramine HCl 50 Mg/1 Ml Cartridge 25 Mg IJ PRN Q4HRS PRN Glutose 15 (Dextrose) 37.5 Gm Gel..gram. 15 Gm PO PRN Q15MIN PRN Retacrit (Epoetin Rajeev-Epbx) 3,000 Unit/1 Ml Vial 3,000 Unit IJ QMWF Renvela (Sevelamer Carbonate) 800 Mg Tablet 800 Mg PO TIDWMEALS Alogliptin (Alogliptin Benzoate) 6.25 Mg Tablet 6.25 Mg PO DAILY Tylenol (Acetaminophen) 325 Mg Tablet 2 Tab PO PRN Q4HRS Lyrica (Pregabalin) 300 Mg Capsule 1 Cap PO BID Clonidine Hcl 0.2 Mg Tablet 1 Tab PO PRN DAILY PRN NITROGLYCERIN SubLingual (Nitroglycerin) 0.4 Mg Tab.subl 1 Tab SL UD Heparin 1,000 Unit/10 (100/ml) (Heparin Sodium,Porcine/Pf) 1,000 Unit/10 Ml Syringe 3.5 Ml IV PRN DAILY PRN Levothyroxine Sodium 100 Mcg Tablet 1 Tab PO DAILY06 Escitalopram Oxalate 10 Mg Tablet 1 Tab PO DAILY Nortriptyline Hcl 25 Mg Capsule 1 Cap PO QHS Atorvastatin Calcium 10 Mg Tablet 1 Tab PO QHS Metoprolol Tartrate 25 Mg Tablet 1 Tab PO BID Lantus (Insulin Glargine,Hum.rec.anlog) 100 Unit/1 Ml Vial 20 Unit SQ DAILY Amiodarone Hcl 200 Mg Tablet 1 Tab PO BID Vital Signs Vital Signs Date Time Temp Pulse Resp B/P (MAP) Pulse Ox O2 Delivery O2 Flow Rate FiO2 08/24/19 12:21 Nasal Cannula 2.0 08/24/19 08:23 67 84/58 08/24/19 07:00 97.6 17 100 97.6 Labs Laboratory Tests Test 08/22/19 17:58 08/22/19 20:38 08/23/19 07:31 08/23/19 11:30 Glucose (Fingerstick) 133 mg/dL (70-99) 124 mg/dL (70-99) 93 mg/dL (70-99) 134 mg/dL (70-99) Test 08/23/19 16:56 08/23/19 20:48 08/24/19 07:50 08/24/19 14:01 Glucose (Fingerstick) 149 mg/dL (70-99) 160 mg/dL (70-99) 120 mg/dL (70-99) 116 mg/dL (70-99) Laboratory Tests Test 08/23/19 16:56 08/23/19 20:48 08/24/19 07:50 08/24/19 14:01 Glucose (Fingerstick) 149 mg/dL (70-99) 160 mg/dL (70-99) 120 mg/dL (70-99) 116 mg/dL (70-99) Allergies Allergies Coded Allergies Type Severity Reaction Last Updated Verified I S O L A T I O N *CONTACT* Allergy Unknown 08/16/19 Yes No Known Medication Allergies Allergy Unknown 08/16/19 Yes Disposition/Orders: D/C to Another Facility WILFREDO MUNOZ MD Aug 24, 2019 14:12
--- NOTE | 2019-08-24 14:13 | SNU/HH DC ---
DISCHARGE ORDERS DISCHARGE INFORMATION: CONDITION ON DISCHARGE: Stable CODE STATUS: Code Status: DNR/DNI [facility]CI: SNF STAY <30 DAYS: Yes HOSPICE: HOSPICE: No HOSPICE EVAL & TREAT: No LTAC: ADMIT TO LTAC: Yes POST DISCHARGE ORDERS: ACTIVITY ORDERS: Resume previous activity, Activity as tolerated WEIGHT BEARING STATUS: Non weight bearing BATHING ORDERS: Shower-keep dressing dry, No Tub Bath until see DIET AFTER DISCHARGE: Renal WOUND/INCISION CARE: Change dressing, Other, see below OTHER ORDERS: Ok to use Left IJ tunneled HDC CHECKS AFTER DISCHARGE: CHECKS AFTER DISCHARGE: Check blood press - daily, Check blood sugar, ac/hs TREATMENT/EQUIPMENT ORDERS: RESPIRATORY EQUIPMENT NEEDED: Oxygen Physical Therapy For: Evalulation/Treatment Occupational Therapy For: Evaluation/Treatment Speech Language Pathology For: Evaluation/Treatment DISCHARGE MEDICATIONS: Home Meds Reported Medications Sennosides/Docusate Sodium (SENNA-DOCUSATE SODIUM TABLET) 1 Each Tablet, 1 EACH PO BID for CONSTIPATION, TAB 08/16/19 Lactulose (LACTULOSE) 20 Gm/30 Ml Solution, 20 GM PO BID PRN for CONSTIPATION, MISC 08/16/19 Lactobacillus Acidophilus (PROBIOTIC) 1 Each Capsule, 2 EACH PO BID for /, CAP 08/16/19 Hydrocodone Bit/Acetaminophen (HYDROCODONE-APAP 5-325 ) 1 Tab Tablet, 1 TAB PO PRN Q6HRS PRN for PAIN, TAB 0 Refills 08/16/19 Famotidine (PEPCID) 20 Mg Tablet, 20 MG PO HS for GERD, TAB 08/16/19 [anidulafungin 100mg] No Conflict Check, 100 MG IV QHS 08/10/19 [clorpactin 2gm powd] No Conflict Check, 1 GM TOP DAILY 08/10/19 Insulin Lispro (HUMALOG) 100 Unit/1 Ml Vial, 4 UNIT SQ Q6HRS for fsbs, VIAL 08/10/19 Meropenem (MEROPENEM) 500 Mg Vial, 500 MG IV QHS for infection, EACH 08/10/19 Daptomycin (Daptomycin) 350 Mg Vial, 350 MG IV DAILY for infection, EACH 08/10/19 Insulin Lispro (HUMALOG) 100 Unit/1 Ml Cartridge, 100 UNITS SQ Q6HRS for blood sugar, EACH 08/10/19 Diphenhydramine HCl (Diphenhydramine HCl) 50 Mg/1 Ml Cartridge, 25 MG IJ PRN Q4HRS PRN for ITCHING, EACH 08/10/19 Dextrose (GLUTOSE 15) 37.5 Gm Gel..gram., 15 GM PO PRN Q15MIN PRN for LOW BLOOD SUGAR, EACH 08/10/19 Epoetin Rajeev-Epbx (Retacrit) 3,000 Unit/1 Ml Vial, 3000 UNIT IJ QMWF for dialysis, EACH 08/09/19 Sevelamer Carbonate (RENVELA) 800 Mg Tablet, 800 MG PO TIDWMEALS for /, TAB 08/09/19 Alogliptin Benzoate (Alogliptin) 6.25 Mg Tablet, 6.25 MG PO DAILY for /, TAB 08/09/19 Acetaminophen (TYLENOL) 325 Mg Tablet, 2 TAB PO PRN Q4HRS for pain, #30 TAB 08/09/19 Pregabalin (LYRICA) 300 Mg Capsule, 1 CAP PO BID for NERVE PAIN, #60 CAP 2 Refills 07/08/19 Clonidine Hcl (CLONIDINE HCL) 0.2 Mg Tablet, 1 TAB PO PRN DAILY PRN for DIALYSIS/HYPERTENSION, #60 TAB 5 Refills 07/08/19 Nitroglycerin (NITROGLYCERIN SubLingual) 0.4 Mg Tab.subl, 1 TAB SL UD for CHEST PAIN, #25 TAB 3 Refills 07/08/19 Heparin Sodium,Porcine/Pf (Heparin 1,000 Unit/10 (100/ml)) 1,000 Unit/10 Ml Syringe, 3.5 ML IV PRN DAILY PRN for DIALYSIS, SYR 07/08/19 Levothyroxine Sodium (LEVOTHYROXINE SODIUM) 100 Mcg Tablet, 1 TAB PO DAILY06 for HYPOTHYROID, #30 TAB 5 Refills 07/08/19 Escitalopram Oxalate (ESCITALOPRAM OXALATE) 10 Mg Tablet, 1 TAB PO DAILY for DEPRESSION, #30 TAB 3 Refills 07/08/19 Nortriptyline Hcl (NORTRIPTYLINE HCL) 25 Mg Capsule, 1 CAP PO QHS for DEPRESS ION, #30 CAP 3 Refills 07/08/19 Atorvastatin Calcium (ATORVASTATIN CALCIUM) 10 Mg Tablet, 1 TAB PO QHS for HEART , #30 TAB 5 Refills 07/08/19 Metoprolol Tartrate (METOPROLOL TARTRATE) 25 Mg Tablet, 1 TAB PO BID for HYPERTENSION, #180 TAB 1 Refill 07/08/19 Insulin Glargine,Hum.rec.anlog (LANTUS) 100 Unit/1 Ml Vial, 20 UNIT SQ DAILY for DIABETES, VIAL 07/08/19 Amiodarone Hcl (AMIODARONE HCL) 200 Mg Tablet, 1 TAB PO BID for AT FIB, #90 TAB 1 Refill 07/08/19 WILFREDO MUNOZ MD Aug 24, 2019 14:13
--- NOTE | 2019-08-24 14:32 | PDOC ---
Renal-Progress Notes Subjective Notes Notes NO NEW COMPLAINTS History of Present Illness Hx of present illness NO CHANGE Vitals Vitals Vital Signs Date Time Temp Pulse Resp B/P (MAP) Pulse Ox O2 Delivery O2 Flow Rate FiO2 08/24/19 12:21 Nasal Cannula 2.0 08/24/19 08:23 67 84/58 08/24/19 07:00 97.6 17 100 97.6 Weight Weight [ ] I.O. Intake and Output Intake and Output 08/24/19 07:00 Intake Total 320 ml Balance 320 ml Intake Oral 320 ml Labs Labs Laboratory Tests Test 08/23/19 16:56 08/23/19 20:48 08/24/19 07:50 08/24/19 14:01 Glucose (Fingerstick) 149 mg/dL (70-99) 160 mg/dL (70-99) 120 mg/dL (70-99) 116 mg/dL (70-99) Review of Systems Constitutional: yes: other (CONFUSED) Physical Exam General Appearance: no apparent distress Respiratory: decreased breath sounds Heart: S1S2 Abdomen: soft Genitourinary: bladder flat Extremities: pulses present Neurology: alert Assessment Assessment IMP ESRD ANEMIA DM II HYPOTENSION RIGHT AKA WOUND BACTEREMIA PAD SACRAL DECUBITUS S/P DEBRIDEMENT OF RIGHT GROIN WOUND PLAN ANTIBIOTICS HD TODAY UF MINIMAL FLUID BOLUS OVER NIGHT WOUND CARE DANIS WILL FOLLOW TO [facility] MOR PINO MD Aug 24, 2019 14:32
[2019-08-24 15:00] VITALS: BP 115/49
[2019-08-24] MEDS: HYDROmorphone 2 MG/ML VIAL IV PRN (16:05)
--- NOTE | 2019-08-24 16:47 | NUR ---
Wound care: Patient seen per wound care, see wound assessment. All wounds cleansed, assessed. Patient has unstageable pressure ulcer to right lower back, Hydrocolloid and foam dressing applied. Patient has stage IV pressure ulcer to coccyx which underwent debridement on 08/16/19. Dressing removed, stool present inside wound bed, area cleaned out, Dakins soaked kerlix (3 rolls) packed into wound, covered with ABD pads, and tape, wound bed actually with a moderate amount of beefy red granulation tissue. Patient has open incision to right groin and open incision from surgical dehiscence of right AKA, both wounds clean and beefy red and granulated, skin prepped on both wounds and silver foam dressing applied, one piece of foam to right AKA and one piece of foam to right groin, a good seal maintained at 125mmHg continuous. Both wounds are connected with a Y connector. Patient repositioned and turned to the left side using the wedge. Bed lowered and call light in reach. Wound care will follow up for dressing changes on Thursday, patient is currently on a P-500 bed.
[2019-08-24] MEDS: DAPTOmycin (GENERIC) IVPB 350 MG in IV NORMAL SALINE 50ML 50 ML IV SCH (17:04)
[2019-08-24 19:00] VITALS: BP 99/36
[2019-08-24] MEDS: MEROPENEM 500 MG in IV NORMAL SALINE 50ML 50 ML IV SCH (20:38)
[2019-08-24] MEDS: ATORVASTATIN CALCIUM 10 MG TABLET. PO SCH (20:39)
[2019-08-24] MEDS: NORTRIPTYLINE 25 MG CAPSULE PO SCH (20:39)
[2019-08-24] MEDS: FAMOTIDINE 20 MG TABLET. PO SCH (20:39)
[2019-08-24 23:00] VITALS: BP 91/39
[2019-08-24] MEDS: MICAFUNGIN 100 MG in IV DEXTROSE 5% 100ML 100 ML IV SCH (23:04)
[2019-08-24] MEDS: DARBEPOETIN ALFA 25 MCG/0.42 ML DISP.SYRIN. SQ SCH (23:05)
[2019-08-25 03:00] VITALS: BP 90/47
[2019-08-25 04:17] VITALS: BP 90/47
[2019-08-25] MEDS: LEVOTHYROXINE 100 MCG TABLET PO SCH (04:25)
[2019-08-25] MEDS: HYDROcodone/APAP 5/325MG 1 TAB TABLET PO PRN (04:25)
[2019-08-25] MEDS: IV NORMAL SALINE 1000ML BAG 1,000 ML IV SCH ×2 (05:05→08:05)
[2019-08-25 06:00] LABS: BASO # 0.1 x10^3/uL (0.0-0.2); BASO % 1 % (0-3); EOS # 0.1 x10^3/uL (0.0-0.7); EOS % 1 % (0-3); HEMATOCRIT 26.9 % (36.0-47.0); HEMOGLOBIN 8.5 g/dL (12.0-15.5); LYMPH # 2.9 x10^3/uL (1.0-4.8); LYMPH % 28 % (24-48); MEAN CORPUSCULAR HEMOGLOBIN 30 pg (25-35); MEAN CORPUSCULAR HGB CONC 32 g/dL (31-37); MEAN CORPUSCULAR VOLUME 94 fL (79-100); MONO # 0.7 x10^3/uL (0.0-1.1); MONO % 7 % (0-9); NEUT # 6.7 x10^3/uL (1.8-7.7); NEUT % 64 % (31-73); PLATELET COUNT 125 x10^3/uL (140-400); RED BLOOD COUNT 2.86 x10^6/uL (3.50-5.40); RED CELL DISTRIBUTION WIDTH 18.9 % (11.5-14.5); WHITE BLOOD COUNT 10.5 x10^3/uL (4.0-11.0)
[2019-08-25 06:21] LABS: ALBUMIN 0.7 g/dL (3.4-5.0); ALBUMIN/GLOBULIN RATIO 0.2 (1.0-1.7); CALCIUM 7.6 mg/dL (8.5-10.1); CREATININE 1.7 mg/dL (0.6-1.0); POTASSIUM 3.7 mmol/L (3.5-5.1); TOTAL BILIRUBIN 0.3 mg/dL (0.2-1.0); TOTAL PROTEIN 4.9 g/dL (6.4-8.2)
[2019-08-25 07:00] VITALS: BP 87/48
[2019-08-25] MEDS: SEVELAMER CARBONATE 800 MG TABLET. PO SCH ×3 (08:00→17:00)
[2019-08-25] MEDS: METOPROLOL TART IMMED RELEASE 25 MG TABLET. PO SCH (09:00)
--- NOTE | 2019-08-25 09:26 | PDOC ---
Infectious Disease Note Subjective Subjective Doing ok. Hungry Pain ok No F/C/S/N/V/D/SOA/rash ROS ROS o/w neg Vital Sign Vital Signs Vital Signs Date Time Temp Pulse Resp B/P (MAP) Pulse Ox O2 Delivery O2 Flow Rate FiO2 08/25/19 07:00 97.6 64 17 87/48 (61) 96 Nasal Cannula 2.0 97.6 Physical Exam PHYSICAL EXAM GENERAL: Propped up in bed, NAD - comfortable alert and coop HENT: Pupils equal, reactive. OC/OP - clear NECK: Supple LUNGS: Clear CV: S1 S2 ABDOMEIN: Obese, soft, no guarding. 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 LLE 2+ edema. SKIN: Warm to touch. Sacral wound beefy red granulating tissue with min slough. + bone VISUAL INSPECTOR: alert, answering questions appropriately Left sided HDC without signs of complication PIV Labs Lab Laboratory Tests Test 08/24/19 14:01 08/24/19 17:26 08/24/19 21:03 08/25/19 05:35 Glucose (Fingerstick) 116 mg/dL (70-99) 110 mg/dL (70-99) 97 mg/dL (70-99) White Blood Count 10.5 x10^3/uL (4.0-11.0) Red Blood Count 2.86 x10^6/uL (3.50-5.40) Hemoglobin 8.5 g/dL (12.0-15.5) Hematocrit 26.9 % (36.0-47.0) Mean Corpuscular Volume 94 fL (79-100) Mean Corpuscular Hemoglobin 30 pg (25-35) Mean Corpuscular Hemoglobin Concent 32 g/dL (31-37) Red Cell Distribution Width 18.9 % (11.5-14.5) Platelet Count 125 x10^3/uL (140-400) Neutrophils (%) (Auto) 64 % (31-73) Lymphocytes (%) (Auto) 28 % (24-48) Monocytes (%) (Auto) 7 % (0-9) Eosinophils (%) (Auto) 1 % (0-3) Basophils (%) (Auto) 1 % (0-3) Neutrophils # (Auto) 6.7 x10^3/uL (1.8-7.7) Lymphocytes # (Auto) 2.9 x10^3/uL (1.0-4.8) Monocytes # (Auto) 0.7 x10^3/uL (0.0-1.1) Eosinophils # (Auto) 0.1 x10^3/uL (0.0-0.7) Basophils # (Auto) 0.1 x10^3/uL (0.0-0.2) Sodium Level 142 mmol/L (136-145) Potassium Level 3.7 mmol/L (3.5-5.1) Chloride Level 107 mmol/L (98-107) Carbon Dioxide Level 26 mmol/L (21-32) Anion Gap 9 (6-14) Blood Urea Nitrogen 16 mg/dL (7-20) Creatinine 1.7 mg/dL (0.6-1.0) Estimated GFR (Cockcroft-Gault) 30.0 BUN/Creatinine Ratio 9 (6-20) Glucose Level 109 mg/dL (70-99) Calcium Level 7.6 mg/dL (8.5-10.1) Total Bilirubin 0.3 mg/dL (0.2-1.0) Aspartate Amino Transf (AST/SGOT) 36 U/L (15-37) Alanine Aminotransferase (ALT/SGPT) 7 U/L (14-59) Alkaline Phosphatase 231 U/L (46-116) Creatine Kinase 33 U/L (26-192) Total Protein 4.9 g/dL (6.4-8.2) Albumin 0.7 g/dL (3.4-5.0) Albumin/Globulin Ratio 0.2 (1.0-1.7) Test 08/25/19 07:44 Glucose (Fingerstick) 87 mg/dL (70-99) Objective Assessment Necrotic right open AKA stump wound s/p debridement, 08/16. 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 col and bacteroides 07/12 Right groin wound with necrotic tissue s/p debridement 08/16. -h/o prior debridements and ESBL klebsiella 07/12 h/o MSSA bacteremia with sepsis in May Treated Leukocytosis - better Encephalopathy - fluctuates Anemia End-stage renal disease, on hemodialysis via HD catheter Diabetes II h/o left axillary DVT 07/12 Peripheral vascular disease. Atrial fibrillation. Chronic respiratory failure. Protein-calorie malnutrition. Generalized debility. Plan Plan of Care Continue dapto, merrem and micafungin debridement 08/16 - will need abx another 3 to 5 weeks depending on healing monitor abx toxicities and side effects. CK 11 (08/18) Probiotics Wound care as directed Offloading Now DNR/DNI Anemia per primary Can transfer to [facility] at any time ID to sign off D/w nursing PJ DIAZ MD Aug 25, 2019 09:26
[2019-08-25] MEDS: HYDROmorphone 2 MG/ML VIAL IV PRN ×2 (09:46→16:33)
--- NOTE | 2019-08-25 10:32 | PDOC ---
PROGRESS NOTES Chief Complaint Chief Complaint MASSIVE SACRAL WOUND s/p repeat/numerous I and D etc DNR Hospice candidate MEt sharon Persistent dysphagia, indwellung PEG Diarrhea on broad spectrum - insert rectal tube now 1. Acute on chronic respiratory failure, multifactorial. 2. Status post right above-knee amputation 3. Status post excisional debridement of necrotic skin and subcutaneous tissue around the right groin with placement of a wound VAC. 4. PAD-S/P R Fem Endartrectomy and BKA for gangrene, now with necrosis and dehiscence. S/p right [id number] amputation with excision of infected gangrene her amputation, status post surgical intervention 5. Right groin incision with extensive gangrene throughout the incision with dehiscence and underlying necrotic tissue from recent femoral endarterectomy. 6. Morbid obesity. 7. Diabetes. 8. Acute on chronic kidney disease requiring hemodialysis. 9. hx Methicillin-resistant Staphylococcus aureus sepsis. 10. Hypertension. 11. Chronic anemia. 12. HX OF Metabolic toxic encephalopathy. 13. UPPER DVT 14. ESRD ON HD 15. sacral cocy wound 16. poor candidate for colostomy, given obesity 17. Sacrococcygeal decubitus w/ necrotic tissue s/p excisional debridement of skin, subcutaneous tissue and bone, excision of anal condyloma, 08/16 -h/o prior debridements and h/o ESBL Klebsiella, Enterococcus, E. col and bacteroides 07/12 History of Present Illness History of Present Illness She is being changed and the wound is REMARKABLY HUGE Stool all over her back up to her bones/muscle tissue On broad spectrum Slated for lTAC today and dc summ done BY DR Mckay\ PLAN: Insert rectal tube now I did paper MAR STOP senna Consult dr nathen gaitan at [facility]ac DNR Dw staff at bedside Wound Incompatible with life Jerry- son DPBRINDA, I have met in prior admissions cont TF vai PEG Colostomy was actually a conversation before to help keep that sacral clean from chronic diarrhea Vitals Vitals Vital Signs Date Time Temp Pulse Resp B/P (MAP) Pulse Ox O2 Delivery O2 Flow Rate FiO2 08/25/19 09:46 Nasal Cannula 2.0 08/25/19 07:00 97.6 64 17 87/48 (61) 96 97.6 Physical Exam Physical Exam GENERAL: Propped up in bed, NAD - comfortable alert and coop HENT: Pupils equal, reactive. OC/OP - clear NECK: Supple LUNGS: Clear CV: S1 S2 ABDOMEIN: Obese, soft, no guarding. 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 LLE 2+ edema. SKIN: Warm to touch. Sacral wound beefy red granulating tissue with min slough. + bone [employer] WORKER: alert, answering questions appropriately Left sided HDC without signs of complication PIV General: Alert, Oriented X3, Cooperative, No acute distress Heart: Regular rate, Normal S1 Lungs: Clear Abdomen: Normal bowel sounds, Soft, No tenderness, Other (very obese) Extremities: No clubbing, No cyanosis Labs LABS Laboratory Tests Test 08/24/19 14:01 08/24/19 17:26 08/24/19 21:03 08/25/19 05:35 Glucose (Fingerstick) 116 mg/dL (70-99) 110 mg/dL (70-99) 97 mg/dL (70-99) White Blood Count 10.5 x10^3/uL (4.0-11.0) Red Blood Count 2.86 x10^6/uL (3.50-5.40) Hemoglobin 8.5 g/dL (12.0-15.5) Hematocrit 26.9 % (36.0-47.0) Mean Corpuscular Volume 94 fL (79-100) Mean Corpuscular Hemoglobin 30 pg (25-35) Mean Corpuscular Hemoglobin Concent 32 g/dL (31-37) Red Cell Distribution Width 18.9 % (11.5-14.5) Platelet Count 125 x10^3/uL (140-400) Neutrophils (%) (Auto) 64 % (31-73) Lymphocytes (%) (Auto) 28 % (24-48) Monocytes (%) (Auto) 7 % (0-9) Eosinophils (%) (Auto) 1 % (0-3) Basophils (%) (Auto) 1 % (0-3) Neutrophils # (Auto) 6.7 x10^3/uL (1.8-7.7) Lymphocytes # (Auto) 2.9 x10^3/uL (1.0-4.8) Monocytes # (Auto) 0.7 x10^3/uL (0.0-1.1) Eosinophils # (Auto) 0.1 x10^3/uL (0.0-0.7) Basophils # (Auto) 0.1 x10^3/uL (0.0-0.2) Sodium Level 142 mmol/L (136-145) Potassium Level 3.7 mmol/L (3.5-5.1) Chloride Level 107 mmol/L (98-107) Carbon Dioxide Level 26 mmol/L (21-32) Anion Gap 9 (6-14) Blood Urea Nitrogen 16 mg/dL (7-20) Creatinine 1.7 mg/dL (0.6-1.0) Estimated GFR (Cockcroft-Gault) 30.0 BUN/Creatinine Ratio 9 (6-20) Glucose Level 109 mg/dL (70-99) Calcium Level 7.6 mg/dL (8.5-10.1) Total Bilirubin 0.3 mg/dL (0.2-1.0) Aspartate Amino Transf (AST/SGOT) 36 U/L (15-37) Alanine Aminotransferase (ALT/SGPT) 7 U/L (14-59) Alkaline Phosphatase 231 U/L (46-116) Creatine Kinase 33 U/L (26-192) Total Protein 4.9 g/dL (6.4-8.2) Albumin 0.7 g/dL (3.4-5.0) Albumin/Globulin Ratio 0.2 (1.0-1.7) Test 08/25/19 07:44 Glucose (Fingerstick) 87 mg/dL (70-99) Review of Systems Review of Systems encephalopathic so limited rOS Comment Review of Relevant I have reviewed the following items karina (where applicable) has been applied. Labs Laboratory Tests Test 08/23/19 11:30 08/23/19 16:56 08/23/19 20:48 08/24/19 07:50 Glucose (Fingerstick) 134 mg/dL (70-99) 149 mg/dL (70-99) 160 mg/dL (70-99) 120 mg/dL (70-99) Test 08/24/19 14:01 08/24/19 17:26 08/24/19 21:03 08/25/19 05:35 Glucose (Fingerstick) 116 mg/dL (70-99) 110 mg/dL (70-99) 97 mg/dL (70-99) White Blood Count 10.5 x10^3/uL (4.0-11.0) Red Blood Count 2.86 x10^6/uL (3.50-5.40) Hemoglobin 8.5 g/dL (12.0-15.5) Hematocrit 26.9 % (36.0-47.0) Mean Corpuscular Volume 94 fL (79-100) Mean Corpuscular Hemoglobin 30 pg (25-35) Mean Corpuscular Hemoglobin Concent 32 g/dL (31-37) Red Cell Distribution Width 18.9 % (11.5-14.5) Platelet Count 125 x10^3/uL (140-400) Neutrophils (%) (Auto) 64 % (31-73) Lymphocytes (%) (Auto) 28 % (24-48) Monocytes (%) (Auto) 7 % (0-9) Eosinophils (%) (Auto) 1 % (0-3) Basophils (%) (Auto) 1 % (0-3) Neutrophils # (Auto) 6.7 x10^3/uL (1.8-7.7) Lymphocytes # (Auto) 2.9 x10^3/uL (1.0-4.8) Monocytes # (Auto) 0.7 x10^3/uL (0.0-1.1) Eosinophils # (Auto) 0.1 x10^3/uL (0.0-0.7) Basophils # (Auto) 0.1 x10^3/uL (0.0-0.2) Sodium Level 142 mmol/L (136-145) Potassium Level 3.7 mmol/L (3.5-5.1) Chloride Level 107 mmol/L (98-107) Carbon Dioxide Level 26 mmol/L (21-32) Anion Gap 9 (6-14) Blood Urea Nitrogen 16 mg/dL (7-20) Creatinine 1.7 mg/dL (0.6-1.0) Estimated GFR (Cockcroft-Gault) 30.0 BUN/Creatinine Ratio 9 (6-20) Glucose Level 109 mg/dL (70-99) Calcium Level 7.6 mg/dL (8.5-10.1) Total Bilirubin 0.3 mg/dL (0.2-1.0) Aspartate Amino Transf (AST/SGOT) 36 U/L (15-37) Alanine Aminotransferase (ALT/SGPT) 7 U/L (14-59) Alkaline Phosphatase 231 U/L (46-116) Creatine Kinase 33 U/L (26-192) Total Protein 4.9 g/dL (6.4-8.2) Albumin 0.7 g/dL (3.4-5.0) Albumin/Globulin Ratio 0.2 (1.0-1.7) Test 08/25/19 07:44 Glucose (Fingerstick) 87 mg/dL (70-99) Laboratory Tests Test 08/24/19 14:01 08/24/19 17:26 08/24/19 21:03 08/25/19 05:35 Glucose (Fingerstick) 116 mg/dL (70-99) 110 mg/dL (70-99) 97 mg/dL (70-99) White Blood Count 10.5 x10^3/uL (4.0-11.0) Red Blood Count 2.86 x10^6/uL (3.50-5.40) Hemoglobin 8.5 g/dL (12.0-15.5) Hematocrit 26.9 % (36.0-47.0) Mean Corpuscular Volume 94 fL (79-100) Mean Corpuscular Hemoglobin 30 pg (25-35) Mean Corpuscular Hemoglobin Concent 32 g/dL (31-37) Red Cell Distribution Width 18.9 % (11.5-14.5) Platelet Count 125 x10^3/uL (140-400) Neutrophils (%) (Auto) 64 % (31-73) Lymphocytes (%) (Auto) 28 % (24-48) Monocytes (%) (Auto) 7 % (0-9) Eosinophils (%) (Auto) 1 % (0-3) Basophils (%) (Auto) 1 % (0-3) Neutrophils # (Auto) 6.7 x10^3/uL (1.8-7.7) Lymphocytes # (Auto) 2.9 x10^3/uL (1.0-4.8) Monocytes # (Auto) 0.7 x10^3/uL (0.0-1.1) Eosinophils # (Auto) 0.1 x10^3/uL (0.0-0.7) Basophils # (Auto) 0.1 x10^3/uL (0.0-0.2) Sodium Level 142 mmol/L (136-145) Potassium Level 3.7 mmol/L (3.5-5.1) Chloride Level 107 mmol/L (98-107) Carbon Dioxide Level 26 mmol/L (21-32) Anion Gap 9 (6-14) Blood Urea Nitrogen 16 mg/dL (7-20) Creatinine 1.7 mg/dL (0.6-1.0) Estimated GFR (Cockcroft-Gault) 30.0 BUN/Creatinine Ratio 9 (6-20) Glucose Level 109 mg/dL (70-99) Calcium Level 7.6 mg/dL (8.5-10.1) Total Bilirubin 0.3 mg/dL (0.2-1.0) Aspartate Amino Transf (AST/SGOT) 36 U/L (15-37) Alanine Aminotransferase (ALT/SGPT) 7 U/L (14-59) Alkaline Phosphatase 231 U/L (46-116) Creatine Kinase 33 U/L (26-192) Total Protein 4.9 g/dL (6.4-8.2) Albumin 0.7 g/dL (3.4-5.0) Albumin/Globulin Ratio 0.2 (1.0-1.7) Test 08/25/19 07:44 Glucose (Fingerstick) 87 mg/dL (70-99) Medications Current Medications Fentanyl Citrate (Fentanyl 2ml Vial) 25 mcg PRN Q5MIN PRN IV MILD PAIN 1-3 Last administered on 08/16/19at 14:27; Start 08/16/19 at 08:30; Stop 08/17/19 at 08:29; Status DC Fentanyl Citrate (Fentanyl 2ml Vial) 50 mcg PRN Q5MIN PRN IV MODERATE TO SEVERE PAIN Last administered on 08/16/19at 14:35; Start 08/16/19 at 08:30; Stop 08/17/19 at 08:29; Status DC Morphine Sulfate (Morphine Sulfate) 1 mg PRN Q10MIN PRN IV SEVERE PAIN 7-10; Start 08/16/19 at 08:30; Stop 08/17/19 at 08:29; Status DC Ringer's Solution 1,000 ml @ 30 mls/hr Q24H IV ; Start 08/16/19 at 08:25; Stop 08/16/19 at 20:24; Status Cancel Lidocaine HCl (Xylocaine-Mpf 1% 2ml Vial) 2 ml PRN 1X PRN ID PRIOR TO IV START; Start 08/16/19 at 08:30; Stop 08/17/19 at 08:29; Status DC Hydromorphone HCl (Dilaudid) 0.5 mg PRN Q10MIN PRN IV SEV PAIN, Second choice; Start 08/16/19 at 08:30; Stop 08/17/19 at 08:29; Status DC Prochlorperazine Edisylate (Compazine) 5 mg PACU PRN PRN IV NAUSEA, MRX1; Start 08/16/19 at 08:30; Stop 08/17/19 at 08:29; Status DC Cefazolin Sodium/ Dextrose 50 ml @ 100 mls/hr 1X ONCE IV Last administered on 08/16/19at 11:55; Start 08/16/19 at 10:00; Stop 08/16/19 at 10:29; Status DC Insulin Human Lispro (HumaLOG VIAL for OP,RR ONLY) 0-10 units PRN Q1HR PRN SQ PER PROTOCOL Last administered on 08/16/19at 14:38; Start 08/16/19 at 10:30; Stop 08/17/19 at 10:29; Status DC Heparin Sodium (Porcine) 5000 unit/Sodium Chloride 505 ml @ 505 mls/hr 1X ONCE IRR ; Start 08/16/19 at 11:00; Stop 08/16/19 at 11:59; Status DC Cefazolin Sodium 1 gm/Sodium Chloride 500 ml @ 500 mls/hr 1X ONCE IRR Last administered on 08/16/19at 12:19; Start 08/16/19 at 11:00; Stop 08/16/19 at 11:59; Status DC Sodium Chloride 1,000 ml @ 75 mls/hr [id number] IV Last administered on 08/25/19at 05:05; Start 08/16/19 at 10:45 Propofol 20 ml @ As Directed STK-MED ONCE IV ; Start 08/16/19 at 11:10; Stop 08/16/19 at 11:11; Status DC Lidocaine HCl (Lidocaine Pf 2% Vial) 5 ml STK-MED ONCE .ROUTE ; Start 08/16/19 at 11:10; Stop 08/16/19 at 11:11; Status DC Rocuronium Morris (Zemuron) 50 mg STK-MED ONCE .ROUTE ; Start 08/16/19 at 11:10; Stop 08/16/19 at 11:11; Status DC Fentanyl Citrate (Fentanyl 2ml Vial) 100 mcg STK-MED ONCE .ROUTE ; Start 08/16/19 at 11:11; Stop 08/16/19 at 11:11; Status DC Cellulose (Surgicel Fibrillar 1x2) 1 each STK-MED ONCE .ROUTE ; Start 08/16/19 at 11:38; Stop 08/16/19 at 11:38; Status DC Ondansetron HCl (Zofran) 4 mg STK-MED ONCE .ROUTE ; Start 08/16/19 at 12:14; Stop 08/16/19 at 12:14; Status DC Phenylephrine HCl (PHENYLEPHRINE in 0.9% NACL PF) 1 mg STK-MED ONCE IV ; Start 08/16/19 at 12:14; Stop 08/16/19 at 12:14; Status DC Desflurane (Suprane) 30 ml STK-MED ONCE IH ; Start 08/16/19 at 12:14; Stop 08/16/19 at 12:14; Status DC Cefazolin Sodium 1 gm/Sodium Chloride 1,000 ml @ 1,000 mls/hr 1X ONCE IRR Last administered on 08/16/19at 13:17; Start 08/16/19 at 13:00; Stop 08/16/19 at 13:59; Status DC Cefazolin Sodium 1 gm/Sodium Chloride 1,000 ml @ 1,000 mls/hr 1X ONCE IRR ; Start 08/16/19 at 12:30; Stop 08/16/19 at 13:29; Status DC Phenylephrine HCl (Von-Synephrine Inj) 10 mg STK-MED ONCE .ROUTE ; Start 08/16/19 at 12:29; Stop 08/16/19 at 12:29; Status DC Ondansetron HCl (Zofran) 4 mg STK-MED ONCE .ROUTE ; Start 08/16/19 at 13:11; Stop 08/16/19 at 13:11; Status DC Desflurane (Suprane) 60 ml STK-MED ONCE IH ; Start 08/16/19 at 13:11; Stop 08/16/19 at 13:11; Status DC Acetaminophen (Tylenol) 650 mg PRN Q4HRS PRN PO MILD PAIN / TEMP Last administered on 08/21/19 05:31; Start 08/16/19 at 14:00 Amiodarone HCl (Cordarone) 200 mg BID PO Last administered on 08/24/19 20:41; Start 08/16/19 at 21:00 Atorvastatin Calcium (Lipitor) 10 mg QHS PO Last administered on 08/24/19 20:39; Start 08/16/19 at 21:00 Clonidine HCl (Catapres) 0.2 mg PRN DAILY PRN PO DIALYSIS/HYPERTENSION; Start 08/16/19 at 14:00 Glucose (Insta-Glucose) 15 gm PRN Q15MIN PRN PO LOW BLOOD SUGAR; Start 08/16/19 at 14:00 Famotidine (Pepcid) 20 mg HS PO Last administered on 08/24/19 20:39; Start 08/16/19 at 21:00 Acetaminophen/ Hydrocodone Bitart (Lortab 5/325) 1 tab PRN Q6HRS PRN PO MODERATE - SEVERE PAIN Last administered on 08/25/19 04:25; Start 08/16/19 at 14:00 Lactulose (Lactulose) 20 gm PRN BID PRN PO CONSTIPATION; Start 08/16/19 at 14:00 Levothyroxine Sodium (Synthroid) 100 mcg DAILY06 PO Last administered on 08/25/19 04:25; Start 08/17/19 at 06:00 Meropenem (Merrem) 500 mg QHS IV ; Start 08/16/19 at 21:00; Status UNV Metoprolol Tartrate (Lopressor) 25 mg BID PO Last administered on 08/24/19 20:40; Start 08/16/19 at 21:00 Nitroglycerin (Nitrostat) 0.4 mg PRN Q10MIN PRN SL CHEST PAIN; Start 08/16/19 at 14:00 Nortriptyline HCl (Pamelor) 25 mg QHS PO Last administered on 08/24/19 20:39; Start 08/16/19 at 21:00 Senna/Docusate Sodium (Senna Plus) 1 tab BID PO Last administered on 08/24/19at 20:39; Start 08/16/19 at 21:00; Stop 08/25/19 at 09:41; Status DC Sevelamer Carbonate (Renvela) 800 mg TIDWMEALS PO Last administered on 08/24/19at 13:55; Start 08/16/19 at 17:00 Linagliptin (Tradjenta) 5 mg DAILY PO Last administered on 08/24/19at 08:25; Start 08/17/19 at 09:00 Non-Formulary Medication (Daptomycin ) 350 mg DAILY IV ; Start 08/17/19 at 09:00; Status UNV Diphenhydramine HCl (Benadryl) 25 mg PRN Q6HRS PRN IV ITCHING; Start 08/16/19 at 14:15 Darbepoetin Rajeev (ARANESP for DIALYSIS PTS) 25 mcg WEEKLYHS SQ Last administered on 08/24/19at 23:05; Start 08/17/19 at 21:00 Citalopram Hydrobromide (CeleXA) 20 mg DAILY PO Last administered on 08/24/19at 08:25; Start 08/17/19 at 09:00 Non-Formulary Medication (Heparin Sodium,Porcine/Pf (Heparin 1,000 Unit/10 (100/ml))) 3.5 ml PRN DAILY PRN IV DIALYSIS; Start 08/16/19 at 14:00; Status UNV Lactobacillus Rhamnosus (Culturelle) 1 cap BID PO Last administered on 08/24/19at 20:39; Start 08/16/19 at 21:00 Pregabalin (Lyrica) 300 mg BID PO Last administered on 08/24/19at 20:39; Start 08/16/19 at 21:00 Non-Formulary Medication ([anidulafungin 100mg] ) 100 mg QHS IV ; Start 08/16/19 at 21:00; Status UNV Non-Formulary Medication ([clorpactin 2gm powd] ) 1 gm DAILY TOP ; Start 08/17/19 at 09:00; Status UNV Meropenem 500 mg/ Sodium Chloride 50 ml @ 100 mls/hr QHS IV Last administered on 08/24/19at 20:38; Start 08/16/19 at 21:00 Micafungin Sodium 100 mg/Dextrose 100 ml @ 100 mls/hr QHS IV Last administered on 08/24/19at 23:04; Start 08/16/19 at 21:00 Daptomycin 350 mg/ Sodium Chloride 50 ml @ 100 mls/hr QMWF IV Last administered on 08/24/19at 17:04; Start 08/17/19 at 16:00 Sodium Chloride 1,000 ml @ 1,000 mls/hr Q1H PRN IV hypotension; Start 08/17/19 at 13:43; Stop 08/17/19 at 19:42; Status DC Albumin Human 200 ml @ 200 mls/hr 1X PRN PRN IV Hypotension; Start 08/17/19 at 13:45; Stop 08/17/19 at 19:44; Status DC Sodium Chloride (Normal Saline Flush) 10 ml 1X PRN PRN IV AP catheter pack; Start 08/17/19 at 13:45; Stop 08/18/19 at 13:44; Status DC Sodium Chloride (Normal Saline Flush) 10 ml 1X PRN PRN IV DIRECTOR OF REVENUE catheter pack; Start 08/17/19 at 13:45; Stop 08/18/19 at 13:44; Status DC Sodium Chloride 1,000 ml @ 400 mls/hr Q2H30M PRN IV PATENCY; Start 08/17/19 at 13:43; Stop 08/18/19 at 01:42; Status DC Info (PHARMACY MONITORING -- do not chart) 1 each PRN DAILY PRN MC SEE COMMENTS; Start 08/17/19 at 13:45; Status UNV Info (PHARMACY MONITORING -- do not chart) 1 each PRN DAILY PRN MC SEE COMMENTS; Start 08/17/19 at 13:45 Sodium Hypochlorite (Dakin'S 1/4 Strength) 1 brandon DAILY TP Last administered on 08/24/19at 09:00; Start 08/19/19 at 09:00 Nystatin (Nystop) 1 brandon BID TP Last administered on 08/24/19at 20:41; Start 08/19/19 at 09:00 Sodium Chloride 1,000 ml @ 1,000 mls/hr Q1H PRN IV hypotension; Start 08/19/19 at 10:54; Stop 08/19/19 at 16:53; Status DC Albumin Human 200 ml @ 200 mls/hr 1X PRN PRN IV Hypotension; Start 08/19/19 at 11:00; Stop 08/19/19 at 16:59; Status DC Sodium Chloride (Normal Saline Flush) 10 ml 1X PRN PRN IV AP catheter pack; Start 08/19/19 at 11:00; Stop 08/20/19 at 10:59; Status DC Sodium Chloride (Normal Saline Flush) 10 ml 1X PRN PRN IV DIRECTOR [employer] REVENUE catheter pack; Start 08/19/19 at 11:00; Stop 08/20/19 at 10:59; Status DC Sodium Chloride 1,000 ml @ 400 mls/hr Q2H30M PRN IV PATENCY; Start 08/19/19 at 10:54; Stop 08/19/19 at 22:53; Status DC Info (PHARMACY MONITORING -- do not chart) 1 each PRN DAILY PRN MC SEE COMMENTS; Start 08/19/19 at 11:00; Status UNV Info (PHARMACY MONITORING -- do not chart) 1 each PRN DAILY PRN MC SEE COMMENTS; Start 08/19/19 at 11:00; Status UNV Sodium Chloride 1,000 ml @ 1,000 mls/hr Q1H PRN IV hypotension; Start 08/22/19 at 17:40; Stop 08/22/19 at 23:39; Status DC Sodium Chloride 1,000 ml @ 400 mls/hr Q2H30M PRN IV PATENCY; Start 08/22/19 at 17:40; Stop 08/23/19 at 05:39; Status DC Info (PHARMACY MONITORING -- do not chart) 1 each PRN DAILY PRN MC SEE COMMENTS; Start 08/22/19 at 17:45; Status UNV Info (PHARMACY MONITORING -- do not chart) 1 each PRN DAILY PRN MC SEE COMMENTS; Start 08/22/19 at 17:45; Status Cancel Sodium Chloride 500 ml @ 500 mls/hr 1X ONCE IV Last administered on 08/23/19at 09:38; Start 08/23/19 at 09:30; Stop 08/23/19 at 10:29; Status DC Sodium Chloride 500 ml @ 500 mls/hr 1X ONCE IV Last administered on 08/23/19at 12:11; Start 08/23/19 at 12:30; Stop 08/23/19 at 13:29; Status DC Multivitamins (Thera M Plus) 1 tab DAILY PO Last administered on 08/24/19at 08:25; Start 08/24/19 at 09:00 Sodium Chloride 1,000 ml @ 1,000 mls/hr Q1H PRN IV hypotension; Start 08/24/19 at 09:07; Stop 08/24/19 at 15:06; Status DC Albumin Human 200 ml @ 200 mls/hr 1X PRN PRN IV Hypotension; Start 08/24/19 at 09:15; Stop 08/24/19 at 15:14; Status DC Sodium Chloride (Normal Saline Flush) 10 ml 1X PRN PRN IV AP catheter pack; Start 08/24/19 at 09:15; Stop 08/25/19 at 09:14; Status DC Sodium Chloride (Normal Saline Flush) 10 ml 1X PRN PRN IV DIRECTOR [employer] REVENUE catheter pack; Start 08/24/19 at 09:15; Stop 08/25/19 at 09:14; Status DC Sodium Chloride 1,000 ml @ 400 mls/hr Q2H30M PRN IV PATENCY; Start 08/24/19 at 09:07; Stop 08/24/19 at 21:06; Status DC Info (PHARMACY MONITORING -- do not chart) 1 each PRN DAILY PRN MC SEE COMME NTS; Start 08/24/19 at 09:15; Status UNV Info (PHARMACY MONITORING -- do not chart) 1 each PRN DAILY PRN MC SEE COMMENTS; Start 08/24/19 at 09:15 Hydromorphone HCl (Dilaudid) 0.5 mg PRN Q3HRS PRN IV PAIN Last administered on 08/25/19at 09:46; Start 08/24/19 at 14:30 Active Scripts Active Reported Lactulose 20 Gm/30 Ml Solution 20 Gm PO BID PRN Probiotic (Lactobacillus Acidophilus) 1 Each Capsule 2 Each PO BID Hydrocodone-Apap 5-325 (Hydrocodone Bit/Acetaminophen) 1 Tab Tablet 1 Tab PO PRN Q6HRS PRN Pepcid (Famotidine) 20 Mg Tablet 20 Mg PO HS Humalog (Insulin Lispro) 100 Unit/1 Ml Vial 4 Unit SQ Q6HRS Meropenem 500 Mg Vial 500 Mg IV QHS Daptomycin 350 Mg Vial 350 Mg IV DAILY Humalog (Insulin Lispro) 100 Unit/1 Ml Cartridge 100 Units SQ Q6HRS Diphenhydramine HCl 50 Mg/1 Ml Cartridge 25 Mg IJ PRN Q4HRS PRN Glutose 15 (Dextrose) 37.5 Gm Gel..gram. 15 Gm PO PRN Q15MIN PRN Retacrit (Epoetin Rajeev-Epbx) 3,000 Unit/1 Ml Vial 3,000 Unit IJ QMWF Renvela (Sevelamer Carbonate) 800 Mg Tablet 800 Mg PO TIDWMEALS Alogliptin (Alogliptin Benzoate) 6.25 Mg Tablet 6.25 Mg PO DAILY Tylenol (Acetaminophen) 325 Mg Tablet 2 Tab PO PRN Q4HRS Lyrica (Pregabalin) 300 Mg Capsule 1 Cap PO BID Clonidine Hcl 0.2 Mg Tablet 1 Tab PO PRN DAILY PRN NITROGLYCERIN SubLingual (Nitroglycerin) 0.4 Mg Tab.subl 1 Tab SL UD Heparin 1,000 Unit/10 (100/ml) (Heparin Sodium,Porcine/Pf) 1,000 Unit/10 Ml Syringe 3.5 Ml IV PRN DAILY PRN Levothyroxine Sodium 100 Mcg Tablet 1 Tab PO DAILY06 Escitalopram Oxalate 10 Mg Tablet 1 Tab PO DAILY Nortriptyline Hcl 25 Mg Capsule 1 Cap PO QHS Atorvastatin Calcium 10 Mg Tablet 1 Tab PO QHS Metoprolol Tartrate 25 Mg Tablet 1 Tab PO BID Lantus (Insulin Glargine,Hum.rec.anlog) 100 Unit/1 Ml Vial 20 Unit SQ DAILY Amiodarone Hcl 200 Mg Tablet 1 Tab PO BID Vitals/I & O Vital Sign - Last 24 Hours 08/24/19 08/24/19 08/24/19 08/24/19 11:21 12:21 15:00 16:05 Temp 97.5 97.5 Pulse 57 Resp 18 B/P (MAP) 115/49 (71) Pulse Ox 96 O2 Delivery Nasal Cannula Nasal Cannula Nasal Cannula Nasal Cannula O2 Flow Rate 2.0 2.0 2.0 2.0 08/24/19 08/24/19 08/24/19 08/24/19 16:35 19:00 20:00 20:40 Temp 97.6 97.6 Pulse 75 57 Resp 18 B/P (MAP) 99/36 (57) 115/49 Pulse Ox 99 O2 Delivery Nasal Cannula Room Air Nasal Cannula O2 Flow Rate 2.0 2.0 08/24/19 08/24/19 08/25/19 08/25/19 20:41 23:00 03:00 04:17 Temp 97.7 97.4 97.4 97.7 97.4 97.4 Pulse 75 75 72 72 Resp 16 16 16 B/P (MAP) 99/36 91/39 (56) 90/47 (61) 90/47 (61) Pulse Ox 98 100 100 O2 Delivery Nasal Cannula Nasal Cannula Nasal Cannula O2 Flow Rate 2.0 2.0 2.0 08/25/19 08/25/19 08/25/19 08/25/19 04:25 05:25 07:00 09:46 Temp 97.6 97.6 Pulse 64 Resp 20 20 17 B/P (MAP) 87/48 (61) Pulse Ox 96 O2 Delivery Nasal Cannula Nasal Cannula Nasal Cannula Nasal Cannula O2 Flow Rate 2.0 2.0 Intake and Output 08/24/19 08/24/19 08/25/19 15:00 23:00 07:00 Intake Total 150 ml 1200 ml Balance 150 ml 1200 ml KAYA NDIAYE MD Aug 25, 2019 10:32
[2019-08-25 11:00] VITALS: BP 86/41
--- NOTE | 2019-08-25 12:23 | NUR ---
Attempted to insert rectal tube with LAMONTE Mendes. Due to extensive wound, rectal tube was not successfully placed. Dr. Tereza torre.
--- NOTE | 2019-08-25 12:36 | NUR ---
AM meds: went into pt's room to administer meds. Turned pt with C[employer]OUP and pt needed to be cleaned. After extensive cleaning and repacking of coccyx wound, let pt rest. Administered am meds late.
--- NOTE | 2019-08-25 12:44 | NUR ---
SW following pt. Orders faxed to [facility]. Pt will transport via [facility] at [id number]. RN notified.
[2019-08-25] MEDS: AMIODARONE HCL 200 MG TABLET. PO SCH (13:35)
[2019-08-25] MEDS: PREGABALIN 75 MG CAPSULE PO SCH (13:35)
[2019-08-25] MEDS: CITALOPRAM 20 MG TABLET. PO SCH (13:35)
[2019-08-25] MEDS: NYSTATIN TOPICAL POWDER 15GM BOTTLE. TP SCH (13:36)
[2019-08-25] MEDS: LINAGLIPTIN 5 MG TABLET PO SCH (13:36)
[2019-08-25] MEDS: LACTOBACILLUS RHAMNOSUS GG 1 CAPSULE. PO SCH (13:36)
[2019-08-25] MEDS: MULTIVITAMIN with MINERAL TABLET. PO SCH (13:36)
[2019-08-25] MEDS: SODIUM HYPOCHLORITE 0.125% 473 ML BOTTLE. TP SCH (13:36)
--- NOTE | 2019-08-25 14:06 | PDOC ---
PROGRESS NOTES Objective Objective Vascular Surgery Follow Up: Patient is scheduled to return to LTAC later today. I have spoke with RN and the plan will be to remove wound vac dressing from right groin, right AKA and sacral area and place damp to dry dressings. New vac dressings will be reapplied at LTAC. This plan is appropriate. Wounds to be managed by LTAC staff and to notify Vascular Surgery if problems arise. Vital Signs Date Time Temp Pulse Resp B/P (MAP) Pulse Ox O2 Delivery O2 Flow Rate FiO2 08/25/19 13:35 83 86/41 08/25/19 11:00 97.8 18 98 Nasal Cannula 2.0 97.8 Intake and Output 08/25/19 06:59 Intake Total 1350 ml Balance 1350 ml Intake Oral 200 ml IV Total 1150 ml Comment Review of Relevant I have reviewed the following items karina (where applicable) has been applied. Labs Laboratory Tests Test 08/23/19 16:56 08/23/19 20:48 08/24/19 07:50 08/24/19 14:01 Glucose (Fingerstick) 149 mg/dL (70-99) 160 mg/dL (70-99) 120 mg/dL (70-99) 116 mg/dL (70-99) Test 08/24/19 17:26 08/24/19 21:03 08/25/19 05:35 08/25/19 07:44 Glucose (Fingerstick) 110 mg/dL (70-99) 97 mg/dL (70-99) 87 mg/dL (70-99) White Blood Count 10.5 x10^3/uL (4.0-11.0) Red Blood Count 2.86 x10^6/uL (3.50-5.40) Hemoglobin 8.5 g/dL (12.0-15.5) Hematocrit 26.9 % (36.0-47.0) Mean Corpuscular Volume 94 fL (79-100) Mean Corpuscular Hemoglobin 30 pg (25-35) Mean Corpuscular Hemoglobin Concent 32 g/dL (31-37) Red Cell Distribution Width 18.9 % (11.5-14.5) Platelet Count 125 x10^3/uL (140-400) Neutrophils (%) (Auto) 64 % (31-73) Lymphocytes (%) (Auto) 28 % (24-48) Monocytes (%) (Auto) 7 % (0-9) Eosinophils (%) (Auto) 1 % (0-3) Basophils (%) (Auto) 1 % (0-3) Neutrophils # (Auto) 6.7 x10^3/uL (1.8-7.7) Lymphocytes # (Auto) 2.9 x10^3/uL (1.0-4.8) Monocytes # (Auto) 0.7 x10^3/uL (0.0-1.1) Eosinophils # (Auto) 0.1 x10^3/uL (0.0-0.7) Basophils # (Auto) 0.1 x10^3/uL (0.0-0.2) Sodium Level 142 mmol/L (136-145) Potassium Level 3.7 mmol/L (3.5-5.1) Chloride Level 107 mmol/L (98-107) Carbon Dioxide Level 26 mmol/L (21-32) Anion Gap 9 (6-14) Blood Urea Nitrogen 16 mg/dL (7-20) Creatinine 1.7 mg/dL (0.6-1.0) Estimated GFR (Cockcroft-Gault) 30.0 BUN/Creatinine Ratio 9 (6-20) Glucose Level 109 mg/dL (70-99) Calcium Level 7.6 mg/dL (8.5-10.1) Total Bilirubin 0.3 mg/dL (0.2-1.0) Aspartate Amino Transf (AST/SGOT) 36 U/L (15-37) Alanine Aminotransferase (ALT/SGPT) 7 U/L (14-59) Alkaline Phosphatase 231 U/L (46-116) Creatine Kinase 33 U/L (26-192) Total Protein 4.9 g/dL (6.4-8.2) Albumin 0.7 g/dL (3.4-5.0) Albumin/Globulin Ratio 0.2 (1.0-1.7) Test 08/25/19 12:53 Glucose (Fingerstick) 108 mg/dL (70-99) Laboratory Tests Test 08/24/19 14:01 08/24/19 17:26 08/24/19 21:03 08/25/19 05:35 Glucose (Fingerstick) 116 mg/dL (70-99) 110 mg/dL (70-99) 97 mg/dL (70-99) White Blood Count 10.5 x10^3/uL (4.0-11.0) Red Blood Count 2.86 x10^6/uL (3.50-5.40) Hemoglobin 8.5 g/dL (12.0-15.5) Hematocrit 26.9 % (36.0-47.0) Mean Corpuscular Volume 94 fL (79-100) Mean Corpuscular Hemoglobin 30 pg (25-35) Mean Corpuscular Hemoglobin Concent 32 g/dL (31-37) Red Cell Distribution Width 18.9 % (11.5-14.5) Platelet Count 125 x10^3/uL (140-400) Neutrophils (%) (Auto) 64 % (31-73) Lymphocytes (%) (Auto) 28 % (24-48) Monocytes (%) (Auto) 7 % (0-9) Eosinophils (%) (Auto) 1 % (0-3) Basophils (%) (Auto) 1 % (0-3) Neutrophils # (Auto) 6.7 x10^3/uL (1.8-7.7) Lymphocytes # (Auto) 2.9 x10^3/uL (1.0-4.8) Monocytes # (Auto) 0.7 x10^3/uL (0.0-1.1) Eosinophils # (Auto) 0.1 x10^3/uL (0.0-0.7) Basophils # (Auto) 0.1 x10^3/uL (0.0-0.2) Sodium Level 142 mmol/L (136-145) Potassium Level 3.7 mmol/L (3.5-5.1) Chloride Level 107 mmol/L (98-107) Carbon Dioxide Level 26 mmol/L (21-32) Anion Gap 9 (6-14) Blood Urea Nitrogen 16 mg/dL (7-20) Creatinine 1.7 mg/dL (0.6-1.0) Estimated GFR (Cockcroft-Gault) 30.0 BUN/Creatinine Ratio 9 (6-20) Glucose Level 109 mg/dL (70-99) Calcium Level 7.6 mg/dL (8.5-10.1) Total Bilirubin 0.3 mg/dL (0.2-1.0) Aspartate Amino Transf (AST/SGOT) 36 U/L (15-37) Alanine Aminotransferase (ALT/SGPT) 7 U/L (14-59) Alkaline Phosphatase 231 U/L (46-116) Creatine Kinase 33 U/L (26-192) Total Protein 4.9 g/dL (6.4-8.2) Albumin 0.7 g/dL (3.4-5.0) Albumin/Globulin Ratio 0.2 (1.0-1.7) Test 08/25/19 07:44 08/25/19 12:53 Glucose (Fingerstick) 87 mg/dL (70-99) 108 mg/dL (70-99) Medications Current Medications Fentanyl Citrate (Fentanyl 2ml Vial) 25 mcg PRN Q5MIN PRN IV MILD PAIN 1-3 Last administered on 08/16/19at 14:27; Start 08/16/19 at 08:30; Stop 08/17/19 at 08:29; Status DC Fentanyl Citrate (Fentanyl 2ml Vial) 50 mcg PRN Q5MIN PRN IV MODERATE TO SEVERE PAIN Last administered on 08/16/19at 14:35; Start 08/16/19 at 08:30; Stop 08/17/19 at 08:29; Status DC Morphine Sulfate (Morphine Sulfate) 1 mg PRN Q10MIN PRN IV SEVERE PAIN 7-10; Start 08/16/19 at 08:30; Stop 08/17/19 at 08:29; Status DC Ringer's Solution 1,000 ml @ 30 mls/hr Q24H IV ; Start 08/16/19 at 08:25; Stop 08/16/19 at 20:24; Status Cancel Lidocaine HCl (Xylocaine-Mpf 1% 2ml Vial) 2 ml PRN 1X PRN ID PRIOR TO IV START; Start 08/16/19 at 08:30; Stop 08/17/19 at 08:29; Status DC Hydromorphone HCl (Dilaudid) 0.5 mg PRN Q10MIN PRN IV SEV PAIN, Second choice; Start 08/16/19 at 08:30; Stop 08/17/19 at 08:29; Status DC Prochlorperazine Edisylate (Compazine) 5 mg PACU PRN PRN IV NAUSEA, MRX1; Start 08/16/19 at 08:30; Stop 08/17/19 at 08:29; Status DC Cefazolin Sodium/ Dextrose 50 ml @ 100 mls/hr 1X ONCE IV Last administered on 08/16/19at 11:55; Start 08/16/19 at 10:00; Stop 08/16/19 at 10:29; Status DC Insulin Human Lispro (HumaLOG VIAL for OP,RR ONLY) 0-10 units PRN Q1HR PRN SQ PER PROTOCOL Last administered on 08/16/19at 14:38; Start 08/16/19 at 10:30; Stop 08/17/19 at 10:29; Status DC Heparin Sodium (Porcine) 5000 unit/Sodium Chloride 505 ml @ 505 mls/hr 1X ONCE IRR ; Start 08/16/19 at 11:00; Stop 08/16/19 at 11:59; Status DC Cefazolin Sodium 1 gm/Sodium Chloride 500 ml @ 500 mls/hr 1X ONCE IRR Last administered on 08/16/19at 12:19; Start 08/16/19 at 11:00; Stop 08/16/19 at 11:59; Status DC Sodium Chloride 1,000 ml @ 75 mls/hr [id number] IV Last administered on 08/25/19at 05:05; Start 08/16/19 at 10:45 Propofol 20 ml @ As Directed STK-MED ONCE IV ; Start 08/16/19 at 11:10; Stop 08/16/19 at 11:11; Status DC Lidocaine HCl (Lidocaine Pf 2% Vial) 5 ml STK-MED ONCE .ROUTE ; Start 08/16/19 at 11:10; Stop 08/16/19 at 11:11; Status DC Rocuronium Milton (Zemuron) 50 mg STK-MED ONCE .ROUTE ; Start 08/16/19 at 11:10; Stop 08/16/19 at 11:11; Status DC Fentanyl Citrate (Fentanyl 2ml Vial) 100 mcg STK-MED ONCE .ROUTE ; Start 08/16/19 at 11:11; Stop 08/16/19 at 11:11; Status DC Cellulose (Surgicel Fibrillar 1x2) 1 each STK-MED ONCE .ROUTE ; Start 08/16/19 at 11:38; Stop 08/16/19 at 11:38; Status DC Ondansetron HCl (Zofran) 4 mg STK-MED ONCE .ROUTE ; Start 08/16/19 at 12:14; Stop 08/16/19 at 12:14; Status DC Phenylephrine HCl (PHENYLEPHRINE in 0.9% NACL PF) 1 mg STK-MED ONCE IV ; Start 08/16/19 at 12:14; Stop 08/16/19 at 12:14; Status DC Desflurane (Suprane) 30 ml STK-MED ONCE IH ; Start 08/16/19 at 12:14; Stop 08/16/19 at 12:14; Status DC Cefazolin Sodium 1 gm/Sodium Chloride 1,000 ml @ 1,000 mls/hr 1X ONCE IRR Last administered on 08/16/19at 13:17; Start 08/16/19 at 13:00; Stop 08/16/19 at 13:59; Status DC Cefazolin Sodium 1 gm/Sodium Chloride 1,000 ml @ 1,000 mls/hr 1X ONCE IRR ; Start 08/16/19 at 12:30; Stop 08/16/19 at 13:29; Status DC Phenylephrine HCl (Von-Synephrine Inj) 10 mg STK-MED ONCE .ROUTE ; Start 08/16/19 at 12:29; Stop 08/16/19 at 12:29; Status DC Ondansetron HCl (Zofran) 4 mg STK-MED ONCE .ROUTE ; Start 08/16/19 at 13:11; Stop 08/16/19 at 13:11; Status DC Desflurane (Suprane) 60 ml STK-MED ONCE IH ; Start 08/16/19 at 13:11; Stop 08/16/19 at 13:11; Status DC Acetaminophen (Tylenol) 650 mg PRN Q4HRS PRN PO MILD PAIN / TEMP Last administered on 08/21/19at 05:31; Start 08/16/19 at 14:00 Amiodarone HCl (Cordarone) 200 mg BID PO Last administered on 08/25/19at 13:35; Start 08/16/19 at 21:00 Atorvastatin Calcium (Lipitor) 10 mg QHS PO Last administered on 08/24/19at 20:39; Start 08/16/19 at 21:00 Clonidine HCl (Catapres) 0.2 mg PRN DAILY PRN PO DIALYSIS/HYPERTENSION; Start 08/16/19 at 14:00 Glucose (Insta-Glucose) 15 gm PRN Q15MIN PRN PO LOW BLOOD SUGAR; Start 08/16/19 at 14:00 Famotidine (Pepcid) 20 mg HS PO Last administered on 08/24/19 20:39; Start 08/16/19 at 21:00 Acetaminophen/ Hydrocodone Bitart (Lortab 5/325) 1 tab PRN Q6HRS PRN PO MODERATE - SEVERE PAIN Last administered on 08/25/19 04:25; Start 08/16/19 at 14:00 Lactulose (Lactulose) 20 gm PRN BID PRN PO CONSTIPATION; Start 08/16/19 at 14:00 Levothyroxine Sodium (Synthroid) 100 mcg DAILY06 PO Last administered on 08/25/19 04:25; Start 08/17/19 at 06:00 Meropenem (Merrem) 500 mg QHS IV ; Start 08/16/19 at 21:00; Status UNV Metoprolol Tartrate (Lopressor) 25 mg BID PO Last administered on 08/24/19 20:40; Start 08/16/19 at 21:00 Nitroglycerin (Nitrostat) 0.4 mg PRN Q10MIN PRN SL CHEST PAIN; Start 08/16/19 at 14:00 Nortriptyline HCl (Pamelor) 25 mg QHS PO Last administered on 08/24/19 20:39; Start 08/16/19 at 21:00 Senna/Docusate Sodium (Senna Plus) 1 tab BID PO Last administered on 08/24/19 20:39; Start 08/16/19 at 21:00; Stop 08/25/19 at 09:41; Status DC Sevelamer Carbonate (Renvela) 800 mg TIDWMEALS PO Last administered on 08/25/19 13:35; Start 08/16/19 at 17:00 Linagliptin (Tradjenta) 5 mg DAILY PO Last administered on 08/25/19 13:36; Start 08/17/19 at 09:00 Non-Formulary Medication (Daptomycin ) 350 mg DAILY IV ; Start 08/17/19 at 09:00; Status UNV Diphenhydramine HCl (Benadryl) 25 mg PRN Q6HRS PRN IV ITCHING; Start 08/16/19 at 14:15 Darbepoetin Rajeev (ARANESP for DIALYSIS PTS) 25 mcg WEEKLYHS SQ Last administered on 08/24/19at 23:05; Start 08/17/19 at 21:00 Citalopram Hydrobromide (CeleXA) 20 mg DAILY PO Last administered on 08/25/19at 13:35; Start 08/17/19 at 09:00 Non-Formulary Medication (Heparin Sodium,Porcine/Pf (Heparin 1,000 Unit/10 (100/ml))) 3.5 ml PRN DAILY PRN IV DIALYSIS; Start 08/16/19 at 14:00; Status UNV Lactobacillus Rhamnosus (Culturelle) 1 cap BID PO Last administered on 08/25/19 13:36; Start 08/16/19 at 21:00 Pregabalin (Lyrica) 300 mg BID PO Last administered on 08/25/19 13:35; Start 08/16/19 at 21:00 Non-Formulary Medication ([anidulafungin 100mg] ) 100 mg QHS IV ; Start 08/16/19 at 21:00; Status UNV Non-Formulary Medication ([clorpactin 2gm powd] ) 1 gm DAILY TOP ; Start 08/17/19 at 09:00; Status UNV Meropenem 500 mg/ Sodium Chloride 50 ml @ 100 mls/hr QHS IV Last administered on 08/24/19at 20:38; Start 08/16/19 at 21:00 Micafungin Sodium 100 mg/Dextrose 100 ml @ 100 mls/hr QHS IV Last administered on 08/24/19at 23:04; Start 08/16/19 at 21:00 Daptomycin 350 mg/ Sodium Chloride 50 ml @ 100 mls/hr QMWF IV Last ad ministered on 08/24/19at 17:04; Start 08/17/19 at 16:00 Sodium Chloride 1,000 ml @ 1,000 mls/hr Q1H PRN IV hypotension; Start 08/17/19 at 13:43; Stop 08/17/19 at 19:42; Status DC Albumin Human 200 ml @ 200 mls/hr 1X PRN PRN IV Hypotension; Start 08/17/19 at 13:45; Stop 08/17/19 at 19:44; Status DC Sodium Chloride (Normal Saline Flush) 10 ml 1X PRN PRN IV AP catheter pack; Start 08/17/19 at 13:45; Stop 08/18/19 at 13:44; Status DC Sodium Chloride (Normal Saline Flush) 10 ml 1X PRN PRN IV NEGATIVE RETOUCHER catheter pack; Start 08/17/19 at 13:45; Stop 08/18/19 at 13:44; Status DC Sodium Chloride 1,000 ml @ 400 mls/hr Q2H30M PRN IV PATENCY; Start 08/17/19 at 13:43; Stop 08/18/19 at 01:42; Status DC Info (PHARMACY MONITORING -- do not chart) 1 each PRN DAILY PRN MC SEE COMMENTS; Start 08/17/19 at 13:45; Status UNV Info (PHARMACY MONITORING -- do not chart) 1 each PRN DAILY PRN MC SEE KAYLYNN TS; Start 08/17/19 at 13:45 Sodium Hypochlorite (Dakin'S 1/4 Strength) 1 brandon DAILY TP Last administered on 08/25/19at 13:36; Start 08/19/19 at 09:00 Nystatin (Nystop) 1 brandon BID TP Last administered on 08/25/19at 13:36; Start 08/19/19 at 09:00 Sodium Chloride 1,000 ml @ 1,000 mls/hr Q1H PRN IV hypotension; Start 08/19/19 at 10:54; Stop 08/19/19 at 16:53; Status DC Albumin Human 200 ml @ 200 mls/hr 1X PRN PRN IV Hypotension; Start 08/19/19 at 11:00; Stop 08/19/19 at 16:59; Status DC Sodium Chloride (Normal Saline Flush) 10 ml 1X PRN PRN IV AP catheter pack; Start 08/19/19 at 11:00; Stop 08/20/19 at 10:59; Status DC Sodium Chloride (Normal Saline Flush) 10 ml 1X PRN PRN IV NEGATIVE RETOUCHER catheter pack; Start 08/19/19 at 11:00; Stop 08/20/19 at 10:59; Status DC Sodium Chloride 1,000 ml @ 400 mls/hr Q2H30M PRN IV PATENCY; Start 08/19/19 at 10:54; Stop 08/19/19 at 22:53; Status DC Info (PHARMACY MONITORING -- do not chart) 1 each PRN DAILY PRN MC SEE COMMENTS; Start 08/19/19 at 11:00; Status UNV Info (PHARMACY MONITORING -- do not chart) 1 each PRN DAILY PRN MC SEE COMMENTS; Start 08/19/19 at 11:00; Status UNV Sodium Chloride 1,000 ml @ 1,000 mls/hr Q1H PRN IV hypotension; Start 08/22/19 at 17:40; Stop 08/22/19 at 23:39; Status DC Sodium Chloride 1,000 ml @ 400 mls/hr Q2H30M PRN IV PATENCY; Start 08/22/19 at 17:40; Stop 08/23/19 at 05:39; Status DC Info (PHARMACY MONITORING -- do not chart) 1 each PRN DAILY PRN MC SEE COMMENTS; Start 08/22/19 at 17:45; Status UNV Info (PHARMACY MONITORING -- do not chart) 1 each PRN DAILY PRN MC SEE COMMENTS; Start 08/22/19 at 17:45; Status Cancel Sodium Chloride 500 ml @ 500 mls/hr 1X ONCE IV Last administered on 08/23/19at 09:38; Start 08/23/19 at 09:30; Stop 08/23/19 at 10:29; Status DC Sodium Chloride 500 ml @ 500 mls/hr 1X ONCE IV Last administered on 08/23/19at 12:11; Start 08/23/19 at 12:30; Stop 08/23/19 at 13:29; Status DC Multivitamins (Thera M Plus) 1 tab DAILY PO Last administered on 08/25/19at 13:36; Start 08/24/19 at 09:00 Sodium Chloride 1,000 ml @ 1,000 mls/hr Q1H PRN IV hypotension; Start 08/24/19 at 09:07; Stop 08/24/19 at 15:06; Status DC Albumin Human 200 ml @ 200 mls/hr 1X PRN PRN IV Hypotension; Start 08/24/19 at 09:15; Stop 08/24/19 at 15:14; Status DC Sodium Chloride (Normal Saline Flush) 10 ml 1X PRN PRN IV AP catheter pack; Start 08/24/19 at 09:15; Stop 08/25/19 at 09:14; Status DC Sodium Chloride (Normal Saline Flush) 10 ml 1X PRN PRN IV NEGATIVE RETOUCHER catheter pack; Start 08/24/19 at 09:15; Stop 08/25/19 at 09:14; Status DC Sodium Chloride 1,000 ml @ 400 mls/hr Q2H30M PRN IV PATENCY; Start 08/24/19 at 09:07; Stop 08/24/19 at 21:06; Status DC Info (PHARMACY MONITORING -- do not chart) 1 each PRN DAILY PRN MC SEE COMMENTS; Start 08/24/19 at 09:15; Status UNV Info (PHARMACY MONITORING -- do not chart) 1 each PRN DAILY PRN MC SEE COMMENTS; Start 08/24/19 at 09:15 Hydromorphone HCl (Dilaudid) 0.5 mg PRN Q3HRS PRN IV PAIN Last administered on 08/25/19at 09:46; Start 08/24/19 at 14:30 Active Scripts Active Reported Lactulose 20 Gm/30 Ml Solution 20 Gm PO BID PRN Probiotic (Lactobacillus Acidophilus) 1 Each Capsule 2 Each PO BID Hydrocodone-Apap 5-325 (Hydrocodone Bit/Acetaminophen) 1 Tab Tablet 1 Tab PO PRN Q6HRS PRN Pepcid (Famotidine) 20 Mg Tablet 20 Mg PO HS Humalog (Insulin Lispro) 100 Unit/1 Ml Vial 4 Unit SQ Q6HRS Meropenem 500 Mg Vial 500 Mg IV QHS Daptomycin 350 Mg Vial 350 Mg IV DAILY Humalog (Insulin Lispro) 100 Unit/1 Ml Cartridge 100 Units SQ Q6HRS Diphenhydramine HCl 50 Mg/1 Ml Cartridge 25 Mg IJ PRN Q4HRS PRN Glutose 15 (Dextrose) 37.5 Gm Gel..gram. 15 Gm PO PRN Q15MIN PRN Retacrit (Epoetin Rajeev-Epbx) 3,000 Unit/1 Ml Vial 3,000 Unit IJ QMWF Renvela (Sevelamer Carbonate) 800 Mg Tablet 800 Mg PO TIDWMEALS Alogliptin (Alogliptin Benzoate) 6.25 Mg Tablet 6.25 Mg PO DAILY Tylenol (Acetaminophen) 325 Mg Tablet 2 Tab PO PRN Q4HRS Lyrica (Pregabalin) 300 Mg Capsule 1 Cap PO BID Clonidine Hcl 0.2 Mg Tablet 1 Tab PO PRN DAILY PRN NITROGLYCERIN SubLingual (Nitroglycerin) 0.4 Mg Tab.subl 1 Tab SL UD Heparin 1,000 Unit/10 (100/ml) (Heparin Sodium,Porcine/Pf) 1,000 Unit/10 Ml Syringe 3.5 Ml IV PRN DAILY PRN Levothyroxine Sodium 100 Mcg Tablet 1 Tab PO DAILY06 Escitalopram Oxalate 10 Mg Tablet 1 Tab PO DAILY Nortriptyline Hcl 25 Mg Capsule 1 Cap PO QHS Atorvastatin Calcium 10 Mg Tablet 1 Tab PO QHS Metoprolol Tartrate 25 Mg Tablet 1 Tab PO BID Lantus (Insulin Glargine,Hum.rec.anlog) 100 Unit/1 Ml Vial 20 Unit SQ DAILY Amiodarone Hcl 200 Mg Tablet 1 Tab PO BID Vitals/I & O Vital Sign - Last 24 Hours 08/24/19 08/24/19 08/24/19 08/24/19 15:00 16:05 16:35 19:00 Temp 97.5 97.6 97.5 97.6 Pulse 57 75 Resp 18 18 B/P (MAP) 115/49 (71) 99/36 (57) Pulse Ox 96 99 O2 Delivery Nasal Cannula Nasal Cannula Nasal Cannula Room Air O2 Flow Rate 2.0 2.0 2.0 08/24/19 08/24/19 08/24/19 08/24/19 20:00 20:40 20:41 23:00 Temp 97.7 97.7 Pulse 57 75 75 Resp 16 B/P (MAP) 115/49 99/36 91/39 (56) Pulse Ox 98 O2 Delivery Nasal Cannula Nasal Cannula O2 Flow Rate 2.0 2.0 08/25/19 08/25/19 08/25/19 08/25/19 03:00 04:17 04:25 05:25 Temp 97.4 97.4 97.4 97.4 Pulse 72 72 Resp 16 16 20 20 B/P (MAP) 90/47 (61) 90/47 (61) Pulse Ox 100 100 O2 Delivery Nasal Cannula Nasal Cannula Nasal Cannula Nasal Cannula O2 Flow Rate 2.0 2.0 08/25/19 08/25/19 08/25/19 08/25/19 07:00 09:00 09:46 10:16 Temp 97.6 97.6 Pulse 64 64 Resp 17 B/P (MAP) 87/48 (61) 87/48 Pulse Ox 96 O2 Delivery Nasal Cannula Nasal Cannula Nasal Cannula O2 Flow Rate 2.0 2.0 2.0 08/25/19 08/25/19 11:00 13:35 Temp 97.8 97.8 Pulse 83 83 Resp 18 B/P (MAP) 86/41 (56) 86/41 Pulse Ox 98 O2 Delivery Nasal Cannula O2 Flow Rate 2.0 Intake and Output 08/24/19 08/24/19 08/25/19 14:59 22:59 06:59 Intake Total 150 ml 1200 ml Balance 150 ml 1200 ml KIANNA KNOTT APRN Aug 25, 2019 14:06
[2019-08-25 15:00] VITALS: BP 84/27
--- NOTE | 2019-08-25 16:44 | PDOC ---
PROGRESS NOTES Objective Objective Vascular Surgery Follow Up: General: Patient examined after wound care has removed wound vac dressings in preparation for patient's transfer to LTAC. Pt awake and alert. Right groin: wound bed has excellent granulation tissue present, red and beefy. Surrounding tissues are healthy. 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 Non-odorous. This is very painful with manipulation and the patient is quite uncomfortable. Assessment/Plan: 1. POD# 9 Debridement and vac placement. - Right groin wound bed is healthy. Continue wound vac therapy. - Right AKA incision with slough material. Too painful to provide any superficial debridement at the bedside. May require further debridement in the future but for now, continue wound vac therapy upon discharge to LTAC. Vital Signs Date Time Temp Pulse Resp B/P (MAP) Pulse Ox O2 Delivery O2 Flow Rate FiO2 08/25/19 16:33 Nasal Cannula 2.0 08/25/19 15:00 97.8 71 18 84/27 (46) 93 97.8 Intake and Output 08/25/19 07:00 Intake Total 1350 ml Balance 1350 ml Intake Oral 200 ml IV Total 1150 ml Comment Review of Relevant I have reviewed the following items karina (where applicable) has been applied. Labs Laboratory Tests Test 08/23/19 16:56 08/23/19 20:48 08/24/19 07:50 08/24/19 14:01 Glucose (Fingerstick) 149 mg/dL (70-99) 160 mg/dL (70-99) 120 mg/dL (70-99) 116 mg/dL (70-99) Test 08/24/19 17:26 08/24/19 21:03 08/25/19 05:35 08/25/19 07:44 Glucose (Fingerstick) 110 mg/dL (70-99) 97 mg/dL (70-99) 87 mg/dL (70-99) White Blood Count 10.5 x10^3/uL (4.0-11.0) Red Blood Count 2.86 x10^6/uL (3.50-5.40) Hemoglobin 8.5 g/dL (12.0-15.5) Hematocrit 26.9 % (36.0-47.0) Mean Corpuscular Volume 94 fL (79-100) Mean Corpuscular Hemoglobin 30 pg (25-35) Mean Corpuscular Hemoglobin Concent 32 g/dL (31-37) Red Cell Distribution Width 18.9 % (11.5-14.5) Platelet Count 125 x10^3/uL (140-400) Neutrophils (%) (Auto) 64 % (31-73) Lymphocytes (%) (Auto) 28 % (24-48) Monocytes (%) (Auto) 7 % (0-9) Eosinophils (%) (Auto) 1 % (0-3) Basophils (%) (Auto) 1 % (0-3) Neutrophils # (Auto) 6.7 x10^3/uL (1.8-7.7) Lymphocytes # (Auto) 2.9 x10^3/uL (1.0-4.8) Monocytes # (Auto) 0.7 x10^3/uL (0.0-1.1) Eosinophils # (Auto) 0.1 x10^3/uL (0.0-0.7) Basophils # (Auto) 0.1 x10^3/uL (0.0-0.2) Sodium Level 142 mmol/L (136-145) Potassium Level 3.7 mmol/L (3.5-5.1) Chloride Level 107 mmol/L (98-107) Carbon Dioxide Level 26 mmol/L (21-32) Anion Gap 9 (6-14) Blood Urea Nitrogen 16 mg/dL (7-20) Creatinine 1.7 mg/dL (0.6-1.0) Estimated GFR (Cockcroft-Gault) 30.0 BUN/Creatinine Ratio 9 (6-20) Glucose Level 109 mg/dL (70-99) Calcium Level 7.6 mg/dL (8.5-10.1) Total Bilirubin 0.3 mg/dL (0.2-1.0) Aspartate Amino Transf (AST/SGOT) 36 U/L (15-37) Alanine Aminotransferase (ALT/SGPT) 7 U/L (14-59) Alkaline Phosphatase 231 U/L (46-116) Creatine Kinase 33 U/L (26-192) Total Protein 4.9 g/dL (6.4-8.2) Albumin 0.7 g/dL (3.4-5.0) Albumin/Globulin Ratio 0.2 (1.0-1.7) Test 08/25/19 12:53 Glucose (Fingerstick) 108 mg/dL (70-99) Laboratory Tests Test 08/24/19 17:26 08/24/19 21:03 08/25/19 05:35 08/25/19 07:44 Glucose (Fingerstick) 110 mg/dL (70-99) 97 mg/dL (70-99) 87 mg/dL (70-99) White Blood Count 10.5 x10^3/uL (4.0-11.0) Red Blood Count 2.86 x10^6/uL (3.50-5.40) Hemoglobin 8.5 g/dL (12.0-15.5) Hematocrit 26.9 % (36.0-47.0) Mean Corpuscular Volume 94 fL (79-100) Mean Corpuscular Hemoglobin 30 pg (25-35) Mean Corpuscular Hemoglobin Concent 32 g/dL (31-37) Red Cell Distribution Width 18.9 % (11.5-14.5) Platelet Count 125 x10^3/uL (140-400) Neutrophils (%) (Auto) 64 % (31-73) Lymphocytes (%) (Auto) 28 % (24-48) Monocytes (%) (Auto) 7 % (0-9) Eosinophils (%) (Auto) 1 % (0-3) Basophils (%) (Auto) 1 % (0-3) Neutrophils # (Auto) 6.7 x10^3/uL (1.8-7.7) Lymphocytes # (Auto) 2.9 x10^3/uL (1.0-4.8) Monocytes # (Auto) 0.7 x10^3/uL (0.0-1.1) Eosinophils # (Auto) 0.1 x10^3/uL (0.0-0.7) Basophils # (Auto) 0.1 x10^3/uL (0.0-0.2) Sodium Level 142 mmol/L (136-145) Potassium Level 3.7 mmol/L (3.5-5.1) Chloride Level 107 mmol/L (98-107) Carbon Dioxide Level 26 mmol/L (21-32) Anion Gap 9 (6-14) Blood Urea Nitrogen 16 mg/dL (7-20) Creatinine 1.7 mg/dL (0.6-1.0) Estimated GFR (Cockcroft-Gault) 30.0 BUN/Creatinine Ratio 9 (6-20) Glucose Level 109 mg/dL (70-99) Calcium Level 7.6 mg/dL (8.5-10.1) Total Bilirubin 0.3 mg/dL (0.2-1.0) Aspartate Amino Transf (AST/SGOT) 36 U/L (15-37) Alanine Aminotransferase (ALT/SGPT) 7 U/L (14-59) Alkaline Phosphatase 231 U/L (46-116) Creatine Kinase 33 U/L (26-192) Total Protein 4.9 g/dL (6.4-8.2) Albumin 0.7 g/dL (3.4-5.0) Albumin/Globulin Ratio 0.2 (1.0-1.7) Test 08/25/19 12:53 Glucose (Fingerstick) 108 mg/dL (70-99) Medications Current Medications Fentanyl Citrate (Fentanyl 2ml Vial) 25 mcg PRN Q5MIN PRN IV MILD PAIN 1-3 Last administered on 08/16/19at 14:27; Start 08/16/19 at 08:30; Stop 08/17/19 at 08:29; Status DC Fentanyl Citrate (Fentanyl 2ml Vial) 50 mcg PRN Q5MIN PRN IV MODERATE TO SEVERE PAIN Last administered on 08/16/19at 14:35; Start 08/16/19 at 08:30; Stop 08/17/19 at 08:29; Status DC Morphine Sulfate (Morphine Sulfate) 1 mg PRN Q10MIN PRN IV SEVERE PAIN 7-10; Start 08/16/19 at 08:30; Stop 08/17/19 at 08:29; Status DC Ringer's Solution 1,000 ml @ 30 mls/hr Q24H IV ; Start 08/16/19 at 08:25; Stop 08/16/19 at 20:24; Status Cancel Lidocaine HCl (Xylocaine-Mpf 1% 2ml Vial) 2 ml PRN 1X PRN ID PRIOR TO IV START; Start 08/16/19 at 08:30; Stop 08/17/19 at 08:29; Status DC Hydromorphone HCl (Dilaudid) 0.5 mg PRN Q10MIN PRN IV SEV PAIN, Second choice; Start 08/16/19 at 08:30; Stop 08/17/19 at 08:29; Status DC Prochlorperazine Edisylate (Compazine) 5 mg PACU PRN PRN IV NAUSEA, MRX1; Start 08/16/19 at 08:30; Stop 08/17/19 at 08:29; Status DC Cefazolin Sodium/ Dextrose 50 ml @ 100 mls/hr 1X ONCE IV Last administered on 08/16/19at 11:55; Start 08/16/19 at 10:00; Stop 08/16/19 at 10:29; Status DC Insulin Human Lispro (HumaLOG VIAL for OP,RR ONLY) 0-10 units PRN Q1HR PRN SQ PER PROTOCOL Last administered on 08/16/19at 14:38; Start 08/16/19 at 10:30; Stop 08/17/19 at 10:29; Status DC Heparin Sodium (Porcine) 5000 unit/Sodium Chloride 505 ml @ 505 mls/hr 1X ONCE IRR ; Start 08/16/19 at 11:00; Stop 08/16/19 at 11:59; Status DC Cefazolin Sodium 1 gm/Sodium Chloride 500 ml @ 500 mls/hr 1X ONCE IRR Last administered on 08/16/19at 12:19; Start 08/16/19 at 11:00; Stop 08/16/19 at 11:59; Status DC Sodium Chloride 1,000 ml @ 75 mls/hr [id number] IV Last administered on 08/25/19at 05:05; Start 08/16/19 at 10:45 Propofol 20 ml @ As Directed STK-MED ONCE IV ; Start 08/16/19 at 11:10; Stop 08/16/19 at 11:11; Status DC Lidocaine HCl (Lidocaine Pf 2% Vial) 5 ml STK-MED ONCE .ROUTE ; Start 08/16/19 at 11:10; Stop 08/16/19 at 11:11; Status DC Rocuronium Redford (Zemuron) 50 mg STK-MED ONCE .ROUTE ; Start 08/16/19 at 11:10; Stop 08/16/19 at 11:11; Status DC Fentanyl Citrate (Fentanyl 2ml Vial) 100 mcg STK-MED ONCE .ROUTE ; Start 08/16/19 at 11:11; Stop 08/16/19 at 11:11; Status DC Cellulose (Surgicel Fibrillar 1x2) 1 each STK-MED ONCE .ROUTE ; Start 08/16/19 at 11:38; Stop 08/16/19 at 11:38; Status DC Ondansetron HCl (Zofran) 4 mg STK-MED ONCE .ROUTE ; Start 08/16/19 at 12:14; Stop 08/16/19 at 12:14; Status DC Phenylephrine HCl (PHENYLEPHRINE in 0.9% NACL PF) 1 mg STK-MED ONCE IV ; Start 08/16/19 at 12:14; Stop 08/16/19 at 12:14; Status DC Desflurane (Suprane) 30 ml STK-MED ONCE IH ; Start 08/16/19 at 12:14; Stop 08/16/19 at 12:14; Status DC Cefazolin Sodium 1 gm/Sodium Chloride 1,000 ml @ 1,000 mls/hr 1X ONCE IRR Last administered on 08/16/19at 13:17; Start 08/16/19 at 13:00; Stop 08/16/19 at 13:59; Status DC Cefazolin Sodium 1 gm/Sodium Chloride 1,000 ml @ 1,000 mls/hr 1X ONCE IRR ; Start 08/16/19 at 12:30; Stop 08/16/19 at 13:29; Status DC Phenylephrine HCl (Von-Synephrine Inj) 10 mg STK-MED ONCE .ROUTE ; Start 08/16/19 at 12:29; Stop 08/16/19 at 12:29; Status DC Ondansetron HCl (Zofran) 4 mg STK-MED ONCE .ROUTE ; Start 08/16/19 at 13:11; Stop 08/16/19 at 13:11; Status DC Desflurane (Suprane) 60 ml STK-MED ONCE IH ; Start 08/16/19 at 13:11; Stop 08/16/19 at 13:11; Status DC Acetaminophen (Tylenol) 650 mg PRN Q4HRS PRN PO MILD PAIN / TEMP Last administered on 08/21/19at 05:31; Start 08/16/19 at 14:00 Amiodarone HCl (Cordarone) 200 mg BID PO Last administered on 08/25/19at 13:35; Start 08/16/19 at 21:00 Atorvastatin Calcium (Lipitor) 10 mg QHS PO Last administered on 08/24/19 20:39; Start 08/16/19 at 21:00 Clonidine HCl (Catapres) 0.2 mg PRN DAILY PRN PO DIALYSIS/HYPERTENSION; Start 08/16/19 at 14:00 Glucose (Insta-Glucose) 15 gm PRN Q15MIN PRN PO LOW BLOOD SUGAR; Start 08/16/19 at 14:00 Famotidine (Pepcid) 20 mg HS PO Last administered on 08/24/19 20:39; Start 08/16/19 at 21:00 Acetaminophen/ Hydrocodone Bitart (Lortab 5/325) 1 tab PRN Q6HRS PRN PO MODERATE - SEVERE PAIN Last administered on 08/25/19 04:25; Start 08/16/19 at 14:00 Lactulose (Lactulose) 20 gm PRN BID PRN PO CONSTIPATION; Start 08/16/19 at 14:00 Levothyroxine Sodium (Synthroid) 100 mcg DAILY06 PO Last administered on 08/25/19 04:25; Start 08/17/19 at 06:00 Meropenem (Merrem) 500 mg QHS IV ; Start 08/16/19 at 21:00; Status UNV Metoprolol Tartrate (Lopressor) 25 mg BID PO Last administered on 08/24/19 20:40; Start 08/16/19 at 21:00 Nitroglycerin (Nitrostat) 0.4 mg PRN Q10MIN PRN SL CHEST PAIN; Start 08/16/19 at 14:00 Nortriptyline HCl (Pamelor) 25 mg QHS PO Last administered on 08/24/19 20:39; Start 08/16/19 at 21:00 Senna/Docusate Sodium (Senna Plus) 1 tab BID PO Last administered on 08/24/19 20:39; Start 08/16/19 at 21:00; Stop 08/25/19 at 09:41; Status DC Sevelamer Carbonate (Renvela) 800 mg TIDWMEALS PO Last administered on 08/16 13:35; Start 08/16/19 at 17:00 Linagliptin (Tradjenta) 5 mg DAILY PO Last administered on 08/25/19 13:36; Start 08/17/19 at 09:00 Non-Formulary Medication (Daptomycin ) 350 mg DAILY IV ; Start 08/17/19 at 09:00; Status UNV Diphenhydramine HCl (Benadryl) 25 mg PRN Q6HRS PRN IV ITCHING; Start 08/16/19 at 14:15 Darbepoetin Rajeev (ARANESP for DIALYSIS PTS) 25 mcg WEEKLYHS SQ Last administered on 08/24/19at 23:05; Start 08/17/19 at 21:00 Citalopram Hydrobromide (CeleXA) 20 mg DAILY PO Last administered on 08/25/19 13:35; Start 08/17/19 at 09:00 Non-Formulary Medication (Heparin Sodium,Porcine/Pf (Heparin 1,000 Unit/10 (100/ ml))) 3.5 ml PRN DAILY PRN IV DIALYSIS; Start 08/16/19 at 14:00; Status UNV Lactobacillus Rhamnosus (Culturelle) 1 cap BID PO Last administered on 08/25/19 13:36; Start 08/16/19 at 21:00 Pregabalin (Lyrica) 300 mg BID PO Last administered on 08/25/19 13:35; Start 08/16/19 at 21:00 Non-Formulary Medication ([anidulafungin 100mg] ) 100 mg QHS IV ; Start 08/16/19 at 21:00; Status UNV Non-Formulary Medication ([clorpactin 2gm powd] ) 1 gm DAILY TOP ; Start 08/17/19 at 09:00; Status UNV Meropenem 500 mg/ Sodium Chloride 50 ml @ 100 mls/hr QHS IV Last administered on 08/24/19at 20:38; Start 08/16/19 at 21:00 Micafungin Sodium 100 mg/Dextrose 100 ml @ 100 mls/hr QHS IV Last administered on 08/24/19at 23:04; Start 08/16/19 at 21:00 Daptomycin 350 mg/ Sodium Chloride 50 ml @ 100 mls/hr QMWF IV Last administered on 08/24/19at 17:04; Start 08/17/19 at 16:00 Sodium Chloride 1,000 ml @ 1,000 mls/hr Q1H PRN IV hypotension; Start 08/17/19 at 13:43; Stop 08/17/19 at 19:42; Status DC Albumin Human 200 ml @ 200 mls/hr 1X PRN PRN IV Hypotension; Start 08/17/19 at 13:45; Stop 08/17/19 at 19:44; Status DC Sodium Chloride (Normal Saline Flush) 10 ml 1X PRN PRN IV AP catheter pack; Start 08/17/19 at 13:45; Stop 08/18/19 at 13:44; Status DC Sodium Chloride (Normal Saline Flush) 10 ml 1X PRN PRN IV HAMMER OPERATOR catheter pack; Start 08/17/19 at 13:45; Stop 08/18/19 at 13:44; Status DC Sodium Chloride 1,000 ml @ 400 mls/hr Q2H30M PRN IV PATENCY; Start 08/17/19 at 13:43; Stop 08/18/19 at 01:42; Status DC Info (PHARMACY MONITORING -- do not chart) 1 each PRN DAILY PRN MC SEE COMMENTS; Start 08/17/19 at 13:45; Status UNV Info (PHARMACY MONITORING -- do not chart) 1 each PRN DAILY PRN MC SEE COMMENTS; Start 08/17/19 at 13:45 Sodium Hypochlorite (Dakin'S 1/4 Strength) 1 brandon DAILY TP Last administered on 08/25/19at 13:36; Start 08/19/19 at 09:00 Nystatin (Nystop) 1 brandon BID TP Last administered on 08/25/19at 13:36; Start 08/19/19 at 09:00 Sodium Chloride 1,000 ml @ 1,000 mls/hr Q1H PRN IV hypotension; Start 08/19/19 at 10:54; Stop 08/19/19 at 16:53; Status DC Albumin Human 200 ml @ 200 mls/hr 1X PRN PRN IV Hypotension; Start 08/19/19 at 11:00; Stop 08/19/19 at 16:59; Status DC Sodium Chloride (Normal Saline Flush) 10 ml 1X PRN PRN IV AP catheter pack; Start 08/19/19 at 11:00; Stop 08/20/19 at 10:59; Status DC Sodium Chloride (Normal Saline Flush) 10 ml 1X PRN PRN IV HAMMER OPERATOR catheter pack; Start 08/19/19 at 11:00; Stop 08/20/19 at 10:59; Status DC Sodium Chloride 1,000 ml @ 400 mls/hr Q2H30M PRN IV PATENCY; Start 08/19/19 at 10:54; Stop 08/19/19 at 22:53; Status DC Info (PHARMACY MONITORING -- do not chart) 1 each PRN DAILY PRN MC SEE COMMENTS; Start 08/19/19 at 11:00; Status UNV Info (PHARMACY MONITORING -- do not chart) 1 each PRN DAILY PRN MC SEE COMMENTS; Start 08/19/19 at 11:00; Status UNV Sodium Chloride 1,000 ml @ 1,000 mls/hr Q1H PRN IV hypotension; Start 08/22/19 at 17:40; Stop 08/22/19 at 23:39; Status DC Sodium Chloride 1,000 ml @ 400 mls/hr Q2H30M PRN IV PATENCY; Start 08/22/19 at 17:40; Stop 08/23/19 at 05:39; Status DC Info (PHARMACY MONITORING -- do not chart) 1 each PRN DAILY PRN MC SEE COMMENTS; Start 08/22/19 at 17:45; Status UNV Info (PHARMACY MONITORING -- do not chart) 1 each PRN DAILY PRN MC SEE COMMENTS; Start 08/22/19 at 17:45; Status Cancel Sodium Chloride 500 ml @ 500 mls/hr 1X ONCE IV Last administered on 08/23/19at 09:38; Start 08/23/19 at 09:30; Stop 08/23/19 at 10:29; Status DC Sodium Chloride 500 ml @ 500 mls/hr 1X ONCE IV Last administered on 08/23/19at 12:11; Start 08/23/19 at 12:30; Stop 08/23/19 at 13:29; Status DC Multivitamins (Thera M Plus) 1 tab DAILY PO Last administered on 08/25/19at 13:36; Start 08/24/19 at 09:00 Sodium Chloride 1,000 ml @ 1,000 mls/hr Q1H PRN IV hypotension; Start 08/24/19 at 09:07; Stop 08/24/19 at 15:06; Status DC Albumin Human 200 ml @ 200 mls/hr 1X PRN PRN IV Hypotension; Start 08/24/19 at 09:15; Stop 08/24/19 at 15:14; Status DC Sodium Chloride (Normal Saline Flush) 10 ml 1X PRN PRN IV AP catheter pack; Start 08/24/19 at 09:15; Stop 08/25/19 at 09:14; Status DC Sodium Chloride (Normal Saline Flush) 10 ml 1X PRN PRN IV HAMMER OPERATOR catheter pack; Start 08/24/19 at 09:15; Stop 08/25/19 at 09:14; Status DC Sodium Chloride 1,000 ml @ 400 mls/hr Q2H30M PRN IV PATENCY; Start 08/24/19 at 09:07; Stop 08/24/19 at 21:06; Status DC Info (PHARMACY MONITORING -- do not chart) 1 each PRN DAILY PRN MC SEE COMMENTS; Start 08/24/19 at 09:15; Status UNV Info (PHARMACY MONITORING -- do not chart) 1 each PRN DAILY PRN MC SEE COMMENTS; Start 08/24/19 at 09:15 Hydromorphone HCl (Dilaudid) 0.5 mg PRN Q3HRS PRN IV PAIN Last administered on 08/25/19at 16:33; Start 08/24/19 at 14:30 Active Scripts Active Reported Lactulose 20 Gm/30 Ml Solution 20 Gm PO BID PRN Probiotic (Lactobacillus Acidophilus) 1 Each Capsule 2 Each PO BID Hydrocodone-Apap 5-325 (Hydrocodone Bit/Acetaminophen) 1 Tab Tablet 1 Tab PO PRN Q6HRS PRN Pepcid (Famotidine) 20 Mg Tablet 20 Mg PO HS Humalog (Insulin Lispro) 100 Unit/1 Ml Vial 4 Unit SQ Q6HRS Meropenem 500 Mg Vial 500 Mg IV QHS Daptomycin 350 Mg Vial 350 Mg IV DAILY Humalog (Insulin Lispro) 100 Unit/1 Ml Cartridge 100 Units SQ Q6HRS Diphenhydramine HCl 50 Mg/1 Ml Cartridge 25 Mg IJ PRN Q4HRS PRN Glutose 15 (Dextrose) 37.5 Gm Gel..gram. 15 Gm PO PRN Q15MIN PRN Retacrit (Epoetin Rajeev-Epbx) 3,000 Unit/1 Ml Vial 3,000 Unit IJ QMWF Renvela (Sevelamer Carbonate) 800 Mg Tablet 800 Mg PO TIDWMEALS Alogliptin (Alogliptin Benzoate) 6.25 Mg Tablet 6.25 Mg PO DAILY Tylenol (Acetaminophen) 325 Mg Tablet 2 Tab PO PRN Q4HRS Lyrica (Pregabalin) 300 Mg Capsule 1 Cap PO BID Clonidine Hcl 0.2 Mg Tablet 1 Tab PO PRN DAILY PRN NITROGLYCERIN SubLingual (Nitroglycerin) 0.4 Mg Tab.subl 1 Tab SL UD Heparin 1,000 Unit/10 (100/ml) (Heparin Sodium,Porcine/Pf) 1,000 Unit/10 Ml Syringe 3.5 Ml IV PRN DAILY PRN Levothyroxine Sodium 100 Mcg Tablet 1 Tab PO DAILY06 Escitalopram Oxalate 10 Mg Tablet 1 Tab PO DAILY Nortriptyline Hcl 25 Mg Capsule 1 Cap PO QHS Atorvastatin Calcium 10 Mg Tablet 1 Tab PO QHS Metoprolol Tartrate 25 Mg Tablet 1 Tab PO BID Lantus (Insulin Glargine,Hum.rec.anlog) 100 Unit/1 Ml Vial 20 Unit SQ DAILY Amiodarone Hcl 200 Mg Tablet 1 Tab PO BID Vitals/I & O Vital Sign - Last 24 Hours 08/24/19 08/24/19 08/24/19 08/24/19 19:00 20:00 20:40 20:41 Temp 97.6 97.6 Pulse 75 57 75 Resp 18 B/P (MAP) 99/36 (57) 115/49 99/36 Pulse Ox 99 O2 Delivery Room Air Nasal Cannula O2 Flow Rate 2.0 08/24/19 08/25/19 08/25/19 08/25/19 23:00 03:00 04:17 04:25 Temp 97.7 97.4 97.4 97.7 97.4 97.4 Pulse 75 72 72 Resp 16 16 16 20 B/P (MAP) 91/39 (56) 90/47 (61) 90/47 (61) Pulse Ox 98 100 100 O2 Delivery Nasal Cannula Nasal Cannula Nasal Cannula Nasal Cannula O2 Flow Rate 2.0 2.0 2.0 08/25/19 08/25/19 08/25/19 08/25/19 05:25 07:00 09:00 09:46 Temp 97.6 97.6 Pulse 64 64 Resp 20 17 B/P (MAP) 87/48 (61) 87/48 Pulse Ox 96 O2 Delivery Nasal Cannula Nasal Cannula Nasal Cannula O2 Flow Rate 2.0 2.0 08/25/19 08/25/19 08/25/19 08/25/19 10:16 11:00 13:35 15:00 Temp 97.8 97.8 97.8 97.8 Pulse 83 83 71 Resp 18 18 B/P (MAP) 86/41 (56) 86/41 84/27 (46) Pulse Ox 98 93 O2 Delivery Nasal Cannula Nasal Cannula Nasal Cannula O2 Flow Rate 2.0 2.0 2.0 08/25/19 16:33 O2 Delivery Nasal Cannula O2 Flow Rate 2.0 Intake and Output 08/24/19 08/24/19 08/25/19 15:00 23:00 07:00 Intake Total 150 ml 1200 ml Balance 150 ml 1200 ml KIANNA KNOTT APRN Aug 25, 2019 16:44
[2019-08-25 19:00] VITALS: BP 82/36
--- NOTE | 2019-08-25 20:58 | NUR ---
Discharge Note: [facility] Discharge instructions and discharge home medications reviewed with Other facility and a copy given. All questions have been answered and understanding verbalized. The following instructions and handouts were given: Medication list, follow-up instructions, diet, activity, etc. Patient discharged to [facility] via stretcher with [facility] Department at 2049.
[2019-09-29] MEDS ORDERED: OLAN5TAB9 PO (08:53)
[2019-09-29] MEDS ORDERED: FERR325T14 PO (08:53)
[2019-09-29] MEDS ORDERED: [UNRECOGNIZED DRUG - OTHER] TOP (08:53)
[2019-09-29] MEDS ORDERED: MULT-735 PO (08:53)
[2019-09-29] MEDS ORDERED: TOLN113. TP (08:53)
[2019-09-29] MEDS ORDERED: ESCITALOPRAM OX10 MG PO (08:53)
== END 2019-08-25 20:50 | DRG 463 ==
LOC: OPSVCIP 09:31 → 6 SOUTH 16:10 → 5 SOUTH 08-23 18:38
PROVIDERS: ADMIT Family Medicine; ATTEND Family Medicine
PROC: 0QB10ZZ Excision of Sacrum, Open Approach (ICD-10-PCS; 2019-08-16)
PROC: 0HBAXZZ Excision of Inguinal Skin, External Approach (ICD-10-PCS; 2019-08-16)
PROC: 0JBC0ZZ Excision of Pelvic Region Subcutaneous Tissue and Fascia, Open Approach (ICD-10-PCS; principal; 2019-08-16 12:00)
PROC: 0JBN0ZZ Excision of Right Lower Leg Subcutaneous Tissue and Fascia, Open Approach (ICD-10-PCS; 2019-08-16 12:00)
PROC: 30233N1 Transfusion of Nonautologous Red Blood Cells into Peripheral Vein, Percutaneous Approach (ICD-10-PCS; 2019-08-18)
DX: T87.43 Infection of amputation stump, right lower extremity (principal); A41.9 Sepsis, unspecified organism; J96.20 Acute and chronic respiratory failure, unspecified whether with hypoxia or hypercapnia; N18.6 End stage renal disease; T81.30XA Disruption of wound, unspecified, initial encounter; E11.52 Type 2 diabetes mellitus with diabetic peripheral angiopathy with gangrene; E46 Unspecified protein-calorie malnutrition; Z68.42 Body mass index [BMI] 45.0-49.9, adult; G93.40 Encephalopathy, unspecified; I13.2 Hypertensive heart and chronic kidney disease with heart failure and with stage 5 chronic kidney disease, or end stage renal disease; L89.159 Pressure ulcer of sacral region, unspecified stage; A63.0 Anogenital (venereal) warts; D64.9 Anemia, unspecified; E03.9 Hypothyroidism, unspecified; E11.22 Type 2 diabetes mellitus with diabetic chronic kidney disease; E66.01 Morbid (severe) obesity due to excess calories; I27.20 Pulmonary hypertension, unspecified; I48.91 Unspecified atrial fibrillation; I50.9 Heart failure, unspecified; J44.9 Chronic obstructive pulmonary disease, unspecified; R13.10 Dysphagia, unspecified; Z66 Do not resuscitate; Z86.14 Personal history of Methicillin resistant Staphylococcus aureus infection; Z86.718 Personal history of other venous thrombosis and embolism; Z89.511 Acquired absence of right leg below knee; Z99.2 Dependence on renal dialysis; E21.3 Hyperparathyroidism, unspecified; I95.9 Hypotension, unspecified; Z91.041 Radiographic dye allergy status; N28.9 Disorder of kidney and ureter, unspecified
CPT/HCPCS: 36415; 80048; 80053; 82550; 82962; 85014; 85018; 85025; 85027; 85610; 85730; 86850; 86900; 86901; 86920; 88304; 88305; 88311; A7015; J0696; J0878; J0882; J1170; J1815; J2001; J2185; J2248; J2370; J2405; J2704; J3010; J7030; J7040; P9016; A4461; G0378